=== PATIENT | female | born 1985 | race Caucasian/White ===

== ENCOUNTER 2017-06-23 03:15 | Inpatient (IN) | payer BC, SELFPAY ==
[2017-06-23] MEDS: Lactated Ringers 1,000 ML 50 ML IV ×3 (03:30→06:49)
[2017-06-23 03:45] LABS: Hematocrit 34.7 % (37-47); Hemoglobin 11.1 g/dl (12.0-15.0); Mean Corpuscular Hgb 27.1 pg (27.0-32.0); Mean Corpuscular Volume 84.8 fL (81-99); Platelet Count 217 K/mm3 (150-450); RBC Distribution Width CV 14.1 % (11.6-14.6); Red Blood Count 4.09 M/mm3 (4.2-5.4); White Blood Count 7.8 K/mm3 (4.4-11.0)
[2017-06-23 03:48] LABS: Scan Indicated on CBC? Y/N NO
[2017-06-23 03:50] VITALS: BMI 30.3
--- NOTE | 2017-06-23 04:29 | PCM.HP.OB ---
- Problem List (1) Active labor at term Status: Acute History Date of Admission: 06/23/17 Final BERNIE: 06/23/17 Final BERNIE Source: LMP Gestational age: 40 Weeks and 0 Days History of this : Unremarkable antepartum course. Patient presents to L+D reporting regular ctx q 3-5 minutes apart that started at 0100. Patient denies LOF but reports +bloody show. +FM felt by patient. Pertinent Past Medical History: Noncontributory See [facility] in Chart Allergies No Known Allergies Allergy (Verified 06/23/17 03:50) Current Medications Acetaminophen (Tylenol) 325 - 650 mg PO Q4H PRN PRN PRN Reason: PAIN OR FEVER >100.4F Al Hydroxide/Mg Hydroxide (Mylanta Ii) 15 - 30 ml PO Q4H PRN PRN PRN Reason: INDIGESTION Citric Acid/Sodium Citrate (Bicitra) 30 ml PO UD PRN Lactated Ringer's () 1,000 mls @ 50 mls/hr IV .Q20H [facility] Last Admin: 06/23/17 03:30 Dose: 50 mls/hr Nalbuphine HCl (Nubain) 5 - 10 mg IV Q3H PRN PRN PRN Reason: PAIN (4-10/10) Ondansetron HCl (Zofran) 4 mg IV Q8H PRN PRN PRN Reason: NAUSEA Promethazine HCl (Phenergan Iv) 6.25 - 12.5 mg IV Q4H PRN PRN; Protocol PRN Reason: IF NAUSEA PERSISTS Sodium Chloride () 5 - 15 ml IV UD [facility] Last Admin: 06/23/17 04:09 Dose: Not Given Smoking Status: Never smoker Alcohol: None Drug Use: none Number of Fetus(es): 1 Review of Systems Constitutional: Denies: Chills, Fever, Weight Change HEENT: Denies: Head Aches, Sinus Congestion, Sinus Drainage Cardiovascular: Denies: Chest Pain, Palpitations Respiratory: Denies: Cough, Shortness of breath at rest, Sputum production Gastrointestinal: Denies: Abdominal Pain, Nausea, Vomiting Genitourinary: Denies: Dysuria Gynecological: Denies: Vaginal bleeding, Vaginal discharge Musculoskeletal: Denies: Joint Pain, Joint Tenderness Skin: Denies: Rash, Wounds Neurological: Denies: Numbness, Tingling, Focal weakness Psychiatric: Denies: Anxiety, Depression, Homicidal Ideations, Suicidal Ideations Hematologic/ Lymphatic: Denies: Easy Bruising, Easy Bleeding Physical Exam Vitals: See Nursing Note for Vital Signs - patient normotensive and afebrile FHT baseline 130, moderate variability, + accels, no decels Ctx q 2-5 minutes, palpate moderate strong General: Alert, Oriented x3, No apparent distress Cardiovascular: Regular rate, Regular Rhythm Lungs: Normal air movement Abdomen: Non Tender, Gravid, Appropriate for Gestational Age Extremities:: No edema Estimated gestational size: Appropriate for gestational size Presentation: Cephalic Cervix Dilation (cm): 3.5 Station: -2 Effacement (%): 70 Assessment/Plan Active and Suspected Problems Active labor at term (Acute) A: 32 y/o @ 40 weeks, Active Labor P: 1) Admit patient for labor 2) Patient desires epidural - IV start and fluid bolus administered per protocol. T+S, CBC drawn. 3) Encourage position changes and PO hydration 4) Expectant Management 5) Anticipate Basia Gordon CNM
--- NOTE | 2017-06-23 04:39 | HP.PCM_ITS ---
- Problem List (1) Active labor at term Status: Acute History Date of Admission: 06/23/17 Final BERNIE: 06/23/17 Final BERNIE Source: LMP Gestational age: 40 Weeks and 0 Days History of this : Unremarkable antepartum course. Patient presents to L+D reporting regular ctx q 3-5 minutes apart that started at 0100. Patient denies LOF but reports +bloody show. +FM felt by patient. Pertinent Past Medical History: Noncontributory See [facility] in Chart Allergies No Known Allergies Allergy (Verified 06/23/17 03:50) Current Medications Acetaminophen (Tylenol) 325 - 650 mg PO Q4H PRN PRN PRN Reason: PAIN OR FEVER >100.4F Al Hydroxide/Mg Hydroxide (Mylanta Ii) 15 - 30 ml PO Q4H PRN PRN PRN Reason: INDIGESTION Citric Acid/Sodium Citrate (Bicitra) 30 ml PO UD PRN Lactated Ringer's () 1,000 mls @ 50 mls/hr IV .Q20H [facility] Last Admin: 06/23/17 03:30 Dose: 50 mls/hr Nalbuphine HCl (Nubain) 5 - 10 mg IV Q3H PRN PRN PRN Reason: PAIN (4-10/10) Ondansetron HCl (Zofran) 4 mg IV Q8H PRN PRN PRN Reason: NAUSEA Promethazine HCl (Phenergan Iv) 6.25 - 12.5 mg IV Q4H PRN PRN; Protocol PRN Reason: IF NAUSEA PERSISTS Sodium Chloride () 5 - 15 ml IV UD [facility] Last Admin: 06/23/17 04:09 Dose: Not Given Smoking Status: Never smoker Alcohol: None Drug Use: none Number of Fetus(es): 1 Review of Systems Constitutional: Denies: Chills, Fever, Weight Change HEENT: Denies: Head Aches, Sinus Congestion, Sinus Drainage Cardiovascular: Denies: Chest Pain, Palpitations Respiratory: Denies: Cough, Shortness of breath at rest, Sputum production Gastrointestinal: Denies: Abdominal Pain, Nausea, Vomiting Genitourinary: Denies: Dysuria Gynecological: Denies: Vaginal bleeding, Vaginal discharge Musculoskeletal: Denies: Joint Pain, Joint Tenderness Skin: Denies: Rash, Wounds Neurological: Denies: Numbness, Tingling, Focal weakness Psychiatric: Denies: Anxiety, Depression, Homicidal Ideations, Suicidal Ideations Hematologic/ Lymphatic: Denies: Easy Bruising, Easy Bleeding Physical Exam Vitals: See Nursing Note for Vital Signs - patient normotensive and afebrile FHT baseline 130, moderate variability, + accels, no decels Ctx q 2-5 minutes, palpate moderate strong General: Alert, Oriented x3, No apparent distress Cardiovascular: Regular rate, Regular Rhythm Lungs: Normal air movement Abdomen: Non Tender, Gravid, Appropriate for Gestational Age Extremities:: No edema Estimated gestational size: Appropriate for gestational size Presentation: Cephalic Cervix Dilation (cm): 3.5 Station: -2 Effacement (%): 70 Assessment/Plan Active and Suspected Problems Active labor at term (Acute) A: 32 y/o @ 40 weeks, Active Labor P: 1) Admit patient for labor 2) Patient desires epidural - IV start and fluid bolus administered per protocol. T+S, CBC drawn. 3) Encourage position changes and PO hydration 4) Expectant Management 5) Anticipate Basia Gordon CNM
[2017-06-23] MEDS: fentaNYL-bupivacaine (epidural) 100 ML BAG EPIDURAL (05:11)
--- NOTE | 2017-06-23 06:02 | PCM.PN.BLA ---
Progress Note S: Patient comfortable after epidural received. Decision made to do SVE and offer AROM at this time. O: VSS, Afebrile FHT baseline 125 baseline, moderate variability, + accels, no decels Ctx q 2-4 minutes, palpate moderately strong SVE = 5/90/-1, AROM for scant pink-tinged fluid A: 32 y/o @ 40 weeks, Active Labor, Category I FHT P: 1) Continue present management 2) Anticipate Basia Gordon CNM
[2017-06-23] MEDS: Ondansetron 4 MG/2 ML Vial IV (06:47)
--- NOTE | 2017-06-23 09:13 | PCM.OB.VAG ---
Vaginal Delivery Maternal Presentation: Active Labor Amniotic Membrane Rupture Type: Artificial Final BERNIE: 06/23/17 Gestational age: 40 Weeks and 0 Days Date of Procedure: 06/23/17 Pre-Operative Diagnosis: Labor Post-Operative Diagnosis: Labor Surgery/ Procedure Performed: Spontaneous Vaginal Delivery Type of Anesthesia: Epidural Description of Procedure: Patient c/c/+1 and pushing well. Patient in stirrups, prepped & draped. She delivered head. Gentle traction placed on head to allow delivery of anterior & posterior shoulders. No excess traction placed on head. Body delivered easily & infant placed on maternal abdomen. 3VC clamped & cut in delayed fashion. Placenta delivered with gentle traction. Good uterine tone obtained. Presentation: JANET Placenta Disposition: [facility] Cord Vessel Description: 3 Vessels Cord Entanglement: None Estimated Blood Loss: 350ml (1 minute): 9 (5 minute): 9 Episiotomy Description: None Laceration: 2nd degree - perineal - repaired with 3-0 vicryl Medications given after delivery: IV Pitocin Complications: None
[2017-06-23 17:13] VITALS: BP 122/59; PULSE 80; RESP 16; TEMP 37.2
[2017-06-23 19:50] VITALS: BP 122/66; PULSE 80; RESP 16; TEMP 36.8; O2SAT 100
[2017-06-23] MEDS: Naproxen 250 MG Tablet PO (19:56)
[2017-06-24 00:15] VITALS: BP 103/59; PULSE 71; RESP 16; TEMP 37.1; O2SAT 100
[2017-06-24 04:40] VITALS: BP 110/53; PULSE 70; RESP 16; TEMP 37.3; O2SAT 99
[2017-06-24] MEDS: Naproxen 250 MG Tablet PO (06:20)
[2017-06-24] MEDS: Senna/Docusate Sodium 1 Tablet PO (06:20)
[2017-06-24 08:15] VITALS: BP 99/63; PULSE 71; RESP 16; TEMP 37.1; O2SAT 97
--- NOTE | 2017-06-24 08:51 | PCM.PN.OB ---
Patient Problems: Active and Suspected Problems Active labor at term (Acute) Subjective: Doing well per patient and nursing staff. Ambulating and taking PO without difficulty. Voiding and passing flatus. Denies headache, visual changes, chest pain, shortness of breath, leg pain, or increased vaginal bleeding/clots. without difficulty. Taking Aleve for pain and effective, some abd cramping while . Would like discharged home today. No complaints. - Physical Exam General: Alert, Oriented x3, Cooperative HEENT: Atraumatic, Normocephalic Lungs: Clear to auscultation, Normal air movement, No rhonchi, No wheeze Cardiovascular: Regular rate, Regular Rhythm, No murmurs Abdomen: Bowel Sounds Present, Soft, - - appropriately tender. Fundus firm 2 below U. Extremities: No edema, - - Keshia's negative Psych/Mental Status: Normal Affect, Appropriate Vital Signs Temp Pulse Resp BP Pulse Ox 98.7 F 71 16 99/63 97 06/24/17 08:15 06/24/17 08:15 06/24/17 08:15 06/24/17 08:15 06/24/17 08:15 Oxygen Delivery Method Room Air Weight: 199 lb 8.293 oz Body Mass Index (BMI) 30.3 Intake and Output for Last 24 Hours 06/22/17 06/23/17 06/24/17 23:59 23:59 23:59 Intake Total 2121 / 2121 Output Total 1900 / 1900 Balance 221 / 221 Medical Necessity - Tobacco Use Smoking Status: Never smoker Assessment/Plan Active and Suspected Problems Active labor at term (Acute) A: PPD #1 of viable male 2nd degree perineal laceration P: 1) Discharge and instructions reviewed 2) Follow up in 6 weeks for visit
--- NOTE | 2017-06-24 08:58 | DCINST_ITS ---
Discharge Diet: No Restrictions Discharge Activity: Return to Normal Activity, May not drive while taking narcotic pain medications., May Shower May resume sexual activity in: 4-6 weeks Weight Bearing Status: Weight bearing as tolerated Call your doctor if your incision/area has: Continuous Slow Oozing, Sudden Increased Bleeding, Increased Pain/ Swelling, Increased Redness, Foul Smelling Discharge, Swelling at the incision site Call your doctor if you observe: Fever of 101 or Higher, Coldness, Increased Pain, Numbness or Tingling, Change in Color, Inability to urinate, Inability to have a bowel movement, Using more than one pad per hour, Shortness of breath, Dizziness, Fainting spells, Swelling in the ankles, Chest pain, Prolonged hiccoughing, Increased palpitations (irregular heartbeat), Calf discomfort, Uncontrolled pain Additional Instructions: If you experience any of the following, contact your healthcare provider. * Bleeding that soaks a pad every hour for 2 hours * Fever 100.4 or higher * Unrelieved incision or abdominal pain * Swelling, redness, discharge or bleeding from your incision or episiotomy site * Your incision begins to separate * Problems urinating (including inability to urinate or burning while urinating) . * Visual changes * Severe headache * Flu-like symptoms * Pain or redness in one of both of your breasts * Pain, warmth, tenderness or swelling in your legs, especially the calf area * Frequent nausea and vomiting * Symptoms of depression or anxiety If you experience any of the following, call 911 or go to the nearest Emergency Room. * Chest pain * Problems breathing * Seizure activity * Partial or complete paralysis of a body part, slurred speech, weakness or drooping of the face, or a sudden inability to walk or hold your balance Allergies/Adverse Reactions: Allergies No Known Allergies Allergy (Verified 06/23/17 03:50) Medications to take at Discharge Vits [Prenatabs FA] 1 tablet PO DAILY 06/13/14 Magnesium 200 mg PO DAILY 06/23/17 Please Follow Up With: Laurie Carrillo When: Call to make an appointment with your doctor in 6 weeks. If you had elevated Blood Pressure or 4th degree laceration you will need to be seen in 2 weeks. Primary Care Physician: Christiano Storey [Primary Care Provider] -
[2017-06-24 12:40] VITALS: BP 104/50; PULSE 67; RESP 18; TEMP 36.6; O2SAT 96
== END 2017-06-24 14:15 | disposition home or self-care (01) | DRG 775 ==
LOC: WPOUT 03:19 → WP 03:19
PROVIDERS: Admitting Provider Obstetrics & Gynecology; Family Provider Pediatrics; PCP Pediatrics; Visit Provider Obstetrics & Gynecology
DX: O70.1 Second degree perineal laceration during delivery (principal); Z37.0 Single live birth; Z3A.40 40 weeks gestation of pregnancy
CPT/HCPCS: 59025; 59050; 85027; 86850; 86900; 99218; J7120; G0378; J2405

== ENCOUNTER 2017-06-29 12:12 | Outpatient (CLI) | payer BC, SELFPAY | END 2017-06-29 13:30 | disposition home or self-care (01) | LOC: WPOUT 12:14 → WP 12:14 | PROVIDERS: Family Provider Pediatrics; PCP Pediatrics; Visit Provider Obstetrics & Gynecology | DX: Z39.1 Encounter for care and examination of lactating mother (principal) | CPT/HCPCS: 96152 ==

== ENCOUNTER → 2019-10-12 | Outpatient (CLI) | payer OTHER, SELFPAY ==
[2019-10-12 15:19] VITALS: BMI 30.3
[2019-10-12 19:15] LABS: Amphetamine Urine VISTA NEGATIVE (<1000 ng/mL); Barbiturate Urine VISTA NEGATIVE (< 200 ng/mL); Benzodiazepine Urine VISTA NEGATIVE (< 200 ng/mL); Cocaine Urine VISTA NEGATIVE (< 300 ng/mL); Ecstacy Urine VISTA NEGATIVE (< 500 ng/mL); Methadone Urine VISTA NEGATIVE (< 300 ng/mL); PCP Urine VISTA NEGATIVE (< 25 ng/mL); THC Urine VISTA NEGATIVE (< 50 ng/mL); Vista UDS pH Range 6
[2019-10-12 21:33] LABS: Chlamydia Trachomatis by PCR Negative (Negative); Neisserai gonorrhoeae by PCR Negative (Negative); Probe Check PASS; Sample Adequacy Control PASS; Specimen Processing Control PASS
== END | disposition home or self-care (01) ==
LOC: LABSPEC 17:18
PROVIDERS: Referring Provider Obstetrics & Gynecology; Visit Provider Obstetrics & Gynecology
DX: Z34.90 Encounter for supervision of normal pregnancy, unspecified, unspecified trimester (principal)
CPT/HCPCS: 80307; 87086; 87088; 87491; 87591

== ENCOUNTER → 2019-11-09 | Outpatient (CLI) | payer OTHER, SELFPAY ==
[2019-11-09 13:46] VITALS: BMI 27.6
[2019-11-09 15:18] LABS: Absolute Lymphocyte Count 1.61 X10^3/uL (0.83-4.51); Absolute Neutrophil Count 4.5 X10^3/uL (2.0-7.7); Basophil# 0.02 X10^3/uL; Basophil% 0.3 % (0-1); Eosinophil# 0.09 X10^3/uL; Eosinophils% 1.3 % (0-5); Hematocrit 39.3 % (37-47); Hemoglobin 13.1 g/dL (12.0-15.0); Lymphocyte # 1.61 X10^3/ul (4.0); Lymphocyte % 23.7 % (19-41); Mean Corp Hgb Conc 33.3 g/dL (32-36); Mean Corpuscular Hgb 30.3 pg (27.0-32.0); Mean Platelet Vol. 9.9 fl (6.2-12.0); Monocyte# 0.57 X10^3/uL; Monocyte% 8.4 % (0-10); NRBC Flagged by Analyzer 0 % (0-5); Neutrophil # 4.45 X10^3/uL (2.7-7.7); Neutrophil % 65.7 % (47-70); Platelet Count 270 K/mm3 (150-450); RBC Distribution Width CV 13.1 % (11.6-14.6); RBC Distribution Width SD 43.3 fl (35.1-43.9); Red Blood Count 4.32 M/mm3 (4.2-5.4); White Blood Count 6.8 K/mm3 (4.4-11.0)
[2019-11-09 15:38] LABS: NATERA MAILED SPECIMEN
[2019-11-10 11:01] LABS: HIV - WCH Non-Reactive (Nonreactive); Hepatitis B Surface Antigen Non-Reactive (Nonreactive); Hepatitis C Antibody Non-Reactive (Nonreactive); Rubella IgG 142.3 IU/mL
[2019-11-15 02:15] LABS: Rapid Plasmin Reagin (RPR) NONREACTIVE (NONREACTIVE)
== END | disposition home or self-care (01) ==
PROVIDERS: Referring Provider Obstetrics & Gynecology; Visit Provider Obstetrics & Gynecology
DX: Z34.81 Encounter for supervision of other normal pregnancy, first trimester (principal)
CPT/HCPCS: 85025; 86592; 86703; 86762; 86803; 86850; 86900; 86901; 87340

== ENCOUNTER → 2019-12-07 | Outpatient (CLI) | payer OTHER, SELFPAY ==
[2019-12-07 16:09] VITALS: BMI 30.3
[2019-12-12 16:24] LABS: HPV APTIMA, High Risk Negative (Negative)
== END | disposition home or self-care (01) ==
LOC: LABSPEC 16:27
PROVIDERS: Referring Provider Obstetrics & Gynecology; Visit Provider Obstetrics & Gynecology
DX: O09.90 Supervision of high risk pregnancy, unspecified, unspecified trimester (principal); Z3A.00 Weeks of gestation of pregnancy not specified
CPT/HCPCS: 87086; 87088; 87624; 88175; G0145

== ENCOUNTER → 2020-01-04 | Outpatient (CLI) | payer OTHER, SELFPAY ==
[2019-12-07 16:09] VITALS: BMI 30.3
--- NOTE | 2020-01-04 13:40 | US_ITS ---
STUDY: SECOND AND THIRD TRIMESTER OBSTETRICAL ULTRASOUND REASON FOR EXAM: Female, 34 years old anatomy screening LMP: 08/18/2019 TECHNIQUE: Transabdominal TECHNICAL QUALITY: Adequate. PRIOR ULTRASOUND: None. FINDINGS: There is a single intrauterine fetus. The fetus is in a variable presentation. There is demonstrated cardiac activity with a heart rate of 144 bpm. There is a normal amniotic fluid volume. The largest amniotic fluid pocket measures 5.5 cm. The placenta is anterior in location and is not low lying. There are Grade 0 placental changes. The cervix measures 3.4 cm in length. The adnexal regions are not visualized. BIOMETRY: BPD: 4.8: 20 weeks, 4 days HC: 18.4: 20 weeks, 5 days AC: 15.3: 20 weeks, 3 days FL: 3.4: 20 weeks, 3 days CI: FL/BPD: FL/HC: FL/AC: HC/AC: age by current US: 20 weeks, 3 days. BERNIE by current US: 05/20/2020. Estimated weight: 361 grams, +/- 54 grams, 51 %. age by prior US: weeks, days. BERNIE by prior US: . Age by LMP: 19 weeks, 6 days. BERNIE by LMP: 05/24/2020. ANATOMY: Gender: Male Cranium: Normal lateral ventricles. Normal choroid plexus. Normal cerebellum. Normal cisterna magna. Normal face, nose and lips. Chest: Normal 4-chamber heart. Abdomen/Pelvis: Normal diaphragm. Normal stomach. Normal abdominal wall. Normal cord insertion. Normal 3 vessel cord. Normal kidneys. Normal bladder. Spine: Normal cervical spine. Normal thoracic spine. Normal lumbar spine. Normal sacrum. Extremities: Normal bilateral upper extremities. Normal bilateral lower extremities. US/OB Anatomy Scan IMPRESSION: Single live fetus in a variable presentation. No demonstrated anatomic abnormality. Placenta is grade 0 and is not low-lying. Cervix is closed. age by current US: 20 weeks, 3 days. BERNIE by current US: 05/20/2020. Estimated weight: 361 grams, +/- 54 grams, 51 %. Electronically Signed: Scot Recio MD at 23:58 EDT , Service support ,
== END | disposition home or self-care (01) ==
LOC: US 13:40
PROVIDERS: Referring Provider Obstetrics & Gynecology; Visit Provider Obstetrics & Gynecology
DX: Z34.90 Encounter for supervision of normal pregnancy, unspecified, unspecified trimester (principal)
CPT/HCPCS: 76805

== ENCOUNTER → 2020-02-29 15:06 | Outpatient (CLI) | payer OTHER, SELFPAY ==
[2020-02-01 16:06] VITALS: BMI 30.2
[2020-02-29 15:58] LABS: Absolute Lymphocyte Count 1.62 X10^3/uL (0.83-4.51); Absolute Neutrophil Count 4.9 X10^3/uL (2.0-7.7); Basophil# 0.01 X10^3/uL; Basophil% 0.1 % (0-1); Eosinophil# 0.12 X10^3/uL; Eosinophils% 1.6 % (0-5); Hematocrit 37.1 % (37-47); Hemoglobin 12.2 g/dL (12.0-15.0); Lymphocyte # 1.62 X10^3/ul (4.0); Lymphocyte % 22.1 % (19-41); Mean Corp Hgb Conc 32.9 g/dL (32-36); Mean Corpuscular Hgb 31.6 pg (27.0-32.0); Mean Corpuscular Volume 96.1 fL (81-99); Mean Platelet Vol. 9.9 fl (6.2-12.0); Monocyte# 0.63 X10^3/uL; Monocyte% 8.6 % (0-10); NRBC Flagged by Analyzer 0 % (0-5); Neutrophil % 66.8 % (47-70); Platelet Count 245 K/mm3 (150-450); RBC Distribution Width SD 46.2 fl (35.1-43.9); Red Blood Count 3.86 M/mm3 (4.2-5.4); White Blood Count 7.3 K/mm3 (4.4-11.0)
[2020-02-29 17:02] LABS: Glucose Challenge Gest 1H 50g 77 mg/dL (70-140)
== END ==
PROVIDERS: Visit Provider Obstetrics & Gynecology
DX: O26.892 Other specified pregnancy related conditions, second trimester (principal); N89.8 Other specified noninflammatory disorders of vagina; Z3A.00 Weeks of gestation of pregnancy not specified
CPT/HCPCS: 36415; 82950; 85025; 87070; 87205

== ENCOUNTER → 2020-04-25 14:22 | Outpatient (CLI) | payer OTHER, SELFPAY ==
[2020-04-11 15:47] VITALS: BMI 32.5
--- NOTE | 2020-04-25 14:23 | US_ITS ---
STUDY: SECOND AND THIRD TRIMESTER OBSTETRICAL ULTRASOUND REASON FOR EXAM: Female, 34 years old. Growth. LMP: 08/18/2019. TECHNIQUE: Transabdominal TECHNICAL QUALITY: Adequate. PRIOR ULTRASOUND: 01/04/2020. FINDINGS: There is a single intrauterine fetus. The fetus is in a cephalic presentation. There is demonstrated cardiac activity with a heart rate of 122 bpm. There is a normal amniotic fluid volume. The largest amniotic fluid pocket measures 4.62 cm. The amniotic fluid index (MICHELLE) is 12.28 cm. The placenta is anterior in location and is not low lying. There are Grade 2 placental changes. The cervix measures 4.8 in length. The adnexal regions are not visualized. BIOMETRY: BPD: 9.28 cm: 37 weeks, 5 days HC: 33.39 cm: 38 weeks, 1 days AC: 34.89 cm: 38 weeks, 5 days FL: 1.35 cm: 37 weeks, 4 days CI: 82.93 FL/BPD: 79.23 FL/HC: 22.02 FL/AC: 21.07 HC/AC: 0.98 age by current US: 37 weeks, 5 days. BERNIE by current US: 05/11/2020. Estimated weight: 3499 grams, +/- 525 grams, 97 %. age by prior US: 36 weeks, 3 days. BERNIE by prior US: 05/20/2020. Age by LMP: 35 weeks, 6 days. BERNIE by LMP: 05/24/2020. US/OB Limited With Biometrics IMPRESSION: 1. Live single intrauterine of 37 weeks, 5 days. BERNIE is 05/11/2020. This is 9 days earlier than expected gestational age by prior ultrasound. 2. EFW of 3499 g. 3. MICHELLE of 12.28 cm. 4. Anterior grade 2 placenta. 5. VERTEX presentation. Electronically Signed: Ryan Dunn DO at 16:19 EST Tel [phone], Service support ,
== END ==
PROVIDERS: Referring Provider Obstetrics & Gynecology; Visit Provider Obstetrics & Gynecology
DX: O09.529 Supervision of elderly multigravida, unspecified trimester (principal); O09.90 Supervision of high risk pregnancy, unspecified, unspecified trimester; Z3A.00 Weeks of gestation of pregnancy not specified
CPT/HCPCS: 76816

== ENCOUNTER → 2020-05-02 | Outpatient (CLI) | payer OTHER, SELFPAY ==
[2020-05-02 15:58] VITALS: BMI 32.6
== END | disposition home or self-care (01) ==
LOC: LABSPEC 17:45
PROVIDERS: Visit Provider Obstetrics & Gynecology
DX: Z34.90 Encounter for supervision of normal pregnancy, unspecified, unspecified trimester (principal)
CPT/HCPCS: 87081

== ENCOUNTER 2020-05-26 15:30 | Inpatient (IN) | payer OTHER, SELFPAY ==
[2020-05-26] VITALS (28 sets, daily range): BP systolic 75–120; BP diastolic 42–64; PULSE 65–92; TEMP 36.4–37.2; O2SAT 89–100; BMI 32.6; BMI 32.4
--- NOTE | 2020-05-26 15:32 | HP.PCM_ITS ---
- Problem List (1) 34 weeks gestation of Status: Acute Comment: electronic covid test ordered 04/14/20 (scheduled for 05/16/20 1630) (2) AMA (advanced maternal age) multigravida 35+ Status: Acute Qualifiers: Comment: genetic counseling provided NIPT done. growth us at 36 weeks (3) Anxiety during Status: Acute Comment: counseling encouraged, vistaril PRN (4) Large for gestational age fetus affecting management of mother Status: Acute Qualifiers: Comment: EFW 3500g on 04/25 (5) Oligohydramnios Status: Acute Comment: michelle 2.6 cm on 05/26 recommend IOL now (6) Status: Acute Qualifiers: Comment: NIPT low risk. carrier and ntd declined. NL anatomy (7) Supervision of high-risk Status: Acute Qualifiers: Comment: PRR BERNIE 05/24/20 [facility] Skyler Galvez Fernandez History and Physical Date of Admission: 05/26/20 Intake Vital Signs 05/26/20 Height 5 ft 8 in 05/26/20 Weight: 215 lb 05/26/20 BMI 32.6 05/26/20 BP 104/76 Intake Visit Reasons: OB 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: est ob 40w2d General Cleaner Required: No Is patient in pain?: No Allergies No Known Allergies Allergy (Verified 05/26/20 09:51) Medications hydroxyzine HCl 25 mg tablet 25 mg PO TID-QID PRN #60 tab 10/12/19 [Rx Confirmed 05/26/20] vitamin#30 30 mg iron-10 mg iron-folic acid 1 mg-omg3 capsule cap PO 10/12/19 [History Confirmed 05/26/20] compr.stocking,thigh,reg,small See Rx Instructions .ROUTE .MEDSUPPLY #1 ea 12/31/19 [Rx Confirmed 05/26/20] psyllium husk 0.4 gram capsule 0.4 g PO DAILY 04/11/20 [History Confirmed 05/26/20] Last Menstral Period: 08/18/19 Zika: Zika virus screening: Negative : No PFSH PFSH Medical History Advanced maternal age (AMA) in (Acute) Anxiety (Acute) Supervision of high-risk (Acute) Surgical History S/P wisdom tooth extraction (Resolved) Family History Mother Diabetes Grandmother Diabetes Aunt Endometrial cancer Social History (Updated 05/26/20 @ 10:[address] 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 Date Name GA/Weeks Outcome Route Bth Weight Gen Labor Lgth Anesthesia Del [facility] Provider FOB Unknown -2014 41 live - full term 8lbs 5oz Female epidur al [facility] Dr. Matt Unknown Skyler-2017 40 live - full term 8lbs 15oz Male epidura l [facility] Dr. Carrillo Delivery Date: none Arlene Moore Delivery Date: None Arlene Moore HPI OB: Details: BRAEDEN SUGGS is a 35 year old who presents for ob visit and upon US has oligohydramnios michelle 2.6cm. she has had some decreased movement also. OB Visit BERNIE Calculator Estimated Delivery Date Method Current WG Current Estimate 05/24/20 LMP (Certain) 40w 2d Other Estimates 05/19/20 Ultrasound #1 41w 0d Expected Delivery Route/Plan Labor Preferences- CB/BF classes: no labor support person: Fernandez labor intervention preferences: open to AROM, hopes to avoid pitocin if able, open to PP pitocin, open to eye ointment and vitamin K but wants to delay hep B pain management options preferred: epidural cut cord/dad catch: no : yes PP control planned: vasectomy discussed possible routes of delivery and associated risks: discussed possible delivery modalities and possible indications for each including R/B/A of , VAVD, FAVD, and CS. questions answered. special requests: none Specific Issue/Plans flu vaccine: declines tdap vaccine: declines rhogam: NA LARC form signed: 03/14 movement and labor precautions reviewed. Problem list reviewed and updated with the most current plan of care details and appropriate orders placed. Relevant counseling for the gestational age provided. Continue routine care and follow up unless otherwise noted in visit notes/problem list details Initial Weight: 179 lb Date EGA Weight BP Urine Prot Glucose FHR FuHt Pres Dilation Effaced St Visit Note 10/12/19 7w 6d 179 lb (+0 oz) 132/70 170 SM- CRL- SM- CRL- 1.8cm 11/09/19 11w 6d 181 lb 6 oz (+2 lb 6 oz) 106/60 Negative Negative 160 GP - denies cramping/VB. Decided on NIPT, declined carrier and NT. 12/07/19 15w 6d 185 lb 4 oz (+6 lb 4 oz) 100/60 150 Sm- no vb lof cramping 01/04/20 19w 6d 191 lb 4 oz (+12 lb 4 oz) 106/72 Negative Negative 155 GP - no LOF, VB, ctx. +FM. Anatomy scan done today. Having a boy! Daughter is disappointed not having a little sister. 02/01/20 23w 6d 199 lb 4 oz (+20 lb 4 oz) 100/70 Negative Negative 145 23 GP- no LOF, VB, DFM, ctx. GCT and CBC next visit. 02/29/20 27w 6d 202 lb 6 oz (+23 lb 6 oz) 116/70 Negative Negative 150 27 0 GP - no VB, DFM, ctx. Having increased discharge and was concerned for LOF. Speculum exam negative. Vaginal culture collected. US done - MICHELLE 19 03/14/20 29w 6d 206 lb 6 oz (+27 lb 6 oz) 110/68 Negative Negative 145 30 GP - no LOF, VB, DFM, ctx. LARC form signed. Discussed COVID precautions in labor. 03/26/20 31w 4d 211 lb 8 oz (+32 lb 8 oz) 110/70 Negative Negative 135 31 GP - no LOF, VB, DFM, ctx. Discussed labor preferences and routes of delivery. 04/11/20 33w 6d 214 lb (+35 lb) 116/72 Negative Negative 140 35 SM- no vb lof good fm n oregular ctx discussed tdap and unsure 04/25/20 35w 6d 214 lb (+35 lb) 102/70 Negative Negative 140 37 Cephalic SM- no vb lof good fm nor egular ctx 05/02/20 36w 6d 215 lb (+36 lb) 98/64 Negative Negative 130 Cephalic 1 ` SM- no vb lof good fm no reuglar ctx 05/09/20 37w 6d 218 lb (+39 lb) 114/70 Negative Negative 125 38 Cephalic 1 Sm- no vb lof good fm no regular ctx 05/16/20 38w 6d 215 lb (+36 lb) 108/60 Negative Negative 135 39 Cephalic 1 SM- no vb lof good fm no regular ctx. patient requesting to wait for iOL 05/23/20 39w 6d 217 lb 4 oz (+38 lb 4 oz) 110/70 Negative Negative 120 39 Cephalic 1 50 -2 GP - no LOF, VB, DFM, reg ctx. Cervix 1-2cm. Discussed IOL. Would like to see what her body does over the next few days. MICHELLE 8 with DVP of 2.7. Will come back on Tuesday. 05/26/20 40w 2d 215 lb (+36 lb) 104/76 Negative Negative 135 1 50 SM- no vb lof dec fm irregular ctx. ACOG First Trimester First Trimester: Discussed Diagnostics Diagnostics Diagnostics Glucose 1 Hr 50 gm 77 mg/dL (70-140) 02/29/20 Hgb 12.2 g/dL (12.0-15.0) 02/29/20 Hct 37.1 % (37-47) 02/29/20 Details: HIV: Urine Culture: Sequential Screen: NIPT Screen: ROS Const Reports system reviewed and no additional complaints, except as docu Card Reports system reviewed and no additional complaints, except as docu Resp Reports system reviewed and no additional complaints, except as docu GI Reports system reviewed and no additional complaints, except as docu, Reports nausea Reports system reviewed and no additional complaints, except as docu Musc Reports system reviewed and no additional complaints, except as docu Exam Const General: cooperative, healthy appearing, comfortable, anxious [facility] Head: normal to inspection Nose: external nose normal Face and sinus: normal facial exam Neck Neck: normal visual inspection, full ROM, no lymphadenopathy Thyroid: thyroid normal Chest Chest palpation & inspection: normal inspection of the chest Resp Effort & Inspection: normal respiratory effort GI Inspection: normal to inspection Palpation: soft, other (gravid uterus) Other: vertex and appropriate size for gestational age Other: Cervical Exam: Extrem General: pedal edema Results POC Urinalysis 2 Dip (Clinic) Office Urine Glucose Negative Last Edit by Lexie Roman on 05/26/20 09:5 5 Office Urine Protein Negative Last Edit by Lexie Roman on 05/26/20 09:5 5 Assessment & Plan Problems 1. Large for gestational age fetus affecting management of mother O36.60X0 EFW 3500g on 04/25 2. 34 weeks gestation of Z3A.34 electronic covid test ordered 04/14/20 (scheduled for 05/16/20 1630) 3. Anxiety during O99.340; F41.9 counseling encouraged, vistaril PRN 4. Supervision of high-risk O PRR BERNIE 05/24/20 [facility], Skyler Fernandez 5. Z34.90 NIPT low risk. carrier and ntd declined. NL anatomy 6. AMA (advanced maternal age) multigravida 35+ O09.529 genetic counseling provided NIPT done. growth us at 36 weeks 7. Oligohydramnios O41.00X0 michelle 2.6 cm on 05/26 recommend IOL now Plan Patient presents IOL, plan management for with pitocin/AROM. and fb Pain management: plans epidural. GBS negative. Management of any complications: oligo ama I have reviewed the [facility] and made any clinically relevant updates. Orders Orders: POC Urinalysis 2 Dip (Clinic) Today Coding Level of Care Code OB Routine Diagnoses Large for gestational age fetus affecting management of mother O36.60X0 34 weeks gestation of Z3A.34 Anxiety during O99.340; F41.9 Supervision of high-risk O09.90 Z34.90 AMA (advanced maternal age) multigravida 35+ O09.529 Oligohydramnios O41.00X0
[2020-05-26] MEDS: Lactated Ringers 1,000 ML 500 ML IV (15:50)
[2020-05-26 16:12] LABS: Absolute Lymphocyte Count 1.68 X10^3/uL (0.83-4.51); Absolute Neutrophil Count 4.5 X10^3/uL (2.0-7.7); Basophil# 0.04 X10^3/uL; Basophil% 0.6 % (0-1); Eosinophil# 0.09 X10^3/uL; Eosinophils% 1.3 % (0-5); Hematocrit 39.2 % (37-47); Hemoglobin 14.2 g/dL (12.0-15.0); Lymphocyte # 1.68 X10^3/ul (4.0); Lymphocyte % 23.5 % (19-41); Mean Corp Hgb Conc 36.2 g/dL (32-36); Mean Corpuscular Hgb 35.1 pg (27.0-32.0); Mean Platelet Vol. 10.5 fl (6.2-12.0); Monocyte# 0.71 X10^3/uL; Monocyte% 9.9 % (0-10); NRBC Flagged by Analyzer 0 % (0-5); Neutrophil % 62.7 % (47-70); Platelet Count 173 K/mm3 (150-450); RBC Distribution Width CV 15.4 % (11.6-14.6); RBC Distribution Width SD 48.4 fl (35.1-43.9); Red Blood Count 4.04 M/mm3 (4.2-5.4); White Blood Count 7.2 K/mm3 (4.4-11.0)
[2020-05-26] MEDS: 0.9% Normal Saline Single 100 ML IV.SOLN. INTRA-UTER (16:45)
[2020-05-26] MEDS: Oxytocin 30 units/NS 500 ml 30 UNITS/500 ML IV.SOLN IV (16:49)
[2020-05-26] MEDS: Lactated Ringers 500 ML 999 ML IV ×3 (17:57→20:20)
[2020-05-26] MEDS: fentaNYL-bupivacaine (epidural) 100 ML BAG EPIDURAL ×2 (19:07→23:18)
[2020-05-26] MEDS: Lactated Ringers 1,000 ML 200 ML IV (19:30)
[2020-05-26] MEDS: Ondansetron 4 MG/2 ML Vial IV (23:17)
[2020-05-26] MEDS: 0.9% Saline Lock 10 ML Syringe IV (23:18)
[2020-05-27] VITALS (25 sets, daily range): BP systolic 93–116; BP diastolic 48–58; PULSE 65–88; RESP 16–18; TEMP 36.3–37.2; O2SAT 85–99
[2020-05-27] MEDS: Lactated Ringers 1,000 ML 200 ML IV (01:10)
[2020-05-27] MEDS: Oxytocin 30 units/NS 500 ml 30 UNITS/500 ML IV.SOLN 334 UNITS IV (02:41)
--- NOTE | 2020-05-27 02:53 | OP.PCM_ITS ---
Problem List (1) 34 weeks gestation of Status: Acute Comment: electronic covid test ordered 04/14/20 (scheduled for 05/16/20 1630) (2) AMA (advanced maternal age) multigravida 35+ Status: Acute Qualifiers: Comment: genetic counseling provided NIPT done. growth us at 36 weeks (3) Anxiety during Status: Acute Comment: counseling encouraged, vistaril PRN (4) Large for gestational age fetus affecting management of mother Status: Acute Qualifiers: Comment: EFW 3500g on 04/25 (5) Oligohydramnios Status: Acute Comment: caitlin 2.6 cm on 05/26 recommend IOL now (6) Status: Acute Qualifiers: Comment: NIPT low risk. carrier and ntd declined. NL anatomy (7) Supervision of high-risk Status: Acute Qualifiers: Comment: PRR BERNIE 05/24/20 [facility] Sk[facility] Galvez Fernandez Vaginal Delivery Maternal Presentation: Medically Indicated Induction iol oligo Method of Induction: Pitocin, Saez Bulb Medical Reason for Induction: - - oligo Amniotic Membrane Rupture Type: Artificial Amniotic Fluid Description: Clear Final BERNIE: 05/24/20 Gestational age: 40 Weeks and 3 Days Date of Procedure: 05/27/20 Pre-Operative Diagnosis: iol oligo Post-Operative Diagnosis: same Surgery/ Procedure Performed: Spontaneous Vaginal Delivery Description of Procedure: Patient began pushing and delivered the head in the JANET presentation. The head was delivered atraumatically and a loose nuchal cord x1 was identified and the infant delivered through. The anterior and posterior shoulders delivered without complication followed by the rest of the infant and the infant was placed on the maternal abdomen. Delayed cord clamping was employed for approximately 60 seconds. Cord was clamped and cut and gentle traction was applied to the cord and the placenta delivered spontaneously immediately following it was noted to be intact with three-vessel cord. The perineum and vagina were inspected and noted to have a small first-degree perineal laceration that was repaired in the usual fashion with 3-0 Vicryl repeat. EBL was 100 cc. Patient and tolerated delivery well. Presentation: JANET Placental Delivery Description: Spontaneous Estimated Blood Loss: 100 Infant A gender: Male Episiotomy Description: None Laceration: Perineal Extension/lac, 1st degree Medications given after delivery: IV Pitocin Complications: None Multi Select Codes - Urinary/Genital Urinary/Genital CPT Codes: 41328 Vaginal Delivery [facility]
[2020-05-27] MEDS: 0.9% Saline Lock 10 ML Syringe IV (05:24)
[2020-05-27] MEDS: Naproxen 250 MG Tablet 500 MG PO (14:46)
--- NOTE | 2020-05-27 21:04 | NURSING ---
2058- Pt. and support person educated on circumcision care.
[2020-05-27] MEDS: Acetaminophen 500 MG Tablet 1000 MG PO (22:25)
[2020-05-28 02:28] VITALS: BP 91/46; PULSE 73; RESP 14; TEMP 37.2; O2SAT 95
[2020-05-28 02:29] VITALS: PULSE 72; O2SAT 95
[2020-05-28 02:30] VITALS: BP 91/46; PULSE 73
== END 2020-05-28 03:40 | disposition home or self-care (01) | DRG 807 ==
LOC: WPOUT 15:32 → WP 15:32
PROVIDERS: Admitting Provider Obstetrics & Gynecology; Referring Provider Obstetrics & Gynecology; Visit Provider Obstetrics & Gynecology
DX: O41.03X0 Oligohydramnios, third trimester, not applicable or unspecified (principal); Z37.0 Single live birth; O69.81X0 Labor and delivery complicated by cord around neck, without compression, not applicable or unspecified; O70.0 First degree perineal laceration during delivery; Z3A.40 40 weeks gestation of pregnancy
CPT/HCPCS: 59025; 59050; 85025; 86850; 86900; 86901; 99218; J7120; A4216; G0378; J2405

== ENCOUNTER → 2020-07-11 16:32 | Outpatient (CLI) | payer OTHER, SELFPAY ==
[2020-07-11 14:16] VITALS: BMI 30.3
== END ==
PROVIDERS: Referring Provider Obstetrics & Gynecology; Visit Provider Obstetrics & Gynecology
DX: Z12.4 Encounter for screening for malignant neoplasm of cervix (principal)
CPT/HCPCS: 87624; 88175; G0145

== ENCOUNTER → 2020-10-03 15:38 | Outpatient (CLI) | payer OTHER, SELFPAY ==
[2020-09-15 10:55] VITALS: BMI 29.8
--- NOTE | 2020-10-03 15:51 | MRI_ITS ---
STUDY: MRI BRAIN WITH AND WITHOUT CONTRAST REASON FOR EXAM: Female, 35 years old. Cluster Headaches; Left Pupillary Dilatation TECHNIQUE: Standardized multiplanar fat and water weighted pulse sequences were obtained. IV Yes YES was administered for the contrast portion of the examination. COMPARISON: None. FINDINGS: Normal size of the ventricles and extra-axial spaces for the patient''s age. Normal white matter tracts of the supratentorial brain. Normal bilateral basal ganglia. Normal thalami. There is no extra-axial fluid accumulation. Normal flow voids within the major intracranial circulation suggesting patency by spin echo criteria. Normal venous enhancement. There is no enhancing intra-axial or extra-axial abnormality. Normal sella turcica, pituitary gland, infundibular stalk, optic chiasm and hypothalamus. Normal tectal plate and pineal gland. Normal midbrain, juan and medulla. Normal cerebellum. Normal basal cisterns. Normal bilateral temporal bones. Normal bilateral internal auditory canals. No demonstrated orbital abnormality, within the constraints of a routine brain study. Normal visualized paranasal sinuses. Normal calvarium and skull base. Normal visualized soft tissue structures. Normal visualized upper cervical spine. MRI/Brain W/WO Contrast IMPRESSION: Normal unenhanced and enhanced MRI of the brain. Electronically Signed: Melina Salvador MD at 17:22 EDT Tel , Service support ,
--- NOTE | 2020-10-03 16:56 | US_ITS ---
STUDY: THYROID ULTRASOUND REASON FOR EXAM: Female, 35 years old. low TSH TECHNIQUE: Ultrasound evaluation of the thyroid was performed with real-time and static pierre-scale imaging. COMPARISON: None. FINDINGS: RIGHT LOBE: The right lobe of the thyroid gland measures 4.9 x 1.4 x 1.7 cm. There is a heterogeneous echotexture. There are no demonstrated solid, cystic or complex lesions. LEFT LOBE: The left lobe of the thyroid gland measures 5.1 x 1.6 x 1.5 cm. There is a heterogeneous echotexture. Nodule 1:8 x 7 x 8 mm mixed cystic and solid hypoechoic wider than tall ill-defined marginated nodule with no echogenic foci (TR 3) in the mid left lobe consistent with an adenoma. Nodule 2:8 x 8 x 9 mm mixed cystic and solid hypoechoic wider than tall ill-defined marginated nodule with no echogenic foci (TR 3) in the inferior left lobe consistent with an adenoma. ISTHMUS: The isthmus measures 3 mm thick. . The regional lymph nodes are normal. US/Thyroid IMPRESSION: Thyroiditis with small adenomas. Electronically Signed: Marc Cardona MD at 10:36 EDT Tel , Service support ,
== END ==
PROVIDERS: Referring Provider Psychiatry & Neurology Neurology; Visit Provider Psychiatry & Neurology Neurology
DX: G44.009 Cluster headache syndrome, unspecified, not intractable (principal); H57.04 Mydriasis; E05.90 Thyrotoxicosis, unspecified without thyrotoxic crisis or storm
CPT/HCPCS: 70553; 76536; A9575

== ENCOUNTER → 2020-10-29 09:08 | Outpatient (CLI) | payer OTHER, SELFPAY ==
[2020-10-21 08:22] VITALS: BMI 30.2
[2020-10-29 12:39] LABS: Free T3 1.9 pg/mL (2.18-3.98); T4 Free Direct 0.59 ng/dL (0.76-1.46); Thyroid Stim Hormone (TSH) 3.19 uIU/mL (0.358-3.74)
[2020-10-31 08:08] LABS: Thyroid Stim Immunoglob <0.10 IU/L (0.00-0.55)
[2020-10-31 08:40] LABS: Thyroid Peroxidase AB 9 IU/mL (0-34)
== END ==
PROVIDERS: PCP Internal Medicine; Referring Provider Internal Medicine Endocrinology, Diabetes & Metabolism; Visit Provider Internal Medicine Endocrinology, Diabetes & Metabolism
DX: E05.90 Thyrotoxicosis, unspecified without thyrotoxic crisis or storm (principal)
CPT/HCPCS: 36415; 84439; 84443; 84445; 84481; 86376

== ENCOUNTER → 2021-01-23 13:26 | Outpatient (CLI) | payer OTHER, SELFPAY ==
[2021-01-23 15:49] LABS: Free T3 2.2 pg/mL (2.18-3.98); T4 Free Direct 0.61 ng/dL (0.76-1.46); Thyroid Stim Hormone (TSH) 9.25 uIU/mL (0.358-3.74)
== END ==
PROVIDERS: PCP Internal Medicine; Referring Provider Internal Medicine Endocrinology, Diabetes & Metabolism; Visit Provider Internal Medicine Endocrinology, Diabetes & Metabolism
DX: E05.90 Thyrotoxicosis, unspecified without thyrotoxic crisis or storm (principal)
CPT/HCPCS: 36415; 84439; 84443; 84481

== ENCOUNTER → 2021-02-26 13:19 | Outpatient (CLI) | payer OTHER, SELFPAY ==
[2021-02-26 15:47] LABS: Free T3 2.2 pg/mL (2.18-3.98); T4 Free Direct 0.72 ng/dL (0.76-1.46); Thyroid Stim Hormone (TSH) 7.11 uIU/mL (0.358-3.74)
== END ==
PROVIDERS: PCP Internal Medicine; Referring Provider Internal Medicine Endocrinology, Diabetes & Metabolism; Visit Provider Internal Medicine Endocrinology, Diabetes & Metabolism
DX: E05.90 Thyrotoxicosis, unspecified without thyrotoxic crisis or storm (principal)
CPT/HCPCS: 36415; 84439; 84443; 84481

== ENCOUNTER → 2021-03-05 09:53 | Outpatient (CLI) | payer OTHER, SELFPAY ==
--- NOTE | 2021-03-05 09:55 | US_ITS ---
STUDY: ABDOMINAL ULTRASOUND REASON FOR EXAM: Female, 35 years old. Left upper quadrant pain. TECHNIQUE: Transabdominal ultrasound was performed with real-time and static pierre scale imaging. TECHNICAL QUALITY: Adequate. COMPARISON: None. FINDINGS: Liver: The liver measures 14.8 cm. There is normal echogenicity of the liver. The bile ducts are within normal limits. There is hepatic color flow. The direction of portal flow is hepatopetal. There is no demonstrated mass lesion. Portal vein measurement: Gallbladder: Normal distended gallbladder. The gallbladder wall measures 1.6 mm. There is a negative sonographic Novoa''s sign. There is no pericholecystic fluid. There are no gallstones. Common Bile Duct (C.B.D.): The common bile duct measures 3.8 mm. Pancreas: Normal size of the head, body and tail of the pancreas. There is normal echogenicity of the pancreas. There is no demonstrated pancreatic mass or cyst. Spleen: Normal size of the spleen. The spleen measures 10.5 cm x 4.7 cm x 3.9 cm. Right Kidney: Normal size of the right kidney. The right kidney measures 12.5 cm x 5.5 cm x 3.4 cm. Normal renal cortex. The right cortex measures 1.4 cm. There is no demonstrated renal mass or cyst. There is no right hydronephrosis. Left Kidney: Normal size of the left kidney. The left kidney measures 11.6 x 5.9 cm x 5 cm. Normal renal cortex. The left cortex measures 1.4 cm. There is no demonstrated renal mass or cyst. There is no left hydronephrosis. Aorta: Unremarkable I.V.C.: The IVC is patent. There is no ascites. US/Abdomen Complete IMPRESSION: Normal abdominal ultrasound examination. Electronically Signed: Kwabena Booth MD at 12:35 EST , Service support ,
== END ==
PROVIDERS: PCP Nurse Practitioner Family; Referring Provider Internal Medicine Endocrinology, Diabetes & Metabolism; Visit Provider Internal Medicine Endocrinology, Diabetes & Metabolism
DX: R10.12 Left upper quadrant pain (principal)
CPT/HCPCS: 76700

== ENCOUNTER → 2021-03-26 14:25 | Outpatient (CLI) | payer OTHER, SELFPAY ==
--- NOTE | 2021-03-26 14:26 | BI_ITS ---
MAMMOGRAPHY - BILATERAL DIAGNOSTIC REASON FOR EXAM: Female, 35 years old. left breast pain PERTINENT HISTORY: Non-contributory. TECHNIQUE: Digital examination. Mediolateral oblique (MLO) and craniocaudad (CC) views of both breasts were obtained. CAD: COMPARISON: None. FINDINGS: Breast Composition: There are scattered areas of fibroglandular density. There are no dominant masses or suspicious calcifications. No other significant abnormalities are identified. BI/DIAG MAMM W/CAD, BILAT IMPRESSION: Stable bilateral diagnostic mammogram. ASSESSMENT CATEGORY: BIRADS Category 1: Negative. A letter regarding these results will be sent to the patient by the facility within 30 days. FOLLOW UP RECOMMENDATION: Yearly follow up mammogram recommended. (A) Approximately 10% of breast cancers are not detected by mammography. A normal mammogram should not delay biopsy of a clinically suspicious abnormality. Electronically Signed: Marc Cardona MD at 15:09 EST Tel , Service support ,
== END ==
PROVIDERS: PCP Nurse Practitioner Family; Referring Provider Nurse Practitioner Family; Visit Provider Nurse Practitioner Family
DX: N64.4 Mastodynia (principal)
CPT/HCPCS: 77062; 77066; G0279

== ENCOUNTER 2021-04-17 12:26 | Outpatient (CLI) | payer OTHER, SELFPAY ==
[2021-04-17 15:39] LABS: Free T3 2.1 pg/mL (2.18-3.98); T4 Free Direct 0.84 ng/dL (0.76-1.46); Thyroid Stim Hormone (TSH) 1.89 uIU/mL (0.358-3.74)
== END 2021-04-17 23:59 | disposition short-term general hospital (02) ==
LOC: BIMLAB 12:26
PROVIDERS: PCP Nurse Practitioner Family; Referring Provider Internal Medicine Endocrinology, Diabetes & Metabolism; Visit Provider Internal Medicine Endocrinology, Diabetes & Metabolism
DX: E05.90 Thyrotoxicosis, unspecified without thyrotoxic crisis or storm (principal)
CPT/HCPCS: 36415; 84439; 84443; 84481

== ENCOUNTER 2021-04-20 11:54 | Outpatient (CLI) | payer OTHER, SELFPAY ==
--- NOTE | 2021-04-20 17:37 | STRESSREP ---
Stress Test Report Exercise stress test. 45-year-old lady with a history of chest pain. Medications methimazole and omeprazole. Stress protocol: Resting EKG demonstrates normal sinus rhythm with a rate of 63 bpm normal intervals are noted resting blood pressure is 108/68 mmHg. The patient exercised according to the regular Andrey protocol for total duration of 9 minutes. Patient completed stage III of the Andrey protocol. The maximum heart rate attained was 181 bpm which was 98% of max impact at heart rate. The maximum workload was 10.1 metabolic workload. At rest there were no ST or T wave changes noted suggest ischemia and at peak exercise upsloping ST changes were noted with did not meet any criteria for ischemia. The peak blood pressure was 136/50 mmHg. No chest pain was noted and the test was terminated due to completion of the test protocol. Conclusion: Exercise stress test with no EKG criteria for ischemia at a high workload. No clinical angina noted and no arrhythmias present.
== END 2021-04-20 23:59 | disposition short-term general hospital (02) ==
PROVIDERS: PCP Nurse Practitioner Family; Referring Provider Nurse Practitioner Family; Visit Provider Nurse Practitioner Family
DX: R07.9 Chest pain, unspecified (principal)
CPT/HCPCS: 93017

== ENCOUNTER 2021-05-18 11:32 | Outpatient (CLI) | payer OTHER, SELFPAY ==
[2021-05-18 15:55] LABS: Free T3 2.3 pg/mL (2.18-3.98); Thyroid Stim Hormone (TSH) 3.69 uIU/mL (0.358-3.74)
== END 2021-05-18 23:59 | disposition home or self-care (01) ==
LOC: BIMLAB 11:34
PROVIDERS: PCP Nurse Practitioner Family; Visit Provider Internal Medicine Endocrinology, Diabetes & Metabolism
DX: E05.90 Thyrotoxicosis, unspecified without thyrotoxic crisis or storm (principal)
CPT/HCPCS: 36415; 84439; 84443; 84481

== ENCOUNTER 2021-07-03 15:04 | Outpatient (CLI) | payer OTHER, SELFPAY ==
[2021-07-03 16:58] LABS: Free T3 2.5 pg/mL (2.18-3.98); T4 Free Direct 0.83 ng/dL (0.76-1.46); Thyroid Stim Hormone (TSH) 1.96 uIU/mL (0.358-3.74)
== END 2021-07-03 23:59 | disposition home or self-care (01) ==
LOC: BIMLAB 15:05
PROVIDERS: PCP Nurse Practitioner Family; Referring Provider Nurse Practitioner Family; Visit Provider Nurse Practitioner Family
DX: E05.90 Thyrotoxicosis, unspecified without thyrotoxic crisis or storm (principal)
CPT/HCPCS: 36415; 84439; 84443; 84481

== ENCOUNTER → 2021-12-15 | Outpatient (CLI) | payer OTHER, SELFPAY ==
[2021-12-15 12:56] LABS: Free T3 2.5 pg/mL (2.18-3.98); T4 Free Direct 0.93 ng/dL (0.76-1.46); Thyroid Stim Hormone (TSH) 2.71 uIU/mL (0.358-3.74)
== END | disposition home or self-care (01) ==
LOC: LAB 12:00
PROVIDERS: PCP Nurse Practitioner Family; Referring Provider Nurse Practitioner Family; Visit Provider Nurse Practitioner Family
DX: E05.90 Thyrotoxicosis, unspecified without thyrotoxic crisis or storm (principal)
CPT/HCPCS: 36415; 84439; 84443; 84481

== ENCOUNTER → 2022-05-18 | Outpatient (CLI) | payer OTHER, SELFPAY ==
[2022-05-18 13:09] LABS: Free T3 2.3 pg/mL (2.18-3.98); T4 Free Direct 0.93 ng/dL (0.76-1.46); Thyroid Stim Hormone (TSH) 2.69 uIU/mL (0.358-3.74)
== END | disposition home or self-care (01) ==
LOC: LAB 11:58
PROVIDERS: Referring Provider Internal Medicine Endocrinology, Diabetes & Metabolism; Visit Provider Internal Medicine Endocrinology, Diabetes & Metabolism
DX: E05.90 Thyrotoxicosis, unspecified without thyrotoxic crisis or storm (principal)
CPT/HCPCS: 36415; 84439; 84443; 84481

== ENCOUNTER → 2022-11-16 | Outpatient (CLI) | payer OTHER, SELFPAY ==
[2022-11-16 11:47] LABS: Free T3 2.4 pg/mL (2.18-3.98); T4 Free Direct 0.76 ng/dL (0.76-1.46)
== END | disposition home or self-care (01) ==
PROVIDERS: Referring Provider Internal Medicine Endocrinology, Diabetes & Metabolism; Visit Provider Internal Medicine Endocrinology, Diabetes & Metabolism
DX: E05.90 Thyrotoxicosis, unspecified without thyrotoxic crisis or storm (principal)
CPT/HCPCS: 36415; 84439; 84443; 84481

== ENCOUNTER → 2023-01-13 | Outpatient (CLI) | payer OTHER, SELFPAY ==
[2023-01-13 14:11] LABS: Free T3 2.2 pg/mL (2.18-3.98); T4 Free Direct 0.86 ng/dL (0.76-1.46); Thyroid Stim Hormone (TSH) 2.28 uIU/mL (0.358-3.74)
== END | disposition home or self-care (01) ==
LOC: LAB 13:12
PROVIDERS: Visit Provider Internal Medicine Endocrinology, Diabetes & Metabolism
DX: E05.90 Thyrotoxicosis, unspecified without thyrotoxic crisis or storm (principal)
CPT/HCPCS: 36415; 84439; 84443; 84481

== ENCOUNTER → 2023-05-17 | Outpatient (CLI) | payer OTHER, SELFPAY ==
[2023-05-17 12:31] LABS: Absolute Lymphocyte Count 1.55 X10^3/uL (0.83-4.51); Absolute Neutrophil Count 1.1 X10^3/uL (2.0-7.7); Basophil# 0.01 X10^3/uL; Basophil% 0.3 % (0-1); Eosinophil# 0.04 X10^3/uL; Eosinophils% 1.3 % (0-5); Hematocrit 43.4 % (37-47); Lymphocyte # 1.55 X10^3/ul (0.83-4.51); Lymphocyte % 50.3 % (19-41); Mean Corp Hgb Conc 32.3 g/dL (32-36); Mean Corpuscular Hgb 28.9 pg (27.0-32.0); Mean Corpuscular Volume 89.5 fL (81-99); Mean Platelet Vol. 10.1 fl (6.2-12.0); Monocyte# 0.36 X10^3/uL; Monocyte% 11.7 % (0-10); NRBC Flagged by Analyzer 0 % (0-5); Neutrophil # 1.11 X10^3/uL (2.7-7.7); Neutrophil % 36.1 % (47-70); Platelet Count 206 K/mm3 (150-450); RBC Distribution Width CV 13.2 % (11.6-14.6); RBC Distribution Width SD 43.6 fl (35.1-43.9); Red Blood Count 4.85 M/mm3 (4.2-5.4); White Blood Count 3.1 K/mm3 (4.4-11.0)
--- OUTSIDE RECORDS SUMMARY | 2023-05-17 12:41 | XMS RPT_ITS | CCD ---
Author Name Unknown Address [address] [place] [address] Organization [facility] Care Team Providers Care Prime Minister Name Role Phone NEYHART LEUNG, ELIZA Unavailable Unavail able GAURAV GAN Unavailable Unavailable NEYHART LEUNG, ELIZA Unavailable Unavail able SANTINO CHONG Unavailable Unavailable NEYHART LEUNG, ELIZA Unavailable Unavail able NEYHART LEUNG, ELIZA Unavailable Unavail able NEYHART LEUNG, ELIZA Unavailable Unavail able ELADIA DELAROSA (MACHINE TOOL REBUILDER) Unavailable Unavailable PERALTA, MONICA (CNM) Unavailable Unavailable NEYHART LEUNG, ELIZA Unavailable Unavail able ARMINDA RAMÍREZ Unavailable Unavailable NEYHART LEUNG, ELIZA Unavailable Unavail able PERALTA, MONICA (CNM) Unavailable Unavailable NEYHART LEUNG, ELIZA Unavailable Unavail able PERALTA, MONICA (CNM) Unavailable Unavailable PERALTA, MONICA (CNM) Unavailable Unavailable PERALTA, MONICA (CNM) Unavailable Unavailable KATHY, COREY (CNM) Unavailable Unavailable PERALTA, MONICA (CNM) Unavailable Unavailable KATHY, COREY (CNM) Unavailable Unavailable PERALTA, MONICA (CNM) Unavailable Unavailable NEYHART LEUNG, ELIZA Unavailable Unavail able NEYHART LEUNG, ELIZA Unavailable Unavail able PERALTA, MONICA (CNM) Unavailable Unavailable KATHY, COREY (CNM) Unavailable Unavailable NEYHART LEUNG, ELIZA Unavailable Unavail able PERALTA, MONICA (CNM) Unavailable Unavailable KATHY, COREY (CNM) Unavailable Unavailable NAYAN RUIZ JR Unavailable Unavailable PERALTA, MONICA (CNM) Unavailable Unavailable NAYAN RUIZ JR Unavailable Unavailable Unavailable Primary Care Provider UnavailQUETA Barrios Attending Unavailable Medications Current Medications Medication Drug Class(es) Dates Sig (Normalized) Sig (Original) methIMAzole 5 mg oral tablet (1 source) Thyroid Hormone Synthesis Inhibitor take 1 tablet by mouth three times daily methIMAzole (Tapazole) 5 mg tablet Take 1 tablet (5 mg) by mouth 3 times a day. 0 Active multivitamin tablet (1 source) take 1 tablet by mouth once daily multivitamin tablet Take 1 tablet by mouth once daily. 0 Active Problems Active Problems Problem Classification Problem Date Documented Da te Episodic/Chronic Gastrointestinal hemorrhage (3 sources) Rectal hemorrhage; Translations: [Hemorrhage of anus and rectum] Onset: 02-03-2023 02-03-2023 Episodic Other eye disorders (1 source) Pupillary abnormality, left eye; Translations: [Pupillary abnormality, left eye] Onset: 10-17-2017 Episodic Unclassified (8 sources) 36 weeks gestation of ; Translations: [33 weeks gestation of ] Onset: 12-13-2016 Unclassified (1 source) Unknown / UNK(Unknown) Onset: 11-18-2016 Unclassified (1 source) Encounter for screening, unspecified; Translations: [Encounter for screening, unspecified] Onset: 01-10-2017 Past or Other Problems Problem Classification Problem Date Documented Da te Episodic/Chronic Normal and/or delivery (5 sources) Encounter for supervision of normal first , second trimester; Translations: [Encounter for supervision of other normal , third trimester] Onset: 12-13-2016 Episodic Unclassified (1 source) Encounter for screening of mother; Translations: [Encounter for screening of mother] Onset: 12-13-2016 Episodic Results Test Name Value Interpretation Reference Range Facil ity Vital Signs Date Time Vital Sign Value Performing Clinician Linnea calvin 02-03-2023 09:30-0500 Body height 170.2 cm Queta Mendoza MD Work Phone: [facility] 02-03-2023 09:30-0500 Body mass index (BMI) [Ratio] 28.91 kg/m2 Queta Mendoza MD Work Phone: [facility] 02-03-2023 09:30-0500 Body weight 83.73 kg Queta Mendoza MD Work Phone: [facility] 02-03-2023 09:30-0500 Diastolic blood pressure 74 mm[Hg] Queta Mendoza MD Work Phone: [facility] 02-03-2023 09:30-0500 Heart rate 76 /min Queta Mendoza MD Work Phone: [facility] 02-03-2023 09:30-0500 Systolic blood pressure 118 mm[Hg] Queta Mendoza MD Work Phone: [facility] Encounters Encounter Date Encounter Type Care Provider Facility Start: 02-03-2023 End: 02-03-2023 [facility] Start: 02-03-2023 End: 02-03-2023 Office outpatient new 30 minutes Queta Mendoza MD Work Phone: [facility] Procedures Date Procedure Procedure Detail Performing Clinician Start: 10-07-2020 Thyrotropin [Units/v olume] in Serum or Plasma Queta Mendoza MD Work Phone: Plan of Treatment Date Care Activity Detail Author Start: 2033 Zoster Vaccines (1 o f 2) Zoster Vaccines (1 of 2) [facility] Start: 05-09-2027 DTaP/Tdap/Td Vaccine s (3 - Td or Tdap) DTaP/Tdap/Td Vaccines (3 - Td or Tdap) [facility] Start: 02-03-2023 End: 08-03-2024 Colonoscopy Colonoscopy Diagnostic Endoscopy Routine Blood per rectum Expected: 02/03/2023, Expires: 08/03/2024 [facility] Service Area Work Phone: Immunizations Immunization Date Immunization Notes Care Provider Fa nadiya 05-09-2017 tetanus toxoid, redu davon diphtheria toxoid, and acellular pertussis vaccine, adsorbed Queta Mendoza MD Work Phone: [facility] 03-18-2014 tetanus toxoid, redu davon diphtheria toxoid, and acellular pertussis vaccine, adsorbed Queta Mendoza MD Work Phone: [facility] Work Phone: Payers Date Payer Category Payer Unknown [employer] [id number] 2022-Present [address] [place] [address] [id number] 2022 Unknown [id number] 1985 Unknown [id number] Social History Date Type Detail Facility Start: 02-03-2023 Tobacco smoking stat [facility] Never smoked tobacco [facility] Start: 02-03-2023 Tobacco use and exposure Smokeless tobacco non-user [facility] Work Phone: Start: 02-03-2023 Alcohol intake Ex-drinker (finding) [facility] Work Phone: Start: 02-03-2023 History of Social function [facility] Work Phone: Start: 02-03-2023 Tobacco use panel [facility] Work Phone: Start: 02-03-2023 Alcohol Comment Very rarely [facility] Work Phone: Start: 1985 Sex Assigned At Not on file [facility] Work Phone: Start: 01-24-2023 End: 02-03-2023 Exposure to SARS-CoV-2 (event) Not sure [facility] History of Present illness Narrative 02-03-2023 Queta Mendoza MD - 02/03/2023 9:30 AM EST Note Date & Type Note Facility 02-03-2023 History of Present illness Narrative General Surgery Consultation Patient: Kelly Soni : 1985 Date of Consultation: 02/03/23 Primary Care Provider: No primary care provider on file. Referring Provider: Self referral 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: Hemorrhoids History of Present Illness: Kelly Soni is a 37 y.o. old female seen in self-referral for evaluation of hemorrhoids. She has had issues with hemorrhoids intermittently since the time of her third . Back then, she was having tissue intermittently prolapse and spontaneously reduced from her anus. Over the past 3 weeks, she has noticed an increased size in the perianal tissue, particularly on the right side. This is firm and has purple discoloration. It is sensitive to touch. She has daily bowel movements, usually following her morning cup of coffee. These are soft and do not require straining. She is not on any stool softeners, fiber supplements, or laxatives. She has occasionally seen bright red blood on tissue paper with wiping over the past few years. She has never had a colonoscopy. She has no family history of colon or rectal cancer. Medical History: Past Medical History: Diagnosis Date Hyperthyroidism Thyroid nodule Surgical History: Past Surgical History: Procedure Laterality Date WISDOM TOOTH EXTRACTION Home Medications: Prior to Admission medications Medication Sig Start Date End Date Taking? Authorizing Provider methIMAzole (Tapazole) 5 mg tablet Take 1 tablet (5 mg) by mouth 3 times a day. Historical Provider, multivitamin tablet Take 1 tablet by mouth once daily. Historical Provider, Allergies: No Known Allergies Family History: No family history of colon or rectal cancer. Social History: Non-smoker. Infrequent alcohol use. No drug use. ROS: Constitutional: no fever, sweats, and chills Cardiovascular: No chest pain Respiratory: No cough or shortness of breath Gastrointestinal: + Enlarged perianal tissue with associated discomfort and discoloration. Occasional bright red blood per rectum. Genitourinary: no dysuria Musculoskeletal: no weakness or swelling Integumentary: no rashes Neurological: no confusion Endocrine: no heat or cold intolerance Heme/Lymph: no easy bruising or bleeding Objective: BP 118/74 Pulse 76 Ht 1.702 m (5' 7 ) Wt 83.7 kg (184 lb 9.6 oz) BMI 28.91 kg/m Physical Exam: Constitutional: No acute distress, conversant, pleasant Neurologic: alert and oriented Psych: appropriate affect Ears, Nose, Mouth and Throat: mucus membranes moist Pulmonary: No labored breathing Cardiovascular: Regular rate and rhythm Abdomen: Nondistended, BMI 29, on external perianal examination she has a very small 4 to 5 mm thrombosed hemorrhoid in the right lateral location. She has no other significant external hemorrhoidal disease. No fissures or other perianal abnormalities. This is mildly tender. On digital rectal exam, she has palpable fullness consistent with enlarged internal hemorrhoids but no other masses or abnormalities. Musculoskeletal: Moves all extremities, no edema Skin: No jaundice Labs/Imaging: No pertinent labs or imaging available for review. Assessment and Plan: Kelly Soni is a 37 y.o. old female with a small thrombosed external hemorrhoid. This is very small and too small to justify incision and drainage, particularly since it has already been present for the past 3 weeks. We discussed that the long-term treatment of hemorrhoids is to keep bowel movements soft and regular and avoid straining. She does not really have any issues with this, but was reminded to drink plenty of water throughout the day and can incorporate a stool softener or fiber supplement if she does get constipated. She has seen bright red blood per rectum intermittently and therefore I have recommended diagnostic colonoscopy to assure no alternative source aside from these hemorrhoids. We discussed the risks of this procedure. This included risks of bleeding, perforation, missed polyps, incomplete colonoscopy, and potential need for additional procedures pending findings. She was agreeable to proceed and is scheduled for diagnostic colonoscopy on 03/07/23. After colonoscopy, she will follow-up as needed. Queta Mendoza MD 02/03/2023 documented in this encounter [facility] Work Phone: Evaluation note Note Date & Type Note Facility documented in this encounter [facility] Work Phone: Summary Purpose Family History No Family History Records FoundNo Family History Records FoundNo Family History Records FoundNo Family History Records FoundNo Family History Records Found Advance Directives No Advanced Directives Records FoundNo Advanced Directives Records FoundNo Advanced Directives Records FoundNo Advanced Directives Records FoundNo Advanced Directives Records Found Reason for Referral Specialty Diagnoses / Procedures Referred By Contac t Referred To Contact Gastroenterology Diagnoses Blood per rectum Procedures Colonoscopy Diagnostic RI COLONOSCOPY FLX DX W/COLLJ SPEC WHEN PFRMD RI COLONOSCOPY W/BIOPSY SINGLE/MULTIPLE RI COLSC FLX W/RMVL OF TUMOR POLYP LESION SNARE TQ RI COLSC FLX W/REMOVAL LESION BY HOT BX FORCEPS Queta Mendoza MD [address] [facility] [place] [address] Referral ID Status Reason Start Date Expiration Date V isits Requested Visits Authorized [id number] Pending Review 02/03/2023 02/03/2024 1 1 Additional Source Comments INFORMATION SOURCE (unrecogn ized section and content) DATE CREATED AUTHOR AUTHOR'S ORGANIZ ATION 09/20/2017 [facility] DATE CREATED AUTHOR AUTHOR'S ORGANIZ ATION 10/18/2017 [facility] DATE CREATED AUTHOR AUTHOR'S ORGANIZ ATION 01/12/2021 [facility] DATE CREATED AUTHOR AUTHOR'S ORGANIZ ATION 02/05/2023 [facility] FOR RECORDS PERTAINING TO PATIENTS WHO ARE OR HAVE BEEN ENROLLED IN A CHEMICAL DEPENDENCY/SUBSTANCEABUSE PROGRAM, SOME INFORMATION MAY BE OMITTED. This clinical summary was aggregated from multiple sources. Caution should be exercised in using it in the provision of clinical care. This summary normalizes information from multiple sources, and as a consequence, information in this document may materially change the coding, format and clinical context of patient data. In addition, data may be omitted in some cases. CLINICAL DECISIONS SHOULD BE BASED ON THE PRIMARY CLINICAL RECORDS. [employer] [facility]. provides no warranty or guarantee of the accuracy or completeness of information in this document.
[2023-05-17 12:49] LABS: Vitamin B12 784 pg/mL (211-911)
[2023-05-17 12:55] LABS: Free T3 2.2 pg/mL (2.18-3.98); Thyroid Stim Hormone (TSH) 2.54 uIU/mL (0.358-3.74)
== END | disposition home or self-care (01) ==
PROVIDERS: Referring Provider Internal Medicine Endocrinology, Diabetes & Metabolism; Visit Provider Internal Medicine Endocrinology, Diabetes & Metabolism
DX: E05.90 Thyrotoxicosis, unspecified without thyrotoxic crisis or storm (principal); M79.601 Pain in right arm; M79.602 Pain in left arm; R20.2 Paresthesia of skin
CPT/HCPCS: 36415; 82607; 84439; 84443; 84481; 85025

== ENCOUNTER → 2023-06-15 | Outpatient (CLI) | payer OTHER, SELFPAY ==
[2023-06-15 14:03] LABS: Free T3 2.4 pg/mL (2.18-3.98); T4 Free Direct 0.85 ng/dL (0.76-1.46); Thyroid Stim Hormone (TSH) 2.02 uIU/mL (0.358-3.74)
== END | disposition home or self-care (01) ==
LOC: LAB 12:09
PROVIDERS: Referring Provider Internal Medicine Endocrinology, Diabetes & Metabolism; Visit Provider Internal Medicine Endocrinology, Diabetes & Metabolism
DX: E05.90 Thyrotoxicosis, unspecified without thyrotoxic crisis or storm (principal)
CPT/HCPCS: 36415; 84439; 84443; 84481

== ENCOUNTER → 2023-08-19 | Outpatient (CLI) | payer OTHER, SELFPAY ==
[2023-08-19 13:24] LABS: Free T3 2.1 pg/mL (2.18-3.98); T4 Free Direct 0.81 ng/dL (0.76-1.46); Thyroid Stim Hormone (TSH) 2.81 uIU/mL (0.358-3.74)
== END | disposition home or self-care (01) ==
LOC: LAB 11:31
PROVIDERS: Referring Provider Internal Medicine Endocrinology, Diabetes & Metabolism; Visit Provider Internal Medicine Endocrinology, Diabetes & Metabolism
DX: E05.90 Thyrotoxicosis, unspecified without thyrotoxic crisis or storm (principal)
CPT/HCPCS: 36415; 84439; 84443; 84481

== ENCOUNTER → 2023-10-31 | Outpatient (CLI) | payer OTHER, SELFPAY ==
--- NOTE | 2023-10-31 14:32 | BI_ITS ---
MAMMOGRAPHY - BILATERAL DIAGNOSTIC REASON FOR EXAM: Female, 38 years old. Left breast/left axillary pain. PERTINENT HISTORY: Aunt with breast cancer. TECHNIQUE: Digital bilateral breast kimber (3D mammographic acquisition) in the CC and MLO projections. 2-D mediolateral oblique (MLO) and craniocaudad (CC) views of both breasts were obtained. CAD: Full Field Digital Mammography with Computer Added Detection was performed. COMPARISON: Comparison is made with prior examination dated March 26, 2021. FINDINGS: Breast Composition: The breasts are heterogeneously dense, which may obscure small masses. There are no dominant masses or suspicious calcifications. No other significant abnormalities are identified. There has been no significant change since the prior study. BI/DIAG MAMM W/CAD, BILAT IMPRESSION: Stable bilateral diagnostic mammogram. With the patient''s history of left axillary pain, correlation with ultrasound recommended. ASSESSMENT CATEGORY: BIRADS Category 0: Incomplete. Need additional imaging evaluation. A letter regarding these results will be sent to the patient by the facility within 30 days. Approximately 10% of breast cancers are not detected by mammography. A normal mammogram should not delay biopsy of a clinically suspicious abnormality. Electronically Signed: Kwabena Booth MD at 15:42 EDT ,
--- NOTE | 2023-10-31 14:32 | US_ITS ---
STUDY: ULTRASOUND BREAST - LEFT REASON FOR EXAM: Female, 38 years old. Left axillary/left breast pain. TECHNIQUE: Axial and longitudinal images of the LEFT breast were performed with a high resolution ultrasound transducer. # OF IMAGES: 38 COMPARISON: Comparison is made with prior mammogram done earlier today. FINDINGS: LEFT Breast: The upper outer quadrant of the left breast as well as the left axillary region were examined with ultrasound. There is evidence of 2 adjacent axillary lymph nodes in the axilla. The larger measures 2.3 cm x 1.3 cm x 0.7 cm. This appears to be benign in nature with a fatty hilum. US/Breast Limited Unilateral IMPRESSION: 2 benign-appearing lymph nodes are seen in the axilla. ASSESSMENT CATEGORY: BIRADS Category 2: Benign. A letter regarding these results will be sent to the patient by the facility within 30 days. Electronically Signed: Kwabena Booth MD at 9:27 EDT ,
== END | disposition home or self-care (01) ==
LOC: OPBI 14:31
PROVIDERS: Referring Provider Nurse Practitioner Family; Visit Provider Nurse Practitioner Family
DX: N64.4 Mastodynia (principal)
CPT/HCPCS: 76642; 77062; 77066; G0279

== ENCOUNTER → 2023-11-15 | Outpatient (CLI) | payer OTHER, SELFPAY ==
[2023-11-15 13:14] LABS: Free T3 2.7 pg/mL (2.18-3.98); T4 Free Direct 0.86 ng/dL (0.76-1.46)
== END | disposition home or self-care (01) ==
LOC: LAB 11:34
PROVIDERS: Referring Provider Internal Medicine Endocrinology, Diabetes & Metabolism; Visit Provider Internal Medicine Endocrinology, Diabetes & Metabolism
DX: E05.00 Thyrotoxicosis with diffuse goiter without thyrotoxic crisis or storm (principal)
CPT/HCPCS: 36415; 84439; 84443; 84481

== ENCOUNTER → 2024-02-17 | Outpatient (CLI) | payer OTHER, SELFPAY ==
[2024-02-17 15:16] LABS: Free T3 2.7 pg/mL (2.18-3.98); T4 Free Direct 0.78 ng/dL (0.76-1.46)
== END | disposition home or self-care (01) ==
LOC: LAB 13:44
PROVIDERS: PCP Physician Assistant; Referring Provider Internal Medicine Endocrinology, Diabetes & Metabolism; Visit Provider Internal Medicine Endocrinology, Diabetes & Metabolism
DX: E06.3 Autoimmune thyroiditis (principal)
CPT/HCPCS: 36415; 84439; 84443; 84481

== ENCOUNTER → 2024-05-16 | Outpatient (CLI) | payer OTHER, SELFPAY ==
--- NOTE | 2024-05-16 17:22 | CT_ITS ---
PROCEDURE: ABDOMEN/PELVIS WITH CONTRAST TECHNIQUE: Abdomen and pelvis CT with intravenous contrast. Oral contrast was also used. IV CONTRAST: 100 cc of Isovue 300. COMPARISON: Abdominal pain. FINDINGS: Lung bases: Clear Liver: Unremarkable. Gallbladder: Unremarkable. Spleen: Unremarkable. Pancreas: Unremarkable. Adrenals: Unremarkable. Kidneys: Unremarkable. Bladder: Unremarkable. Reproductive Organs: Unremarkable. Bowel: Unremarkable. Appendix: Normal. Lymph nodes: No suspicious lymph node enlargement. Vasculature: Major vascular structures are unremarkable. Peritoneum / Retroperitoneum: No ascites. No free air. Bones: Unremarkable. CT/Abdomen/Pelvis WITH Contrast IMPRESSION: NO ACUTE FINDINGS AT THE ABDOMEN OR PELVIS ON CONTRAST-ENHANCED CT. One or more dose reduction techniques were used (e.g., Automated exposure contr ol, adjustment of the mA and/or kV according to patient size, use of iterative reconstruction technique). Reading Location: [id number]
== END | disposition home or self-care (01) ==
LOC: CT 17:02
PROVIDERS: PCP Physician Assistant; Referring Provider Physician Assistant; Visit Provider Physician Assistant
DX: R10.9 Unspecified abdominal pain (principal)
CPT/HCPCS: 74177; Q9967; A4216

== ENCOUNTER → 2024-11-03 | Outpatient (CLI) | payer OTHER, SELFPAY ==
--- OUTSIDE RECORDS SUMMARY | 2024-11-03 11:24 | XMS RPT_ITS | CCD ---
Author Organization [facility] Care Team Providers Care Jigger Machine Operator Name Role Phone NEYHART LEUNG, DEENA Unavailable Unavail able SIMONE GAN Unavailable Unavailable NEYHART LEUNG, DEENA Unavailable Unavail able SANTINO CHONG Unavailable Unavailable NEYHART LEUNG, DEENA Unavailable Unavail able NEYHART LEUNG, DEENA Unavailable Unavail able NEYHART LEUNG, DEENA Unavailable Unavail able ELADIA DELAROSA (TELEPHONE TECHNICIAN) Unavailable Unavailable ARANGO, ZUNILDA (CNM) Unavailable Unavailable NEYHART LEUNG, DEENA Unavailable Unavail able ARMINDA RAMÍREZ Unavailable Unavailable NEYHART LEUNG, DEENA Unavailable Unavail able ARANGO, ZUNILDA (CNM) Unavailable Unavailable NEYHART LEUNG, DEENA Unavailable Unavail able ARANGO, ZUNILDA (CNM) Unavailable Unavailable ARANGO, ZUNILDA (CNM) Unavailable Unavailable ARANGO, ZUNILDA (CNM) Unavailable Unavailable KATHY, COREY (CNM) Unavailable Unavailable ARANGO, ZUNILDA (CNM) Unavailable Unavailable KATHY, COREY (CNM) Unavailable Unavailable ARANGO, ZUNILDA (CNM) Unavailable Unavailable NEYHART LEUNG, DEENA Unavailable Unavail able NEYHART LEUNG, DEENA Unavailable Unavail able ARANGO, ZUNILDA (CNM) Unavailable Unavailable KATHY, COREY (CNM) Unavailable Unavailable NEYHART LEUNG, DEENA Unavailable Unavail able ARANGO, ZUNILDA (CNM) Unavailable Unavailable KATHY, COREY (CNM) Unavailable Unavailable YOAN MASON JR Unavailable Unavailable KATHRYN, ZUNILDA (CNM) Unavailable Unavailable YOAN MASON JR Unavailable Unavailable Dr. Cait Ontiveros Referring Provider [phone] Vanessa PAYROLL TAX ANALYST, PAYROLL TAX ANALYST-C Lee Primary Care Provider Vanessa PAYROLL TAX ANALYST, PAYROLL TAX ANALYST-C Lee Attending Provider [phone] Vanessa PAYROLL TAX ANALYST, PAYROLL TAX ANALYST-C Lee Referring Provider [phone] Vanessa PAYROLL TAX ANALYST, PAYROLL TAX ANALYST-C Lee Other Provider Dr. Sloan Eden Attending Provider Dr. Cait Ontiveros Attending Provider [phone] Dr. Marco Antonio Bermudez Attending Provider [phone] Vanessa PAYROLL TAX ANALYST, PAYROLL TAX ANALYST-C Lee Primary Care Provider Vanessa PAYROLL TAX ANALYST, PAYROLL TAX ANALYST-C Lee Referring Provider [phone] Dr. Marco Antonio Bermudez Attending Provider Vanessa PAYROLL TAX ANALYST, PAYROLL TAX ANALYST-C Lee Primary Care Provider Vanessa PAYROLL TAX ANALYST, PAYROLL TAX ANALYST-C Lee Referring Provider [phone] Dr. Marco Antonio Bermudez Attending Provider Vanessa PAYROLL TAX ANALYST, PAYROLL TAX ANALYST-C Lee Referring Provider [phone] Dr. Marco Antonio Bermudez Attending Provider [phone] Care Physician, No Primary Primary Care Provider Unavailable Unavailable Primary Care Provider Unavailabl e Care Physician, No Primary Primary Care Provider Unavailable Care Physician, No Primary Referring Provider Un available Dr. Marco Antonio Bermudez Attending Provider Care Physician, No Primary Primary Care Provider Unavailable Care Physician, No Primary Referring Provider Un available Dr. Marco Antonio Bermudez Attending Provider Generic Provider MD, No Assigned Pcp Primary Car e Provider Unavailable BHAVIN BARRERA Attending Unavailable GENERIC PROVIDER, NO ASSIGNED PCP Primary Care Unavailable Arturo Aponte Primary Care Unavailable Marco Antonio Bermudez Referring Unavailable Marco Antonio Bermudez Attending Unavailable Marco Antonio Bermudez Attending Unavailable Marco Antonio Bermudez Referring Unavailable Care Physician, No Primary Primary Care Unava ilable Marco Antonio Bermudez Attending Unavailable Marco Antonio Bermudez Referring Unavailable Care Physician, No Primary Primary Care Unava ilable Casper COELHO, Arturo Primary Care Unavailable Arutro Aponte Attending Unavailable Arturo Aponte Referring Unavailable Ebonie Finnegan Attending Unavailable Ebonie Finnegan Referring Unavailable Care Physician, No Primary Primary Care Unava ilable Care Physician, No Primary Referring Unava ilable Care Physician, No Primary Primary Care Unava ilable Marco Antonio Bermudez Attending Unavailable Arturo Aponte Attending Unavailable aCit Ontiveros Primary Care Unavailable Care Physician, No Primary Referring Unava ilable Care Physician, No Primary Referring Unava ilable Ebonie Finnegan Attending Unavailable Care Physician, No Primary Primary Care Unava ilable Care Physician, No Primary Primary Care Unava ilable Marco Antonio Bermudez Referring Unavailable Marco Antonio Bermudez Attending Unavailable Generic Provider MD, No Assigned Pcp Primary Car e Provider Unavailable Generic Provider MD, No Assigned Pcp Primary Car e Provider Unavailable QUETA MENDOZA Attending Unavailable QUETA MENDOZA Attending Unavailable GENERIC PROVIDER, NO ASSIGNED PCP Primary Care Unavailable Medications Current Medications Medication Drug Class(es) Dates Sig (Normalized) Sig (Original) acetaminophen 325 mg oral tablet (5 sources) Start: 05-17-2023 take 2 tablets by mouth every six hours Acetaminophen (Tylenol) 325 mg tablet Active 650 MG PO EVERY 6 HOURS May 17, 2023 1:00am take 2 tablets by mo uth every six hours as needed acetaminophen (Tylenol) 500 mg tablet Ta ke 2 tablets (1,000 mg) by mouth every 6 hours if needed for mild pain (1 - 3). Active ascorbic acid 1000 mg extended release oral tablet (6 sources) Vitamin C Start: 02-27-2021 take 1000 mg by mouth every twelve hours Ascorbic Acid (Vitamin C) Active 1000 MG PO Q12H February 27, 2021 1:00am famotidine 20 mg oral tablet (3 sources) Histamine-2 Receptor Antagonist famotidine (Pepcid) 20 mg tablet Take 1 tablet (20 mg) by mouth if needed for heartburn. Active 12 hr guaiFENesin 600 mg extended release oral tablet (2 sources) Start: 05-17-2023 take 1 tablet by mouth every twelve hours, then take 1 tablet by mouth every twelve hours Guaifenesin (Mucinex) 600 mg tablet extended release 12hr Active 600 MG PO Q12H May 17, 2023 1:00am ibuprofen 200 mg oral tablet (5 sources) Nonsteroidal Anti-inflammatory Drug Start: 05-17-2023 take 400 mg by mouth every six hours Ibuprofen Active 400 MG PO EVERY 6 HOURS May 17, 2023 1:00am take 2 tablets by mo uth every six hours as needed ibuprofen 200 mg tablet Take 2 tablets (400 mg) by mouth every 6 hours if needed for mild pain (1 - 3). Active melatonin 5 mg oral capsule (6 sources) Start: 02-27-2021 Melatonin Acti ve MG PO February 27, 2021 1:00am Kk-Ew-Zndl-Fa-Ca Carb-Vit K (Women's Multivitamin) 18 mg iron-400 mcg-500 mg tablet (6 sources) Start: 09-15-2020 take 1 tablet by mouth once daily Vb-Gy-Geoe-Fa-Ca Carb-Vit K (Women's Multivitamin) 18 mg iron-400 mcg-500 mg tablet Active 1 TABLET PO DAILY September 15, 2020 10:54am Start: 09-15-2020 End: 11-16-2022 take 1 tablet by mouth once daily Fn-Lq-Orcv-Fa-Ca Carb-Vit K (Women's Multivitamin) 18 mg iron-400 mcg-500 mg tablet Discontinued 1 TABLET PO DAILY September 14, 2020 11:00pm November 16, 2022 10:08am Start: 09-15-2020 End: 11-16-2022 take 1 tablet by mouth once daily Ce-Fy-Jvny-Fa-Ca Carb-Vit K (Women's Multivitamin) 18 mg iron-400 mcg-500 mg tablet Discontinued 1 TABLET PO DAILY September 15, 2020 12:00am November 16, 2022 11:08am Start: 09-15-2020 take 1 tablet by erna once daily Yj-Zj-Iltx-Fa-Ca Carb-Vit K (Women's Multivitamin) 18 mg iron-400 mcg-500 mg tablet Active 1 TABLET PO DAILY September 14, 2020 11:00pm Start: 09-15-2020 take 1 tablet by erna th once daily Rv-Mz-Hiov-Fa-Ca Carb-Vit K (Women's Multivitamin) 18 mg iron-400 mcg-500 mg tablet Active 1 TABLET PO DAILY September 15, 2020 12:00am 5 ml sodium chloride 9 mg/ml injection (1 source) Start: 01-30-2024 3 mL, intraven ous, As needed, line care, Starting on 01/30/24 at 1225 Zinc (6 sources) Start: 02-27-2021 Zinc Active 44 MG PO February 27, 2021 10:43am Start: 02-27-2021 Zinc Active 44 MG PO February 27, 2021 12:00am Start: 02-27-2021 Zinc Active 44 MG PO February 27, 2021 1:00am Completed/Discontinued Medications Medication Drug Class(es) Dates Sig (Normalized) Sig (Original) cholecalciferol 0.1 mg oral tablet (12 sources) Vitamin D Start: 02-27-2021 End: 12-15-2021 take 100 ug by mouth once daily Cholecalciferol (Vitamin D3) Discontinued 100 MCG PO DAILY February 27, 2021 1:00am December 15, 2021 11:41am Start: 12-08-2020 take 125 ug by mouth once daily Cholecalciferol (Vitamin D3) Active 125 MCG PO DAILY December 08, 2020 12:00am Comp.Stocking,Knee,Long,Medi um (6 sources) Start: 12-31-2019 End: 12-31-2019 Comp.Stocking,Knee,Long,Medi um Discontinued 0 .ROUTE .MEDSUPPLY December 31, 2019 12:34pm December 31, 2019 2:48pm 50-70mmhg Start: 12-31-2019 End: 12-31-2019 Comp.Stocking,Knee,Long,Medi um Discontinued 0 .ROUTE .MEDSUPPLY December 30, 2019 11:00pm December 31, 2019 1:48pm 50-70mmhg Start: 12-31-2019 End: 12-31-2019 Comp.Stocking,Knee,Long,Medi um Discontinued 0 .ROUTE .MEDSUPPLY December 31, 2019 12:00am December 31, 2019 2:48pm 50-70mmhg Compr.Stocking,Thigh,Reg,Sma ll (12 sources) Start: 12-31-2019 End: 09-15-2020 Compr.Stocking,Thigh,Reg,Sma ll Discontinued 0 .ROUTE .MEDSUPPLY December 31, 2019 1:53pm September 15, 2020 9:53am As directed Start: 12-31-2019 End: 09-15-2020 Compr.Stocking,Thigh,Reg,Sma ll Discontinued 0 .ROUTE .MEDSUPPLY December 31, 2019 2:53pm September 15, 2020 10:53am As directed Start: 12-31-2019 End: 12-31-2019 Compr.Stocking,Thigh,Reg,Sma ll Discontinued 0 .ROUTE .MEDSUPPLY December 31, 2019 2:50pm December 31, 2019 2:55pm As directed Start: 12-31-2019 End: 12-31-2019 Compr.Stocking,Thigh,Reg,Sma ll Discontinued 0 .ROUTE .MEDSUPPLY December 30, 2019 11:00pm December 31, 2019 1:55pm As directed Start: 12-31-2019 End: 12-31-2019 Compr.Stocking,Thigh,Reg,Sma ll Discontinued 0 .ROUTE .MEDSUPPLY December 31, 2019 12:00am December 31, 2019 2:55pm As directed hydrOXYzine hydrochloride 25 mg oral tablet (6 sources) Antihistamine Start: 10-10-2020 End: 05-18-2022 take 25 mg by mouth at bedtime Hydroxyzine Hcl Discontinued 25 MG PO AT BEDTIME October 10, 2020 12:00am May 18, 2022 12:32pm indomethacin 25 mg oral capsule (6 sources) Nonsteroidal Anti-inflammatory Drug Start: 09-15-2020 End: 11-16-2022 take 25 mg by mouth three times daily at mealtime as needed, then take 25 mg by mouth three times daily as needed Indomethacin Discontinued 25 MG PO .COMPLEX 90 September 15, 2020 12:00am November 16, 2022 11:08am 25 mg PO 3 times daily for one week then 25mg po 3 times daily prn thereafter; administer with food or milk Magnesium (6 sources) Start: 06-23-2017 End: 01-30-2019 take 200 mg by mouth once daily Magnesium Discontinued 200 MG PO DAILY June 23, 2017 3:51am January 30, 2019 3:11pm Start: 06-23-2017 End: 01-30-2019 take 200 mg by mouth once daily Magnesium Discontinued 200 MG PO DAILY June 22, 2017 11:00pm January 30, 2019 2:11pm Start: 06-23-2017 End: 01-30-2019 take 200 mg by mouth once daily Magnesium Discontinued 200 MG PO DAILY June 23, 2017 12:00am January 30, 2019 3:11pm methIMAzole 5 mg oral tablet (20 sources) Thyroid Hormone Synthesis Inhibitor Start: 11-16-2022 End: 06-16-2023 Methimazole Discontinued 2.5 MG PO .3 days per week May 17, 2023 5:28pm June 16, 2023 7:34am Start: 05-18-2022 End: 11-16-2022 Methimazole Discontinued 2.5 MG PO .4 days per week October 28, 2022 3:00pm November 16, 2022 11:09am Start: 02-27-2021 End: 01-30-2024 Methimazole Discontinued 5 M G PO .m-w-f December 15, 2021 2:56pm May 18, 2022 12:36pm Start: 01-26-2021 End: 02-27-2021 take 5 mg by mouth once daily Methimazole Discontinued 5 MG PO DAILY January 26, 2021 7:09am February 27, 2021 11:03am Start: 12-08-2020 End: 01-26-2021 take 10 mg by mouth once daily Methimazole Discontinue d 10 MG PO DAILY December 08, 2020 3:38pm January 26, 2021 7:09am Start: 10-14-2020 End: 12-08-2020 take 20 mg by mouth once daily Methimazole Discontinue d 20 MG PO DAILY 60 October 21, 2020 9:17am December 08, 2020 3:39pm metoprolol tartrate 25 mg oral tablet (6 sources) beta-Adrenergic Geetha Start: 10-21-2020 End: 12-08-2020 take 12.5 mg by mouth twice daily Metoprolol Tartrate Discontinued 12.5 MG PO TWICE A DAY October 21, 2020 12:00am December 08, 2020 3:38pm multivitamin tablet (2 sources) End: 01-30-2024 take 1 tablet by mouth once daily multivitamin tablet Take 1 tablet by mouth once daily. 01/30/2024 Discontinued (Entered in Error) take 1 tablet by mouth once shalonda y multivitamin tablet Take 1 tablet by mouth once daily. 0 Active omeprazole 20 mg delayed release oral capsule (6 sources) Proton Pump Inhibitor Start: 03-13-2021 End: 11-16-2022 take 20 mg by mouth once daily Omeprazole Discontinued 20 MG PO DAILY March 13, 2021 1:00am November 16, 2022 11:08am Vit,Immg96-Wfub-Sh lic (6 sources) Start: 06-13-2014 End: 01-30-2019 take 1 tablet by mouth once daily Vit,Hitg08-Jkng-Rui ic Discontinued 1 TABLET PO DAILY June 13, 2014 1:32am January 30, 2019 3:11pm Start: 06-13-2014 End: 01-30-2019 take 1 tablet by mouth once daily Vit,Ybks59-Suhd-Ohwed Discontinued 1 TABLET PO DAILY June 12, 2014 11:00pm January 30, 2019 2:11pm Start: 06-13-2014 End: 01-30-2019 take 1 tablet by mouth once daily Vit,Mcez39-Izro-Hsebb Discontinued 1 TABLET PO DAILY June 13, 2014 12:00am January 30, 2019 3:11pm vitamin#30 30 mg iron-10 mg iron-folic acid 1 mg-omg3 capsule (6 sources) Start: 10-12-2019 End: 09-15-2020 take 1 capsule by mouth once daily vitamin#30 30 mg iron-10 mg iron-folic acid 1 mg-omg3 capsule Discontinued 1 CAP PO DAILY October 12, 2019 3:10pm September 15, 2020 10:53am Start: 10-12-2019 End: 09-15-2020 take 1 capsule by mouth once daily vitamin#30 30 mg iron-10 mg iron-folic acid 1 mg-omg3 capsule Discontinued 1 CAP PO DAILY October 11, 2019 11:00pm September 15, 2020 9:53am Start: 10-12-2019 End: 09-15-2020 take 1 capsule by mouth once daily vitamin#30 30 mg iron-10 mg iron-folic acid 1 mg-omg3 capsule Discontinued 1 CAP PO DAILY October 12, 2019 12:00am September 15, 2020 10:53am quercetin 100 mg / resveratrol 100 mg oral tablet (6 sources) Start: 02-27-2021 End: 11-16-2022 Resveratrol-Quercetin Discon tinued 0 PO .COMPLEX February 27, 2021 1:00am November 16, 2022 11:09am 600mg 1 tablet PO Problems Active Problems Problem Classification Problem Date Documented Da te Episodic/Chronic Abdominal pain (8 sources) Left upper quadrant pain; Translations: [Left upper quadrant pain] Onset: 05-28-2024 Episodic Anal and rectal conditions (3 sources) Anal fissure; Translations: [Anal fissure, unspecified] Onset: 09-13-2024 09-13-2024 Episodic Anxiety disorders (6 sources) Anxiety; Translations: [Anxiety disorder, unspecified] 10-14-2020 Chronic Gastrointestinal hemorrhage (5 sources) Rectal hemorrhage; Translations: [Hemorrhage of anus and rectum] Onset: 10-11-2024 02-03-2023 Episodic Headache; including migraine (20 sources) Migraine aura without headache ; Translations: [Migraine with aura, not intractable, without status migrainosus] 09-15-2020 Chronic Normal and/or delivery (11 sources) Encounter for supervision of normal first , second trimester; Translations: [Encounter for supervision of other normal , third trimester] Onset: 12-13-2016 07-11-2020 Episodic Other complications of (6 sources) Anxiety in ; Translations: [Other mental disorders complicating , unspecified trimester] 07-11-2020 Episodic Other complications of (6 sources) Multigravida of advanced maternal age; Translations: [Supervision of elderly multigravida, unspecified trimester] 07-11-2020 Episodic Other complications of (6 sources) High risk ; Translations: [Supervision of high risk , unspecified, unspecified trimester] 07-11-2020 Episodic Other complications of (6 sources) Excessive growth affecting management of mother; Translations: [Maternal care for excessive growth, unspecified trimester, not applicable or unspecified] 07-11-2020 Episodic Other eye disorders (1 source) Pupillary abnormality, left eye; Translations: [Pupillary abnormality, left eye] Onset: 10-17-2017 Episodic Other hereditary and degenerative nervous system conditions (6 sources) Essential tremor; Translations: [Essential tremor] 09-15-2020 Chronic Other nervous system disorders (2 sources) Pain in limb - multiple; Translations: [Paresthesia of skin] 05-17-2023 Episodic Other nervous system disorders (2 sources) Paresthesia of skin; Translations: [Disturbance of skin sensation] 05-17-2023 Episodic Polyhydramnios and other problems of amniotic cavity (6 sources) Oligohydramnios; Translations: [Oligohydramnios, unspecified trimester, not applicable or unspecified] 07-11-2020 Episodic Residual codes; unclassified (6 sources) Gestation period, 34 weeks; Translations: [34 weeks gestation of ] 07-11-2020 Episodic Thyroid disorders (20 sources) Hyperthyroidism; Translations: [Thyrotoxicosis, unspecified without thyrotoxic crisis or storm] Onset: 11-29-2023 Chronic Unclassified (8 sources) 36 weeks gestation of ; Translations: [33 weeks gestation of ] Onset: 12-13-2016 Unclassified (1 source) Unknown / UNK(Unknown) Onset: 11-18-2016 Unclassified (1 source) Encounter for screening, unspecified; Translations: [Encounter for screening, unspecified] Onset: 01-10-2017 Past or Other Problems Problem Classification Problem Date Documented Da te Episodic/Chronic Nonmalignant breast conditions (9 sources) Mastodynia; Translations: [Pain of left breast] Onset: 12-05-2023 Episodic Nonspecific chest pain (18 sources) Chest wall pain; Translations: [Other chest pain] Onset: 01-30-2024 Episodic Unclassified (1 source) Encounter for screening of mother; Translations: [Encounter for screening of mother] Onset: 12-13-2016 Episodic Results Test Name Value Interpretation Reference Range Facility Abdomen/Pelvis WITH Contrast on 05-16-2024 Abdomen/Pelvis WITH Contrast [facility] Imaging Services [address] [place] [id number] Abdomen/Pelvis WITH Contrast MR#: [id number] Acct: [id number] Name: KELLY SUGGS Rep #: [id number] : 1985 F 39 From: Kwabena dean MD PCP: MELITON Maya Status: REG CLI Study: Abdomen/Pelvis WITH Contrast Date of Exam: Exam# [id number] Ordering Dr: Arturo Shirley PROCEDURE: ABDOMEN/PELVIS WITH CONTRAST TECHNIQUE: Abdomen and pelvis CT with intravenous contrast. Oral contrast was also used. IV CONTRAST: 100 cc of Isovue 300. COMPARISON: Abdominal pain. FINDINGS: Lung bases: Clear Liver: Unremarkable. Gallbladder: Unremarkable. Spleen: Unremarkable. Pancreas: Unremarkable. Adrenals: Unremarkable. Kidneys: Unremarkable. Bladder: Unremarkable. Reproductive Organs: Unremarkable. Bowel: Unremarkable. Appendix: Normal. Lymph nodes: No suspicious lymph node enlargement. Vasculature: Major vascular structures are unremarkable. Peritoneum / Retroperitoneum: No ascites. No free air. Bones: Unremarkable. CT/Abdomen/Pelvis WITH Contrast IMPRESSION: NO ACUTE FINDINGS AT THE ABDOMEN OR PELVIS ON CONTRAST-ENHANCED CT. One or more dose reduction techniques were used (e.g., Automated exposure control, adjustment of the mA and/or kV according to patient size, use of iterative reconstruction technique). Reading Location: [id number] CC: MELITON Maya Call Center Agent: Signed Normal [facility] Free T3on 02-17-2024 Free T3 [Mass/Vol] 2.7 pg/mL Normal 2.18-3.98 [facility] Comment on above: Performed By: #### L 506.0400, L501.94117, L501.9520 #### [facility] [address] [place], [address] Internal Medicine Office Vis iton 02-17-2024 Internal Medicine Office Visit [facility] [address] [place] [address] [place] [address] OFFICE VISIT Date of Service: 02/17/24 MR#: [id number] Acct: [id number] Name: KELLY SUGGS Rep #: [id number] : 1985 Provider: MELITON Maya Age/Sex: 38/F Location: [facility] Status: Signed Intake Vital Signs 11/15/23 11:02 02/17/24 11:40 Height 5 ft 7.5 in 5 ft 7.5 in Weight: 192 lb 186 lb BMI 29.6 28.7 BP 100/68 112/60 Blood Pressure Location Lt brachial Lt brachial Position Sitting Sitting Respiration 16 Pulse 62 75 Pulse Source Monitor Monitor Temp 97.1 F L Temp Source Temporal Pulse Oximetry (%) 98 97 Oxygen Delivery Method room air room air Intake Visit Reasons: CHEST DISCOMFORT 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: chest discomfort Diamond Saw Operator Required: No Accompanied by: Self Is patient in pain?: Yes Allergies No Known Allergies Allergy (Verified 02/17/24 11:34) Medications ???Medication ???Instructions ???Recorded ???Confirmed ???Type acetaminophen 325 mg tablet 650 mg PO Q6H PRN 05/17/23 02/17/24 History (Tylenol) ibuprofen 200 mg tablet 400 mg PO Q6H PRN 05/17/23 02/17/24 History melatonin 5 mg capsule 5 mg PO DAILY PRN 11/15/23 02/17/24 History meloxicam 15 mg tablet 15 mg PO QDAY #30 tabs 02/17/24 02/17/24 Rx metoprolol tartrate 50 mg tablet 50 mg PO QDAY #1 TAB 02/17/24 02/17/24 Rx PFSH Medical History Autoimmune thyroiditis Paresthesia and pain of both upper extremities Left-sided chest wall pain Breast pain, left LUQ pain Anxiety Thyrotoxicosis Chest pain Frequent headaches Carpal tunnel syndrome Advanced maternal age (AMA) in Supervision of high-risk Anxiety Surgical History S/P wisdom tooth extraction Family History Mother Diabetes Grandmother Diabetes CVA (cerebral vascular accident) Thyroid disorder Heart disease Aunt Endometrial cancer Social History Smoking Status: Never smoker alcohol intake: current alcohol intake frequency: holidays/special occasions only details: substance use type: does not use caffeine: Yes what type of physical activity do you participate in: none, walking, aerobics and weight training seatbelt use: always do you feel safe at home: Yes additional social history: - [employer] 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 She went to the ED due to having some chest / arm / neck pains / discomfort. She states that she was and is having some pains in the chest intermittently and eventually went to the ED where they did do a cardiac work-up to include EKGs. She states that she has noticed pains consistently when she tries to raise / lift the arm. Sometimes she can recreate some pains but other pains they just seem to come and go on their own. Patient had similar episodes 2 year ago and did have cardiac work-up including EKG, ECHO, and stress test. HEr work-up in the ED this time included EKG and labs (troponin) and was negative She denies any significant family history of heart disease She has never been a smoker limited caffeine use occasion / social ETOH use. She does state that she was having some central chest discomfort and thought maybe she was having some reflux symptoms. She states that she had noticed some belching / burping. She has been taking PPI the past 5 days and states that she does feel like her symptoms are maybe a little better. She was having some breast pain on the left side previously and therefore did see and has been seeing her watermelon inspector for this. she had mammogram and ultrasounds back in the summer which were negative Patient also states that she has had some intermittent issues with some low back pains. She states that she has noticed pains / discomforts there for years. She states that pains are worse in the morning / beginning of days and do improve as the day goes on. She does not currently do any regular stretching exercises / routines. She regular icing or heating. She does periodically take NSAIDs with minimal relief. Patient has seen neurology for headaches and some pupillary changes She does admit to have a history of having high anxiety. she states that it was very high for a while which was more related to the thyroid. She does state that the last month or so that she has had several things going on that have caused her to have quite a bit of stress. Patient also has left sided abdominal pains which she states occurs regularly. She points to the entire left side and not really a localized (more content not included)... Normal [facility] T4 Free Directon 02-17-2024 T4 FREE DIRECT 0.78 ng/dL Normal 0.76-1.46 [facility] Comment on above: Performed By: #### L 506.0400, L501.62947, L501.9520 ####[facility] [id number] [place], [address] Thyroid Stim Hormone (TSH)on 02-17-2024 TSH 1.650 uIU/mL Normal 0.358-3.740 [facility] Comment on above: Performed By: #### L 506.0400, L501.51584, L501.9520 ####[facility] [id number] [place], [address] CBC W Auto Differential pane l (Bld)on 01-30-2024 Basophils (Bld) [#/Vol] 0.03 10*3/uL [facility] Basophils/100 WBC (Bld) 0.6 % 0.0 - 2.0 % [facility] Eosinophils (Bld) [#/Vol] 0.03 10*3/uL [facility] Eosinophils/100 WBC (Bld) 0.6 % 0.0 - 6.0 % [facility] Erythrocyte distribution width (RBC) [Ratio] 12.6 % 11.5 - 14.5 % [facility] Hematocrit (Bld) [Volume fraction] 41.1 % 36.0 - 46.0 % [facility] Hemoglobin (Bld) [Mass/Vol] 14 g/dL 12.0 - 16.0 g/dL [facility] Immature granulocytes (Bld) [#/Vol] 0.01 10*3/uL [facility] Immature granulocytes/100 WBC (Bld) 0.2 % 0.0 - 0.9 % [facility] Comment on above: Immature Granulocyte Count (IG) includes promyelocytes, myelocytes and metamyelocytes but does not include bands. Percent differential counts (%) should be interpreted in the context of the absolute cell counts (cells/UL). Lymphocytes (Bld) [#/Vol] 1.55 10*3/uL [facility] Lymphocytes/100 WBC (Bld) 30 % 13.0 - 44.0 % [facility] MCH (RBC) [Entitic mass] 29.7 pg 26.0 - 34.0 pg [facility] MCHC (RBC) [Mass/Vol] 34.1 g/dL 32.0 - 36.0 g/dL [facility] MCV (RBC) [Entitic vol] 87 fL 80 - 100 fL [facility] Monocytes (Bld) [#/Vol] 0.42 10*3/uL [facility] Monocytes/100 WBC (Bld) 8.1 % 2.0 - 10.0 % [facility] Neutrophils (Bld) [#/Vol] 3.12 10*3/uL [facility] Comment on above: Percent differential counts (%) should be interpreted in the context of the absolute cell counts (cells/uL). Neutrophils/100 WBC (Bld) 60.5 % 40.0 - 80.0 % [facility] Nucleated RBC/100 WBC (Bld) [Ratio] 0 % [facility] Platelets (Bld) [#/Vol] 302 10*3/uL [facility] RBC (Bld) [#/Vol] 4.71 10*6/uL [facility] WBC (Bld) [#/Vol] 5.2 10*3/uL [facility] Basophils (Bld) [#/Vol] 0.03 x10*3/uL Normal 0.00-0.10 [facility] Comment on above: Performed By: #### 5 7021-8 #### NATE LIRA ([id number]) [facility] ([facility]) [address] [place] [address] 65819 Basophils/100 WBC (Bld) 0.6 % Normal 0.0-2.0 [facility] Comment on above: Performed By: #### 5 7021-8 #### NATE LIRA ([id number]) [facility] ([facility]) [address] [place] [address] 71005 Eosinophils (Bld) [#/Vol] 0.03 x10*3/uL Normal 0.00-0.70 [facility] Comment on above: Performed By: #### 5 7021-8 #### NATE LIRA ([id number]) [facility] ([facility]) [address] [place] [address] 12495 Eosinophils/100 WBC (Bld) 0.6 % Normal 0.0-6.0 [facility] Comment on above: Performed By: #### 5 7021-8 #### NATE LIRA ([id number]) [facility] ([facility]) [address] [place] [address] Erythrocyte distribution width (RBC) [Ratio] 12.6 % Normal 11.5-14.5 [facility] Comment on above: Performed By: #### 5 7021-8 #### NATE LIRA ([id number]) [facility] ([facility]) [address] [place] [address] Hematocrit (Bld) [Volume fraction] 41.1 % Normal 36.0-46.0 [facility] Comment on above: Performed By: #### 5 7021-8 #### NATE LIRA ([id number]) [facility] ([facility]) [address] [place] [address] Hemoglobin (Bld) [Mass/Vol] 14.0 g/dL Normal 12.0-16.0 [facility] Comment on above: Performed By: #### 5 7021-8 #### NATE LIRA ([id number]) [facility] ([facility]) [address] [place] [address] Immature granulocytes (Bld) [#/Vol] 0.01 x10*3/uL Normal 0.00-0.70 [facility] Comment on above: Performed By: #### 5 7021-8 #### NATE LIRA ([id number]) [facility] ([facility]) [address] [place] [address] Immature granulocytes/100 WBC (Bld) 0.2 % Normal 0.0-0.9 [facility] Comment on above: Result Comment: Catherine ture Granulocyte Count (IG) includes promyelocytes, myelocytes and metamyelocytes but does not include bands. Percent differential counts (%) should be interpreted in the context of the absolute cell counts (cells/UL). Performed By: #### 5 7021-8 #### NATE LIRA ([id number]) [facility] ([facility]) [address] [place] [address] Lymphocytes (Bld) [#/Vol] 1.55 x10*3/uL Normal 1.20-4.80 [facility] Comment on above: Performed By: #### 5 7021-8 #### NATE LIRA ([id number]) [facility] ([facility]) [address] [place] [address] 65399 Lymphocytes/100 WBC (Bld) 30.0 % Normal 13.0-44.0 [facility] Comment on above: Performed By: #### 7021-8 #### NATE LIRA ([id number]) [facility] ([facility]) [address] [place] [address] 80894 MCH (RBC) [Entitic mass] 29.7 pg Normal 26.0-34.0 [facility] Comment on above: Performed By: #### 7021-8 #### NATE LIRA ([id number]) [facility] ([facility]) [address] [place] [address] 13904 MCHC (RBC) [Mass/Vol] 34.1 g/dL Normal 32.0-36.0 [facility] Comment on above: Performed By: #### 7021-8 #### NATE LIRA ([id number]) [facility] ([facility]) [address] [place] [address] 47251 MCV (RBC) [Entitic vol] 87 fL Normal 80-100 [facility] Comment on above: Performed By: #### 7021-8 #### NATE LIRA ([id number]) [facility] ([facility]) [address] [place] [address] 10276 Monocytes (Bld) [#/Vol] 0.42 x10*3/uL Normal 0.10-1.00 [facility] Comment on above: Performed By: #### 7021-8 #### NATE LIRA ([id number]) [facility] ([facility]) [address] [place] [address] 10059 Monocytes/100 WBC (Bld) 8.1 % Normal 2.0-10.0 [facility] Comment on above: Performed By: #### 5 7021-8 #### NATE LIRA ([id number]) [facility] ([facility]) [address] [place] [address] 63395 Neutrophils (Bld) [#/Vol] 3.12 x10*3/uL Normal 1.20-7.70 [facility] Comment on above: Result Comment: Perc ent differential counts (%) should be interpreted in the context of the absolute cell counts (cells/uL). Performed By: #### 5 7021-8 #### NATE LIRA ([id number]) [facility] ([facility]) [address] [place] [address] 38046 Neutrophils/100 WBC (Bld) 60.5 % Normal 40.0-80.0 [facility] Comment on above: Performed By: #### 5 7021-8 #### NATE LIRA ([id number]) [facility] ([facility]) [address] [place] [address] 37324 Nucleated RBC/100 WBC (Bld) [Ratio] 0.0 /100 WBCs Normal 0.0-0.0 [facility] Comment on above: Performed By: #### 5 7021-8 #### NATE LIRA ([id number]) [facility] ([facility]) [address] [place] [address] 00727 Platelets (Bld) [#/Vol] 302 x10*3/uL Normal 150-450 [facility] Comment on above: Performed By: #### 5 7021-8 #### NATE LIRA ([id number]) [facility] ([facility]) [address] [place] [address] 27622 RBC (Bld) [#/Vol] 4.71 x10*6/uL Normal 4.00-5.20 [facility] Comment on above: Performed By: #### 5 7021-8 #### NATE LIRA ([id number]) [facility] ([facility]) [address] [place] [address] 05616 WBC (Bld) [#/Vol] 5.2 x10*3/uL Normal 4.4-11.3 [facility] Comment on above: Performed By: #### 5 7021-8 #### NATE LIRA ([id number]) [facility] ([facility]) [address] [place] [address], [place] [address] Coagulation tissue factor in ducedon 01-30-2024 PT Coag (PPP) [Time] 12.7 s Normal 9.8-12.8 [facility] Comment on above: Performed By: #### 5 902-2 #### SULLIVAN SORAYA ([id number]) [facility] ([facility]) [facility] [place] [id number] Comprehensive metabolic 2000 panelon 01-30-2024 Albumin BCP dye [Mass/Vol] 4.6 g/dL 3.4 - 5.0 g/dL [facility] ALP [Catalytic activity/Vol] 68 U/L 33 - 110 U/L [facility] ALT With P-5'-P [Catalytic activity/Vol] 12 U/L 7 - 45 U/L [facility] Comment on above: Patients treated wit h Sulfasalazine may generate falsely decreased results for ALT. Anion gap [Moles/Vol] 13 mmol/L 10 - 20 mmol/L [facility] AST With P-5'-P [Catalytic activity/Vol] 14 U/L 9 - 39 U/L [facility] Bilirubin [Mass/Vol] 1 mg/dL 0.0 - 1 .2 mg/dL [facility] Calcium [Mass/Vol] 9.4 mg/dL 8.6 - 10. 3 mg/dL [facility] Chloride [Moles/Vol] 104 mmol/L 98 - 10 7 mmol/L [facility] CO2 [Moles/Vol] 25 mmol/L 21 - 32 mmol/L [facility] Creatinine [Mass/Vol] 0.84 mg/dL 0.50 - 1.05 mg/dL [facility] GFR/1.73 sq M.predicted among non-blacks MDRD (S/P/Bld) [Vol rate/Area] 90 mL/min/{1.73_m2} - PINF [facility] Comment on above: Calculations of keshia mated GFR are performed using the 2020 CKD-EPI Study Refit equation without the race variable for the IDMS-Traceable creatinine methods. https://jasn.asnjournals.org/content//ASN.2304706 988 Glucose [Mass/Vol] 95 mg/dL 74 - 99 mg/dL [facility] Interpretation and review of laboratory results Normal [facility] Potassium [Moles/Vol] 3.8 mmol/L 3.5 - 5.3 mmol/L [facility] Protein [Mass/Vol] 7.5 g/dL 6.4 - 8.2 g/dL [facility] Sodium [Moles/Vol] 138 mmol/L 136 - 145 mmol/L [facility] Urea nitrogen [Mass/Vol] 10 mg/dL 6 - 23 mg/dL [facility] Albumin BCP dye [Mass/Vol] 4.6 g/dL Normal 3.4-5.0 [facility] Comment on above: Performed By: #### 2 4323-8 #### NATE LIRA ([id number]) [facility] ([facility]) [address] [place] [address] ALP [Catalytic activity/Vol] 68 U/L Normal 33-110 [facility] Comment on above: Performed By: #### 2 4323-8 #### NATE LIRA ([id number]) [facility] ([facility]) [address] [place] [address] 52099 ALT With P-5'-P [Catalytic activity/Vol] 12 U/L Normal 7-45 [facility] Comment on above: Result Comment: Otny ents treated with Sulfasalazine may generate falsely decreased results for ALT. Performed By: #### 2 4323-8 #### NATE LIRA ([id number]) [facility] ([facility]) [facility] [place] [address] Anion gap [Moles/Vol] 13 mmol/L Normal 10-20 [facility] Comment on above: Performed By: #### 2 4323-8 #### NATE LIRA ([id number]) [facility] ([facility]) [address] [place] [address] 45292 AST With P-5'-P [Catalytic activity/Vol] 14 U/L Normal 9-39 [facility] Comment on above: Performed By: #### 2 4323-8 #### NATE LIRA ([id number]) [facility] ([facility]) [address] [place] [address] Bilirubin [Mass/Vol] 1.0 mg/dL Normal 0.0-1.2 [facility] Comment on above: Performed By: #### 2 4323-8 #### NATE LIRA (90507) [facility] ([facility]) [facility] [place] [address] Calcium [Mass/Vol] 9.4 mg/dL Normal 8.6-10.3 [facility] Comment on above: Performed By: #### 2 4323-8 #### NATE LIRA ([id number]) [facility] ([facility]) [address] [place] [address] 69869 Chloride [Moles/Vol] 104 mmol/L Normal 98-107 [facility] Comment on above: Performed By: #### 2 4323-8 #### NATE LIRA ([id number]) [facility] ([facility]) [address] [place] [address] CO2 [Moles/Vol] 25 mmol/L Normal 21-32 [facility] Comment on above: Performed By: #### 2 4323-8 #### NATE LIRA ([id number]) [facility] ([facility]) [address] [place] [address] Creatinine [Mass/Vol] 0.84 mg/dL Normal 0.50-1.05 [facility] Comment on above: Performed By: #### 2 4323-8 #### NATE LIRA ([id number]) [facility] ([facility]) [facility] [place] [address] Glomerular filtration rate/1.73 sq M.predicted 90 mL/min/1.73m*2 Normal >60 [facility] Comment on above: Result Comment: Calc ulations of estimated GFR are performed using the 2020 CKD-EPI Study Refit equation without the race variable for the IDMS-Traceable creatinine methods. https://jasn.asnjournals.org/content/early/ASN.2388420 988 Performed By: #### 2 4323-8 #### NATE LIRA ([id number]) [facility] ([facility]) [address] [place] [address] 12478 Glucose [Mass/Vol] 95 mg/dL Normal 74-99 [facility] Comment on above: Performed By: #### 2 4323-8 #### NATE LIRA ([id number]) [facility] ([facility]) [address] [place] [address] 88844 Potassium [Moles/Vol] 3.8 mmol/L Normal 3.5-5.3 [facility] Comment on above: Performed By: #### 2 4323-8 #### NATE LIRA ([id number]) [facility] ([facility]) [address] [place] [address] 92722 Protein [Mass/Vol] 7.5 g/dL Normal 6.4-8.2 [facility] Comment on above: Performed By: #### 2 4323-8 #### NATE LIRA ([id number]) [facility] ([facility]) [address] [place] [address] 86890 Sodium [Moles/Vol] 138 mmol/L Normal 136-145 [facility] Comment on above: Performed By: #### 2 4323-8 #### NATE LIRA ([id number]) [facility] ([facility]) [address] [place] [address] 28191 Urea nitrogen [Mass/Vol] 10 mg/dL Normal 6-23 [facility] Comment on above: Performed By: #### 2 4323-8 #### NATE LIRA ([id number]) [facility] ([facility]) [address] [place] [address] 95163 D-Dimer, VTE ExclusionOrdere d By: Ania Mendieta on 01-30-2024 Fibrin D-dimer FEU (PPP) [Mass/Vol] [facility] ECG 12-LEADon 01-30-2024 ECG 12-LEAD Ventricular Rate 73 Atrial Rate 73 P-R Interval 146 QRS Duration 70 Q-T Interval 406 QTC Calculation(Bazett) 447 P Cisco 73 R Cisco 81 T Cisco 68 QRS Count 12 Q Onset 223 P Onset 150 P Offset 197 T Offset 426 QTC Fredericia 433 Diagnosis Normal sinus rhythm with sinus arrhythmia Normal ECG When compared with ECG of 30-JAN-2024 13:45, (unconfirmed) No significant change was found See ED provider note for full interpretation and clinical correlation Confirmed by Chiquita Sanchez ([id number]) on 01/30/2024 5:24:06 PM Normal [facility] ECG 12-LEAD Ventricular Rate 77 Atrial Rate 77 P-R Interval 140 QRS Duration 70 Q-T Interval 390 QTC Calculation(Bazett) 441 P Cisco 68 R Cisco 70 T Cisco 48 QRS Count 13 Q Onset 221 P Onset 151 P Offset 204 T Offset 416 QTC Fredericia 423 Diagnosis Normal sinus rhythm Normal ECG No previous ECGs available See ED provider note for full interpretation and clinical correlation Confirmed by Chiquita Sanchez ([id number]) on 01/30/2024 5:26:19 PM Normal [facility] Fibrin D-dimer FEUon 024 Fibrin D-dimer FEU (PPP) [Mass/Vol] <215 Normal <=500 [facility] Comment on above: Order Comment: The V TE Exclusion D-Dimer assay is reported in ng/mL Fibrinogen Equivalent Units (FEU). Per [employer] consultant's instructions for use, a value of less than 500 ng/mL (FEU) may help to exclude DVT or PE in outpatients when the assay is used with a clinical pretest probability assessment.(AEMR must utilize and document eCalc 'Wells Score Deep Vein Thrombosis Risk' for DVT exclusion only. Emergency Department should utilize Guidelines for Emergency Department Use of the VTE Exclusion D-Dimer and Clinical Pretest probability assessment model for DVT or PE exclusion.) Performed By: #### 4 8065-7 #### SULLIVAN SORAYA ([id number]) [facility] ([facility]) [address] [place] [address] Fibrin D-dimer FEU (PPP) [Ma ss/Vol]Ordered By: Ania Mendieta on 01-30-2024 Interpretation and review of laboratory results Normal [facility] The VTE Exclusion D- Dimer assay is reported in ng/mL Fibrinogen Equivalent Units (FEU). Per [employer] consultant's instructions for use, a value of less than 500 ng/mL (FEU) may help to exclude DVT or PE in outpatients when the assay is used with a clinical pretest probability assessment.(AEMR must utilize and document eCalc 'Wells Score Deep Vein Thrombosis Risk' for DVT exclusion only. Emergency Department should utilize Guidelines for Emergency Department Use of the VTE Exclusion D-Dimer and Clinical Pretest probability assessment model for DVT or PE exclusion.) [facility] No Panel Informationon 01-29 Extra Tube Hold for add-ons. [facility] Comment on above: Auto resulted. [facility] PT Coag (PPP) [Time]on 01-29 INR Coag (PPP) [Relative time] 1.1 {INR} 0.9 - 1.1 [facility] Interpretation and review of laboratory results Normal [facility] INR Coag (PPP) [Relative time] 1.1 Normal 0.9-1.1 [facility] Comment on above: Performed By: #### 5 902-2 #### SULLIVAN SORAYA ([id number]) [facility] ([facility]) [address] [place] [address] Protime-INRon 01-30-2024 PT Coag (PPP) [Time] 12.7 s [facility] Tropinin I.cardiac panel Hig h sensitivity methodon 01-30-2024 Interpretation and review of laboratory results Normal [facility] Less than 99th perce ntile of normal range cutoff- Female and children under 18 years old <14 ng/L; Male <21 ng/L: Negative Repeat testing should be performed if clinically indicated. Female and children under 18 years old 14-50 ng/L; Male 21-50 ng/L: Consistent with possible cardiac damage and possible increased clinical risk. Serial measurements may help to assess extent of myocardial damage. >50 ng/L: Consistent with cardiac damage, increased clinical risk and myocardial infarction. Serial measurements may help assess extent of myocardial damage. NOTE: Children less than 1 year old may have higher baseline troponin levels and results should be interpreted in conjunction with the overall clinical context. NOTE: Troponin I testing is performed using a different testing methodology at [facility] than at other [facility]. Direct result comparisons should only be made within the same method. [facility] Interpretation and review of laboratory results Normal [facility] Less than 99th perce ntile of normal range cutoff- Female and children under 18 years old <14 ng/L; Male <21 ng/L: Negative Repeat testing should be performed if clinically indicated. Female and children under 18 years old 14-50 ng/L; Male 21-50 ng/L: Consistent with possible cardiac damage and possible increased clinical risk. Serial measurements may help to assess extent of myocardial damage. >50 ng/L: Consistent with cardiac damage, increased clinical risk and myocardial infarction. Serial measurements may help assess extent of myocardial damage. NOTE: Children less than 1 year old may have higher baseline troponin levels and results should be interpreted in conjunction with the overall clinical context. NOTE: Troponin I testing is performed using a different testing methodology at [facility] than at other [facility]. Direct result comparisons should only be made within the same method. [facility] Troponin I, High Sensitivity , Initialon 01-30-2024 Tropinin I.cardiac panel High sensitivity method ng/L 0 - 13 ng/L [facility] Troponin I.cardiac panelon 1 03-31-2023 Tropinin I.cardiac panel High sensitivity method <3 Normal 0-13 [facility] Comment on above: Order Comment: Less than 99th percentile of normal range cutoff- Female and children under 18 years old <14 ng/L; Male <21 ng/L: Negative Repeat testing should be performed if clinically indicated. Female and children under 18 years old 14-50 ng/L; Male 21-50 ng/L: Consistent with possible cardiac damage and possible increased clinical risk. Serial measurements may help to assess extent of myocardial damage. >50 ng/L: Consistent with cardiac damage, increased clinical risk and myocardial infarction. Serial measurements may help assess extent of myocardial damage. NOTE: Children less than 1 year old may have higher baseline troponin levels and results should be interpreted in conjunction with the overall clinical context. NOTE: Troponin I testing is performed using a different testing methodology at [facility] than at other [facility]. Direct result comparisons should only be made within the same method. Performed By: #### 8 9577-1 #### NATE LIRA ([id number]) [facility] ([facility]) [address] [place] [address] Tropinin I.cardiac panel High sensitivity method <3 Normal 0-13 [facility] Comment on above: Order Comment: Less than 99th percentile of normal range cutoff- Female and children under 18 years old <14 ng/L; Male <21 ng/L: Negative Repeat testing should be performed if clinically indicated. Female and children under 18 years old 14-50 ng/L; Male 21-50 ng/L: Consistent with possible cardiac damage and possible increased clinical risk. Serial measurements may help to assess extent of myocardial damage. >50 ng/L: Consistent with cardiac damage, increased clinical risk and myocardial infarction. Serial measurements may help assess extent of myocardial damage. NOTE: Children less than 1 year old may have higher baseline troponin levels and results should be interpreted in conjunction with the overall clinical context. NOTE: Troponin I testing is performed using a different testing methodology at [facility] than at other [facility]. Direct result comparisons should only be made within the same method. Performed By: #### 8 9577-1 #### NATE LIRA ([id number]) [facility] ([facility]) [address] [place] [address] Troponin, High Sensitivity, 1 Houron 01-30-2024 Tropinin I.cardiac panel High sensitivity method ng/L 0 - 13 ng/L [facility] XR CHEST 1 VIEWon 01-30-2024 XR CHEST 1 VIEW Interpreted By: Wilmar Hanks, STUDY: XR CHEST 1 VIEW; 01/30/2024 12:55 pm INDICATION: CLINICAL INFORMATION: Signs/Symptoms:Chest Pain. COMPARISON: None ACCESSION NUMBER(S): [id number] ORDERING CLINICIAN: BHAVIN BARRERA TECHNIQUE: Portable chest one view. FINDINGS: The cardiac size is indeterminate in view of the AP projection. There is a questionable nodular infiltrate measuring 11 mm at the right apex. This overlies the anterior end of the right 2nd rib but is also adjacent to a EKG lead and could be artifactual. No alveolar consolidation or effusions are identified. IMPRESSION: Questionable nodule versus infiltrate versus artifact right apex. Follow-up to assure clearing is suggested. MACRO: none Signed by: Wilmar Jones 01/30/2024 1:17 PM Dictation workstation: [id number] Normal [facility] [facility] Single viewon 01-29 Questionable nodule versus infiltrate versus artifact right apex. Follow-up to assure clearing is suggested. MACRO: none Signed by: Wilmar Jones 01/30/2024 1:17 PM Dictation workstation: [id number] [facility] Interpreted By: Wilmar Hanks, STUDY: XR CHEST 1 VIEW; 01/30/2024 12:55 pm INDICATION: CLINICAL INFORMATION: Signs/Symptoms:Chest Pain. COMPARISON: None ACCESSION NUMBER(S): [id number] ORDERING CLINICIAN: BHAVIN BARRERA TECHNIQUE: Portable chest one view. FINDINGS: The cardiac size is indeterminate in view of the AP projection. There is a questionable nodular infiltrate measuring 11 mm at the right apex. This overlies the anterior end of the right 2nd rib but is also adjacent to a EKG lead and could be artifactual. No alveolar consolidation or effusions are identified. [facility] Wilmar Jones MD - 01/30/2024 Interpreted By: Wilmar Jones, STUDY: XR CHEST 1 VIEW; 01/30/2024 12:55 pm INDICATION: CLINICAL INFORMATION: Signs/Symptoms:Chest Pain. COMPARISON: None ACCESSION NUMBER(S): [id number] ORDERING CLINICIAN: BHAVIN BARRERA TECHNIQUE: Portable chest one view. FINDINGS: The cardiac size is indeterminate in view of the AP projection. There is a questionable nodular infiltrate measuring 11 mm at the right apex. This overlies the anterior end of the right 2nd rib but is also adjacent to a EKG lead and could be artifactual. No alveolar consolidation or effusions are identified. IMPRESSION: Questionable nodule versus infiltrate versus artifact right apex. Follow-up to assure clearing is suggested. MACRO: none Signed by: Wilmar Jones 01/30/2024 1:17 PM Dictation workstation: [id number] [facility] Work Phone: Radiology Study observation (narrative) [facility] Work Phone: XR Chest Single viewOrdered By: Wilmar Jones on 01-30-2024 [facility] Work Phone: Endocrinology Visit Reporton 11-15-2023 Endocrinology Visit Report [facility] 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 Accompanied by: Self Is patient in pain?: No Allergies No Known Allergies Allergy (Verified 11/15/23 11:03) Medications ???Medication ???Instructions ???Recorded ???Confirmed ???Type acetaminophen 325 mg tablet 650 mg PO Q6H PRN 05/17/23 11/15/23 History (Tylenol) guaifenesin 600 mg tablet, 600 mg PO Q12H PRN 05/17/23 11/15/23 History extended release 12 hr (Mucinex) ibuprofen 200 mg tablet 400 mg PO Q6H PRN 05/17/23 11/15/23 History ascorbic acid (vitamin C) 1,000 mg 1,000 mg PO Q12H PRN 11/15/23 11/15/23 History tablet,extended release cholecalciferol (vitamin D3) 125 125 mcg PO DAILY PRN 11/15/23 11/15/23 History mcg (5,000 unit) capsule melatonin 5 mg capsule 5 mg PO DAILY PRN 11/15/23 11/15/23 History PFSH Medical History (Updated 11/15/23 @ 13:[address] Marco Antonio Bermudez MD) Autoimmune thyroiditis Paresthesia and pain of both upper extremities Left-sided chest wall pain Breast pain, left LUQ pain Anxiety Thyrotoxicosis Chest pain Frequent headaches Carpal tunnel syndrome Advanced maternal age (AMA) in Supervision of high-risk Anxiety Surgical History S/P wisdom tooth extraction Family History Mother Diabetes Grandmother Diabetes CVA (cerebral vascular accident) Thyroid disorder Heart disease Aunt Endometrial cancer Social History Smoking Status: Never smoker alcohol intake: current alcohol intake frequency: holidays/special occasions only details: substance use type: does not use caffeine: Yes what type of physical activity do you participate in: none, walking, aerobics and weight training seatbelt use: always do you feel safe at home: Yes additional social history: - [employer]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 She has history of hyperthyroidism treated with methimazole. She stopped her methimazole after her last appointment and repeat labs were normal. She is feeling well. She has questions regarding recurrence and other possible AI conditions. She has had premature abdalla hair. She reports good energy, normal menstrual cycle. ROS Const Constitutional: No anorexia, excessive sweating, malaise, night sweats, weight change or change in appetite Eyes Eyes: No change in vision ENT ENT: No hearing loss, nasal congestion or difficulty swallowing Cardio Cardiology: No chest pain at rest, excessive sweating, shortness of breath, dyspnea on exertion, irregular heart rhythm or palpitations Musc Musculoskeletal: No abnormal gait, joint pain, numbness or tingling Neuro Neurology: No abnormal gait, memory loss, numbness or tingling Psych Psychiatric: No change in appetite, No memory loss and No Thoughts of harming yourself/Others Resp Respiratory: No cough, chest congestion or shortness of breath Gastro GI: No abdominal pain, constipation, diarrhea or difficulty swallowing Genitourinary-Female: No burning urination Skin Skin: No hair loss in leg, itchy eyes, rash or skin ulcer Endo Endocrine: No excessive sweating or weight change Aller/Imm Allergy/Immunologic: No itchy eyes Exam Const General: cooperative, healthy appearing, comfortable, no acute distress, well developed and not cushingoid Nutritional Appearance: well nourished Orientation: alert, awake and oriented x3 HENMT Head: normal to inspection Ears: hearing grossly normal bilaterally Nose: external nose normal Mouth: oral mucosae normal Eyes General: appearance normal, both eyes and all related structures Alignment and Position: alignment normal Periorbital: periorbital findings normal Eyelids: eyelids normal Conjunctivae: conjunctivae normal Neck Neck: normal visual inspection Neck mass: No Thyroid: diffusely enlarged (mildly enlarged) Carotids: no bruits Lymp (more content not included)... Normal [facility] Free T3on 11-15-2023 Free T3 [Mass/Vol] 2.7 pg/mL Normal 2.18-3.98 [facility] Comment on above: Performed By: #### L 506.0400, L501.9520, L501.35118 #### [facility] [address] [place], [address] T4 Free Directon 11-15-2023 T4 FREE DIRECT 0.86 ng/dL Normal 0.76-1.46 [facility] Comment on above: Performed By: #### L 506.0400, L501.9520, L501.81020 #### [facility] [address] [place], [address] Thyroid Stim Hormone (TSH)on 11-15-2023 TSH 2.750 uIU/mL Normal 0.358-3.740 [facility] Comment on above: Performed By: #### L 506.0400, L501.9520, L501.58471 #### [facility] [address] [place], [address] Breast Limited Unilateralon 10-31-2023 Breast Limited Unilateral [facility] Services [address] [place] [address] Breast Limited Unilateral MR#: [id number] Acct: [id number] Name: KELLY SUGGS Rep #: [id number] : 1985 F 38 From: Kwabena dean MD PCP: Care Physician,No Primary Status: REG CLI Study: Breast Limited Unilateral Date of Exam: Exam# [id number] Ordering Dr: Ebonie Finnegan [id number] STUDY: ULTRASOUND BREAST - LEFT REASON FOR EXAM: Female, 38 years old. Left axillary/left breast pain. TECHNIQUE: Axial and longitudinal images of the LEFT breast were performed with a high resolution ultrasound transducer. # OF IMAGES: 38 COMPARISON: Comparison is made with prior mammogram done earlier today. FINDINGS: LEFT Breast: The upper outer quadrant of the left breast as well as the left axillary region were examined with ultrasound. There is evidence of 2 adjacent axillary lymph nodes in the axilla. The larger measures 2.3 cm x 1.3 cm x 0.7 cm. This appears to be benign in nature with a fatty hilum. US/Breast Limited Unilateral IMPRESSION: 2 benign-appearing lymph nodes are seen in the axilla. ASSESSMENT CATEGORY: BIRADS Category 2: Benign. A letter regarding these results will be sent to the patient by the facility within 30 days. Electronically Signed: Kwabena Booth MD at 9:27 EDT , CC: YOLI Finnegan; No Primary Care Physician Call Center Agent: Signed Normal [facility] DIAG MAMM W/CAD, BILAToayse DIAG MAMM W/CAD, 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 Left breast/left axillary pain. PERTINENT HISTORY: Aunt with breast cancer. TECHNIQUE: Digital bilateral breast kimber (3D mammographic acquisition) in the CC and MLO projections. 2-D mediolateral oblique (MLO) and craniocaudad (CC) views of both breasts were obtained. CAD: Full Field Digital Mammography with Computer Added Detection was performed. COMPARISON: Comparison is made with prior examination dated March 26, 2021. FINDINGS: Breast Composition: The breasts are heterogeneously dense, which may obscure small masses. There are no dominant masses or suspicious calcifications. No other significant abnormalities are identified. There has been no significant change since the prior study. BI/DIAG MAMM W/CAD, BILAT IMPRESSION: Stable bilateral diagnostic mammogram. With the patient''s history of left axillary pain, correlation with ultrasound recommended. ASSESSMENT CATEGORY: BIRADS Category 0: Incomplete. Need additional imaging evaluation. A letter regarding these results will be sent to the patient by the facility within 30 days. Approximately 10% of breast cancers are not detected by mammography. A normal mammogram should not delay biopsy of a clinically suspicious abnormality. Electronically Signed: Kwabena Booth MD at 15:42 EDT , CC: YOLI Finnegan; No Primary Care Physician Call Center Agent: Signed Normal [facility] Parimutuel Clerk Office Visit Reporton 10-20-2023 Parimutuel Clerk Office Visit Report [facility] 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: 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 Is patient in pain?: Yes Allergies No Known Allergies Allergy (Verified 10/20/23 11:49) Medications ???Medication ???Instructions ???Recorded ???Confirmed ???Type cholecalciferol (vitamin D3) 125 125 mcg PO DAILY 12/08/20 10/20/23 History mcg (5,000 unit) capsule ascorbic acid (vitamin C) 1,000 mg 1,000 mg PO Q12H 02/27/21 10/20/23 History tablet,extended release melatonin 5 mg capsule mg PO 02/27/21 10/20/23 History acetaminophen 325 mg tablet 650 mg PO Q6H PRN 05/17/23 10/20/23 History (Tylenol) guaifenesin 600 mg tablet, 600 mg PO Q12H PRN 05/17/23 10/20/23 History extended release 12 hr (Mucinex) ibuprofen 200 mg tablet 400 mg PO Q6H PRN 05/17/23 10/20/23 History Is last menstrual period known: Yes Post menopausal: No Patient : No : No Current gender identity: female Control Method: none [facility] History Paresthesia and pain of both upper extremities Left-sided chest wall pain Breast pain, left LUQ pain Anxiety Thyrotoxicosis Chest pain Frequent headaches Carpal tunnel syndrome Advanced maternal age (AMA) in Supervision of high-risk Anxiety Surgical History S/P wisdom tooth extraction Family History Mother Diabetes Grandmother Diabetes CVA (cerebral vascular accident) Thyroid disorder Heart disease Aunt Endometrial cancer Social History current gender identity: female Smoking Status: Never smoker alcohol intake: current alcohol intake frequency: holidays/special occasions only details: substance use type: does not use caffeine: Yes what type of physical activity do you participate in: none, walking, aerobics and weight training seatbelt use: always do you feel safe at home: Yes additional social history: - Feranndez- [employer] 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 She reports this has been bothering her for about 1 week. She reports when she pushes on this area she gets shooting pains into the breast and into her back. She reports she does feel a left axillary swelling. She denies bleeding, nipple discharge. Denies fever, chills, erythema. History 3 Elective abortions Hx Para 3 Spontaneous abortions Hx # Term Pregnancies Ectopic pregnancies Hx # Pregnancies Multiple births # of living children 3 Past Pregnancies Del. Date Name GA/Weeks Outcome Route Bth Weight Gen Labor Lgth Anesthesia Del Locatn Provider FOB Unknown -2014 39 live - full term 8lbs 5oz Female epidural [facility] Dr. Leung Unknown -2017 38 live - full term 8lbs 15oz Male epidural [facility] Dr. Peres 05/27/20 Foster 38 live - full term Male none [facility] FIORELLA Delivery Date: Last Updated by: Arlene Moore none Delivery Date: Last Updated by: Arlene Trevino Delivery Date: 05/27/20 Last Updated by: Arlene Moore [place]; LGA, AMA, 1st degree laceration ROS Const ROS Unobtainable: All systems reviewed are unremarkable except as noted in H Exam Const General: cooperative, healthy appearing, comfortable and well developed [facility] Head: normal to inspection Eyes General: appearance normal, both eyes and all related structures Chest Breast palpation: normal palpation of the axillae and abnormal palpation of the breast (left breast; outer/lateral) Resp Effort Inspection: normal respiratory effort, able to speak in complete sentences and symmetric chest movement Skin General: no rashes or lesions noted Coding Level of Care Code Established Pt Off vis,est,level 3 Patient Type Established Diagnoses Breast pain, left N64.4 Assessment and Plan Assessment and Plan (1) Breast pain, lef (more content not included)... Normal [facility] Free T3on 08-19-2023 Free T3 [Mass/Vol] 2.1 pg/mL Low 2.18-3.98 [facility] Comment on above: Performed By: #### L 501.23787, L501.9520, L506.0400 ####[facility] [address] [place], [address] T4 Free Directon 08-19-2023 T4 FREE DIRECT 0.81 ng/dL Normal 0.76-1.46 [facility] Comment on above: Performed By: #### L 501.87426, L501.9520, L506.0400 ####[facility] [address] [place], [address] Thyroid Stim Hormone (TSH)on 08-19-2023 TSH 2.81 uIU/mL Normal 0.358-3.74 [facility] Comment on above: Performed By: #### L 501.31138, L501.9520, L506.0400 ####[facility] [address] [place], [address] Free T3on 06-15-2023 Free T3 [Mass/Vol] 2.4 pg/mL Normal 2.18-3.98 [facility] Comment on above: Performed By: #### L 501.31291, L506.0400, L501.9520 ####[facility] [address] [place], [place], [address] No Panel InformationOrdered By: Marco Antonio Bermudez on 06-15-2023 Free Triiodothyronine (T3) pg/dL 2.4 pg/mL 2.18-3.98 [facility] Serum or plasma thyroid stim ulating hormone (TSH) measurement (units/volume)Ordered By: Marco Antonio Bermudez on 06-15-2023 TSH Qn 2.02 uIU/mL 0.358-3.74 [facility] T4 Free Directon 06-15-2023 T4 FREE DIRECT 0.85 ng/dL Normal 0.76-1.46 [facility] Comment on above: Performed By: #### L 501.26868, L506.0400, L501.9520 ####[facility] [address] [facility] [place], [place], [id number] Thin prep Papanicolaou smear with manual screeningOrdered By: Marco Antonio Bermudez on 06-15-2023 Thin prep Papanicolaou smear with manual screening 0.85 ng/dL 0.76-1.46 [facility] Thyroid Stim Hormone (TSH)on 06-15-2023 TSH 2.02 uIU/mL Normal 0.358-3.74 [facility] Comment on above: Performed By: #### L 501.51445, L506.0400, L501.9520 ####[facility] [address] [place], [place], [id number] Absolute lymphocyte countOrd ered By: Marco Antonio Bermudez on 05-17-2023 Lymphocytes Auto (Unsp spec) [#/Vol] 1.55 10*3/uL 0.83-4.51 [facility] Automated lymphocyte count a s percentage of total leukocytesOrdered By: Marco Antonio Bermudez on 05-17-2023 Lymphocytes/100 WBC Auto (Unsp spec) 50.3 % 19-41 [facility] Basophil percentageOrdered B y: Marco Antonio Bermudez on 05-17-2023 Basophils/100 WBC (Bld) 0.3 % 0-1 [facility] Eosinophils/100 WBC (Bld) 1.3 % 0-5 [facility] Hemoglobin (Bld) [Mass/Vol] 14.0 g/dL 12.0-15.0 [facility] Monocytes/100 WBC (Bld) 11.7 % 0-10 [facility] Neutrophils (Bld) [#/Vol] 1.1 10*3/uL 2.0-7.7 [facility] Neutrophils/100 WBC (Bld) 36.1 % 47-70 [facility] WBC (Bld) [#/Vol] 3.1 10*3/uL 4.4-11.0 [facility] Determination of erythrocyte mean corpuscular volume (MCV)Ordered By: Marco Antonio Bermudez on 05-17-2023 MCV (RBC) [Entitic vol] 89.5 fL 81-99 [facility] Erythrocyte distribution wid th ratioOrdered By: Marco Antonio Bermudez on 05-17-2023 Erythrocyte distribution width (RBC) [Ratio] 13.2 % 11.6-14.6 [facility] Erythrocyte distribution wid th standard deviationOrdered By: Marco Antonio Bermudez on 05-17-2023 Erythrocyte distribution width (RBC) [Entitic vol] 43.6 fL 35.1-43.9 [facility] Hematocrit Auto (Bld) [Volum e fraction]Ordered By: Marco Antonio Bermudez on 05-17-2023 Hematocrit (Bld) [Volume fraction] 43.4 % 37-47 [facility] Immature granulocytes/100 WB C Auto (Bld)Ordered By: Marco Antonio Bermudez on 05-17-2023 Immature granulocytes/100 WBC (Bld) 0.300 % 0.0-0.9 [facility] Comment on above: IG% - Immature Granu locytes (promyelocytes, myelocytes and metamyelocytes) > 1% indicates that a LEFT SHIFT is Present. Laboratory - Chemistry and C hemistry - challengeOrdered By: Marco Antonio Bermudez on 05-17-2023 Cobalamin (Vitamin B12) [Mass/Vol] 784 pg/mL 211-911 [facility] - Hematology and Cell countsOrdered By: Marco Antonio Bermudez on 05-17-2023 MCH (RBC) [Entitic mass] 28.9 pg 27.0-32.0 [facility] MCHC (RBC) [Mass/Vol] 32.3 g/dL 32-36 [facility] Nucleated RBC/100 WBC (Bld) [Ratio] 0 % 0-5 [facility] Platelet mean volume (Bld) [Entitic vol] 10.1 fL 6.2-12.0 [facility] Platelets (Bld) [#/Vol] 206 10*3/uL 150-450 [facility] No Panel InformationOrdered By: Marco Antonio Bermudez on 05-17-2023 Free Triiodothyronine (T3) pg/dL 2.2 pg/mL 2.18-3.98 [facility] RBC Auto (Bld) [#/Vol]Ordere d By: Marco Antonio Bermudez on 05-17-2023 RBC (Bld) [#/Vol] 4.85 10*6/uL 4.2-5.4 [facility] Serum or plasma thyroid stim ulating hormone (TSH) measurement (units/volume)Ordered By: Marco Antonio Bermudez on 05-17-2023 TSH Qn 2.54 uIU/mL 0.358-3.74 [facility] Thin prep Papanicolaou smear with manual screeningOrdered By: Marco Antonio Bermudez on 05-17-2023 Thin prep Papanicolaou smear with manual screening 0.90 ng/dL 0.76-1.46 [facility] - Chemistry and C hemistry - challengeOrdered By: Marco Antonio Bermudez on 01-13-2023 Free T4 [Mass/Vol] 0.86 ng/dL 0.76-1.46 [facility] No Panel InformationOrdered By: Marco Antonio Bermudez on 01-13-2023 Free Triiodothyronine (T3) pg/dL 2.2 pg/mL 2.18-3.98 [facility] Thyroid Stimulating Hormone (TSH) 2.28 uIU/mL 0.358-3.74 [facility] - Chemistry and C hemistry - challengeOrdered By: Marco Antonio Bermudez on 11-16-2022 Free T4 [Mass/Vol] 0.76 ng/dL 0.76-1.46 [facility] No Panel InformationOrdered By: Marco Antonio Bermudez on 11-16-2022 Free Triiodothyronine (T3) pg/dL 2.4 pg/mL 2.18-3.98 [facility] Thyroid Stimulating Hormone (TSH) 2.80 uIU/mL 0.358-3.74 [facility] - Chemistry and C hemistry - challengeOrdered By: Dr. Bermudez on 05-18-2022 Free T4 [Mass/Vol] 0.93 ng/dL 0.76-1.46 [facility] No Panel InformationOrdered By: Dr. Bermudez on 05-18-2022 Free Triiodothyronine (T3) pg/dL 2.3 pg/mL 2.18-3.98 [facility] Thyroid Stimulating Hormone (TSH) 2.69 uIU/mL 0.358-3.74 [facility] - Chemistry and C hemistry - challengeon 12-15-2021 Free T4 [Mass/Vol] 0.93 ng/dL 0.76-1.46 [facility] Work Phone: No Panel Informationon 12-15 Free Triiodothyronine (T3) pg/dL 2.5 pg/mL 2.18-3.98 [facility] Work Phone: Thyroid Stimulating Hormone (TSH) 2.71 uIU/mL 0.358-3.74 [facility] Work Phone: Laboratory - Chemistry and C hemistry - challengeon 07-03-2021 Free T4 [Mass/Vol] 0.83 ng/dL 0.76-1.46 [facility] Work Phone: No Panel Informationon 07-03 Free Triiodothyronine (T3) pg/dL 2.5 pg/mL 2.18-3.98 [facility] Work Phone: Thyroid Stimulating Hormone (TSH) 1.96 uIU/mL 0.358-3.74 [facility] Work Phone: Laboratory - Chemistry and C hemistry - challengeon 05-18-2021 Free T4 [Mass/Vol] 0.90 ng/dL 0.76-1.46 [facility] Work Phone: No Panel Informationon 05-18 Free Triiodothyronine (T3) pg/dL 2.3 pg/mL 2.18-3.98 [facility] Work Phone: Thyroid Stimulating Hormone (TSH) 3.69 uIU/mL 0.358-3.74 [facility] Work Phone: Laboratory - Chemistry and C hemistry - challengeon 04-17-2021 Free T4 [Mass/Vol] 0.84 ng/dL 0.76-1.46 [facility] Work Phone: No Panel Informationon 04-17 Free Triiodothyronine (T3) pg/dL 2.1 pg/mL 2.18-3.98 [facility] Work Phone: Thyroid Stimulating Hormone (TSH) 1.89 uIU/mL 0.358-3.74 [facility] Work Phone: THYROXINE,FREEon 10-07-2020 THYROXINE,FREE 1.11 ng/dL Normal 0.61 - 1.12 [facility] Comment on above: Result Comment: Thyr oxine Free testing is performed using different testing methodology at [facility] than at other [facility]. Direct result comparisons should only be made within the same method. . Biotin can cause falsely elevated free T4 results. Patients taking a Biotin dose of up to 10 mg/day should refrain from taking Biotin for 24 hours before sample collection. Patient taking a Biotin dose of >10 mg/day should consult with their physician or the laboratory before the blood draw. Performed By: #### T 4FRE #### [facility] [address] [place] [address] TRIIODOTHYRONINE,FREEon 09-25 TRIIODOTHYRONINE,RUT E 4.4 pg/mL High 2.3 - 4.2 [facility] Comment on above: Performed By: #### T 3FRE #### [facility] [address] [place] [address] TSHon 10-07-2020 TSH Qn 0.01 m[IU]/L Low 0.44 - 3.98 [facility] Comment on above: Result Comment: TSH testing is performed using different testing methodology at [facility] than at other [facility]. Direct result comparisons should only be made within the same method. Performed By: #### T SH2 #### [address] [address] CBCon 09-16-2020 Erythrocyte distribution width (RBC) [Ratio] 13.0 % Normal 11.5 - 14.5 [facility] Comment on above: Performed By: #### C BC #### [address] [address] Hematocrit (Bld) [Volume fraction] 42.2 % Normal 36.0 - 46.0 [facility] Comment on above: Performed By: #### C BC #### [address] [address] Hemoglobin (Bld) [Mass/Vol] 13.9 g/dL Normal 12.0 - 16.0 [facility] Comment on above: Performed By: #### C BC #### [address] [address] MCHC (RBC) [Mass/Vol] 32.9 g/dL Normal 32.0 - 36.0 [facility] Comment on above: Performed By: #### C BC #### [address] [address] MCV (RBC) [Entitic vol] 93 fL Normal 80 - 100 [facility] Comment on above: Performed By: #### C BC #### [address] [address] Platelets (Bld) [#/Vol] 284 10*3/uL Normal 150 - 450 [facility] Comment on above: Performed By: #### C BC #### [address] [address] RBC 4.53 x10E12/L Normal 4.00 - 5.20 [facility] Comment on above: Performed By: #### C BC #### [address] [address] WBC (Bld) [#/Vol] 4.4 10*3/uL Normal 4.4 - 11.3 [facility] Comment on above: Performed By: #### C BC #### [address] [address] COMPREHENSIVE PANELon 2020 Albumin [Mass/Vol] 4.0 g/dL Normal 3.4 - 5.0 [facility] Comment on above: Performed By: #### C MP #### [place] [address] ALP [Catalytic activity/Vol] 74 U/L Normal 33 - 110 [facility] Comment on above: Performed By: #### C MP #### [place] [id number] ALT [Catalytic activity/Vol] 27 U/L Normal 7 - 45 [facility] Comment on above: Result Comment: Tony ents treated with Sulfasalazine may generate falsely decreased results for ALT. Performed By: #### C MP #### [address] [address] Anion gap [Moles/Vol] 8 mmol/L Low 10 - 20 [facility] Comment on above: Performed By: #### C MP #### [address] [address] AST [Catalytic activity/Vol] 16 U/L Normal 9 - 39 [facility] Comment on above: Performed By: #### C MP #### [address] [address] Bilirubin [Mass/Vol] 0.4 mg/dL Normal 0.0 - 1.2 [facility] Comment on above: Performed By: #### C MP #### [address] [address] Calcium [Mass/Vol] 9.1 mg/dL Normal 8.6 - 10.3 [facility] Comment on above: Performed By: #### C MP #### [address] [address] Chloride [Moles/Vol] 106 mmol/L Normal 98 - 107 [facility] Comment on above: Performed By: #### C MP #### [address] [address] Creatinine [Mass/Vol] 0.69 mg/dL Normal 0.50 - 1.05 [facility] Comment on above: Performed By: #### C MP #### [address] [address] GFR- AM. >60 Normal >60 [facility] Comment on above: Result Comment: CALC ULATIONS OF ESTIMATED GFR ARE PERFORMED USING THE MDRD STUDY EQUATION FOR THE IDMS-TRACEABLE CREATININE METHODS. CLIN CHEM 2007;53:766-72 Performed By: #### C MP #### [address] [address] GFR-NON AM. >60 Normal >60 [facility] Comment on above: Performed By: #### C MP #### [address] [address] Glucose [Mass/Vol] 89 mg/dL Normal 74 - 99 [facility] Comment on above: Performed By: #### C MP #### [address] [address] HCO3 (Bld) [Moles/Vol] 29 mmol/L Normal 21 - 32 [facility] Comment on above: Performed By: #### C MP #### [address] [address] Potassium [Moles/Vol] 4.4 mmol/L Normal 3.5 - 5.3 [facility] Comment on above: Performed By: #### C MP #### [address] [address] Protein [Mass/Vol] 6.6 g/dL Normal 6.4 - 8.2 [facility] Comment on above: Performed By: #### C MP #### [address] [address] Sodium [Moles/Vol] 139 mmol/L Normal 136 - 145 [facility] Comment on above: Performed By: #### C MP #### [address] [address] Urea nitrogen [Mass/Vol] 14 mg/dL Normal 6 - 23 [facility] Comment on above: Performed By: #### C MP #### [address] [address] TSHon 09-16-2020 TSH Qn 0.03 m[IU]/L Low 0.44 - 3.98 [facility] Comment on above: Result Comment: TSH testing is performed using different testing methodology at [facility] than at other [facility]. Direct result comparisons should only be made within the same method. Performed By: #### T SH2 #### [address] [address] MRI BRAIN WO IVCONon 018 MRI BRAIN WO IVCON * * *Final Report* * *DATE OF EXAM: Oct 17 2017 3:51PM MDM 0294 - MRI BRAIN WO IVCON / REASON: H21.562-Pupillary abnormality, left eye * * * * Physician Interpretation * * * * EXAMINATION: MRI BRAIN WO IVCONCLINICAL HISTORY: Pupillary abnormality, left eyeTECHNIQUE: Routine noncontrast MRI protocol including diffusion images.MQ: [id number]: None.RESULT:Acute Change: There is no evidence of restricted diffusion to suggest an acute infarct.Hemorrhage: No evidence of prior parenchymal hemorrhage on the gradient echo images.Mass Lesion/ Mass Effect: No evidence of an intracranial mass or extra-axial fluid collection. No significant mass effect.Chronic Change: Single punctate focus of T2/FLAIR hyperintensity in the right parietal subcortical white matter on image 27 series 3 is nonspecific but may be due to remote insult given age. Otherwise, no abnormal white matter.Parenchyma: No significant volume loss for age. The brain parenchyma is otherwise within normal limits of signal intensity and morphology.Ventricles: Normal caliber and morphology.Skull Base: Hypothalamic and pituitary region are grossly normal. Craniocervical junction is normal. No significant marrow replacement process.Vasculature: Major intracranial arterial structures, and dural venous sinuses show typical flow void, suggesting patency by spin echo criteria.Other: The visualized paranasal sinuses and mastoid air cells are clear. The orbits and extracranial soft tissues are unremarkable.IMPRESSION:Si ngle punctate focus of T2/FLAIR hyperintensity in the right parietal subcortical white matter, which may be due to remote insult, or seen in patients with migraines.Otherwise, unremarkable MRI of the brain. No intracranial or intraorbital mass on this noncontrast examination.Transcriptioni st: PSCB Transcribe Date/Time: Oct 17 2017 3:56PDictated by : HECTOR LEMA MDThis examination was interpreted and the report reviewed and electronically signed by: HECTOR LEMA MD on Oct 17 2017 4:02PM [id number] [facility] 09-15-2017 CNPN Telephone (MEPRAD) KELLY SUGGS ([id number]) 1985 FDate Time Provider Department09/15/17 YOAN MASON JR During your visit today, we recorded the following information about you:Yoan Mason MD 09/15/2017 4:58 PM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 herown.All purpose nipple ointmentBacitracin ointment, 1% hydrocortisone cream, clotrimazole 1% cream, Applysparingly to nipples after each feeding. Do Not Wash or wipe off. Applyfor 14 days past clearing.-If no improvement in the next 3 days or worsening after 24hr to call.Reviewed signs of Mastitis and when to callProbiotic by mouth for 30-60 daysZunilda Arango APRN.CNM Normal [facility] CNOVon 06-29-2017 CNOV Office Visit (WOOB) --------KELLY SUGGS ([id number]) 1985 [facility] Time Provider Department06/29/17 11:30 AM DEENA MEJIA WOEBONY During your visit today, we recorded the following information about you: Blood pressure Weight 102/64 79.8 kgDeena Jones MD 06/29/2017 1:32 PM SignedChaperone offered: Patient declines.Kelly Suggs is a 32 year old female who presents for concerns regardingperineal pain and rectal discomfort after vaginal delivery of son on 06/23/17.Pt reports no fevers, foul discharge or drainage. Pt reports is having BM butfeels like there is soemthing that protrudes out and is causing irritation. Ptreports she also feels like on incision site it is irritated and wonders if astitch came out. Pt reports mild lochia. 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 Kheribji-Fv-Pjc-Fe-FA ( VITAMIN) tab Take 1 tablet by mouth.DOCOSAHEXANOIC ACID (DHA ORAL) Take by mouth.No current facility-administered medications for this visit.Allergies As of Date: 06/29/2017(No Known Allergies)Fully Assessed 06/29/2017RE[facility] OF [facility]All[facility] and current medication updated:YesEXAM: BP 102/64 Wt 176 lb (79.8kg)GENERAL: pleasant, female in no apparent distressHEENT: Normocephalic and atraumaticNECK: full range of motionPELVIC: external genitalia normal, normal Bartholin's glands, urethra, [place]'sglands, no cervical lesions, physiologic discharge present, laceration incisionsite healing well- no signs of infection, no induration or erythema. No activedrainage.RECTAL; No hemorrhoids noted. On gentle digital exam- small internalhemorrhoids palpable but nothing obstructing rectum- No sutures palpableNEURO: alert and oriented x3,exam grossly non-focalEXTREMITIES: normalASSESSMENT AND PLAN:32yo s/p Vaginal delivery on 06/23/17 with perineal discomfort and rectaldiscomfort1) reassurance given2) Perineal/rectal care reviewed after delivery3) dibucaine ordered4) stiz bath reviewed5) call or come to office if worsening symptomsDeidYudi Morales Provider: SELF [200]Allergies As of Date: 06/29/2017(No Known Allergies)Date Reviewed: 06/29/2017Reviewed by: Florinda Parker Ma - Fully AssessedReason for Visit: Follow Up [171]Primary Visit Diagnosis:Perineal pain [R10.2]Order(s):dibucaine (NUPERCAINAL) 1 % oint1 Tube by RECTAL route as needed.Disp: 1 TubeRfl: 1 ibuprofen (MOTRIN) 600 mg tabletTake 1 tablet by mouth every 6 hours as needed.Disp: 30 tabletRfl: 0Prescriptions as of 06/29/2017 Sig: DIBUCAINE 1 % RECTAL OINTMENT 1 Tube by RECTAL route as nee* IBUPROFEN 600 MG TABLET Take 1 tablet by mouth every * MIRALAX ORAL Take by mouth. VITAMIN,CALCIUM,MINE* Take 1 tablet by mouth. DHA ORAL Take by mouth.Problem List As Of Date 06/29/2017 Noted Resolved Painful intercourse [FIR6191] INVALID FOR*01/21/2014 Supervision of normal first [Z34.00] INVALID FOR*08/14/2014 More... Supervision of normal [Z34.90] INVALID FOR*Prescriptions ordered this encounter Disp Refills Start End DIBUCAINE 1 % RECTAL OINTMENT 1 Tu* 1 06/29/2017 Route: RECTAL Si Tube by RECTAL route as needed. IBUPROFEN 600 MG TABLET 30 t* 0 06/29/2017 Route: ORAL Sig: Take 1 tablet by mouth every 6 hours as needed. Status:Closed by DEENA LEUNG MD on 06/29/17 Normal [facility] HOSPon 06-29-2017 HOSP Patient Update (WOOB) --------KELLY SUGGS ([id number]) 1985 [facility] Time Provider Department06/29/17 CHUCHO PERES During your visit today, we recorded the following information about you:Poonam Toni CHAPMAN 06/29/2017 11:42 AM SignedPt delivered via at [facility] Peres. See OB Outcome note.Poonam Muñoz LPNAllergies As of Date: 06/29/2017(No Known Allergies)Date Reviewed: 06/22/2017Reviewed by: Radha Molina Ma - Fully AssessedPrescriptions as of 06/29/2017 Sig: MIRALAX ORAL Take by mouth. VITAMIN,CALCIUM,MINE* Take 1 tablet by mouth. DHA ORAL Take by mouth.Problem List As Of Date 06/29/2017 Noted Resolved Painful intercourse [[id number]] INVALID FOR*01/21/2014 Supervision of normal first [Z34.00] INVALID FOR*08/14/2014 More... Supervision of normal [Z34.90] INVALID FOR* Status:Closed by POONAM MUÑOZ LPN on 06/29/17 Normal [facility] PROGRESSon 06-29-2017 PROGRESS HNO ID: [id number] thor: Deena Cleaning: (none)Author Type: PhysicianType: Progress NotesFiled: 06/29/2017 1:32 PMNote Text:V Belt Builder offered: Patient declines.Kelly Suggs is a 32 year old female who presents for concerns regardingperineal pain and rectal discomfort after vaginal delivery of son on06/23/17. Pt reports no fevers, foul discharge or drainage. Pt reports ishaving BM but feels like there is soemthing that protrudes out and iscausing irritation. Pt reports she also feels like on incision site it isirritated and wonders if a stitch came out. 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 Zaidxivl-Zl-Fbq-Fe-FA ( VITAMIN) tab Take 1 tablet bymouth.DOCOSAHEXANOIC ACID (DHA ORAL) Take by mouth.No current facility-administered medications for this visit.Allergies As of Date: 06/29/2017(No Known Allergies)Fully Assessed 06/29/2017REVIEW OF [facility] and current medication updated:YesEXAM: BP 102/64 Wt 176 lb (79.8kg)GENERAL: pleasant, female in no apparent distressHEENT: Normocephalic and atraumaticNECK: full range of motionPELVIC: external genitalia normal, normal Bartholin's glands, urethra,[place]'s glands, no cervical lesions, physiologic discharge present,laceration incision site healing well- no signs of infection, noinduration or erythema. No active drainage.RECTAL; No hemorrhoids noted. On gentle digital exam- small internalhemorrhoids palpable but nothing obstructing rectum- No sutures palpableNEURO: alert and oriented x3,exam grossly non-focalEXTREMITIES: normalASSESSMENT AND PLAN:32yo s/p Vaginal delivery on 06/23/17 with perineal discomfort and rectaldiscomfort1) reassurance given2) Perineal/rectal care reviewed after delivery3) dibucaine ordered4) stiz bath reviewed5) call or come to office if worsening symptomsDeena Jones MD [facility] PROGRESS HNO ID: [id number] Author: Poonam Muñoz LPN Service: (none) Author Type: (none) Type: Progress Notes Filed: 06/29/2017 11:42 AM Note Text: Pt delivered via at [facility] on 06/23/[address] Peres. See OB Outcome note. Poonam Muñoz LPN [facility] Shyanne 06-21-2017 CNPN Telephone (WOOB) --------KELLY SUGGS ([id number]) 1985 F[address] Time Provider Department06/21/17 DEENA MEJIA During your visit today, we recorded the following information about you:Tamiko Chong LPN 06/21/2017 9:22 AM SignedOb patient is 39w5d and called stating that she had a pelvic exam yesterday andwhen she woke up today she noticed thick vaginal discharge that was bloodtinged. Patient denies cramping, no increased pelvic pressure or contractions,baby is active. Patient was told that spotting can be common after having apelvic exam and that the thicker discharge could be her mucus plug releasing.Please advise if further advise is needed.Deena Jones MD 06/21/2017 9:27 AM SignedAgree with advice. Make sure she has good FM. If regular contractions notifyoffice or go to [facility][NOTE 3]amp;Gabriele Chong LPN 06/21/2017 9:45 AM AddendumPatient notified by voicemailAllergies As of Date: 06/21/2017(No Known Allergies)Date Reviewed: 06/20/2017Reviewed by: Zunilda Arango APRN.LAURIE - Fully AssessedReason for Visit: Care [86]Prescriptions as of 06/21/2017 Sig: MIRALAX ORAL Take by mouth. VITAMIN,CALCIUM,MINE* Take 1 tablet by mouth. DHA ORAL Take by mouth.Problem List As Of Date 06/21/2017 Noted Resolved Painful intercourse [[id number]] INVALID FOR*01/21/2014 Supervision of normal first [Z34.00] INVALID FOR*08/14/2014 More... Supervision of normal [Z34.90] INVALID FOR* Status:Closed by TAMIKO CHONG LPN on 06/21/[address] [facility] PROGRESSon 06-20-2017 PROGRESS HNO ID: [id number] thor: Zunilda Delgado) PITER ArangoMService: (none)Author Type: MidwifeType: Progress NotesFiled: 06/20/2017 3:10 PMNote Text:NST SUMMARYPROVIDER ASSESSMENT AND INTERPRETATIONKelly Suggs is a 32 year old female, , who is at 39w4d with anEDD of 06/23/2017, by Last Menstrual Period dating method.Indications for NST: Decreased MovementBaseline: 125Variability: ModerateAccelerations: Present 15 X 15Decelerations: NoneContractions: TOCO: IrregularInterpretation: Category ISIGNATURE: Zunilda Arango APRN.CNM Normal [facility] GROUP B STREP PCRon 06-01-19 18 GROUP B STREP PCR Negative Normal [facility] Comment on above: Performed By: #### G BPCR ####[facility] [address] [place], [place] [id number] PROGRESSon 05-09-2017 PROGRESS HNO ID: [id number] thor: Vi Reed MaService: (none)Author Type: (none)Type: Progress NotesFiled: 05/09/2017 12:01 PMNote Text:Patient identified by name and date of .Kelly Suggs presents today for a vaccination of Tdap.Patient denies an allergy to latex: yesPatient denies a severe (life-threatening) allergy to a previous dose ofTdap, DTP, DTaP, DT or Td vaccine. YesPatient denies history of epilepsy or neurological problems: YesPatient is afebrile and denies being moderately or severely ill: YesPatient denies history of Guillain-Sunflower Syndrome (a severe paralyticillness): YesTdap Adacel injection was given without incident.See immunizations for details of immunizations administered today.VIS sheet provided: Brea Arango CNM was present in office at time of injection.Vi Reed Ma Normal [facility] HOSPon 04-25-2017 HOSP Routine Off ice Visit (WOOB) --------KELLY SUGGS ([id number]) 1985 [facility] Time Provider Department04/25/17 11:00 AM COREY CHAVEZ (LAURIE) JOSEFA During your visit today, we recorded the following information about you: Blood pressure Weight 110/64 85.1 kgHayley Francesco [place] 04/25/2017 11:08 AM SignedSEQUENTIAL SCREENINGSThe [facility] offers sequential screenings for women who are interestedin screenings for chromosomal abnormalities and certain defects during apregnancy. The sequential screen combines ultrasound and blood tests todetermine the risk of chromosomal abnormalities, including Down's Syndrome(Trisomy 21) and Trisomy 18, as well as open neural tube defects includingspina bifida. Ultrasound examination is performed between 11 weeks and 13 weeksgestational age. Blood tests are drawn after the ultrasound and again later inthe between 15 and 21 weeks gestational age. Please let yourphysician know if you are interested in this testing. It will require anappointment with our neon technician. This is not an ultrasound performedby a physician in our office during a routine visit.SIGNS AND SYMPTOMS OF LABOR1. Contractions every 10 minutes or more often2. Clear, pink, or brownish fluid (water) leaking from vagina3. Feeling that baby is pushing down, pressure4. Low, dull backache5. Cramps that feel like a period6. Cramps with or without diarrheaIf you notice any of the above symptoms, contact our office at [phone] andask to speak with a nurse.After hours, you can call doctors registry at [phone] OR call [facility] at [phone] and ask to have the doctor radiation control health physicist paged.If you consider this an emergency, dial or go to your nearest emergencydepartment.NEED HELP? Are you dealing with a violent or abusive relationship? Are you avictim of rape or sexual assult? Call [facility] ([place]) 24 hourCrisis Hotline: 905.513.9756 or 382-078-6434. MANUALYour Guide to a Healthy manual is now on-line. [email or web address] ealthyPregnancyGuide to download your free copyReferring Provider: SELF [200]Allergies As of Date: 04/25/2017(No Known Allergies)Date Reviewed: 04/25/2017Reviewed by: Miranda Maya Ma - Fully AssessedReason for Visit: Care [86]Primary Visit Diagnosis:Encounter for supervision of other normal in third trimester [Z34.83] Other Visit Diagnosis:31 weeks gestation of [Z3A.31]Order(s):URINE OB DIP B/O [[id number]] Order #: [id number] as of 04/25/2017 Sig: MIRALAX ORAL Take by mouth. VITAMIN,CALCIUM,MINE* Take 1 tablet by mouth. DHA ORAL Take by mouth.Problem List As Of Date 04/25/2017 Noted Resolved Painful intercourse [JMG6875] INVALID FOR*01/21/2014 Supervision of normal first [Z34.00] INVALID FOR*08/14/2014 More... Supervision of normal [Z34.90] INVALID FOR* Other instructions from your clinician: SEQUENTIAL SCREENINGS The [facility] offers sequential screenings for women who are interested in screenings for chromosomal abnormalities and certain defects during a . The sequential screen combines ultrasound and blood tests to determine the risk of chromosomal abnormalities, including Down's Syndrome (Trisomy 21) and Trisomy 18, as well as open neural tube defects including spina bifida. Ultrasound examination is performed between 11 weeks and 13 weeks gestational age. Blood tests are drawn after the ultrasound and again later in the between 15 and 21 weeks gestational age. Please let your physician know if you are interested in this testing. It will require an appointment with our neon technician. This is not an ultrasound performed by a physician in our office during a routine visit. SIGNS AND SYMPTOMS OF LABOR 1. Contractions every 10 minutes or more often 2. Clear, pink, or brownish fluid (water) leaking from vagina 3. Feeling that baby is pushing down, pressure 4. Low, dull backache 5. Cramps that feel like a period 6. Cramps with or without diarrhea If you notice any of the above symptoms, contact our office at [phone] and ask to speak with a nurse. After hours, you can call doctors registry at [phone] OR call [facility] at [phone] and ask to have the doctor radiation control health physicist paged. If you consider this an emergency, dial 6- or go to your nearest emergency department. NEED HELP? Are you dealing with a violent or abusive relationship? Are you a victim of rape or sexual assult? Call [facility] ([place]) 24 hour Crisis Hotline: 662.947.8261 or 861-291-5022. MANUAL Your Guide to a Healthy manual is now on-line. Visit [email or web address] yPregnancyGuide to download your free copyMedications Discontinued During This Encounter PSYLLIUM NADIA (METAMUCIL ORAL) 04/25/2017 Class: Historical Med Route: ORAL Sig: Take by mouth as needed. Disc: Erroneous entryDisposition: Return in about 2 weeks (around 05/09/2017), or if symptoms worsen or fail to improve.Follow-up and Disposition History RecordedEncounter Number: [id number] Status:Closed by COREY CHAVEZ CNM on 04/25/17 Normal [facility] HOSPon 04-11-2017 [facility] Routine Off ice Visit (WOOB) --------[facility] SU[facility] ([id number]) [address] [facility] Department04/11/17 11:30 AM LAWRENCE DUBON (RANDY) WOOB During your visit today, we recorded the following information about you: Blood pressure Weight 118/70 83.6 kgVi Reed Ma 04/11/2017 11:35 AM SignedSEQUENTIAL SCREENINGSThe [facility] offers sequential screenings for women who are interestedin screenings for chromosomal abnormalities and certain defects during apregnancy. The sequential screen combines ultrasound and blood tests todetermine the risk of chromosomal abnormalities, including Down's Syndrome(Trisomy 21) and Trisomy 18, as well as open neural tube defects includingspina bifida. Ultrasound examination is performed between 11 weeks and 13 weeksgestational age. Blood tests are drawn after the ultrasound and again later inthe between 15 and 21 weeks gestational age. Please let yourphysician know if you are interested in this testing. It will require anappointment with our neon technician. This is not an ultrasound performedby a physician in our office during a routine visit.SIGNS AND SYMPTOMS OF LABOR1. Contractions every 10 minutes or more often2. Clear, pink, or brownish fluid (water) leaking from vagina3. Feeling that baby is pushing down, pressure4. Low, dull backache5. Cramps that feel like a period6. Cramps with or without diarrheaIf you notice any of the above symptoms, contact our office at [phone] andask to speak with a nurse.After hours, you can call doctors registry at [phone] OR call [facility] at [phone] and ask to have the doctor radiation control health physicist paged.If you consider this an emergency, dial 91-2 or go to your nearest emergencydepartment.NEED HELP? Are you dealing with a violent or abusive relationship? Are you avictim of rape or sexual assult? Call [facility] ([place]) 24 hourCrisis Hotline: 463.979.1310 or 823-379-9105. MANUALYour Guide to a Healthy manual is now on-line. Visitclemer[facility] [email or web address]/H ealthyPregnancyGuide to download your free copyReferring Provider: SELF [[id number]]Allergies As of Date: 04/11/2017(No Known Allergies)Date Reviewed: 04/11/2017Reviewed by: Vi Reed Ma - Fully AssessedReason for Visit: Care [86]Primary Visit Diagnosis:Encounter for supervision of normal first in second trimester [Z34.02] Other Visit Diagnosis:29 weeks gestation of [Z3A.29]Order(s):URINE OB DIP B/O [[id number]] Order #: [id number] as of 04/11/2017 Sig: METAMUCIL ORAL Take by mouth as needed. VITAMIN,CALCIUM,MINE* Take 1 tablet by mouth. DHA ORAL Take by mouth.Problem List As Of Date 04/11/2017 Noted Resolved Painful intercourse [FIG2404] INVALID FOR*01/21/2014 Supervision of normal first [Z34.00] INVALID FOR*08/14/2014 More... Supervision of normal [Z34.90] INVALID FOR* Other instructions from your clinician: SEQUENTIAL SCREENINGS The [facility] offers sequential screenings for women who are interested in screenings for chromosomal abnormalities and certain defects during a . The sequential screen combines ultrasound and blood tests to determine the risk of chromosomal abnormalities, including Down's Syndrome (Trisomy 21) and Trisomy 18, as well as open neural tube defects including spina bifida. Ultrasound examination is performed between 11 weeks and 13 weeks gestational age. Blood tests are drawn after the ultrasound and again later in the between 15 and 21 weeks gestational age. Please let your physician know if you are interested in this testing. It will require an appointment with our neon technician. This is not an ultrasound performed by a physician in our office during a routine visit. SIGNS AND SYMPTOMS OF LABOR 1. Contractions every 10 minutes or more often 2. Clear, pink, or brownish fluid (water) leaking from vagina 3. Feeling that baby is pushing down, pressure 4. Low, dull backache 5. Cramps that feel like a period 6. Cramps with or without diarrhea If you notice any of the above symptoms, contact our office at [phone] and ask to speak with a nurse. After hours, you can call doctors registry at [phone] OR call [facility] at [phone] and ask to have the doctor radiation control health physicist paged. If you consider this an emergency, dial 4-5-5 or go to your nearest emergency department. NEED HELP? Are you dealing with a violent or abusive relationship? Are you a victim of rape or sexual assult? Call [facility] ([facility] 24 hour Crisis Hotline: 236.435.2457 or 961-316-3945. MANUAL Your Guide to a Healthy manual is now on-line. Visit [email or web address]/Health yPregnancyGuide to download your free copyDisposition: Return in about 2 weeks (around 04/25/2017).Follow-up and Disposition History RecordedEncounter Number: [id number] Status:Closed by LAWRENCE DUBON on 04/11/17 Normal [facility] 50g, 1hr gest. GSCRakesh 03-30 Glucose mass conc 75 mg/dL Normal 74-134 [facility] Comment on above: Result Comment: [facility] Congress of Obstetricians and Gynecologists ([place]arr[place]/Rebecca) guidelines state a gestational diabetes mellitus positive screen is made, in women not previously diagnosed with overt diabetes, when the 1 hr plasma glucose level is equal to or above 140 mg/dL. The [facility]uel [facility] [place] recommends a 135 mg/dL cutoff. Performed By: #### G LTGST ####[place] [phone] CBC and Differentialon 03-30 Abs Baso <0.03 Normal <0.11 [facility] Comment on above: Performed By: #### C BCDIF ####[place] [phone] Abs Woods 0.73 k/uL Normal <0.87 [facility] Comment on above: Performed By: #### C BCDIF ####[place] [phone] Abs Neut 4.70 k/uL Normal 1.45-7.50 [facility] Comment on above: Performed By: #### C BCDIF ####[address] [phone] Basophils/100 WBC Auto (Bld) 0.3 % Normal [facility] Comment on above: Performed By: #### C BCDIF ####[address] [phone] DTYPE Auto Diff Normal [facility] Comment on above: Performed By: #### C BCDIF ####[place] [phone] Eosinophils 0.08 10*3/uL Normal <0.46 [facility] Comment on above: Performed By: #### C BCDIF ####[place] [address] [place], [place] [phone] Eosinophils/100 leukocytes 1.1 % Normal [facility] Comment on above: Performed By: #### C BCDIF ####[address] [place] [phone] Erythrocyte distribution width Auto Ratio (RBC) 12.6 % Normal 11.5-15.0 [facility] Comment on above: Performed By: #### C BCDIF ####[address] [place], [place] [phone] Erythrocytes (RBC) 0.0 /100 WBC Normal [address] [facility] Comment on above: Performed By: #### C BCDIF ####[address] [place] [phone] Erythrocytes (RBC) 10*6/uL Normal <0.01 [facility] Comment on above: Performed By: #### C BCDIF ####[place] [phone] Erythrocytes (RBC) 3.70 10*6/uL Low 3.90-5.[address] [facility] Comment on above: Performed By: #### C BCDIF ####[address] [place], [place] [phone] Hematocrit (HCT) 35.2 % Low 36.0-46.0 [facility] Comment on above: Performed By: #### C BCDIF ####[address], [place] [phone] Hemoglobin mass conc (Bld) 11.7 g/dL Normal 11.5-15.5 [facility] Comment on above: Performed By: #### C BCDIF ####[place] [address] [place], [place] [phone] Lymphocytes 1.71 10*3/uL Normal 1.00-4.00 [facility] Comment on above: Performed By: #### C BCDIF ####[place] [address], [place] [phone] Lymphocytes/100 leukocytes 23.6 % Normal [facility] Comment on above: Performed By: #### C BCDIF ####[place] [address], [place] [phone] MCH 31.6 pG Normal 26.0-34.0 [facility] Comment on above: Performed By: #### C BCDIF ####[place] [address] [place], [place] [phone] MCHC mass conc (RBC) 33.2 g/dL Normal 30.5-36.[address] [facility] Comment on above: Performed By: #### C BCDIF ####[place] [address], [place] [phone] MCV 95.1 fL Normal 80.0-100.0 [facility] Comment on above: Performed By: #### C BCDIF ####[place] [address] [place], [place] [phone] Monocytes/100 leukocytes 10.1 % Normal [facility] Comment on above: Performed By: #### C BCDIF ####[place] [address] [place], [place] [phone] Neutrophils/100 WBC Auto (Bld) 64.9 % Normal [facility] Comment on above: Performed By: #### C BCDIF ####[place] [address] [place], [place] [phone] Platelet mean volume (PMV) 10.9 fL Normal 9.0-12.7 [facility] Comment on above: Performed By: #### C BCDIF ####[facility] [address] [place], [place] [phone] Platelets 255 10*3/uL Normal 150-400 [facility] Comment on above: Performed By: #### C BCDIF ####[facility] [place], [place] [phone] WBC (Leukocytes) 7.24 10*3/uL Normal 3.70-11.00 [facility] Comment on above: Performed By: #### C BCDIF ####[facility] [address] [place], [place] [phone] HOSPon 03-30-2017 [facility] Routine Off ice Visit (WOOB) --------KELLY SUGGS ([id number]) 1985 FDate Time Provider Department03/30/17 3:30 PM ZUNILDA ARANGO (LAURIE) WOOB During your visit today, we recorded the following information about you: Blood pressure Weight 102/68 82.6 kgPaulying Reed Rosa Elena 03/30/2017 3:45 PM SignedSEQUENTIAL SCREENINGSThe [facility] offers sequential screenings for women who are interestedin screenings for chromosomal abnormalities and certain defects during apregnancy. The sequential screen combines ultrasound and blood tests todetermine the risk of chromosomal abnormalities, including Down's Syndrome(Trisomy 21) and Trisomy 18, as well as open neural tube defects includingspina bifida. Ultrasound examination is performed between 11 weeks and 13 weeksgestational age. Blood tests are drawn after the ultrasound and again later inthe between 15 and 21 weeks gestational age. Please let yourphysician know if you are interested in this testing. It will require anappointment with our neon technician. This is not an ultrasound performedby a physician in our office during a routine visit.SIGNS AND SYMPTOMS OF LABOR1. Contractions every 10 minutes or more often2. Clear, pink, or brownish fluid (water) leaking from vagina3. Feeling that baby is pushing down, pressure4. Low, dull backache5. Cramps that feel like a period6. Cramps with or without diarrheaIf you notice any of the above symptoms, contact our office at [phone] andask to speak with a nurse.After hours, you can call doctors registry at [phone] OR [facility] at [phone] and ask to have the doctor radiation control health physicist paged.If you consider this an emergency, dial 91-5 or go to your nearest emergencydepartment.NEED HELP? Are you dealing with a violent or abusive relationship? Are you avictim of rape or sexual assult? Call [facility] ([place]) 24 hourCrisis Hotline: 298.258.3221 or 351-281-4244. MANUALYour Guide to a Healthy manual is now on-line. [email or web address]/H ealthyPregnancyGuide to download your free copyReferring Provider: SELF [200]Allergies As of Date: 03/30/2017(No Known Allergies)Date Reviewed: 03/30/2017Reviewed by: Zunilda DowningJosiah B. Thomas HospitalReggie Arango - Fully AssessedReason for Visit: Care [86]Primary Visit Diagnosis:Encounter for supervision of normal first in second trimester [Z34.02] Other Visit Diagnosis:27 weeks gestation of [Z3A.27]Order(s):URINE OB DIP B/O [[id number]] Order #: [id number] CBC + DIFF [SQCBCDIF] Order #: [id number] FUTURE GEST GLUC SCREEN, 1-HR, 50 GM, NON-FASTING [SQGLTGST] Order #: [id number] FUTUREPrescriptions as of 03/30/2017 Sig: VITAMIN,CALCIUM,MINE* Take 1 tablet by mouth. DHA ORAL Take by mouth.Problem List As Of Date 03/30/2017 Noted Resolved Painful intercourse [IHM3886] INVALID FOR*01/21/2014 Supervision of normal first [Z34.00] INVALID FOR*08/14/2014 More... Supervision of normal [Z34.90] INVALID FOR* Other instructions from your clinician: SEQUENTIAL SCREENINGS [facility] offers sequential screenings for women who are interested in screenings for chromosomal abnormalities and certain defects during a . The sequential screen combines ultrasound and blood tests to determine the risk of chromosomal abnormalities, including Down's Syndrome (Trisomy 21) and Trisomy 18, as well as open neural tube defects including spina bifida. Ultrasound examination is performed between 11 weeks and 13 weeks gestational age. Blood tests are drawn after the ultrasound and again later in the between 15 and 21 weeks gestational age. Please let your physician know if you are interested in this testing. It will require an appointment with our neon technician. This is not an ultrasound performed by a physician in our office during a routine visit. SIGNS AND SYMPTOMS OF LABOR 1. Contractions every 10 minutes or more often 2. Clear, pink, or brownish fluid (water) leaking from vagina 3. Feeling that baby is pushing down, pressure 4. Low, dull backache 5. Cramps that feel like a period 6. Cramps with or without diarrhea If you notice any of the above symptoms, contact our office at [phone] and ask to speak with a nurse. After hours, you can call doctors registry at [phone] OR call [facility] at [phone] and ask to have the doctor radiation control health physicist paged. If you consider this an emergency, dial 7-4-8 or go to your nearest emergency department. NEED HELP? Are you dealing with a violent or abusive relationship? Are you a victim of rape or sexual assult? Call [facility] ([facility] 24 hour Crisis Hotline: 276.736.9110 or 902-811-3214. MANUAL Your Guide to a Healthy manual is now on-line. Visit [email or web address]/Health yPregnancyGuide to download your free copyMedications Discontinued During This Encounter fenugreek seed extract 500 mg cap 03/30/2017 Class: Historical Med Route: ORAL Sig: Take by mouth. Disc: Discontinued by Patient Desogestrel-Ethinyl Estradiol (KARIV* 1 Pa* 6 08/22/2014 03/30/2017 Route: ORAL Sig: Take 1 tablet by mouth once daily. Disc: Discontinued by PatientDisposition: Return in about 2 weeks (around 04/13/2017), or if symptoms worsen or fail to improve, for BRODERICK.Follow-up and Disposition History RecordedEncadventist health st. helenaer Number: [id number] Status:Closed by ZUNILDA ARANGO on 03/30/17 [facility] 03-07-2017 [facility] Routine Off ice Visit (WOOB) --------KELLY SUGGS ([id number]) 1985 [facility] Time Provider Lxtwtjyrhj98/11/17 2:00 PM ZUNILDA ARANGO ([facility]) WOOB During your visit today, we recorded the following information about you: Blood pressure Weight 122/68 79.8 kgHayley Francesco Ks 03/07/2017 2:15 PM SignedSEQUENTIAL SCREENINGSThe [facility] offers sequential screenings for women who are interestedin screenings for chromosomal abnormalities and certain defects during apregnancy. The sequential screen combines ultrasound and blood tests todetermine the risk of chromosomal abnormalities, including Down's Syndrome(Trisomy 21) and Trisomy 18, as well as open neural tube defects includingspina bifida. Ultrasound examination is performed between 11 weeks and 13 weeksgestational age. Blood tests are drawn after the ultrasound and again later inthe between 15 and 21 weeks gestational age. Please let yourphysician know if you are interested in this testing. It will require anappointment with our neon technician. This is not an ultrasound performedby a physician in our office during a routine visit.SIGNS AND SYMPTOMS OF LABOR1. Contractions every 10 minutes or more often2. Clear, pink, or brownish fluid (water) leaking from vagina3. Feeling that baby is pushing down, pressure4. Low, dull backache5. Cramps that feel like a period6. Cramps with or without diarrheaIf you notice any of the above symptoms, contact our office at [phone] andask to speak with a nurse.After hours, you can call doctors registry at [phone] OR call [facility] at [phone] and ask to have the doctor radiation control health physicist paged.If you consider this an emergency, dial 4-3-0 or go to your nearest emergencydepartment.NEED HELP? Are you dealing with a violent or abusive relationship? Are you avictim of rape or sexual assult? Call [facility] ([place]) 24 hourCrisis Hotline: 935.240.7424 or 210-601-5939. MANUALYour Guide to a Healthy manual is now on-line. [email or web address] ealthyPregnancyGuide to download your free copyReferring Provider: DEENA MEJIA [[id number]]Allergies As of Date: 03/07/2017(No Known Allergies)Date Reviewed: 03/07/2017Reviewed by: Miranda Maya Ma - Fully AssessedReason for Visit: Care [86]Primary Visit Diagnosis:Encounter for supervision of other normal in second trimester [Z34.82] Other Visit Diagnoses:24 weeks gestation of [Z3A.24] Pupil dilation [H57.04]Order(s):URINE OB DIP B/O [[id number]] Order #: [id number] CONSULT TO NEUROLOGY [9019] Order #: [id number]: 1Prescriptions as of 03/07/2017 Sig: DESOGESTREL-E.ESTRADIOL 0.15 * Take 1 tablet by mouth once d* FENUGREEK SEED EXTRACT 500 MG* Take by mouth. VITAMIN,CALCIUM,MINE* Take 1 tablet by mouth. DHA ORAL Take by mouth.Problem List As Of Date 03/07/2017 Noted Resolved Painful intercourse [FQY4415] INVALID FOR*01/21/2014 Supervision of normal first [Z34.00] INVALID FOR*08/14/2014 More... Supervision of normal [Z34.90] INVALID FOR* Other instructions from your clinician: SEQUENTIAL SCREENINGS [facility] offers sequential screenings for women who are interested in screenings for chromosomal abnormalities and certain defects during a . The sequential screen combines ultrasound and blood tests to determine the risk of chromosomal abnormalities, including Down's Syndrome (Trisomy 21) and Trisomy 18, as well as open neural tube defects including spina bifida. Ultrasound examination is performed between 11 weeks and 13 weeks gestational age. Blood tests are drawn after the ultrasound and again later in the between 15 and 21 weeks gestational age. Please let your physician know if you are interested in this testing. It will require an appointment with our neon technician. This is not an ultrasound performed by a physician in our office during a routine visit. SIGNS AND SYMPTOMS OF LABOR 1. Contractions every 10 minutes or more often 2. Clear, pink, or brownish fluid (water) leaking from vagina 3. Feeling that baby is pushing down, pressure 4. Low, dull backache 5. Cramps that feel like a period 6. Cramps with or without diarrhea If you notice any of the above symptoms, contact our office at [phone] and ask to speak with a nurse. After hours, you can call doctors registry at [phone] OR call [facility] at [phone] and ask to have the doctor radiation control health physicist paged. If you consider this an emergency, dial 9-0-0 or go to your nearest emergency department. NEED HELP? Are you dealing with a violent or abusive relationship? Are you a victim of rape or sexual assult? Call [facility] ([place]) 24 hour Crisis Hotline: 582.104.4815 or 178-281-7110. MANUAL Your Guide to a Healthy manual is now on-line. Visit [email or web address]/Health yPregnancyGuide to download your free copyDisposition: Return in about 3 weeks (around 03/28/2017), or if symptoms worsen or fail to improve, for BRODERICK.Follow-up and Disposition History RecordedEncounter Number: [id number] Status:Closed by ZUNILDA ARANGO on 03/07/17 [facility] 02-07-2017 [facility] Routine Off ice Visit (WOOB) --------KELLY SUGGS ([id number]) 1985 FDate Time Provider Cchtdqwftv13/13/17 11:30 AM ZUNILDA ARANGO (LAURIE) WOEBONY During your visit today, we recorded the following information about you: Blood pressure Weight 112/64 77.1 kgTabatha Shala [place] 02/07/2017 10:32 AM SignedSEQUENTIAL SCREENINGSThe [facility] offers sequential screenings for women who are interestedin screenings for chromosomal abnormalities and certain defects during apregnancy. The sequential screen combines ultrasound and blood tests todetermine the risk of chromosomal abnormalities, including Down's Syndrome(Trisomy 21) and Trisomy 18, as well as open neural tube defects includingspina bifida. Ultrasound examination is performed between 11 weeks and 13 weeksgestational age. Blood tests are drawn after the ultrasound and again later inthe between 15 and 21 weeks gestational age. Please let yourphysician know if you are interested in this testing. It will require anappointment with our neon technician. This is not an ultrasound performedby a physician in our office during a routine visit.SIGNS AND SYMPTOMS OF LABOR1. Contractions every 10 minutes or more often2. Clear, pink, or brownish fluid (water) leaking from vagina3. Feeling that baby is pushing down, pressure4. Low, dull backache5. Cramps that feel like a period6. Cramps with or without diarrheaIf you notice any of the above symptoms, contact our office at [phone] andask to speak with a nurse.After hours, you can call doctors registry at [phone] OR call [facility] at [phone] and ask to have the doctor radiation control health physicist paged.If you consider this an emergency, dial 9-1-1 or go to your nearest emergencydepartment.NEED HELP? Are you dealing with a violent or abusive relationship? Are you avictim of rape or sexual assult? Call [facility] ([place]) 24 hourCrisis Hotline: 777.317.4882 or 514-960-9584. MANUALYour Guide to a Healthy manual is now on-line. Visitprotestant [email or web address]/H ealthyPregnancyGuide to download your free copyReferring Provider: DEENA MEJIA [[id number]]Allergies As of Date: 02/07/2017(No Known Allergies)Date Reviewed: 02/07/2017Reviewed by: Zunilda Arango - Fully AssessedReason for Visit: Care [86]Primary Visit Diagnosis:20 weeks gestation of [Z3A.20] Other Visit Diagnosis:Encounter for supervision of other normal in second trimester [Z34.82]Order(s):URINE OB DIP B/O [[id number]] Order #: [id number] ALPHA FETOPRO MATERNAL [SQAFPMAT] Order #: [id number] FUTURE SEQUENTIAL SCRN SCND TRIMESTER [SQSEQL2] Order #: [id number] FUTUREPrescriptions as of 02/07/2017 Sig: VITAMIN,CALCIUM,MINE* Take 1 tablet by mouth. DHA ORAL Take by mouth. DESOGESTREL-E.ESTRADIOL 0.15 * Take 1 tablet by mouth once d* FENUGREEK SEED EXTRACT 500 MG* Take by mouth.Problem List As Of Date 02/07/2017 Noted Resolved Painful intercourse [CFH6780] INVALID FOR*01/21/2014 Supervision of normal first [Z34.00] INVALID FOR*08/14/2014 More... Supervision of normal [Z34.90] INVALID FOR* Other instructions from your clinician: SEQUENTIAL SCREENINGS The [facility] offers sequential screenings for women who are interested in screenings for chromosomal abnormalities and certain defects during a . The sequential screen combines ultrasound and blood tests to determine the risk of chromosomal abnormalities, including Down's Syndrome (Trisomy 21) and Trisomy 18, as well as open neural tube defects including spina bifida. Ultrasound examination is performed between 11 weeks and 13 weeks gestational age. Blood tests are drawn after the ultrasound and again later in the between 15 and 21 weeks gestational age. Please let your physician know if you are interested in this testing. It will require an appointment with our neon technician. This is not an ultrasound performed by a physician in our office during a routine visit. SIGNS AND SYMPTOMS OF LABOR 1. Contractions every 10 minutes or more often 2. Clear, pink, or brownish fluid (water) leaking from vagina 3. Feeling that baby is pushing down, pressure 4. Low, dull backache 5. Cramps that feel like a period 6. Cramps with or without diarrhea If you notice any of the above symptoms, contact our office at [phone] and ask to speak with a nurse. After hours, you can call doctors registry at [phone] OR call [facility] at [phone] and ask to have the doctor radiation control health physicist paged. If you consider this an emergency, dial 9-1-2 or go to your nearest emergency department. NEED HELP? Are you dealing with a violent or abusive relationship? Are you a victim of rape or sexual assult? Call [facility] ([place]) 24 hour Crisis Hotline: 262.327.6177 or 067-351-6403. MANUAL Your Guide to a Healthy manual is now on-line. Visit [email or web address]/Health yPregnancyGuide to download your free copyDisposition: Return in about 4 weeks (around 03/07/2017), or if symptoms worsen or fail to improve, for routine OB check.Follow-up and Disposition History RecordedEncounter Number: [id number] Status:Closed by ZUNILDA ARANGO on 02/07/17 Normal [facility] Routine Off ice Visit (WOOB) --------KELLY SUGGS ([id number]) [address] [facility] Iapuangnnb82/13/17 10:15 AM ARMINDA RAMÍREZ During your visit today, we recorded the following information about you:Arminda Ramírez MD 02/07/2017 1:02 PM SignedA cain? fetus in utero with symmetric measurementsAdequate growth (AGA).Estimated Date of Delivery: 06/23/17EGA = [id number] anatomy appears normal. There are no evident malformations and /oreffusions.No genetic markers are noted.The amniotic fluid volume is within normal limits.The sensitivity of ultrasound in the detection of malformations overall isapproximately 35%.RECOMMENDATIONS:- Follow up ultrasound as clinically indicatedReferring Provider: DEENA MEJIA [[id number]]Allergies As of Date: 02/07/2017(No Known Allergies)Date Reviewed: 02/07/2017Reviewed by: Arminda Ramírez - Fully AssessedPrimary Visit Diagnosis:20 weeks gestation of [Z3A.20] Other Visit Diagnosis:Encounter for anatomic survey [Z36.89]Prescriptions as of 02/07/2017 Sig: DESOGESTREL-E.ESTRADIOL 0.15 * Take 1 tablet by mouth once d* FENUGREEK SEED EXTRACT 500 MG* Take by mouth. VITAMIN,CALCIUM,MINE* Take 1 tablet by mouth. DHA ORAL Take by mouth.Problem List As Of Date 02/07/2017 Noted Resolved Painful intercourse [NEN0605] INVALID FOR*01/21/2014 Supervision of normal first [Z34.00] INVALID FOR*08/14/2014 More... Supervision of normal [Z34.90] INVALID FOR* Status:Closed by ARMINDA RAMÍREZ MD on 02/07/17 Normal [facility] PROGRESSon 02-07-2017 PROGRESS HNO ID: [id number] thor: Arminda Funkervice: (none)Author Type: PhysicianType: Progress NotesFiled: 02/07/2017 1:02 PMNote Text:A cain? fetus in utero with symmetric measurementsAdequate growth (AGA).Estimated Date of Delivery: 06/23/17EGA = [id number] anatomy appears normal. There are no evident malformations and/or effusions.No genetic markers are noted.The amniotic fluid volume is within normal limits.The sensitivity of ultrasound in the detection of malformations overall isapproximately 35%.RECOMMENDATIONS:- Follow up ultrasound as clinically indicated Normal [facility] HOSPon 01-10-2017 [facility] Routine Off ice Visit (WOOB) --------KELLY SUGGS ([id number]) 1985 F[address] Time Provider Nycmlagwlj90/16/17 3:10 PM DEENA MEJIA During your visit today, we recorded the following information about you: Blood pressure Weight 110/68 75.2 kgHayley Francesco [place] 01/10/2017 3:19 PM SignedSEQUENTIAL SCREENINGSThe [facility] offers sequential screenings for women who are interestedin screenings for chromosomal abnormalities and certain defects during apregnancy. The sequential screen combines ultrasound and blood tests todetermine the risk of chromosomal abnormalities, including Down's Syndrome(Trisomy 21) and Trisomy 18, as well as open neural tube defects includingspina bifida. Ultrasound examination is performed between 11 weeks and 13 weeksgestational age. Blood tests are drawn after the ultrasound and again later inthe between 15 and 21 weeks gestational age. Please let yourphysician know if you are interested in this testing. It will require anappointment with our neon technician. This is not an ultrasound performedby a physician in our office during a routine visit.SIGNS AND SYMPTOMS OF LABOR1. Contractions every 10 minutes or more often2. Clear, pink, or brownish fluid (water) leaking from vagina3. Feeling that baby is pushing down, pressure4. Low, dull backache5. Cramps that feel like a period6. Cramps with or without diarrheaIf you notice any of the above symptoms, contact our office at [phone] andask to speak with a nurse.After hours, you can call doctors registry at [phone] OR call [facility] at [phone] and ask to have the doctor radiation control health physicist paged.If you consider this an emergency, dial 9-1-1 or go to your nearest emergencydepartment.NEED HELP? Are you dealing with a violent or abusive relationship? Are you avictim of rape or sexual assult? Call [facility] ([place]) 24 hourCrisis Hotline: 106.618.8357 or 289-639-9412. MANUALYour Guide to a Healthy manual is now on-line. [email or web address] ealthyPregnancyGuide to download your free copyReferring Provider: SELF [[id number]]Allergies As of Date: 01/10/2017(No Known Allergies)Date Reviewed: 01/10/2017Reviewed by: Miranda Maya Ma - Fully AssessedReason for Visit: Care [86]Primary Visit Diagnosis:Encounter for supervision of other normal in second trimester [Z34.82] Other Visit Diagnosis:16 weeks gestation of [Z3A.16]Order(s):URINE OB DIP B/O [6469615] Order #: [id number] as of 01/10/2017 Sig: DESOGESTREL-E.ESTRADIOL 0.15 * Take 1 tablet by mouth once d* FENUGREEK SEED EXTRACT 500 MG* Take by mouth. VITAMIN,CALCIUM,MINE* Take 1 tablet by mouth. DHA ORAL Take by mouth.Problem List As Of Date 01/10/2017 Noted Resolved Painful intercourse [INQ9670] INVALID FOR*01/21/2014 Supervision of normal first [Z34.00] INVALID FOR*08/14/2014 More... Other instructions from your clinician: SEQUENTIAL SCREENINGS The [facility] offers sequential screenings for women who are interested in screenings for chromosomal abnormalities and certain defects during a . The sequential screen combines ultrasound and blood tests to determine the risk of chromosomal abnormalities, including Down's Syndrome (Trisomy 21) and Trisomy 18, as well as open neural tube defects including spina bifida. Ultrasound examination is performed between 11 weeks and 13 weeks gestational age. Blood tests are drawn after the ultrasound and again later in the between 15 and 21 weeks gestational age. Please let your physician know if you are interested in this testing. It will require an appointment with our neon technician. This is not an ultrasound performed by a physician in our office during a routine visit. SIGNS AND SYMPTOMS OF LABOR 1. Contractions every 10 minutes or more often 2. Clear, pink, or brownish fluid (water) leaking from vagina 3. Feeling that baby is pushing down, pressure 4. Low, dull backache 5. Cramps that feel like a period 6. Cramps with or without diarrhea If you notice any of the above symptoms, contact our office at [phone] and ask to speak with a nurse. After hours, you can call doctors registry at [phone] OR call [facility] at [phone] and ask to have the doctor radiation control health physicist paged. If you consider this an emergency, dial 9--9 or go to your nearest emergency department. NEED HELP? Are you dealing with a violent or abusive relationship? Are you a victim of rape or sexual assult? Call [facility] ([place]) 24 hour Crisis Hotline: 618.344.8231 or 668-705-1363. MANUAL Your Guide to a Healthy manual is now on-line. Visit [email or web address] yPregnancyGuide to download your free copyDisposition: Return in about 4 weeks (around 02/07/2017).Follow-up and Disposition History RecordedEncounter Number: [id number] Status:Closed by DEENA LEUNG MD on 01/10/17 [facility] TONY Quitneros 01-10-[address] [facility] Comment on above: Performed By: #### S EQL2 ####[place] [phone] [facility] Comment on above: Performed By: #### S EQL2 ####[place] [phone] SE1 GRACIELA A 1.[address] [facility] Comment on above: Performed By: #### S EQL2 ####[place] [phone] SE2 AFP 0.76 MoM Normal [facility] Comment on above: Performed By: #### S EQL2 ####[place] [phone] SE2 Age Rsk Dn Snyd 1:390 Normal [facility] Comment on above: Performed By: #### S EQL2 ####[place] [phone] SE2 Dimrc Inhibin A 1.34 MoM Normal [facility] Comment on above: Performed By: #### S EQL2 ####[place] [address] [address] [place] [phone] SE2 Interp Negative Normal Screen Negative [facility] Comment on above: Performed By: #### S EQL2 ####[address] [place] [phone] SE2 Scr Rsk ONTD 1:7900 Normal [facility] Comment on above: Performed By: #### S EQL2 ####[place] [phone] SE2 Scr Rsk Trsmy 13 1:[address] [facility] Comment on above: Performed By: #### S EQL2 ####[place] [phone] SE2 Scr Rsk Trsmy18 <1:46644 Normal [facility] Comment on above: Performed By: #### S EQL2 ####[place] [phone] SE2 Scrn Rsk Dn Synd 1:[address] [facility] Comment on above: Performed By: #### S EQL2 ####[phone] SE2 Unconj uE3 1.02 MoM Normal [facility] Comment on above: Performed By: #### S EQL2 ####[place] [phone] Seq Scrn Second Trim View results in Sca nned Documents link when available. Normal [facility] Comment on above: Performed By: #### S EQL2 ####[place] [phone] SEQ Staff Review Reviewed by Luis F Jones MD, PhD ([id number]) Normal [facility] Comment on above: Performed By: #### S EQL2 ####[place] [phone] PROGRESSon 12-14-2016 PROGRESS HNO ID: [id number] Author: Simone Gan Service: (none) Author Type: Physician Type: Progress Notes Filed: 12/14/2016 8:45 AM Note Text: Please see ultrasound report for details of this visit. Simone Gan M.D. Normal [facility] CBCon 12-13-2016 Erythrocyte distribution width Auto Ratio (RBC) 13.3 % Normal 11.5-15.0 [facility] Comment on above: Performed By: #### C BC, SYPHGX, RUBIGG, HBSAG, HIV12C, SEQL1 ####[place] [phone] Erythrocytes (RBC) 4.11 10*6/uL Normal 3.90-5.[address] [facility] Comment on above: Performed By: #### C BC, SYPHGX, RUBIGG, HBSAG, HIV12C, SEQL1 ####[place] [id number] [phone] Erythrocytes (RBC) 0.00 10*6/uL Normal 0.[address] [facility] Comment on above: Performed By: #### C BC, SYPHGX, RUBIGG, HBSAG, HIV12C, SEQL1 ####[place] [id number] [phone] Hematocrit (HCT) 37.9 % Normal 36.0-46.0 [facility] Comment on above: Performed By: #### C BC, SYPHGX, RUBIGG, HBSAG, HIV12C, SEQL1 ####[place] [id number] [phone] Hemoglobin mass conc (Bld) 12.6 g/dL Normal 11.5-15.5 [facility] Comment on above: Performed By: #### C BC, SYPHGX, RUBIGG, HBSAG, HIV12C, SEQL1 ####[place] [address] [address] [place] [phone] MCH 30.7 pG Normal 26.0-34.0 [facility] Comment on above: Performed By: #### C BC, SYPHGX, RUBIGG, HBSAG, HIV12C, SEQL1 ####[place] [address] [address] [place] [phone] MCHC mass conc (RBC) 33.2 g/dL Normal 30.5-36.[address] [facility] Comment on above: Performed By: #### C BC, SYPHGX, RUBIGG, HBSAG, HIV12C, SEQL1 ####[address] [place] [phone] MCV 92.2 fL Normal 80.0-100.0 [facility] Comment on above: Performed By: #### C BC, SYPHGX, RUBIGG, HBSAG, HIV12C, SEQL1 ####[address] [place] [phone] Platelet mean volume (PMV) 10.3 fL Normal 9.0-12.7 [facility] Comment on above: Performed By: #### C BC, SYPHGX, RUBIGG, HBSAG, HIV12C, SEQL1 ####[address] [place] [phone] Platelets 260 10*3/uL Normal 150-400 [facility] Comment on above: Performed By: #### C BC, SYPHGX, RUBIGG, HBSAG, HIV12C, SEQL1 ####[address] [place] [phone] WBC (Leukocytes) 6.21 10*3/uL Normal 3.70-11.00 [facility] Comment on above: Performed By: #### C BC, SYPHGX, RUBIGG, HBSAG, HIV12C, SEQL1 ####[facility] [place], [place] [phone] HIV 12 Combo (Ag/Ab)on 12-13 HIV 12 Ag/Ab Non Reactive Normal Non Reactive [facility] Comment on above: Result Comment: (NOT E)HIV Information: [place] Rev. Code 3701.243(E):This information has been disclosed to you from confidential recordsprotected from disclosure by state law. You shall make no furtherdisclosure of this information without the specific, written, andinformed release of the individual to whom it pertains, or asotherwise permitted by state law. A general authorization for therelease of medical or other information is not sufficient for thepurpose of the release of HIV test results or diagnoses. Performed By: #### C BC, SYPHGX, RUBIGG, HBSAG, HIV12C, SEQL1 ####[facility] [place], [place] [phone] [facility] 12-13-2016 [facility] Routine Off ice Visit (WOOB) --------KELLY SUGGS ([id number]) 1985 [facility] Time Provider Department12/13/16 1:50 PM SANTINO CHONG WOOB During your visit today, we recorded the following information about you: Blood pressure Weight 100/64 71.9 kgHayley Money Ma 12/13/2016 1:50 PM AddendumSEQUENTIAL SCREENINGSThe [facility] offers sequential screenings for women who are interestedin screenings for chromosomal abnormalities and certain defects during apregnancy. The sequential screen combines ultrasound and blood tests todetermine the risk of chromosomal abnormalities, including Down's Syndrome(Trisomy 21) and Trisomy 18, as well as open neural tube defects includingspina bifida. Ultrasound examination is performed between 11 weeks and 13 weeksgestational age. Blood tests are drawn after the ultrasound and again later inthe between 15 and 21 weeks gestational age. Please let yourphysician know if you are interested in this testing. It will require anappointment with our neon technician. This is not an ultrasound performedby a physician in our office during a routine visit.SIGNS AND SYMPTOMS OF LABOR1. Contractions every 10 minutes or more often2. Clear, pink, or brownish fluid (water) leaking from vagina3. Feeling that baby is pushing down, pressure4. Low, dull backache5. Cramps that feel like a period6. Cramps with or without diarrheaIf you notice any of the above symptoms, contact our office at [phone] andask to speak with a nurse.After hours, you can call doctors registry at [phone] OR [facility] at [phone] and ask to have the doctor radiation control health physicist paged.If you consider this an emergency, dial 91-6 or go to your nearest emergencydepartment.NEED HELP? Are you dealing with a violent or abusive relationship? Are you avictim of rape or sexual assult? Call [facility] ([place]) 24 hourCrisis Hotline: 111.387.3898 or 501-936-9740. MANUALYour Guide to a Healthy manual is now on-line. [email or web address]/H ealthyPregnancyGuide to download your free copySEQUENTIAL TESTING PROCESSSequential Screen First TrimesterToday you are currently: 12w4d weeks12/13/2016: Ultrasound and blood test.Sequential Screen Second Trimester (16-17 Weeks Gestation)When you are called with your results, the nurse will give the optimal drawdates for the Sequential screen second trimester. [facility] Please report to the any line helper office front office secretary forthe Sequential Part 2 requisition and order before reporting to the lab. Yourweight will need to be documented for testing.Please note:-No appointment is need for your second blood draw.-Office hours are 8 am to 4:30 pm.-Please have testing done prior to 12 noon on Tuesday's-Once the sequential testing is started, in the first trimester the onlyfollow-up will be for the sequential screen second trimester. Please don't havea Quad screen ordered by another provider.If you or your Provider have any questions please call your maternal fetalmedicine office, for east side please call [phone] or for the West sidecall [phone] and ask for the the nurse.Thank you.Referring Provider: DEENA MEJIA [[id number]]Allergies As of Date: 12/13/2016(No Known Allergies)Date Reviewed: 12/13/2016Reviewed by: Miranda Maya Ma - Fully AssessedReason for Visit: Care [86]Primary Visit Diagnosis:Encounter for supervision of other normal in first trimester [Z34.81] Other Visit Diagnoses:12 weeks gestation of [Z3A.12] Encounter for screening of mother [Z36] First trimester screening [Z36]Order(s):URINE OB DIP B/O [[id number]] Order #: [id number] SEQUENTIAL SCRN FRST TRIMESTER [SQSEQL1] Order #: [id number] FUTURE SEQUENTIAL SCRN SCND TRIMESTER [SQSEQL2] Order #: [id number] FUTUREPrescriptions as of 12/13/2016 Sig: DESOGESTREL-E.ESTRADIOL 0.15 * Take 1 tablet by mouth once d* FENUGREEK SEED EXTRACT 500 MG* Take by mouth. VITAMIN,CALCIUM,MINE* Take 1 tablet by mouth. DHA ORAL Take by mouth.Problem List As Of Date 12/13/2016 Noted Resolved Painful intercourse [ESI0872] INVALID FOR*01/21/2014 Supervision of normal first [Z34.00] INVALID FOR*08/14/2014 More... Other instructions from your clinician: SEQUENTIAL SCREENINGS [facility] offers sequential screenings for women who are interested in screenings for chromosomal abnormalities and certain defects during a . The sequential screen combines ultrasound and blood tests to determine the risk of chromosomal abnormalities, including Down's Syndrome (Trisomy 21) and Trisomy 18, as well as open neural tube defects including spina bifida. Ultrasound examination is performed between 11 weeks and 13 weeks gestational age. Blood tests are drawn after the ultrasound and again later in the between 15 and 21 weeks gestational age. Please let your physician know if you are interested in this testing. It will require an appointment with our neon technician. This is not an ultrasound performed by a physician in our office during a routine visit. SIGNS AND SYMPTOMS OF LABOR 1. Contractions every 10 minutes or more often 2. Clear, pink, or brownish fluid (water) leaking from vagina 3. Feeling that baby is pushing down, pressure 4. Low, dull backache 5. Cramps that feel like a period 6. Cramps with or without diarrhea If you notice any of the above symptoms, contact our office at [phone] and ask to speak with a nurse. After hours, you can call doctors registry at [phone] OR call [facility] at [phone] and ask to have the doctor radiation control health physicist paged. If you consider this an emergency, dial 5--7 or go to your nearest emergency department. NEED HELP? Are you dealing with a violent or abusive relationship? Are you a victim of rape or sexual assult? Call [facility] ([place]) 24 hour Crisis Hotline: 230.838.2633 or 679-044-6162. MANUAL Your Guide to a Healthy manual is now on-line. Visit [email or web address]/Health yPregnancyGuide to download your free copy SEQUENTIAL TESTING PROCESS Sequential Screen First Trimester Today you are currently: 12w4d weeks 12/13/2016: Ultrasound and blood test. Sequential Screen Second Trimester (16-17 Weeks Gestation) When you are called with your results, the nurse will give the optimal draw dates for the Sequential screen second trimester. Blood testing can be done at any [facility] lab. Please report to the any line helper office front office secretary for the Sequential Part 2 requisition and order before reporting to the lab. Your weight will need to be documented for testing. Please note: -No appointment is need for your second blood draw. -Office hours are 8 am to 4:30 pm. -Please have testing done prior to 12 noon on Tuesday's -Once the sequential testing is started, in the first trimester the only follow-up will be for the sequential screen second trimester. Please don't have a Quad screen ordered by another provider. If you or your Provider have any questions please call your maternal medicine office, for east side please call [phone] or for the West side call [phone] and ask for the the nurse. Thank you.Disposition: Return in about 4 weeks (around 01/10/2017).Follow-up and Disposition History RecordedEncounter Number: [id number] Status:Closed by SANTINO CHONG MD on 12/13/16 [facility] Routine Off ice Visit (WOOB) --------KELLY SUGGS ([id number]) 1985 [facility] Time Provider Department12/13/16 1:00 PM SIMONE GAN WOOB During your visit today, we recorded the following information about you:Simone Gan MD 12/14/2016 8:45 AM SignedPlease see ultrasound report for details of this visit.Simone Gan M.D.Referring Provider: DEENA MEJIA [[id number]]Allergies As of Date: 12/13/2016(No Known Allergies)Date Reviewed: 12/13/2016Reviewed by: Miranda Maya Ma - Fully AssessedPrimary Visit Diagnosis:12 weeks gestation of [Z3A.12] Other Visit Diagnoses:Encounter for supervision of other normal , first trimester [Z34.81] Encounter for (NT) nuchal translucency scan [Z36]Prescriptions as of 12/13/2016 Sig: DESOGESTREL-E.ESTRADIOL 0.15 * Take 1 tablet by mouth once d* FENUGREEK SEED EXTRACT 500 MG* Take by mouth. VITAMIN,CALCIUM,MINE* Take 1 tablet by mouth. DHA ORAL Take by mouth.Problem List As Of Date 12/13/2016 Noted Resolved Painful intercourse [DYZ3233] INVALID FOR*01/21/2014 Supervision of normal first [Z34.00] INVALID FOR*08/14/2014 More... Status:Closed by SIMONE GAN MD on 12/14/16 [facility] Hepatitis B Surf. Agon 12-13 Hepatitis B Surf. Ag Negative Normal Negative [facility] Comment on above: Performed By: #### C BC, SYPHGX, RUBIGG, HBSAG, HIV12C, SEQL1 ####[place] [address]CEast [place], [place] [phone] Rubella IgG Antibodyon 12-13 Rubella IgG Ab 3.74 Index Value Normal [facility] Comment on above: Result Comment: Inde x values are interpreted as follows:Negative specimens <0.90Equivocol specimens 0.90 to 0.99Positive specimens >0.99The magnitude of the measured result is not indicative of the amount of antibody present. Performed By: #### C BC, SYPHGX, RUBIGG, HBSAG, HIV12C, SEQL1 ####[address] [place] [phone] Rubella IgG Ab, Qual Positive Critically abnormal Negative [facility] Comment on above: Result Comment: Samp le is considered positive for IgG antibodies to rubella virus. Performed By: #### C BC, SYPHGX, RUBIGG, HBSAG, HIV12C, SEQL1 ####[place] [address] [place] [phone] Sequent Scrn First [facility] PATIE NTS ONLYon 12-13-[address] [facility] Comment on above: Performed By: #### C BC, SYPHGX, RUBIGG, HBSAG, HIV12C, SEQL1 ####[place] [address] AvCathlam[address], [place] [phone] SE1 Age Rsk Dn Synd 1:290 [facility] Comment on above: Performed By: #### C BC, SYPHGX, RUBIGG, HBSAG, HIV12C, SEQL1 ####[place] [address] [place], [place] [phone] SE1 Age Rsk Trsmy18 1:1300 [facility] Comment on above: Performed By: #### C BC, SYPHGX, RUBIGG, HBSAG, HIV12C, SEQL1 ####[place] [id number] [place] [phone] SE1 Interp Final result pending second trimester sample Normal Final result pending second trimester sample [facility] Comment on above: Performed By: #### C BC, SYPHGX, RUBIGG, HBSAG, HIV12C, SEQL1 ####[phone] SE1 GRACIELA A 1.17 MoM Normal [facility] Comment on above: Performed By: #### C BC, SYPHGX, RUBIGG, HBSAG, HIV12C, SEQL1 ####[phone] SE1 Scr Rsk Trsmy18 <1:[phone] [facility] Comment on above: Performed By: #### C BC, SYPHGX, RUBIGG, HBSAG, HIV12C, SEQL1 ####[address] AvSusan Ville [phone] SE1 Scrn Rsk Dn Synd [phone] [facility] Comment on above: Performed By: #### C BC, SYPHGX, RUBIGG, HBSAG, HIV12C, SEQL1 ####[place] [id number] AveCMichael [place] [phone] Seq Scrn First Trim View results in Scan deacon Documents link when available. [facility] Comment on above: Performed By: #### C BC, SYPHGX, RUBIGG, HBSAG, HIV12C, SEQL1 ####[place] [id number] [place] [phone] SEQ Staff Review Reviewed by Luis F Jones MD, PhD ([id number]) [facility] Comment on above: Performed By: #### C BC, SYPHGX, RUBIGG, HBSAG, HIV12C, SEQL1 ####[address] [phone] Syphilis IgG with Confon Syphilis IgG <0.2 Normal [facility] Comment on above: Result Comment: Anti body index is interpreted as follows:Non reactive SPECIMENS <=0.8Weak reactive SPECIMENS 0.9 to 5.9Reactive SPECIMENS >=6.0 Performed By: #### C BC, SYPHGX, RUBIGG, HBSAG, HIV12C, SEQL1 ####[address] [phone] Syphilis IgG, Qual Nonreactive Normal Nonreactive [facility] Comment on above: Result Comment: In c onjunction with this result, the immune status of the patient should be evaluated based on their clinical status, related risk factors, and other diagnostic test results. Performed By: #### C BC, SYPHGX, RUBIGG, HBSAG, HIV12C, SEQL1 ####[address] [phone] Type and Scr,Prenatlon 12-13 ABO/RH(D) Positive Normal [facility] Comment on above: Performed By: #### T SPN ####[address] [phone] Antibody Screen Negative Normal [facility] Comment on above: Performed By: #### T SPN ####[address] [phone] CNNURSEon 11-18-2016 CNNURSE Nurse Visit (WOOB) --------KELLY SUGGS ([id number]) 1985 FDate Time Provider Department11/18/16 2:30 PM NURSE [facility] JIA WOEBONY During your visit today, we recorded the following information about you: Last Period 09/16/16Ericka Rivera RN 11/18/2016 2:44 PM SignedSEQUENTIAL SCREENINGSThe [facility] offers sequential screenings for women who are interestedin screenings for chromosomal abnormalities and certain defects during apregnancy. The sequential screen combines ultrasound and blood tests todetermine the risk of chromosomal abnormalities, including Down's Syndrome(Trisomy 21) and Trisomy 18, as well as open neural tube defects includingspina bifida. Ultrasound examination is performed between 11 weeks and 13 weeksgestational age. Blood tests are drawn after the ultrasound and again later inthe between 15 and 21 weeks gestational age. Please let yourphysician know if you are interested in this testing. It will require anappointment with our neon technician. This is not an ultrasound performedby a physician in our office during a routine visit.SIGNS AND SYMPTOMS OF LABOR1. Contractions every 10 minutes or more often2. Clear, pink, or brownish fluid (water) leaking from vagina3. Feeling that baby is pushing down, pressure4. Low, dull backache5. Cramps that feel like a period6. Cramps with or without diarrheaIf you notice any of the above symptoms, contact our office at [phone] andask to speak with a nurse.After hours, you can call doctors registry at [phone] OR call [facility] at [phone] and ask to have the doctor radiation control health physicist paged.If you consider this an emergency, dial 9-1-1 or go to your nearest emergencydepartment.Cord-B lood BankingUp until recently, the umbilical cord--along with the blood that remained in itafter a baby was born and the cord cut--was simply discarded by the hospital.Then, in the late 1980s, researchers discovered that cord blood possessedunusual properties that made it useful in the treatment of patients with somecancers and other illnesses. While the actual process of collecting cord bloodis straightforward, many parents are not even aware that this option nowexists, much less familiar with all the issues involved.The case for saving your baby's cord bloodThe blood running back and forth between your baby and the placenta is full ofimmature cells called stem cells. Unlike embryonic stem cells, which have theability to develop into any type of body cell, cord-blood stem cells alreadyare locked into a certain, vital function: making all the different componentsof the blood, such as platelets, white blood cells, and red bloodcells-serving, in effect, like bone marrow. When transfused into a patientwhose own blood cells have faulty genetic coding or have been destroyed bychemotherapy or other cancer treatments, the cord-blood cells can implantthemselves in the bone marrow and generate legions of new, healthy cells.These days, cord-blood transplants most commonly are used in cancer patientswhen a donor can't be found for a bone-marrow transplant. The treatment isparticularly effective in young patients-the [facility] Cord BloodBank reports a 70 percent success rate in children, but only 20 to 40 percentin adults. Researchers envision improving those odds and see many futureapplications as well, such as curing sickle cell disease and otherblood-related genetic illnesses. So there is a possibility that your child, orsomeone else, may need these super-healthy and versatile cells one day.The drawbacksAside from not knowing about this medical option, the main reason most peopledo not save their baby's stem cells is cost. In a private blood bank, theinitial costs run from $275 to $1,500. Most also charge a yearly storage fee of$50 to $95. The advantage of using a private bank is that your sample is savedfor only you to use.An alternative to private bankingPublic cord-blood escamilla are an alternative. These cost no money to use, butyour sample is not specifically saved for you. Another person with a moreimmediate need may use it. If the time should come that you need stem cells,yours may still be available, or you may use donations from other peoplewithout charge. You also can direct your sample to go to a relative with animmediate need if the blood type matches. Anyone else needing to use stem cellsfrom a public bank who has not been a donor must pay for it, sometimes tens ofthousands of dollars.Will my family benefit from saving stem cells?Right now, situations in which stem cells would be helpful are quite rare. Asmentioned earlier, stem-cell transplants are most commonly used for raregenetic conditions and for some types of cancer, including leukemia andlymphoma.And even with these present uses, many questions remain. In cancer treatment,for example, some researchers are concerned about the wisdom of transplantingback into the child the same cells that already showed a propensity to becomemalignant. Doctors also aren't sure if the number of cells taken at the time ofbirth would be enough to treat a full-grown 16-year-old. It is also notcompletely clear how active the cells would be after years of being stored. Thetreatment is so new and rare, we just don't have the data yet to resolve theseimportant issues.What do the experts say?The [place] [employer] encourages philanthropic blood banking inpublic escamilla, but only for families with a current or potential need.Blood-bank proponents encourage any kind of banking, pointing out that researchis getting closer and closer to many diverse, live-saving applications.How do I decide?Each family must weigh the pros and cons for themselves. Some families say thatany cost is worth their peace of mind. Others say that in the face ofuncertainty about the effectiveness of the treatment, they will use theirresources elsewhere. Some choose the middle ground of donating publicly,knowing that their sample might benefit another family, if not themselves. Formore information, ask your doctor or nurse, and be sure to check out ourarticle on the technical aspects of cord-blood banking.Technical Aspects of Cord-Blood BankingIf you are interested in storing your baby's umbilical-cord blood because ofits possible use in emerging medical treatments, you must make arrangementswith a blood bank before your child is born. The collection procedure is quitesimple:After delivery of the baby, the umbilical cord is clamped and cut in the usualway. The blood that remains in the umbilical-cord vessels is then collected insterile containers. The blood may be removed from the cord with a large needleor allowed to flow freely, depending on the company's collection system. Thecontainers may look like large test tubes or like the plastic bags used in ablood bank. It does not cause the mother or the baby any pain to collect theblood, and no blood is taken that the baby needs at the moment.The nurse, lens matcher, or physician will then label the samples, check them overwith you, and package them for a special pickup arranged with a commercialcarrier. When the blood arrives at the blood-bank facility, it is processed andthe parents are notified. It is then kept in an advanced storage system foryears.How do I know that my sample is safe?Power outages and bankruptcies potentially could threaten any organization, butso far none have been reported. It is to be hoped that the scientists in thesebanks would arrange for safe transfer to another facility if the need arose.YOU MUST MAKE ARRANGEMENTS AHEAD OF TIME!Public cord-blood escamilla--DONATION:[employer] [phone]'s Plac[facility] Blood [facility], [facility] Cord Blood [facility], pricommunity health cord-blood escamilla--SAVING FOR YOUR OWN USE:[employer], (I think this is the least expensive)[employer] [phone], ([phone]) [place]ANK[place] Cord Blood [facility], [phone]) 700-CORDBirth Cells, [phone] Cryobank, [place] Blood [facility], ([phone]) CORDBLOODViacord, an Internet search may provide you with additional listings.Ericka Rivera RN 11/18/2016 2:49 PM Signed#: 1, Date: [birth year], Sex: Female, Weight: 8 lb 5 oz (3.771 kg), GA: 41w0d,Delivery: Vaginal, Spontaneous Delivery, Apgar1: 8, Apgar5: 8, Living: Living, Comments: Spontaneous labor, 2nd degree perineal laceration, EBL 400cc#: 2, Date: None, Sex: None, Weight: None, GA: None, Delivery: None, Apgar1:None, Apgar5: None, Living: None, Comments: NoneReferring Provider: SELF [200]Allergies As of Date: 11/18/2016(No Known Allergies)Date Reviewed: 11/18/2016Reviewed by: Ericka Rivera RN - Fully AssessedReason for Visit: Care [86] Cmt: Pre-New OBPrimary Visit Diagnosis:Encounter for supervision of other normal [Z34.80]Prescriptions as of 11/18/2016 Sig: VITAMIN,CALCIUM,MINE* Take 1 tablet by mouth. DHA ORAL Take by mouth. DESOGESTREL-E.ESTRADIOL 0.15 * Take 1 tablet by mouth once d* FENUGREEK SEED EXTRACT 500 MG* Take by mouth.Medication notes this encounter DESOGESTREL-E.ESTRADIOL 0.15 MG-0.02 MG(21)/E.ESTRAD 0.01 MG(5) TABLET >> Ericka Rivera RN 11/18/2016 2:33 PM >> ERICKA RIVERA RN [facility] Nov 18, 2016 2:33 PM Pt no longer taking FENUGREEK SEED EXTRACT 500 MG CAPSULE >> Ericka Rivera RN 11/18/2016 2:33 PM >> ERICKA RIVERA RN [facility] Nov 18, 2016 2:33 PM Pt no longer takingProblem List As Of Date 11/18/2016 Noted Resolved Painful intercourse [[id number]] INVALID FOR*01/21/2014 Supervision of normal first [Z34.00] INVALID FOR*08/14/2014 More... Other instructions from your clinician: SEQUENTIAL SCREENINGS [facility] offers sequential screenings for women who are interested in screenings for chromosomal abnormalities and certain defects during a . The sequential screen combines ultrasound and blood tests to determine the risk of chromosomal abnormalities, including Down's Syndrome (Trisomy 21) and Trisomy 18, as well as open neural tube defects including spina bifida. Ultrasound examination is performed between 11 weeks and 13 weeks gestational age. Blood tests are drawn after the ultrasound and again later in the between 15 and 21 weeks gestational age. Please let your physician know if you are interested in this testing. It will require an appointment with our neon technician. This is not an ultrasound performed by a physician in our office during a routine visit. SIGNS AND SYMPTOMS OF LABOR 1. Contractions every 10 minutes or more often 2. Clear, pink, or brownish fluid (water) leaking from vagina 3. Feeling that baby is pushing down, pressure 4. Low, dull backache 5. Cramps that feel like a period 6. Cramps with or without diarrhea If you notice any of the above symptoms, contact our office at [phone] and ask to speak with a nurse. After hours, you can call [facility] at [phone] OR call [facility] at [phone] and ask to have the doctor radiation control health physicist paged. If you consider this an emergency, dial 11-26- or go to your nearest emergency department. Cord-Blood Banking Up until recently, the umbilical cord--along with the blood that remained in it after a baby was born and the cord cut--was simply discarded by the hospital. Then, in the late , researchers discovered that cord blood possessed unusual properties that made it useful in the treatment of patients with some cancers and other illnesses. While the actual process of collecting cord blood is straightforward, many parents are not even aware that this option now exists, much less familiar with all the issues involved. The case for saving your baby's cord blood The blood running back and forth between your baby and the placenta is full of immature cells called stem cells. Unlike embryonic stem cells, which have the ability to develop into any type of body cell, cord-blood stem cells already are locked into a certain, vital function: making all the different components of the blood, such as platelets, white blood cells, and red blood cells-serving, in effect, like bone marrow. When transfused into a patient whose own blood cells have faulty genetic coding or have been destroyed by chemotherapy or other cancer treatments, the cord-blood cells can implant themselves in the bone marrow and generate legions of new, healthy cells. These days, cord-blood transplants most commonly are used in cancer patients when a donor can't be found for a bone-marrow transplant. The treatment is particularly effective in young patients-the [facility] Cord Blood Bank reports a 70 percent success rate in children, but only 20 to 40 percent in adults. Researchers envision improving those odds and see many future applications as well, such as curing sickle cell disease and other blood-related genetic illnesses. So there is a possibility that your child, or someone else, may need these super-healthy and versatile cells one day. The drawbacks Aside from not knowing about this medical option, the main reason most people do not save their baby's stem cells is cost. In a private blood bank, the initial costs run from $275 to $1,500. Most also charge a yearly storage fee of $50 to $95. The advantage of using a private bank is that your sample is saved for only you to use. An alternative to private banking Public cord-blood escamilla are an alternative. These cost no money to use, but your sample is not specifically saved for you. Another person with a more immediate need may use it. If the time should come that you need stem cells, yours may still be available, or you may use donations from other people without charge. You also can direct your sample to go to a relative with an immediate need if the blood type matches. Anyone else needing to use stem cells from a public bank who has not been a donor must pay for it, sometimes tens of thousands of dollars. Will my family benefit from saving stem cells? Right now, situations in which stem cells would be helpful are quite rare. As mentioned earlier, stem-cell transplants are most commonly used for rare genetic conditions and for some types of cancer, including leukemia and lymphoma. And even with these present uses, many questions remain. In cancer treatment, for example, some researchers are concerned about the wisdom of transplanting back into the child the same cells that already showed a propensity to become malignant. Doctors also aren't sure if the number of cells taken at the time of would be enough to treat a full-grown 16-year-old. It is also not completely clear how active the cells would be after years of being stored. The treatment is so new and rare, we just don't have the data yet to resolve these important issues. What do the experts say? The [place] [employer] encourages philanthropic blood banking in public escamilla, but only for families with a current or potential need. Blood-bank proponents encourage any kind of banking, pointing out that research is getting closer and closer to many diverse, live-saving applications. How do I decide? Each family must weigh the pros and cons for themselves. Some families say that any cost is worth their peace of mind. Others say that in the face of uncertainty about the effectiveness of the treatment, they will use their resources elsewhere. Some choose the middle ground of donating publicly, knowing that their sample might benefit another family, if not themselves. For more information, ask your doctor or nurse, and be sure to check out our article on the technical aspects of cord-blood banking. Technical Aspects of Cord-Blood Banking If you are interested in storing your baby's umbilical-cord blood because of its possible use in emerging medical treatments, you must make arrangements with a blood bank before your child is born. The collection procedure is quite simple: After delivery of the baby, the umbilical cord is clamped and cut in the usual way. The blood that remains in the umbilical-cord vessels is then collected in sterile containers. The blood may be removed from the cord with a large needle or allowed to flow freely, depending on the company's collection system. The containers may look like large test tubes or like the plastic bags used in a blood bank. It does not cause the mother or the baby any pain to collect the blood, and no blood is taken that the baby needs at the moment. The nurse, lens matcher, or physician will then label the samples, check them over with you, and package them for a special pickup arranged with a commercial carrier. When the blood arrives at the blood-bank facility, it is processed and the parents are notified. It is then kept in an advanced storage system for years. How do I know that my sample is safe? Power outages and bankruptcies potentially could threaten any organization, but so far none have been reported. It is to be hoped that the scientists in these escamilla would arrange for safe transfer to another facility if the need arose. YOU MUST MAKE ARRANGEMENTS AHEAD OF TIME! Public cord-blood escamilla--DONATION: [employer] [phone] [facility]'s Placental Blood Program, [facility] Umbilical Cord Blood Bank, Private cord-blood secamilla--SAVING FOR YOUR OWN USE: [employer], (I think this is the least expensive) [employer] [phone] [employer], [phone]) LIFEBANK [place] Cord Blood [facility], [phone]) 700-CORD Cells, [phone] [place] Cryobank, Cord Blood Registry, ([phone]) CORDBLOOD V[employer]ord, An Internet search may provide you with additional listings.Disposition: Return for New OB with Dr Leung.Follow-up and Disposition History RecordedEncounter Number: [id number] Status:Closed by ERICKA RIVERA RN on 11/18/16 Normal [facility] CYTOLOGYon 11-18-2016 CYTOLOGY ADDITIONAL PROCEDURES PRESENT [facility]: [id number] Physician: DANYA COSBYPECIMEN SUBMITTEDA: CERVICAL, SCREENING, FLUID FINAL DIAGNOSISA. CERVICAL, SCREENING, FLUIDSatisfactory for interpretation.Negative for intraepithelial lesion or malignancy.Predominance of coccobacilli consistent with shift in vaginal lokesh.Acute inflammation.This specimen has been analyzed by the ThinPrep Imaging System, anautomated imaging and review system, which assists the laboratory inevaluating cells on ThinPrep Pap tests. Following automated imaging,selected ratliff from every slide are reviewed by a auto refinisher.JEAN Russell (Electronic Signature) ADDITIONAL PROCEDURE(S)HUMAN PAPILLOMA VIRUS Date Ordered: 11/22/2016 Date Reported: 11/23/2016 Procedure Results and InterpretationNegative for HPV DNA high risk type 16 by PCR.Negative for HPV DNA high risk type 18 by PCR.Negative for HPV DNA high risk types: 31,33,35,39,45,51,52,56,58 ,59,66,68by PCR.This test was developed and its performance characteristics determined by[facility][Note 3][facility] ([facility]).It has not been cleared or approved by the FDA. [facility] is regulated underCLIA as qualified to perform high-complexity testing. This test is used forclinical purposes. It should not be regarded as investigational or forresearch.CLINICAL DATA ROUTINE EXAM, HPV Testing: Yes, automatic HPV patients over 30Date of Last Menstrual Period:09/16/2016Menstrual History:STAINSA: CERVICAL, SCREENING, FLUID THIN PREP GYNJennifer Jf Hernandez, Laboratory DirectorPatient ID #: [id number] of Report: 11/26/2016Date of Procedure: 11/18/2016Date of Receipt: 11/22/2016Submitted by: DEENA LEUNG MDLocation: WOREFDiagnostic interpretation performed at [facility], [address] [place] [address].The Pap Smear is a screening test for cervical cancer. False negativeresults occur with all screening tests, emphasizing the need forrescreening at recommended intervals, and clinical correlation. Normal [facility] Comment on above: Performed By: #### P FCERS ####[place] [phone] GC/Chlamydia Amplifon 2016 Chlamydia Amplif Negative Normal [facility] Comment on above: Performed By: #### G CCT ####[place] [phone] GC Amplification Negative Normal [facility] Comment on above: Performed By: #### G CCT ####[place] [phone] GC/Chlam Amp Source Cervix Normal [facility] Comment on above: Performed By: #### G CCT ####[place] [phone] HOSPon 11-18-2016 HOSP Initial Off ice Visit (WOOB) --------KELLY SUGGS ([id number]) 1985 FDate Time Provider Department11/18/16 3:05 PM DEENA MEJIA WOOB During your visit today, we recorded the following information about you: Blood pressure Weight Height Last Period 108/66 72.1 kg 1.727 m 09/16/16Deena Jones MD 11/18/2016 3:55 PM SignedINITIAL OB ASSESSMENTOB Provider: Deena Leung MDHPI: Kelly Suggs is a 31 year old female here to establishObstetrical Care. Patient's last menstrual period was 09/16/2016 (exact date).from OB Dating Form. Cycle length: 30 daysComplaints: nausea without vomitingPregnancy was planned.Obstetric History T1 L1 SAB0 TAB0 Ectopic0 Multiple0 Live Juendv4Ffvjj : neverHistory of 4th degree laceration: NoPatient's Risk Screening for delivery:History of abnormal pap: NoPrior treatment for cervical dysplasia: none.History of STDs: NoneTobacco use: NoCaffeine use: YesDrug use: NoAlcohol use: NoMultivitamin with Folic acid: YesOccupation: art [facility] or [facility] heritage: NoWould refuse blood transfusion if medically necessary: NoNo weight on file for this encounter. Patient BMI over 30? 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 Wlswayeo-Kt-Rns-Fe-FA ( VITAMIN) tab Take 1 tablet by mouth.DOCOSAHEXANOIC ACID (DHA ORAL) Take by mouth.No current facility-administered medications on file prior to visit.Review of Systems:GENERAL: Negative for: Fever or ChillsHEENT: Negative for: Headache, Impaired Vision, Ringing in Ears, NosebleedsNECK: Negative for: Swelling, Pain, StiffnessRESPIRATORY: Negative for: Cough, Shortness of breath, WheezingGASTROINTESTINAL: Negative for: Heartburn, Constipation, Diarrhea, Blood instool, VomitingMUSCULOSKELETAL: Negative for: Muscle or joint pain, stiffness, Joint swellingNEUROLOGIC/PSYCHIA TRIC: Negative for: Weakness, Paralysis, Numbness, Tingling,Tremor, Anxiety, Depression, Memory lossSKIN: Negative for: Rash, ItchingGENITOURINARY: Negative for: vaginal itching, vaginal discharge, hematuria ordysuriaPHYSICAL EXAM: LMP 09/16/2016GENERAL: pleasant female in no apparent distressDERMATOLOGY: Normal, without lesions, non-icteric and non-hirsuteNECK: Supple, full range of motion, no adenopathy and thyroid normalCHEST: Normal inspiratory effortBREAST: soft, non-tender, symmetric, no dominant mass, normal nipple-areolarcomplex, no lymphadenopathy and no nipple dischargeABDOMEN: soft, non-tender and no massesNEURO: alert and oriented x3,exam grossly non-focalPELVIS: External genitalia normal without lesions. Perineal body intact. Novaginal or cervical lesions. Cervix closed. Uterus 9 week size. No adnexalmasses or tenderness.Clinical Pelvimetry: Pelvimetry clinically assessed as adequateLimited OB ultrasound exam: single intrauterine and positive fetalcardiac activityASSESSMENT: 31 year old at 9 wks gestational agePLAN:1) Patient oriented to practice.Discussed nutrition, folic acid supplementation, dietary guidelines, exercise,smoking, alcohol, caffeine, and drug use.Discussed routine OB labs including STD/HIV.Discussed aneuploidy screening options including serum screening and nuchaltranslucency.2) NT ordered3) pap and hpv todayFollow up in 4 weeks or sooner prn.Yudi Townsend Provider: SELF [[id number]]Allergies As of Date: 11/18/2016(No Known Allergies)Date Reviewed: 11/18/2016Reviewed by: Ericka Rivera RN - Fully AssessedReason for Visit: Initial OB Visit [4058]Primary Visit Diagnosis:Encounter for supervision of normal in multigravida [Z34.80]Order(s):CBC [SQCBC] Order #: [id number] FUTURE SYPHILIS IGG WITH CONF [SQSYPHGX] Order #: [id number] FUTURE RUBELLA IGG AB [SQRUBQNT] Order #: [id number] FUTURE HEP B SURF AG SCRN [SQHBSAG] Order #: [id number] FUTURE HIV 1,2 COMBO (AG/AB) [SQHIV12] Order #: [id number] FUTURE TYPE + SCREEN [SQTSPN] Order #: [id number] FUTURE GC/CHLAMYDIA DNA DET [SQGCCAMP] Order #: [id number] URINE CULTURE [SQURCUL] Order #: [id number] OBSTETRIC ULTRASOUND WHI [] Order #: [id number]: 1 PAP FLUID CERVICAL SCREENING [[id number]] Order #: [id number] NUCHAL TRANSLUCENCY WHI [[id number]] Order #: [id number]: 1Prescriptions as of 11/18/2016 Sig: DESOGESTREL-E.ESTRADIOL 0.15 * Take 1 tablet by mouth once d* FENUGREEK SEED EXTRACT 500 MG* Take by mouth. VITAMIN,CALCIUM,MINE* Take 1 tablet by mouth. DHA ORAL Take by mouth.Problem List As Of Date 11/18/2016 Noted Resolved Painful intercourse [GKH3304] INVALID FOR*01/21/2014 Supervision of normal first [Z34.00] INVALID FOR*08/14/2014 More... Status:Closed by DEENA LENUG MD on 11/18/16 Normal [facility] HPV w/Genotypeon 11-18-2016 HPV HighRisk Other Negative for HPV DNA high risk types: 31,33,35,39,45,51,52,56,58 ,59,66,68 by PCR. Normal [facility] Comment on above: Result Comment: This test was developed and its performance characteristics determined by [facility]'s [facility] Medicine [place] ([facility]It has not been cleared or approved by the FDA. [facility] is regulated under CLIA as qualified to perform high-complexity testing. This test is used for clinical purposes. It should not be regarded as investigational or for research. Performed By: #### H PVHRR ####[address] [phone] HPV HighRisk Type [address] Negative [address] [facility] Comment on above: Performed By: #### H PVHRR ####[address] [phone] HPV HighRisk Type 18 Negative Normal [facility] Comment on above: Performed By: #### H PVHRR ####[address] [phone] PROGRESSon 11-18-2016 PROGRESS HNO ID: [id number] thor: Deena Cleaning: (none)Author Type: PhysicianType: Progress NotesFiled: 11/18/2016 3:55 PMNote Text:INITIAL OB ASSESSMENTOB Provider: Deena Leung MDHPI: Kelly Suggs is a 31 year old female here to establishObstetrical Care. Patient's last menstrual period was 09/16/2016 (exactdate). from OB Dating Form. Cycle length: 30 daysComplaints: nausea without vomitingPregnancy was planned.Obstetric History T1 L1 SAB0 TAB0 Ectopic0 Multiple0 Live [id number] : neverHistory of 4th degree laceration: NoPatient's Risk Screening for delivery:History of abnormal pap: NoPrior treatment for cervical dysplasia: none.History of STDs: NoneTobacco use: NoCaffeine use: YesDrug use: NoAlcohol use: NoMultivitamin with Folic acid: YesOccupation: art [facility] or [facility] heritage: NoWould refuse blood transfusion if medically necessary: NoNo weight on file for this encounter. Patient BMI over 30? 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 Nttbsusj-Ti-Mrq-Fe-FA ( VITAMIN) tab Take 1 tablet bymouth.DOCOSAHEXANOIC ACID (DHA ORAL) Take by mouth.No current facility-administered medications on file prior to visit.Review of Systems:GENERAL: Negative for: Fever or ChillsHEENT: Negative for: Headache, Impaired Vision, Ringing in Ears,NosebleedsNECK: Negative for: Swelling, Pain, StiffnessRESPIRATORY: Negative for: Cough, Shortness of breath, WheezingGASTROINTESTINAL: Negative for: Heartburn, Constipation, Diarrhea, Bloodin stool, VomitingMUSCULOSKELETAL: Negative for: Muscle or joint pain, stiffness, JointswellingNEUROLOGIC/PS YCHIATRIC: Negative for: Weakness, Paralysis, Numbness,Tingling, Tremor, Anxiety, Depression, Memory lossSKIN: Negative for: Rash, ItchingGENITOURINARY: Negative for: vaginal itching, vaginal discharge, hematuriaor dysuriaPHYSICAL EXAM: LMP 09/16/2016GENERAL: pleasant female in no apparent distressDERMATOLOGY: Normal, without lesions, non-icteric and non-hirsuteNECK: Supple, full range of motion, no adenopathy and thyroid normalCHEST: Normal inspiratory effortBREAST: soft, non-tender, symmetric, no dominant mass, normalnipple-areolar complex, no lymphadenopathy and no nipple dischargeABDOMEN: soft, non-tender and no massesNEURO: alert and oriented x3,exam grossly non-focalPELVIS: External genitalia normal without lesions. Perineal body intact.No vaginal or cervical lesions. Cervix closed. Uterus 9 week size. Noadnexal masses or tenderness.Clinical Pelvimetry: Pelvimetry clinically assessed as adequateLimited OB ultrasound exam: single intrauterine and positivefetal cardiac activityASSESSMENT: 31 year old at 9 wks gestational agePLAN:1) Patient oriented to practice.Discussed nutrition, folic acid supplementation, dietary guidelines,exercise, smoking, alcohol, caffeine, and drug use.Discussed routine OB labs including STD/HIV.Discussed aneuploidy screening options including serum screening andnuchal translucency.2) NT ordered3) pap and hpv todayFollow up in 4 weeks or sooner prn.Deena Jones MD Normal [facility] PROGRESS HNO ID: [id number] thor: Ericka Rivera RNService: (none)Author Type: (none)Type: Progress NotesFiled: 11/18/2016 2:49 PMNote Text:#: 1, Date: 06/13/14, Sex: Female, Weight: 8 lb 5 oz (3.771 kg), GA:41w0d, Delivery: Vaginal, Spontaneous Delivery, Apgar1: 8, Apgar5: 8,Living: Living, Comments: Spontaneous labor, 2nd degree perineallaceration, EBL 400cc#: 2, Date: None, Sex: None, Weight: None, GA: None, Delivery: None,Apgar1: None, Apgar5: None, Living: None, Comments: None Normal [facility] Urine Cultureon 11-18-2016 Urine culture, bacteria Sp. Request/Comment: - Specimen received in preservative Culture Result - No growth (<1,000 CFU/ml) Normal [facility] Comment on above: Performed By: #### U RCUL ####[facility] [address] [place], [place] [phone] Vital Signs Date Time Vital Sign Value Performing Clinician Facility 09-13-2024 07:53-0400 Body height 172.7 cm Queta Mendoza MD Work Phone: [facility] 09-13-2024 07:53-0400 Body mass index (BMI) [Ratio] 29.22 kg/m2 Queta Mendoza MD Work Phone: [facility] 09-13-2024 07:53-0400 Body weight 87.18 kg Queta Mendoza MD Work Phone: [facility] 09-13-2024 07:53-0400 Diastolic blood pressure 70 mm[Hg] Queta Mendoza MD Work Phone: [facility] 09-13-2024 07:53-0400 Heart rate 79 /min Queta Mendoza MD Work Phone: [facility] 09-13-2024 07:53-0400 Systolic blood pressure 108 mm[Hg] Queta Mendoza MD Work Phone: [facility] 01-30-2024 14:43-0500 Diastolic blood pressure 64 mm[Hg] Bhavin Barrera DO Work Phone: [facility] 01-30-2024 14:43-0500 Heart rate 66 /min Bhavin Barrera DO Work Phone: [facility] 01-30-2024 14:43-0500 Respiratory rate 76 /min Bhavin Barrera DO Work Phone: [facility] 01-30-2024 14:43-0500 SaO2% (BldA) [Mass fraction] 97 % Bhavin Barrera DO Work Phone: [facility] 01-30-2024 14:43-0500 Systolic blood pressure 112 mm[Hg] Bhavin Barrera DO Work Phone: [facility] 01-30-2024 12:10-0500 Body height 172.7 cm Bhavin Barrera DO Work Phone: [facility] 01-30-2024 12:10-0500 Body mass index (BMI) [Ratio] 28.13 kg/m2 Bhavin Barrera DO Work Phone: [facility] 01-30-2024 12:10-0500 Body temperature 97.2 [degF] Bhavin Barrera DO Work Phone: [facility] 01-30-2024 12:10-0500 Body weight 83.92 kg Bhavin Barrera DO Work Phone: [facility] 05-17-2023 11:07-0500 Body height 171.45 cm No Primary Care Physician [facility] 05-17-2023 11:07-0500 Body mass index (BMI) [Ratio] 28.5 kg/m2 No Primary Care Physician [facility] 05-17-2023 11:07-0500 Body temperature 98.9 [degF] No Primary Care Physician [facility] 05-17-2023 11:07-0500 Body weight 83.91 kg No Primary Care Physician [facility] 05-17-2023 11:07-0500 Diastolic blood pressure 79 mm[Hg] No Primary Care Physician [facility] 05-17-2023 11:07-0500 Heart rate 71 /min No Primary Care Physician [facility] 05-17-2023 11:07-0500 Respiratory rate 14 /min No Primary Care Physician [facility] 05-17-2023 11:07-0500 SaO2% (BldA) [Mass fraction] 98 % No Primary Care Physician [facility] 05-17-2023 11:07-0500 Systolic blood pressure 122 mm[Hg] No Primary Care Physician [facility] 02-03-2023 09:30-0500 Body height 170.2 cm Queta Mendoza MD Work Phone: [facility] 02-03-2023 09:30-0500 Body mass index (BMI) [Ratio] 28.91 kg/m2 Queta Mendoza MD Work Phone: [facility] 02-03-2023 09:30-0500 Body weight 83.73 kg Queta Mendoza MD Work Phone: [facility] 02-03-2023 09:30-0500 Diastolic blood pressure 74 mm[Hg] Queta Mendoza MD Work Phone: [facility] 02-03-2023 09:30-0500 Heart rate 76 /min Queta Mendoza MD Work Phone: [facility] 02-03-2023 09:30-0500 Systolic blood pressure 118 mm[Hg] Queta Mendoza MD Work Phone: [facility] 11-16-2022 11:06-0400 Body height 171.45 cm [employer] Lee Vanessa [employer] Work Phone: [facility] 11-16-2022 11:06-0400 Body mass index (BMI) [Ratio] 28.7 kg/m2 [employer] Lee Vanessa [employer] Work Phone: [facility] 11-16-2022 11:06-0400 Body temperature 98.4 [degF] [employer] Lee Vanessa [employer] Work Phone: [facility] 11-16-2022 11:06-0400 Body weight 84.42 kg [employer]C Lee Vanessa [employer] Work Phone: [facility] 11-16-2022 11:06-0400 Diastolic blood pressure 72 mm[Hg] [employer] Lee Vanessa [employer] Work Phone: [facility] 11-16-2022 11:06-0400 Heart rate 78 /min [employer] Lee Vanessa [employer] Work Phone: [facility] 11-16-2022 11:06-0400 Respiratory rate 18 /min [employer] Lee Vanessa [employer] Work Phone: [facility] 11-16-2022 11:06-0400 SaO2% (BldA) [Mass fraction] 98 % [employer]C Lee Vanessa [employer] Work Phone: [facility] 11-16-2022 11:06-0400 Systolic blood pressure 116 mm[Hg] [employer]C Lee Vanessa [employer] Work Phone: [facility] 05-18-2022 11:27-0500 Body height 171.45 cm [employer]C Lee Vanessa [employer] Work Phone: [facility] 05-18-2022 11:27-0500 Body mass index (BMI) [Ratio] 27.9 kg/m2 [employer] Lee Vanessa [employer] Work Phone: [facility] 05-18-2022 11:27-0500 Body temperature 97 [degF] [employer] Lee Vanessa [employer] Work Phone: [facility] 05-18-2022 11:27-0500 Body weight 82.1 kg [employer]C Lee Vanessa [employer] Work Phone: [facility] 05-18-2022 11:27-0500 Diastolic blood pressure 63 mm[Hg] [employer] Lee Vanessa [employer] Work Phone: [facility] 05-18-2022 11:27-0500 Heart rate 61 /min [employer] Lee Vanessa [employer] Work Phone: [facility] 05-18-2022 11:27-0500 Respiratory rate 18 /min [employer] Lee Vanessa [employer] Work Phone: [facility] 05-18-2022 11:27-0500 SaO2% (BldA) [Mass fraction] 99 % [employer] Lee Vanessa [employer] Work Phone: [facility] 05-18-2022 11:27-0500 Systolic blood pressure 101 mm[Hg] [employer]C Lee Vanessa [employer] Work Phone: [facility] 12-15-2021 11:36-0400 Body height 171.45 cm [employer]C Lee Vanessa [employer] Work Phone: [facility] Work Phone: 12-15-2021 11:36-0400 Body mass index (BMI) [Ratio] 27.4 kg/m2 [employer] Lee Vanessa [employer] Work Phone: [facility] Work Phone: 12-15-2021 11:36-0400 Body temperature 96.5 [degF] [employer] Lee Vanessa [employer] Work Phone: [facility] Work Phone: 12-15-2021 11:36-0400 Body weight 80.79 kg [employer] Lee Vanessa [employer] Work Phone: [facility] Work Phone: 12-15-2021 11:36-0400 Diastolic blood pressure 75 mm[Hg] [employer] Lee Vanessa [employer] Work Phone: [facility] Work Phone: 12-15-2021 11:36-0400 Heart rate 70 /min [employer] Lee Vanessa [employer] Work Phone: [facility] Work Phone: 12-15-2021 11:36-0400 Respiratory rate 18 /min [employer] Lee Vanessa [employer] Work Phone: [facility] Work Phone: 12-15-2021 11:36-0400 SaO2% (BldA) [Mass fraction] 98 % [employer] Lee Vanessa [employer] Work Phone: [facility] Work Phone: 12-15-2021 11:36-0400 Systolic blood pressure 116 mm[Hg] [employer] Lee Vanessa [employer] Work Phone: [facility] Work Phone: 07-07-2021 10:15-0400 Body height 171.[address] Cait Ontiveros Work Phone: [facility] Work Phone: 07-07-2021 10:15-0400 Body mass index (BMI) [Ratio] 29.5 kg/m2 Dr. Cait Ontiveros Work Phone: [facility] Work Phone: 07-07-2021 10:15-0400 Body temperature 97 [degF] Dr. Cait Ontiveros Work Phone: [facility] Work Phone: 07-07-2021 10:15-0400 Body weight 86.[address] Cait Ontiveros Work Phone: [facility] Work Phone: 07-07-2021 10:15-0400 Diastolic blood pressure 84 mm[Hg] Dr. Cait Ontiveros Work Phone: [facility] Work Phone: 07-07-2021 10:15-0400 Heart rate 86 /min Dr. Cait Ontiveros Work Phone: [facility] Work Phone: 07-07-2021 10:15-0400 Respiratory rate 16 /min Dr. Cait Ontiveros Work Phone: [facility] Work Phone: 07-07-2021 10:15-0400 SaO2% (BldA) [Mass fraction] 98 % Dr. Cait Ontiveros Work Phone: [facility] Work Phone: 07-07-2021 10:15-0400 Systolic blood pressure 110 mm[Hg] Dr. Cait Ontiveros Work Phone: [facility] Work Phone: 04-24-2021 10:01-0500 Body mass index (BMI) [Ratio] 29.3 kg/m2 Dr. Cait Ontiveros Work Phone: [facility] Work Phone: 04-24-2021 10:01-0500 Body temperature 97.8 [degF] Dr. Cait Ontiveros Work Phone: [facility] Work Phone: 04-24-2021 10:01-0500 Body weight 86.[address] Cait Ontiveros Work Phone: [facility] Work Phone: 04-24-2021 10:01-0500 Diastolic blood pressure 80 mm[Hg] Dr. Cait Ontiveros Work Phone: [facility] Work Phone: 04-24-2021 10:01-0500 Heart rate 66 /min Dr. Cait Ontiveros Work Phone: [facility] Work Phone: 04-24-2021 10:01-0500 Respiratory rate 16 /min Dr. Cait Ontiveros Work Phone: [facility] Work Phone: 04-24-2021 10:01-0500 SaO2% (BldA) [Mass fraction] 98 % Dr. Cait Ontiveros Work Phone: [facility] Work Phone: 04-24-2021 10:01-0500 Systolic blood pressure 120 mm[Hg] Dr. Cait Ontiveros Work Phone: [facility] Work Phone: 03-13-2021 08:48-0500 Body temperature 97.9 [degF] Dr. Cait Ontiveros Work Phone: [facility] Work Phone: 03-13-2021 08:48-0500 Body weight 88.[address] Cait Ontiveros Work Phone: [facility] Work Phone: 03-13-2021 08:48-0500 Diastolic blood pressure 80 mm[Hg] Dr. Cait Ontiveros Work Phone: [facility] Work Phone: 03-13-2021 08:48-0500 Heart rate 83 /min Dr. Cait Ontiveros Work Phone: [facility] Work Phone: 03-13-2021 08:48-0500 Respiratory rate 14 /min Dr. Cait Ontiveros Work Phone: [facility] Work Phone: 03-13-2021 08:48-0500 SaO2% (BldA) [Mass fraction] 97 % Dr. Cait Ontiveros Work Phone: [facility] Work Phone: 03-13-2021 08:48-0500 Systolic blood pressure 128 mm[Hg] Dr. Cait Ontiveros Work Phone: [facility] Work Phone: Encounters Encounter Date Encounter Type Care Provider Facility Start: 10-11-2024 End: 10-11-2024 Office outpatient visit 15 minutes Queta Mendoza MD Work Phone: [facility] Comment on above: BRBPR (bright red bl ood per rectum) (Primary Dx) Start: 10-11-2024 End: 10-11-2024 ambulatory [facility] Start: 09-13-2024 End: 09-13-2024 Office outpatient visit 15 minutes Queta Mendoza MD Work Phone: [facility] Comment on above: Anal fissure (Primar y Dx) Start: 09-13-2024 End: 09-13-2024 ambulatory [facility] Start: 05-16-2024 End: 05-16-2024 ambulatory Arturo COELHO Facility:[facility] Start: 02-17-2024 End: 02-17-2024 ambulatory Arturo COELHO Facility:[facility] Start: 02-17-2024 End: 02-17-2024 ambulatory Arturo COELHO Facility:[facility] Start: 01-30-2024 End: 01-30-2024 Emergency department patient visit Bhavin Barrera DO Work Phone: [facility] Comment on above: Chest pain, unspecif ied type (Primary Dx) Start: 11-15-2023 End: 11-15-2023 ambulatory No Primary Care Physician Facility:[facility] Start: 11-15-2023 End: 11-15-2023 ambulatory No Primary Care Physician Facility:[facility] Start: 10-31-2023 End: 10-31-2023 ambulatory Ebonie Finnegan Facility:[facility] Start: 10-20-2023 End: 10-20-2023 ambulatory No Primary Care Physician Facility:[facility] Start: 08-19-2023 End: 08-19-2023 ambulatory [facility] Facility:[facility] Start: 06-15-2023 End: 06-15-2023 ambulatory No Primary Care Physician [facility] Work Phone: Start: 06-15-2023 End: 06-15-2023 Patient encounter procedure No Primary Care Physician [facility] Work Phone: Start: 06-15-2023 End: 06-15-2023 ambulatory [facility] Facility:[facility] Start: 05-17-2023 End: 05-17-2023 ambulatory No Primary Care Physician [facility] Work Phone: Start: 05-17-2023 End: 05-17-2023 Patient encounter procedure No Primary Care Physician [facility] Work Phone: Start: 02-03-2023 End: 02-03-2023 Office outpatient new 30 minutes Queta Mendoza MD Work Phone: [facility] Comment on above: Blood per rectum (Pr imary Dx) Start: 01-13-2023 End: 01-13-2023 ambulatory [employer] Lee Vanessa [employer] Work Phone: [facility] Work Phone: Start: 01-13-2023 End: 01-13-2023 Patient encounter procedure [employer] Lee Vanessa [employer] Work Phone: [facility] Work Phone: Start: 11-16-2022 End: 11-16-2022 Patient encounter procedure [employer] Lee Vanessa [employer] Work Phone: [facility] Work Phone: Start: 05-18-2022 End: 05-18-2022 ambulatory [employer] Lee Rasheeda [employer] Work Phone: [facility] Work Phone: Start: 05-18-2022 End: 05-18-2022 Patient encounter procedure [employer]C Lee Vanessa [employer] ANA[employer] Work Phone: [facility] Start: 12-15-2021 End: 12-15-2021 ambulatory [employer]C Lee Vanessa [employer] Work Phone: [facility] Work Phone: Start: 12-15-2021 End: 12-15-2021 Patient encounter procedure [employer] Lee Rasheeda [employer] Work Phone: [facility] Start: 07-07-2021 End: 07-07-[address] Cait Ontiveros Work Phone: [facility] Start: 07-03-2021 End: 07-03-[address] Cait Ontiveros Work Phone: [facility] Start: 05-18-2021 End: 05-18-[address] Cait Ontiveros Work Phone: [facility] Start: 04-24-2021 End: 04-24-[address] Cait Ontiveros Work Phone: [facility] Start: 04-20-2021 Non-patient / Non-visit Dr. Elliot Ontiveros Work Phone: [facility] Start: 04-20-2021 End: 04-20-[address] Cait Ontiveros Work Phone: [facility] Start: 04-17-2021 End: 04-17-2021 Patient encounter procedure Dr. Cait Ontiveros Work Phone: [facility] Start: 03-26-[address] Cait Ontiveros Work Phone: [facility] Start: 03-13-2021 End: 03-13-[address] Cait Ontiveros Work Phone: [facility] Start: 10-17-2017 Patient encounter YOAN MASON JR [facility] Start: 08-08-2017 End: 08-08-2017 Ambulatory YOAN MASON [facility] Start: 08-04-2017 End: 08-08-2017 Ambulatory COREY (CNM) [facility] Start: 08-01-2017 End: 08-04-2017 Ambulatory ZUNILDA (CNM) [facility] Start: 06-29-2017 End: 07-01-2017 [facility]: 06-22-2017 End: 06-22-2017 Ambulatory COREY (CNM) [facility] Start: 06-20-2017 End: 06-22-2017 Ambulatory ZUNILDA (CNM) [facility] Start: 06-13-2017 End: 06-13-2017 [facility] Start: 06-06-2017 End: 06-06-2017 [facility] Start: 05-30-2017 End: 05-30-2017 Ambulatory ZUNILDA (CNM) [facility] Start: 05-23-2017 End: 05-23-2017 Ambulatory COREY (CNM) [facility] Start: 05-09-2017 End: 05-10-2017 Ambulatory ZUNILDA (CNM) [facility] Start: 04-25-2017 End: 04-26-2017 Ambulatory COREY (CNM) [facility] Start: 04-11-2017 End: 04-12-2017 Ambulatory ZUNILDA (CNM) [facility] Start: 03-30-2017 Ambulatory ZUNILDA (CNM) [facility] Start: 03-30-2017 End: 03-31-2017 Ambulatory ZUNILDA (CNM) [facility] Start: 03-07-2017 End: 03-08-2017 Ambulatory ZUNILDA (CNM) [facility] Start: 02-08-2017 Emergency department patient visit Facility:[facility] Start: 02-07-2017 End: 02-08-2017 Ambulatory ZUNILDA (CNM) [facility] Start: 02-07-2017 End: 02-08-2017 Ambulatory ARMINDA RAMÍREZ [facility] Start: 01-10-2017 End: 01-10-2017 Ambulatory ELADIA (RANDY) WASHINGTON [facility] Start: 12-13-2016 End: 12-14-2016 Ambulatory SIMONE GAN [facility] Start: 11-18-2016 End: 11-19-2016 Ambulatory DEENA LEUNG [facility] Procedures Date Procedure Procedure Detail Performing Clinician Start: 01-30-2024 Ecg routine ecg w/le ast 12 lds trcg only w/o i&r Bhavin Barrera DO Work Phone: Start: 01-30-2024 Radiologic exam ches t single view Bhavin Barrera DO Work Phone: Start: 01-30-2024 End: 01-30-2024 Comprehensive metabolic panel Bhavin Barrera DO Work Phone: Start: 01-30-2024 Troponin I.cardiac p caitlin - Serum or Plasma by High sensitivity method Bhavin Barrera DO Work Phone: Start: 01-30-2024 LAVENDER TOP Bhavin Barrera DO Work Phone: Start: 01-30-2024 LIGHT BLUE TOP Bhavin Barrera DO Work Phone: Start: 01-30-2024 PST TOP Bhavin Barrera DO Work Phone: Start: 01-30-2024 RAINBOW DRAW Bhavin Barrera DO Work Phone: Start: 01-30-2024 Ecg routine ecg w/le ast 12 lds trcg only w/o i&r Bhavin Barrera DO Work Phone: Start: 03-26-2021 End: 03-26-[address] Cait Cruz he Work Phone: Start: 10-07-2020 Thyrotropin [Units/v olume] in Serum or Plasma Queta Mendoza MD Work Phone: Plan of Treatment Date Care Activity Detail Author Start: 2033 Zoster Vaccines (1 o f 2) Zoster Vaccines (1 of 2) [facility] Start: 05-09-2027 DTaP/Tdap/Td Vaccine s (3 - Td or Tdap) DTaP/Tdap/Td Vaccines (3 - Td or Tdap) [facility] Start: 01-29-2025 Diabetes mellitus screening Diabetes Screening [facility] Start: 11-26-2024 Influenza vaccination [facility] Start: 10-11-2024 End: 10-11-2025 Colonoscopy study Colonoscopy Diagnostic (BRBPR) Endoscopy Routine BRBPR (bright red blood per rectum) Expected: 10/11/2024, Expires: 10/11/2025 [facility] Service Area Work Phone: Comment on above: Expected: 10/11/2024 , Expires: 10/11/2025 Start: 10-11-2024 End: 10-11-2024 Patient encounter procedure 10/11/2024 10:00 AM EDT Office Visit [facility] [address] [address] Queta Mendoza MD [address] [facility] [place] [place] [address] [facility] Start: 11-27-2023 COVID-19 Vaccine ( season) COVID-19 Vaccine ( season) [facility] Start: 09-01-2024 Influenza vaccination Influenza Vacc ine (#1) [facility] Start: 2023 Screening for malign ant neoplasm of breast Mammogram [facility] Start: 02-03-2023 End: 08-03-2024 Colonoscopy Colonoscopy Diagnostic Endoscopy Routine Blood per rectum Expected: 02/03/2023, Expires: 08/03/2024 [facility] Service Area Work Phone: Comment on above: Expected: 02/03/2023 , Expires: 08/03/2024 Start: 11-26-2022 Influenza vaccination Influenza Vacc ine (#1) [facility] Start: 10-07-2021 Thyroid stimulating hormone measurement TSH Level [facility] Start: 2010 HPV Vaccines (1 - 3-dose standard series) HPV Vaccines (1 - 3-dose standard series) [facility] Start: 2004 Screening for malign ant neoplasm of cervix [facility] Start: 2002 Hepatitis B Vaccines (1 of 3 - 19+ 3-dose series) Hepatitis B Vaccines (1 of 3 - 19+ 3-dose series) [facility] Start: 2001 Diabetes mellitus screening Diabetes Screening [facility] Start: 2001 Hepatitis C screening Hepatitis C [facility] Start: 1996 Varicella vaccination Varicell a Vaccines (1 of 2 - 13+ 2-dose series) [facility] Start: 1984 MMR Vaccines (1 of 1 - Standard series) MMR Vaccines (1 of 1 - Standard series) [facility] Start: 1984 Varicella vaccination Varicell a Vaccines (1 of 2 - 2-dose childhood series) [facility] Start: 1983 COVID-19 Vaccine (#1) COVID-19 Vacci ne (#1) [facility] Start: 1983 Hepatitis B Vaccines (1 of 3 - 3-dose series) Hepatitis B Vaccines (1 of 3 - 3-dose series) [facility] Start: 1983 HIV screening HIV Screening [facility] Start: 1983 Lipid panel Lipid Panel [facility] Start: 1983 Yearly Adult Physical Yearly Adult P hysical [facility] End: 01-30-2024 ECG 12 lead [facility] Work Phone: Comment on above: Every 1 hour for 2 O ccurrences starting 01/30/2024 until 01/30/2024, 1 completed End: 01-30-2024 Pulse oximetry, continuous Pulse oximetry, continuous Respiratory Care STAT Continuous until discontinued starting 01/30/2024 [facility] Service Area Work Phone: Comment on above: Continuous until dis continued starting 01/30/2024 Immunizations Immunization Date Immunization Notes Care Provider Fa nadiya 05-09-2017 tetanus toxoid, reduced diphtheria toxoid, and acellular pertussis vaccine, adsorbed Dr. Cait Ontiveros Work Phone: [facility] 03-18-2014 tetanus toxoid, reduced diphtheria toxoid, and acellular pertussis vaccine, adsorbed Queta Mendoza MD Work Phone: [facility] Work Phone: Payers Date Payer Category Payer Unknown [id number] 2023 Self-pay [id number] 2022 Managed Care (Private) [id number] 2022 Unknown [facility] [employer] [employer] [id number] 2022-Present [address] [place] [address] [id number] 2022 Unknown [id number] 2014 Medicaid [id number] 1985 Unknown [id number] 1983 Unknown [id number] 1983 Unknown [id number] Unknown [id number] Unknown [id number] Unknown [facility] [id number] Unknown [id number] Unknown [id number] 462 Unknown [id number] 462 Unknown [id number] Unknown [id number] 462 Unknown [id number] 462 Unknown [id number] 462 Unknown [id number] 462 Unknown [id number] 462 Social History Date Type Detail Facility Start: 07-07-2021 End: 05-17-2023 Tobacco smoking status NHIS Unknown if ever smoked [facility] Start: 06-23-2017 None [facility] Start: 1985 Sex Assigned At Female W [facility] Start: 02-03-2023 Tobacco smoking stat us NHIS Never smoked tobacco [facility] Start: 02-03-2023 Tobacco use and exposure Smokeless tobacco non-user [facility] Work Phone: Start: 02-03-2023 End: 09-13-2024 Alcohol intake Ex-drinker (finding) [facility] Work Phone: Start: 02-03-2023 End: 09-13-2024 History of Social function [facility] Work Phone: Start: 02-03-2023 End: 09-13-2024 Tobacco use panel [facility] Work Phone: Start: 02-03-2023 Alcohol Comment Very rarely [facility] Work Phone: Start: 1985 [facility] Start: 01-24-2023 End: 01-30-2024 Exposure to SARS-CoV-2 (event) Not sure [facility] Start: 09-13-2024 Alcohol Comment Very rarely dr darryn coello mixed drink [facility] Work Phone: Start: 02-20-2022 Sex Female [facility] Clinical Notes 02-03-2023 to 10-11-2024 Queta Mendoza MD - 10/11/2024 10:00 AM Sherwin Mendoza MD - 09/13/2024 8:00 AM EDTDischarge InstructionsAttachmentsStsteven Barrera DO - 01/30/2024 12:07 PM EST Note Date & Type Note Facility 10-11-2024 History of Presen t illness Narrative General Surgery Follow-up Visit Patient: Kelly Suggs : 1985 Date of Visit: 10/11/24 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: Follow-up for anal fissure History of Present Illness: Kelly Suggs is a 39 y.o. old female with an anal fissure. I evaluated her for this a month ago. We discussed keeping bowel movements soft and regular to avoid additional trauma to this area, including taking laxatives as needed. I had also prescribed nifedipine compounded with lidocaine and recommended sitz bath's. She presents today for reevaluation. The pain has completely resolved. She is not currently seeing any blood per rectum. Her bowel movements have been regular. Overall, she is doing well. She does report that in the past around the time that this for started she had also noticed a soft small amount of tissue the prolapse from the rectum on the right side of the anus that has since reduced. This was not firm. Medical History: Anal fissure Blood per rectum Hemorrhoids Hypothyroidism Thyroid nodule Surgical History: [place] tooth extraction Home Medications: Prior to Admission medications Medication Sig Start Date End Date Taking? Authorizing Provider acetaminophen (Tylenol) 500 mg tablet Take 2 tablets (1,000 mg) by mouth every 6 hours if needed for mild pain (1 - 3). Historical Provider, famotidine (Pepcid) 20 mg tablet Take 1 tablet (20 mg) by mouth if needed for heartburn. Historical Provider, ibuprofen 200 mg tablet Take 2 tablets (400 mg) by mouth every 6 hours if needed for mild pain (1 - 3). Historical Provider, Allergies: No known allergies. Family History: No family history of colon or rectal cancer or inflammatory bowel disease. Social History: Non-smoker. Rare alcohol use. No drug use. ROS: Constitutional: no fever, sweats, and chills Cardiovascular: No chest pain Respiratory: No cough or shortness of breath Gastrointestinal: + Resolution of previous perianal pain and blood per rectum Genitourinary: no dysuria Musculoskeletal: no weakness or swelling Integumentary: no rashes Neurological: no confusion Endocrine: no heat or cold intolerance Heme/Lymph: no easy bruising or bleeding Objective: There were no vitals taken for this visit. Physical Exam: Constitutional: No acute distress, conversant, pleasant Neurologic: alert and oriented Psych: appropriate affect Ears, Nose, Mouth and Throat: mucus membranes moist Pulmonary: No labored breathing Cardiovascular: Regular rate and rhythm Abdomen: Non-distended, BMI 29 Rectal: Previous posterior midline anal fissure is now completely healed. She was nontender on exam, although she did have some discomfort on attempt at anoscopy. Therefore, that attempt was aborted. No other external abnormalities. Musculoskeletal: Moves all extremities, no edema Skin: no jaundice Labs/Imaging: No new labs or imaging available for review. Assessment and Plan: Kelly Suggs is a 39 y.o. old female with an anal fissure, which has since healed, as well as hemorrhoids. I suspect that the prolapsing tissue she was previously feeling at the time of onset of her fissure was a prolapsing internal hemorrhoid. This has since reduced. She is doing well at this time without any perianal pain or bleeding. However, especially since she has seen bleeding in the past, I have recommended a diagnostic colonoscopy to assure that there is not an alternative or more proximal source of the blood per rectum. We discussed the risks of colonoscopy. This included risks of bleeding, perforation, missed polyps, incomplete colonoscopy, and potential need for additional procedures pending findings. She was agreeable to proceed. Bowel prep instructions were reviewed and all questions were answered. We will allow a little more time just to assure complete resolution of this fissure. She is scheduled for colonoscopy on 12/10/24. We again discussed the importance of keeping bowel movements soft and regular and avoiding straining with bowel movements to prevent recurrence of her hemorrhoids and fissure. Queta Mendoza MD 10/11/2024 documented in this encounter [facility] Work Phone: 09-13-2024 History of Presen t illness Narrative General Surgery Follow-up Visit Patient: Kelly Suggs : 1985 Date of Visit: 09/13/24 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: Perianal pain, BRBPR History of Present Illness: Kelly Suggs is a 39 y.o. old female who I previously evaluated in January 2023 for hemorrhoids. She was scheduled for colonoscopy at that time to assure that there was not a more proximal etiology of the blood per rectum, but she did not follow through with that. She presents today for re-evaluation due to acute onset of sharp, tearing pain in the rectum. This began 2 weeks ago. She does not recall any particular inciting event or bowel movement. She typically has a loose bowel movement every morning after having a cup of coffee. Since the pain started, she stopped drinking the coffee because bowel movements worsened her pain. She has seen small streaks of blood on tissue paper with wiping since this pain began. Pain is worse posteriorly and slightly to the left. Medical History: Anal fissure Blood per rectum Hemorrhoids Hypothyroidism Thyroid nodule Surgical History: [place] tooth extraction Home Medications: Prior to Admission medications Medication Sig Start Date End Date Taking? Authorizing Provider acetaminophen (Tylenol) 500 mg tablet Take 2 tablets (1,000 mg) by mouth every 6 hours if needed for mild pain (1 - 3). Historical Provider, famotidine (Pepcid) 20 mg tablet Take 1 tablet (20 mg) by mouth if needed for heartburn. Historical Provider, ibuprofen 200 mg tablet Take 2 tablets (400 mg) by mouth every 6 hours if needed for mild pain (1 - 3). Historical Provider, Allergies: No known allergies. Family History: No family history of colon or rectal cancer or inflammatory bowel disease. Social History: Non-smoker. Rare alcohol use. No drug use. ROS: Constitutional: no fever, sweats, and chills Cardiovascular: No chest pain Respiratory: No cough or shortness of breath Gastrointestinal: + perianal pain, BRBPR Genitourinary: no dysuria Musculoskeletal: no weakness or swelling Integumentary: no rashes Neurological: no confusion Endocrine: no heat or cold intolerance Heme/Lymph: no easy bruising or bleeding Objective: BP 108/70 Pulse 79 Ht 1.727 m (5' 8) Wt 87.2 kg (192 lb 3.2 oz) BMI 29.22 kg/m Physical Exam: Constitutional: No acute distress, conversant, pleasant Neurologic: alert and oriented Psych: appropriate affect Ears, Nose, Mouth and Throat: mucus membranes moist Pulmonary: No labored breathing Cardiovascular: Regular rate and rhythm Abdomen: Non-distended, BMI 29 Rectal: She has an anal fissure in the posterior midline. No other significant perianal abnormalities. She had increased rectal tone/spasm. Digital rectal exam and anoscopy were deferred given the finding of the fissure. Musculoskeletal: Moves all extremities, no edema Skin: no jaundice Labs: Hgb 14.0 on 01/30/24 Imaging: No pertinent imaging available for review. Assessment and Plan: Kelly Suggs is a 39 y.o. old female with an anal fissure. We discussed keeping bowel movements soft and regular to avoid any additional trauma to this area. I recommend she resume her daily cup of coffee as that kept her bowel movements relatively loose and regular. Alternatively, we discussed that she could take a laxative as needed. I have prescribed nifedipine compounded with lidocaine to be applied 4 times daily. We discussed the use of sitz bath's for comfort. I will see her back in 4 weeks to reevaluate. Once this is completely healed, since she has seen blood per rectum both now as well as when I saw her in the past, I recommend colonoscopy to assure that there is no alternative/proximal source of the bleeding. Queta Mendoza MD 09/13/2024 documented in this encounter [facility] Work Phone: 01-30-2024 Hospital Discharg e instructions Bhavin Barrera DO - 01/30/2024 2:37 PM EST Please be sure to talk to your family doctor about a repeat chest x-ray in 3 months to be ordered by your family doctor as discussed. The following attachments cannot be sent through Care Everywhere.Chest Pain Discharge Instructions (Welsh)Pulmonary nodule (Welsh)documented in this encounter [facility] Work Phone: 01-30-2024 Emergency department Note HPI 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 Patient presents with Chest Pain Mid to left chest pain x 2 weeks. Pain sharper today. Denies SOB Patient presents to the emergency department secondary to chest pain. This has been intermittent for several weeks. Sometimes it is pleuritic. Localized in different locations. Denies abdominal pain or shortness of breath. No known sick contacts. 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 Patient History Past Medical History: Diagnosis Date Hyperthyroidism Thyroid nodule Past Surgical History: Procedure Laterality Date WISDOM TOOTH EXTRACTION Family History Problem Relation Name Age of Onset Diabetes Mother Teresa Mental illness Brother Jostin Breast cancer Mother's Sister Rocío Heart disease Paternal Grandfather Social History Tobacco Use Smoking status: Never Smokeless tobacco: Never Substance Use Topics Alcohol use: Not Currently Comment: Very rarely Drug use: Never Physical Exam ED Triage Vitals [01/30/24 1210] Temperature Heart Rate Respirations BP 36.2 C (97.2 F) 72 16 139/82 Pulse Ox Temp Source Heart Rate Source Patient Position 98 % Temporal -- -- BP Location FiO2 (%) -- -- Physical Exam Vitals and nursing note reviewed. Constitutional: General: She is not in acute distress. Appearance: Normal appearance. She is normal weight. She is not ill-appearing, toxic-appearing or diaphoretic. Comments: Sitting up in bed chewing gum. Smiling. Not dyspneic or diaphoretic. HENT: Head: Normocephalic and atraumatic. Nose: Nose normal. No rhinorrhea. Neck: Comments: Trachea is midline Cardiovascular: Rate and Rhythm: Normal rate and regular rhythm. Heart sounds: No murmur heard. Pulmonary: Effort: Pulmonary effort is normal. Breath sounds: Normal breath sounds. No decreased breath sounds or wheezing. Abdominal: General: Abdomen is flat. Bowel sounds are normal. There is no distension. Palpations: Abdomen is soft. Tenderness: There is no abdominal tenderness. Musculoskeletal: General: Normal range of motion. Cervical back: Normal range of motion. Right lower leg: No edema. Left lower leg: No edema. Skin: General: Skin is warm and dry. Findings: No rash. Neurological: General: No focal deficit present. Mental Status: She is alert and oriented to person, place, and time. Mental status is at baseline. Psychiatric: Mood and Affect: Mood normal. Behavior: Behavior normal. Thought Content: Thought content normal. Judgment: Judgment normal. ED Course & MDM Diagnoses as of 01/30/24 1437 Chest pain, unspecified type No data recorded Medical Decision Making Twelve-lead EKG was interpreted by myself and this was noted to contribute directly to patient care. Study reveals a normal sinus rhythm at 77 bpm, normal axis, early R wave progression, no acute ischemic changes, no S1 Q3 T3 is identified. Repeat twelve-lead EKG also interpreted by myself, also noted to contribute directly to patient care, performed at 1:47 PM shows no acute change of any kind. Resting heart rates currently 73 bpm in sinus. Patient's workup is unremarkable. There is a questionable finding of a pulmonary nodule in her chest x-ray, which is once again noted to be questionable, however I did disclose this to the patient and explained that she needs a follow-up x-ray in 3 months to ensure resolution and she understands this importance. Given that she has a heart score of 0 I feel she can be discharged safely. Reassurance was given. Follow-up with primary care and return at anytime if worse. Procedure Procedures Bhavin Barrera, DO 01/30/24 1406 Bhavin Barrera DO 01/30/24 1438 documented in this encounter [facility] Work Phone: 01-30-2024 Physician Emergency department Note HPI 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 Patient presents with Chest Pain Mid to left chest pain x 2 weeks. Pain sharper today. Denies SOB Patient presents to the emergency department secondary to chest pain. This has been intermittent for several weeks. Sometimes it is pleuritic. Localized in different locations. Denies abdominal pain or shortness of breath. No known sick contacts. 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 Patient History Past Medical History: Diagnosis Date Hyperthyroidism Thyroid nodule Past Surgical History: Procedure Laterality Date WISDOM TOOTH EXTRACTION Family History Problem Relation Name Age of Onset Diabetes Mother Teresa Mental illness Brother Jostin Breast cancer Mother's Sister Rocío Heart disease Paternal Grandfather Social History Tobacco Use Smoking status: Never Smokeless tobacco: Never Substance Use Topics Alcohol use: Not Currently Comment: Very rarely Drug use: Never Physical Exam ED Triage Vitals [01/30/24 1210] Temperature Heart Rate Respirations BP 36.2 C (97.2 F) 72 16 139/82 Pulse Ox Temp Source Heart Rate Source Patient Position 98 % Temporal -- -- BP Location FiO2 (%) -- -- Physical Exam Vitals and nursing note reviewed. Constitutional: General: She is not in acute distress. Appearance: Normal appearance. She is normal weight. She is not ill-appearing, toxic-appearing or diaphoretic. Comments: Sitting up in bed chewing gum. Smiling. Not dyspneic or diaphoretic. HENT: Head: Normocephalic and atraumatic. Nose: Nose normal. No rhinorrhea. Neck: Comments: Trachea is midline Cardiovascular: Rate and Rhythm: Normal rate and regular rhythm. Heart sounds: No murmur heard. Pulmonary: Effort: Pulmonary effort is normal. Breath sounds: Normal breath sounds. No decreased breath sounds or wheezing. Abdominal: General: Abdomen is flat. Bowel sounds are normal. There is no distension. Palpations: Abdomen is soft. Tenderness: There is no abdominal tenderness. Musculoskeletal: General: Normal range of motion. Cervical back: Normal range of motion. Right lower leg: No edema. Left lower leg: No edema. Skin: General: Skin is warm and dry. Findings: No rash. Neurological: General: No focal deficit present. Mental Status: She is alert and oriented to person, place, and time. Mental status is at baseline. Psychiatric: Mood and Affect: Mood normal. Behavior: Behavior normal. Thought Content: Thought content normal. Judgment: Judgment normal. ED Course & MDM Diagnoses as of 01/30/24 1437 Chest pain, unspecified type No data recorded Medical Decision Making Twelve-lead EKG was interpreted by myself and this was noted to contribute directly to patient care. Study reveals a normal sinus rhythm at 77 bpm, normal axis, early R wave progression, no acute ischemic changes, no S1 Q3 T3 is identified. Repeat twelve-lead EKG also interpreted by myself, also noted to contribute directly to patient care, performed at 1:47 PM shows no acute change of any kind. Resting heart rates currently 73 bpm in sinus. Patient's workup is unremarkable. There is a questionable finding of a pulmonary nodule in her chest x-ray, which is once again noted to be questionable, however I did disclose this to the patient and explained that she needs a follow-up x-ray in 3 months to ensure resolution and she understands this importance. Given that she has a heart score of 0 I feel she can be discharged safely. Reassurance was given. Follow-up with primary care and return at anytime if worse. Procedure Procedures Bhavin Barrera DO 01/30/24 1406 Bhavin Barrera DO 01/30/24 1438 [facility] Work Phone: 02-03-2023 History of Presen t illness Narrative General Surgery Consultation Patient: Kelly Suggs : 1985 Date of Consultation: 02/03/23 Primary Care Provider: No primary care provider on file. Referring Provider: Self referral 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: Hemorrhoids History of Present Illness: Kelly Suggs is a 37 y.o. old female seen [...] 118/74 Pulse 76 Ht 1.702 m (5' 7) Wt 83.7 kg (184 lb 9.6 oz) [...] available for review. Assessment and Plan: Kelly Suggs is a 37 y.o. old female with [...] Mendoza MD 02/03/2023 documented in this encounter [facility] Work Phone: Evaluation note Diagnosis Onset Date Breast pain, left acute Chest pain acute Breast pain, left acute Left-sided chest wall pain a cute LUQ pain acute Thyrotoxicosis [facility] Work Phone: Evaluation note* Diagnosis Onset Date Resolution Status Thyrotoxicosis [facility] Work Phone: Evaluation note* Diagnosis Onset Date Resolution Status Hyperthyroidism acute [facility] Work Phone: Evaluation note* Diagnosis Onset Date Resolution Status Thyrotoxicosis chronic [facility] Work Phone: Evaluation note* Diagnosis Blood per rectum- Primary Hemorrhage of rectum and anus documented in this encounter [facility] Work Phone: Evaluation note* Diagnosis Onset Date Resolution Status Hyperthyroidism acute Paresthesia and pain of both upper extremities acute [facility] Work Phone: Evaluation note* Diagnosis Onset Date Resolution Status Paresthesia and pain of both upper extremities acute Hyperthyroidism chronic [facility] Work Phone: Evaluation note* Diagnosis Chest pain, unspecified type- Primary documented in this encounter [facility] Work Phone: Evaluation note* Diagnosis Anal fissure- Primary documented in this encounter [facility] Work Phone: Evaluation note* Diagnosis BRBPR (bright red blood per rectum)- Primary Hemorrhage of rectum and anus documented in this encounter [facility] Work Phone: Summary Purpose Family History No Family History Records Found Relationship Condition Age at Onset Recorded Date/T hesham mother Diabetes mellitus Unknown grandmother Diabetes mellitus Unknown Cerebrovascular accident (CVA) Unknown Disorder of thyroid Unknown Cardiac disease Unknown aunt Malignant neoplasm of endometrium Unknown Advance Directives No Advanced Directives Records Found Advance Directive Response Recorded Date/ Time Living Will No September 10, 2020 11:05am 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 September 10 11:05am Advance Directive Response Recorded Date/ Time Living Will No September 10, 2020 10:05am 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 September 10 1 10:05am 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 and Reason for Visit 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 2 W FU LEFT BREAST PAIN CHEST PAIN CHEST PAIN 6 wk FU 4 M FU Reason for Visit Breast pain, left Chest pain Breast pain, left Left-sided chest wall pain LUQ pain Thyrotoxicosis 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 4 M FU E-ORDER Reason for Visit Thyrotoxicosis 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 4 M FU INT LABS Reason for Visit Hyperthyroidism 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 INT LABS 6 M FU Reason for Visit Thyrotoxicosis 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 6 M FU INT LABS Reason for Visit Hyperthyroidism Paresthesia and pain of both upper extremities 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 6 M FU INT LABS E ORDERS Reason for Visit Paresthesia and pain of both upper extremities Hyperthyroidism Reason for Referral Specialty Diagnoses / Procedures Referred By Mary arrington Referred To Contact Gastroenterology Diagnoses Blood per rectum Procedures Colonoscopy Diagnostic VT COLONOSCOPY FLX DX W/COLLJ SPEC WHEN PFRMD VT COLONOSCOPY W/BIOPSY SINGLE/MULTIPLE VT COLSC FLX W/RMVL OF TUMOR POLYP LESION SNARE TQ VT COLSC FLX W/REMOVAL LESION BY HOT BX FORCEPS Queta Mendoza MD [address] [facility], [address] [place] [address] Referral ID Status Reason Start Date Expiration Date V isits Requested Visits Authorized [id number] Pending Review 02/03/2023 02/03/2024 1 1 Additional Source Comments INFORMATION SOURCE (unrecogn ized section and content) DATE CREATED AUTHOR 09/14/2017 [facility] DATE CREATED AUTHOR AUTHOR'S ORGANIZ ATION 09/20/2017 [facility] DATE CREATED AUTHOR AUTHOR'S ORGANIZ ATION 10/18/2017 [facility] DATE CREATED AUTHOR AUTHOR'S ORGANIZ ATION 01/12/2021 [facility] DATE CREATED AUTHOR AUTHOR'S ORGANIZ ATION 01/31/2024 [facility] DATE CREATED AUTHOR AUTHOR'S ORGANIZ ATION 02/02/2024 [facility] DATE CREATED AUTHOR AUTHOR'S ORGANIZ ATION 05/30/2024 [facility] DATE CREATED AUTHOR AUTHOR'S ORGANIZ ATION 10/15/2024 [facility] Ambulatory Goals (unrecognized section and content) Goals may be documented in a n alternate sectionGoals may be documented in an alternate sectionGoals may be documented in an alternate sectionGoals may be documented in an alternate sectionGoals may be documented in an alternate sectionGoals may be documented in an alternate section Care Teams (unrecognized sec tion and content) Team Status: Active Member Role Status Dates No Primary Care Physician Family Provider Active No Primary Care Physician Primary Care Provider Active Team Status: Inactive Member Role Status Dates Lee Vanessa NP, PAYROLL TAX ANALYST-C Primary Care Provider, Referring P rovider Active Dr. Marco Antonio Bermudez MD Attending Provider Active Team Status: Inactive Member Role Status Dates No Primary Care Physician Primary Care Provider Active Dr. Marco Antonio Bermudez MD Attending Provider, Referring Provi gilberto Active Team Status: Inactive Member Role Status Dates Lee Vanessa PAYROLL TAX ANALYST, PAYROLL TAX ANALYST-C Referring Provider Active Dr. Marco Antonio Bermudez MD Attending Provider Active No Primary Care Physician Primary Care Provider Active Team Status: Inactive Member Role Status Dates No Primary Care Physician Primary Care Provider Active Dr. Marco Antonio Bermudez MD Attending Provider Active Team Status: Inactive Member Role Status Dates No Primary Care Physician Primary Care Provider, Refer ring Provider Active Dr. Marco Antonio Bermudez MD Attending Provider Active Jigger Machine Operator Relationship Specialty Start Date End Date Generic Provider, No [place] [address] PCP - General Investment Fund Manager 01/30/24 Jigger Machine Operator Relationship Specialty Start Date End Date Generic Provider, No [place] [address] PCP - General Investment Fund Manager 01/30/24 Jigger Machine Operator Relationship Specialty Start Date End Date Generic Provider, [place] [address] PCP - General Investment Fund Manager 01/30/24 Reason for Visit (unrecogniz ed section and content) Reason Comments Chest Pain Mid to left chest pa in x 2 weeks. Pain sharper today. Denies SOB PRN Active and Recently Administ ered Medications (unrecognized section and content) Medication Order 01/28/2024 01/29/2024 01/30/2024 sodium chloride (PF) 0.9% solution 3 mL 3 mL, intravenous, As needed, line care, Starting on Tue01/30/24 at 1225 FOR RECORDS PERTAINING TO PATIENTS WHO ARE [...] BE BASED ON THE PRIMARY CLINICAL RECORDS. [facility] provides no warranty or guarantee of the accuracy or completeness of information in this document.
--- OUTSIDE RECORDS SUMMARY | 2024-11-03 11:24 | XMS RPT_ITS | CCD ---
Author Organization [facility] Inform ion Partnership [facility] Care Team Providers Care Manager Special Events Name Role Phone NEYHART LEUNG, DEENA Unavailable Unavail able SIMONE GAN Unavailable Unavailable NEYHART LEUNG, DEENA Unavailable Unavail able SANTINO CHONG Unavailable Unavailable NEYHART LEUNG, DEENA Unavailable Unavail able NEYHART LEUNG, DEENA Unavailable Unavail able NEYHART LEUNG, DEENA Unavailable Unavail able ELADIA DELAROSA (CORPORATE AIRCRAFT MECHANIC) Unavailable Unavailable ARANGO, ZUNILDA (CNM) Unavailable Unavailable [...] Dr. Cait Ontiveros Referring Provider [phone] Vanessa BRAIDED RUG MAKER, BRAIDED RUG MAKER-C Lee Primary Care Provider Vanessa BRAIDED RUG MAKER, BRAIDED RUG MAKER-C Lee Attending Provider [phone] Vanessa BRAIDED RUG MAKER, BRAIDED RUG MAKER-C Lee Referring Provider [phone] Vanessa BRAIDED RUG MAKER, BRAIDED RUG MAKER-C Lee Other Provider Dr. Sloan Eden Attending Provider Dr. Cait Ontiveros Attending Provider [phone] Dr. Marco Antonio Bermudez Attending Provider [phone] Vanessa BRAIDED RUG MAKER, BRAIDED RUG MAKER-C Lee Primary Care Provider Vanessa BRAIDED RUG MAKER, BRAIDED RUG MAKER-C Lee Referring Provider [phone] Dr. Marco Antonio Bermudez Attending Provider Vanessa BRAIDED RUG MAKER, BRAIDED RUG MAKER-C Lee Primary Care Provider Vanessa BRAIDED RUG MAKER, BRAIDED RUG MAKER-C Lee Referring Provider [phone] Dr. Marco Antonio Bermudez Attending Provider Vanessa BRAIDED RUG MAKER, BRAIDED RUG MAKER-C Lee Referring Provider [phone] Dr. Marco Antonio Bermudez Attending Provider [phone] Care Physician, No Primary Primary Care [...] ilable Casper COELHO, Arturo Primary Care Unavailable Arturo Aponte Attending Unavailable Arturo Aponte Referring Unavailable Ebonie Finnegan Attending Unavailable Ebonie Finnegan Referring Unavailable Care Physician, No Primary Primary Care Unava ilable Care Physician, No Primary Referring Unava ilable Care Physician, No Primary Primary Care Unava ilable Marco Antonio Bermudez Attending Unavailable Arturo Aponte Attending Unavailable Cait Ontiveros Primary Care Unavailable Care Physician, No [...] ve MG PO February 27, 2021 1:00am Pd-Kz-Haix-Fa-Ca Carb-Vit K (Women's Multivitamin) 18 mg iron-400 mcg-500 mg tablet (6 sources) Start: 09-15-2020 take 1 tablet by mouth once daily Nb-Fq-Slxf-Fa-Ca Carb-Vit K (Women's Multivitamin) 18 mg iron-400 mcg-500 mg tablet Active 1 TABLET PO DAILY September 15, 2020 10:54am Start: 09-15-2020 End: 11-16-2022 take 1 tablet by mouth once daily Up-Rn-Roxn-Fa-Ca Carb-Vit K (Women's Multivitamin) 18 mg iron-400 mcg-500 mg tablet Discontinued 1 TABLET PO DAILY September 14, 2020 11:00pm November 16, 2022 10:08am Start: 09-15-2020 End: 11-16-2022 take 1 tablet by mouth once daily Nj-Wl-Eecz-Fa-Ca Carb-Vit K (Women's Multivitamin) 18 mg iron-400 mcg-500 mg tablet Discontinued 1 TABLET PO DAILY September 15, 2020 12:00am November 16, 2022 11:08am Start: 09-15-2020 take 1 tablet by erna once daily Kx-Xz-Mbho-Fa-Ca Carb-Vit K (Women's Multivitamin) 18 mg iron-400 mcg-500 mg tablet Active 1 TABLET PO DAILY September 14, 2020 11:00pm Start: 09-15-2020 take 1 tablet by erna th once daily Dk-Yl-Tqsx-Fa-Ca Carb-Vit K (Women's Multivitamin) 18 mg iron-400 [...] 13, 2021 1:00am November 16, 2022 11:08am Vit,Tirh91-Yczu-Tl lic (6 sources) Start: 06-13-2014 End: 01-30-2019 take 1 tablet by mouth once daily Vit,Rzms59-Xleu-Dyk ic Discontinued 1 TABLET PO DAILY June 13, 2014 1:32am January 30, 2019 3:11pm Start: 06-13-2014 End: 01-30-2019 take 1 tablet by mouth once daily Vit,Jnge38-Zazc-Vdhvp Discontinued 1 TABLET PO DAILY June 12, 2014 11:00pm January 30, 2019 2:11pm Start: 06-13-2014 End: 01-30-2019 take 1 tablet by mouth once daily Vit,Yyak24-Tlsa-Bhpzl Discontinued 1 TABLET PO DAILY June 13, [...] WITH Contrast on 05-16-2024 Abdomen/Pelvis WITH Contrast [facility] [address] [place] [address] Abdomen/Pelvis WITH Contrast MR#: [id number] Acct: [id number] Name: KELLY SUGGS Rep #: [id number] : 1985 F 39 From: Kwabena dean MD PCP: MELITON Maya Status: REG CLI Study: Abdomen/Pelvis WITH Contrast Date of Exam: Exam# [id number] Ordering Dr: Arturo Shirley PROCEDURE: ABDOMEN/PELVIS WITH [...] use of iterative reconstruction technique). Reading Location: [id number] CC: MELITON Maya Combination Presser: Signed Normal [facility] Free T3on 02-17-2024 Free T3 [Mass/Vol] 2.7 pg/mL Normal 2.18-3.98 [facility] Comment on above: Performed By: #### L 506.0400, L501.60462, L501.9520 #### [facility] [address] [place], [address] Internal Medicine Office Vis iton 02-17-2024 Internal Medicine Office Visit [facility] [address] [place] [address] [place] [address] OFFICE VISIT Date of Service: 02/17/24 MR#: [id number] Acct: [id number] Name: KELLY SUGGS Rep #: [id number] : 1985 Provider: MELITON Maya Age/Sex: 38/F Location: [facility] Status: Signed Intake Vital Signs 11/15/23 11:02 [...] Reasons: CHEST DISCOMFORT 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: chest discomfort Community Service Director Required: No Accompanied by: Self Is patient [...] home: Yes additional social history: - [employer]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 she had mammogram and ultrasounds [...] a localized (more content not included)... Normal [facility] T4 Free Directon 02-17-2024 T4 FREE DIRECT 0.78 ng/dL Normal 0.76-1.46 [facility] Comment on above: Performed By: #### L 506.0400, L501.92495, L501.9520 ####[facility] [address] [place], [address] Thyroid Stim Hormone (TSH)on 02-17-2024 TSH 1.650 uIU/mL Normal 0.358-3.740 [facility] Comment on above: Performed By: #### L 506.0400, L501.34165, L501.9520 ####[facility] [address] [place], [address] CBC W Auto Differential pane l (Bld)on 01-30-2024 Basophils (Bld) [#/Vol] 0.03 10*3/uL [facility] Basophils/100 WBC (Bld) 0.6 % 0.0 - 2.0 % [facility] Eosinophils (Bld) [#/Vol] 0.03 10*3/uL [facility] Eosinophils/100 WBC (Bld) 0.6 % 0.0 - 6.0 % [facility] Erythrocyte distribution width (RBC) [Ratio] 12.6 % 11.5 - 14.5 % [facility] Hematocrit (Bld) [Volume fraction] 41.1 % 36.0 - 46.0 % [facility] Hemoglobin (Bld) [Mass/Vol] 14 g/dL 12.0 - 16.0 g/dL [facility] Immature granulocytes (Bld) [#/Vol] 0.01 10*3/uL [facility] Immature granulocytes/100 WBC (Bld) 0.2 % 0.0 - 0.9 % [facility] Comment on above: Immature Granulocyte Count (IG) includes promyelocytes, myelocytes and metamyelocytes but does not include bands. Percent differential counts (%) should be interpreted in the context of the absolute cell counts (cells/UL). Lymphocytes (Bld) [#/Vol] 1.55 10*3/uL [facility] Lymphocytes/100 WBC (Bld) 30 % 13.0 - 44.0 % [facility] MCH (RBC) [Entitic mass] 29.7 pg 26.0 - 34.0 pg [facility] MCHC (RBC) [Mass/Vol] 34.1 g/dL 32.0 - 36.0 g/dL [facility] MCV (RBC) [Entitic vol] 87 fL 80 - 100 fL [facility] Monocytes (Bld) [#/Vol] 0.42 10*3/uL [facility] Monocytes/100 WBC (Bld) 8.1 % 2.0 - 10.0 % [facility] Neutrophils (Bld) [#/Vol] 3.12 10*3/uL [facility] Comment on above: Percent differential counts (%) should be interpreted in the context of the absolute cell counts (cells/uL). Neutrophils/100 WBC (Bld) 60.5 % 40.0 - 80.0 % [facility] Nucleated RBC/100 WBC (Bld) [Ratio] 0 % [facility] Platelets (Bld) [#/Vol] 302 10*3/uL [facility] RBC (Bld) [#/Vol] 4.71 10*6/uL [facility] WBC (Bld) [#/Vol] 5.2 10*3/uL [facility] Basophils (Bld) [#/Vol] 0.03 x10*3/uL Normal 0.00-0.10 [facility] Comment on above: Performed By: #### 5 7021-8 #### NATE LIRA ([id number]) [facility] ([facility]) [address] [place] [address]60 Basophils/100 WBC (Bld) 0.6 % Normal 0.0-2.0 [facility] Comment on above: Performed By: #### 5 7021-8 #### NATE LIRA ([id number]) [facility] ([facility]) [address] [place] [address] Eosinophils (Bld) [#/Vol] 0.03 x10*3/uL Normal 0.00-0.70 [facility] Comment on above: Performed By: #### 5 7021-8 #### NATE LIRA ([id number]) [facility] ([facility]) [address] [place] [address]001 Eosinophils/100 WBC (Bld) 0.6 % Normal 0.0-6.0 [facility] Comment on above: Performed By: #### 5 7021-8 #### NATE LIRA (10854) [facility] ([facility]) [address] [place] [address] Erythrocyte distribution width (RBC) [Ratio] 12.6 % Normal 11.5-14.5 [facility] Comment on above: Performed By: #### 5 7021-8 #### NATE LIRA (02686) [facility] ([facility]) [address] [place] [address] Hematocrit (Bld) [Volume fraction] 41.1 % Normal 36.0-46.0 [facility] Comment on above: Performed By: #### 5 7021-8 #### NATE LIRA (49695) [facility] ([facility]) [address] [place] [address] Hemoglobin (Bld) [Mass/Vol] 14.0 g/dL Normal 12.0-16.0 [facility] Comment on above: Performed By: #### 5 7021-8 #### NATE LIRA (78971) [facility] ([facility]) [address] [place] [address] Immature granulocytes (Bld) [#/Vol] 0.01 x10*3/uL Normal 0.00-0.70 [facility] Comment on above: Performed By: #### 5 7021-8 #### NATE LIRA (64158) [facility] ([facility]) [address] [place] [address] Immature granulocytes/100 WBC (Bld) 0.2 % Normal 0.0-0.9 [facility] Comment on above: Result Comment: Catherine ture Granulocyte Count (IG) includes promyelocytes, myelocytes and metamyelocytes but does not include bands. Percent differential counts (%) should be interpreted in the context of the absolute cell counts (cells/UL). Performed By: #### 5 7021-8 #### NATE LIRA (30856) [facility] ([facility]) [address] [place] [address] Lymphocytes (Bld) [#/Vol] 1.55 x10*3/uL Normal 1.20-4.80 [facility] Comment on above: Performed By: #### 5 7021-8 #### NATE LIRA (12137) [facility] ([facility]) [address] [place] [address] 83181 Lymphocytes/100 WBC (Bld) 30.0 % Normal 13.0-44.0 [facility] Comment on above: Performed By: #### 7021-8 #### NATE LIRA (44902) [facility] ([facility]) [address] [place] [address] 18410 MCH (RBC) [Entitic mass] 29.7 pg Normal 26.0-34.0 [facility] Comment on above: Performed By: #### 7021-8 #### NATE LIRA (50340) [facility] ([facility]) [address] [place] [address] 90800 MCHC (RBC) [Mass/Vol] 34.1 g/dL Normal 32.0-36.0 [facility] Comment on above: Performed By: #### 7021-8 #### NATE LIRA (61891) [facility] ([facility]) [address] [place] [address] 19819 MCV (RBC) [Entitic vol] 87 fL Normal 80-100 [facility] Comment on above: Performed By: #### 7021-8 #### NATE LIRA (64682) [facility] ([facility]) [address] [place] [address] 34618 Monocytes (Bld) [#/Vol] 0.42 x10*3/uL Normal 0.10-1.00 [facility] Comment on above: Performed By: #### 7021-8 #### NATE LIRA (81305) [facility] ([facility]) [address] [place] [address] 03883 Monocytes/100 WBC (Bld) 8.1 % Normal 2.0-10.0 [facility] Comment on above: Performed By: #### 5 7021-8 #### NATE LIRA (93798) [facility] ([facility]) [address] [place] [address] 26484 Neutrophils (Bld) [#/Vol] 3.12 x10*3/uL Normal 1.20-7.70 [facility] Comment on above: Result Comment: Perc ent differential counts (%) should be interpreted in the context of the absolute cell counts (cells/uL). Performed By: #### 5 7021-8 #### NATE LIRA (60362) [facility] ([facility]) [address] [place] [address] 46431 Neutrophils/100 WBC (Bld) 60.5 % Normal 40.0-80.0 [facility] Comment on above: Performed By: #### 5 7021-8 #### NATE LIRA (95876) [facility] ([facility]) [address] [place] [address] 41120 Nucleated RBC/100 WBC (Bld) [Ratio] 0.0 /100 WBCs Normal 0.0-0.0 [facility] Comment on above: Performed By: #### 5 7021-8 #### NATE LIRA (01215) [facility] ([facility]) [address] [place] [address]955 Platelets (Bld) [#/Vol] 302 x10*3/uL Normal 150-450 [facility] Comment on above: Performed By: #### 5 7021-8 #### NATE LIRA (54937) [facility] ([facility]) [address] [place] [address] 83560 RBC (Bld) [#/Vol] 4.71 x10*6/uL Normal 4.00-5.20 [facility] Comment on above: Performed By: #### 5 7021-8 #### NATE LIRA ([id number]) [facility] ([facility]) [address] [place] [address] 92289 WBC (Bld) [#/Vol] 5.2 x10*3/uL Normal 4.4-11.3 [facility] Comment on above: Performed By: #### 5 7021-8 #### NATE LIRA (50490) [facility] ([facility]) [address] [place] [address], [place] [address] Coagulation tissue factor in ducedon 01-30-2024 PT Coag (PPP) [Time] 12.7 s Normal 9.8-12.8 [facility] Comment on above: Performed By: #### 5 902-2 #### SULLIVAN SORAYA (98514) [facility] ([facility]) [facility] [place] [id number] Comprehensive metabolic 2000 panelon 01-30-2024 Albumin BCP dye [Mass/Vol] 4.6 g/dL 3.4 - 5.0 g/dL [facility] ALP [Catalytic activity/Vol] 68 U/L 33 - 110 U/L [facility] ALT With P-5'-P [Catalytic activity/Vol] 12 U/L 7 - 45 U/L [facility] Comment on above: Patients treated wit h Sulfasalazine may generate falsely decreased results for ALT. Anion gap [Moles/Vol] 13 mmol/L 10 - 20 mmol/L [facility] AST With P-5'-P [Catalytic activity/Vol] 14 U/L 9 - 39 U/L [facility] Bilirubin [Mass/Vol] 1 mg/dL 0.0 - 1 .2 mg/dL [facility] Calcium [Mass/Vol] 9.4 mg/dL 8.6 - 10. 3 mg/dL [facility] Chloride [Moles/Vol] 104 mmol/L 98 - 10 7 mmol/L [facility] CO2 [Moles/Vol] 25 mmol/L 21 - 32 mmol/L [facility] Creatinine [Mass/Vol] 0.84 mg/dL 0.50 - 1.05 mg/dL [facility] GFR/1.73 sq M.predicted among non-blacks MDRD (S/P/Bld) [Vol rate/Area] 90 mL/min/{1.73_m2} - PINF [facility] Comment on above: Calculations of keshia mated GFR are performed using the 2020 CKD-EPI Study Refit equation without the race variable for the IDMS-Traceable creatinine methods. https://jasn.asnjournals.org/content//ASN.9412317 988 Glucose [Mass/Vol] 95 mg/dL 74 - 99 mg/dL [facility] Interpretation and review of laboratory results Normal [facility] Potassium [Moles/Vol] 3.8 mmol/L 3.5 - 5.3 mmol/L [facility] Protein [Mass/Vol] 7.5 g/dL 6.4 - 8.2 g/dL [facility] Sodium [Moles/Vol] 138 mmol/L 136 - 145 mmol/L [facility] Urea nitrogen [Mass/Vol] 10 mg/dL 6 - 23 mg/dL [facility] Albumin BCP dye [Mass/Vol] 4.6 g/dL Normal 3.4-5.0 [facility] Comment on above: Performed By: #### 2 4323-8 #### NATE LIRA (88527) [facility] ([facility]) [address] [place] [address] ALP [Catalytic activity/Vol] 68 U/L Normal 33-110 [facility] Comment on above: Performed By: #### 2 4323-8 #### NATE LIRA (99571) [facility] ([facility]) [address] [place] [address]130 ALT With P-5'-P [Catalytic activity/Vol] 12 U/L Normal 7-45 [facility] Comment on above: Result Comment: Tony ents treated with Sulfasalazine may generate falsely decreased results for ALT. Performed By: #### 2 4323-8 #### NATE LIRA (90053) [facility] ([facility]) [facility] [place] [address] Anion gap [Moles/Vol] 13 mmol/L Normal 10-20 [facility] Comment on above: Performed By: #### 2 4323-8 #### NATE LIRA (89851) [facility] ([facility]) [address] [place] [address] 57702 AST With P-5'-P [Catalytic activity/Vol] 14 U/L Normal 9-39 [facility] Comment on above: Performed By: #### 2 4323-8 #### NATE LIRA (24719) [facility] ([facility]) [address] [place] [address] Bilirubin [Mass/Vol] 1.0 mg/dL Normal 0.0-1.2 [facility] Comment on above: Performed By: #### 2 4323-8 #### NATE LIRA (99598) [facility] ([facility]) [facility] [place] [address] Calcium [Mass/Vol] 9.4 mg/dL Normal 8.6-10.3 [facility] Comment on above: Performed By: #### 2 4323-8 #### NTAE LIRA (11204) [facility] ([facility]) [address] [place] [address] 10247 Chloride [Moles/Vol] 104 mmol/L Normal 98-107 [facility] Comment on above: Performed By: #### 2 4323-8 #### NATE LIRA (34987) [facility] ([facility]) [address] [place] [address] CO2 [Moles/Vol] 25 mmol/L Normal 21-32 [facility] Comment on above: Performed By: #### 2 4323-8 #### NATE LIRA (18908) [facility] ([facility]) [address] [place] [address] Creatinine [Mass/Vol] 0.84 mg/dL Normal 0.50-1.05 [facility] Comment on above: Performed By: #### 2 4323-8 #### NATE LIRA (84880) [facility] ([facility]) [facility] [place] [address] Glomerular filtration rate/1.73 sq M.predicted 90 mL/min/1.73m*2 Normal >60 [facility] Comment on above: Result Comment: Calc ulations of estimated GFR are performed using the 2020 CKD-EPI Study Refit equation without the race variable for the IDMS-Traceable creatinine methods. https://jasn.asnjournals.org/content/early/ASN.6239137 988 Performed By: #### 2 4323-8 #### NATE LIRA (26826) [facility] ([facility]) [address] [place] [address] 42532 Glucose [Mass/Vol] 95 mg/dL Normal 74-99 [facility] Comment on above: Performed By: #### 2 4323-8 #### NATE LIRA (86230) [facility] ([facility]) [address] [place] [address] 03574 Potassium [Moles/Vol] 3.8 mmol/L Normal 3.5-5.3 [facility] Comment on above: Performed By: #### 2 4323-8 #### NATE LIRA (31486) [facility] ([facility]) [address] [place] [address] 60348 Protein [Mass/Vol] 7.5 g/dL Normal 6.4-8.2 [facility] Comment on above: Performed By: #### 2 4323-8 #### NATE LIRA (90293) [facility] ([facility]) [address] [place] [address] 11992 Sodium [Moles/Vol] 138 mmol/L Normal 136-145 [facility] Comment on above: Performed By: #### 2 4323-8 #### NATE LIRA (37036) [facility] ([facility]) [address] [place] [address] 51232 Urea nitrogen [Mass/Vol] 10 mg/dL Normal 6-23 [facility] Comment on above: Performed By: #### 2 4323-8 #### NATE LIRA (42726) [facility] ([facility]) [address] [place] [address] 02790 D-Dimer, VTE ExclusionOrdere d By: Ania Mendieta on 01-30-2024 Fibrin D-dimer FEU (PPP) [Mass/Vol] [facility] ECG 12-LEADon 01-30-2024 ECG 12-LEAD Ventricular Rate 73 Atrial Rate 73 P-R Interval 146 QRS Duration 70 Q-T Interval 406 QTC Calculation(Bazett) 447 P [place] 73 R [place] 81 T [place] 68 QRS Count 12 Q Onset 223 P Onset 150 P Offset 197 T Offset 426 QTC Fredericia 433 Diagnosis Normal sinus rhythm with sinus arrhythmia Normal ECG When compared with ECG of 30-JAN-2024 13:45, (unconfirmed) No significant change was found See ED provider note for full interpretation and clinical correlation Confirmed by Chiquita Sanchez ([id number]) on 01/30/2024 5:24:06 PM Normal [facility] ECG 12-LEAD Ventricular Rate 77 Atrial Rate 77 P-R Interval 140 QRS Duration 70 Q-T Interval 390 QTC Calculation(Bazett) 441 P [place] 68 R [place] 70 T [place] 48 QRS Count 13 Q Onset 221 P Onset 151 P Offset 204 T Offset 416 QTC Fredericia 423 Diagnosis Normal sinus rhythm Normal ECG No previous ECGs available See ED provider note for full interpretation and clinical correlation Confirmed by Chiquita Sanchez ([id number]) on 01/30/2024 5:26:19 PM Normal [facility] Fibrin D-dimer FEUon 024 Fibrin D-dimer FEU (PPP) [Mass/Vol] <215 Normal <=500 [facility] Comment on above: Order Comment: The V TE Exclusion D-Dimer assay is reported in ng/mL Fibrinogen Equivalent Units (FEU). Per appraisal specialist's instructions for use, a value of less [...] By: #### 4 8065-7 #### SULLIVAN SORAYA ([id number]) [facility] ([facility]) [address] [place] [address] Fibrin D-dimer FEU (PPP) [Ma ss/Vol]Ordered By: Ania Mendieta on 01-30-2024 Interpretation and review of laboratory results Normal [facility] The VTE Exclusion D- Dimer assay is reported in ng/mL Fibrinogen Equivalent Units (FEU). Per appraisal specialist's instructions for use, a value of less [...] assessment model for DVT or PE exclusion.) [facility] No Panel Informationon 01-29 Extra Tube Hold for add-ons. [facility] Comment on above: Auto resulted. [facility] PT Coag (PPP) [Time]on 01-29 INR Coag (PPP) [Relative time] 1.1 {INR} 0.9 - 1.1 [facility] Interpretation and review of laboratory results Normal [facility] INR Coag (PPP) [Relative time] 1.1 Normal 0.9-1.1 [facility] Comment on above: Performed By: #### 5 902-2 #### SULLIVAN SORAYA ([id number]) [facility] ([facility]) [address] [place] [address] Protime-INRon 01-30-2024 PT Coag (PPP) [Time] 12.7 s [facility] Tropinin I.cardiac panel Hig h sensitivity methodon 01-30-2024 Interpretation and review of laboratory results Normal [facility] Less than 99th perce ntile of normal [...] performed using a different testing methodology at [facility] than at other [facility]. Direct result comparisons should only be made within the same method. [facility] Interpretation and review of laboratory results Normal [facility] Less than 99th perce ntile of normal [...] performed using a different testing methodology at [facility] than at other [facility]. Direct result comparisons should only be made within the same method. [facility] Troponin I, High Sensitivity , Initialon 01-30-2024 Tropinin I.cardiac panel High sensitivity method ng/L 0 - 13 ng/L [facility] Troponin I.cardiac panelon 1 03-31-2023 Tropinin I.cardiac panel High sensitivity method <3 Normal 0-13 [facility] Comment on above: Order Comment: Less [...] performed using a different testing methodology at [facility] than at other [facility]. Direct result comparisons should only be made within the same method. Performed By: #### 8 [id number] #### NATE LIRA ([id number]) [facility] ([facility]) [address] [place] [address] Tropinin I.cardiac panel High sensitivity method <3 Normal 0-13 [facility] Comment on above: Order Comment: Less [...] performed using a different testing methodology at [facility] than at other [facility]. Direct result comparisons should only be made within the same method. Performed By: #### 8 [id number] #### NATE LIRA ([id number]) [facility] ([facility]) [address] [place] [address] Troponin, High Sensitivity, 1 Houron 01-30-2024 Tropinin I.cardiac panel High sensitivity method ng/L 0 - 13 ng/L [facility] XR CHEST 1 VIEWon 01-30-2024 XR CHEST 1 VIEW Interpreted By: Wilmar Hanks, STUDY: XR CHEST 1 VIEW; 01/30/2024 12:55 pm INDICATION: CLINICAL INFORMATION: Signs/Symptoms:Chest Pain. COMPARISON: None ACCESSION NUMBER(S): [id number] ORDERING CLINICIAN: BHAVIN BARRERA TECHNIQUE: Portable chest [...] Wilmar Jones 01/30/2024 1:17 PM Dictation workstation: [id number] Normal [facility] XR Chest Single viewon 01-29 Questionable nodule versus infiltrate versus artifact right apex. Follow-up to assure clearing is suggested. MACRO: none Signed by: Wilmar Jones 01/30/2024 1:17 PM Dictation workstation: [id number] Interpreted By: Wilmar Hanks, STUDY: XR CHEST 1 VIEW; 01/30/2024 12:55 pm INDICATION: CLINICAL INFORMATION: Signs/Symptoms:Chest Pain. COMPARISON: None ACCESSION NUMBER(S): [id number] ORDERING CLINICIAN: BHAVIN BARRERA TECHNIQUE: Portable chest [...] INFORMATION: Signs/Symptoms:Chest Pain. COMPARISON: None ACCESSION NUMBER(S): [id number] ORDERING CLINICIAN: BHAVIN BARRERA TECHNIQUE: Portable chest [...] Wilmar Jones 01/30/2024 1:17 PM Dictation workstation: [id number] [facility] Work Phone: Radiology Study observation (narrative) [facility] Work Phone: XR Chest Single viewOrdered By: Wilmar Jones on 01-30-2024 [facility] Work Phone: Endocrinology Visit Reporton 11-15-2023 Endocrinology Visit Report [facility] [address] [place] [address] OFFICE VISIT Date of Service: 11/15/23 MR#: [id number] Acct: [id number] Name: KELLY SUGGS Rep #: [id number] : 1985 Provider: Justin King Age/Sex: 38/F Location: [facility] Status: Signed Intake Vital Signs 05/17/23 11:07 10/20/23 11:51 11/15/23 11:02 Height 5 ft 7.5 in 5 ft 7.5 in 5 ft 7.5 in Weight: 192 lb BMI 29.6 BP 100/68 Blood Pressure Location Lt brachial Position Sitting Pulse 62 Pulse Source Monitor Pulse Oximetry (%) 98 Oxygen Delivery Method room air Intake Visit Reasons: 6 M FU 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: hyperthyroidism Community Service Director Required: No Accompanied by: Self Is patient [...] bruits Lymp (more content not included)... Normal [facility] Free T3on 11-15-2023 Free T3 [Mass/Vol] 2.7 pg/mL Normal 2.18-3.98 [facility] Comment on above: Performed By: #### L 506.0400, L501.9520, L501.79854 #### [facility] [address] [place], [address] T4 Free Directon 11-15-2023 T4 FREE DIRECT 0.86 ng/dL Normal 0.76-1.46 [facility] Comment on above: Performed By: #### L 506.0400, L501.9520, L501.37681 #### [facility] [address] [place], [address] Thyroid Stim Hormone (TSH)on 11-15-2023 TSH 2.750 uIU/mL Normal 0.358-3.740 [facility] Comment on above: Performed By: #### L 506.0400, L501.9520, L501.00039 #### [facility] [address] [place], [address] Breast Limited Unilateralon 10-31-2023 Breast Limited Unilateral [facility] Services [address] [place] [address] Breast Limited Unilateral MR#: [id number] Acct: [id number] Name: KELLY SUGGS Rep #: [id number] : 1985 F 38 From: Kwabena dean MD PCP: Care Physician,No Primary Status: REG CLI Study: Breast Limited Unilateral Date of Exam: Exam# [id number] Ordering Dr: Ebonie Finnegan [id number] STUDY: ULTRASOUND BREAST - LEFT REASON FOR [...] CC: YOLI Finnegan; No Primary Care Physician Combination Presser: Signed Normal [facility] DIAG MAMM W/CAD, BILAToayse DIAG MAMM W/CAD, [facility] Imaging Services [address] [place] [id number] DIAG MAMM W/CAD, [facility] MR#: [id number] Acct: [id number] Name: KELLY SUGGS Rep #: [id number] : 1985 F 38 From: Kwabena dean MD PCP: Care Physician,No Primary Status: [facility] Study: DIAG MAMM W/CAD, BILAT Date of Exam: 10/31/23 Exam# [id number] Ordering Dr: Ebonie Finnegan 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 [place] [address] OFFICE VISIT Date of Service: 10/20/23 MR#: [id number] Acct: [id number] Name: KELLY SUGGS Rep #: [id number] : 1985 Provider: YOLI Moreno Age/Sex: 38/F [place] [facility] Status: Signed Intake Vital Signs 05/17/23 11:07 [...] air Intake Visit Reasons: left breast pain Community Service Director Required: No Is patient in pain?: Yes [...] Current gender identity: female Control Method: [facility] History Paresthesia and pain of both [...] home: Yes additional social history: - [employer] business Patient is stay at home [...] - full term 8lbs 5oz Female epidural [facility] Dr. Leung Unknown -2017 38 live - full term 8lbs 15oz Male epidural [facility] Dr. Peres 05/27/20 [place] 38 live - full term Male none [facility] FIORELLA Delivery Date: Last Updated by: Arlene Moore none Delivery Date: Last Updated by: Arlene Trevino Delivery Date: 05/27/20 Last Updated by: Arlene Moore [place]; LGA, AMA, 1st degree laceration ROS Const ROS Unobtainable: All systems reviewed are unremarkable except as noted in H Exam Const General: cooperative, healthy appearing, comfortable and well developed [facility] Head: normal to inspection Eyes General: appearance [...] pain, lef (more content not included)... Normal [facility] Free T3on 08-19-2023 Free T3 [Mass/Vol] 2.1 pg/mL Low 2.18-3.98 [facility] Comment on above: Performed By: #### L 501.33267, L501.9520, L506.0400 ####[facility] [address] [place], [address] T4 Free Directon 08-19-2023 T4 FREE DIRECT 0.81 ng/dL Normal 0.76-1.46 [facility] Comment on above: Performed By: #### L 501.41403, L501.9520, L506.0400 ####[facility] [address] [place], [address] Thyroid Stim Hormone (TSH)on 08-19-2023 TSH 2.81 uIU/mL Normal 0.358-3.74 [facility] Comment on above: Performed By: #### L 501.64111, L501.9520, L506.0400 ####[facility] [address] [place], [address] Free T3on 06-15-2023 Free T3 [Mass/Vol] 2.4 pg/mL Normal 2.18-3.98 [facility] Comment on above: Performed By: #### L 501.48234, L506.0400, L501.9520 ####[facility] [address] [place], [place], [address] No Panel InformationOrdered By: Marco Antonio Bermudez on 06-15-2023 Free Triiodothyronine (T3) pg/dL 2.4 pg/mL 2.18-3.98 [facility] Serum or plasma thyroid stim ulating hormone (TSH) measurement (units/volume)Ordered By: Marco Antonio Bermudez on 06-15-2023 TSH Qn 2.02 uIU/mL 0.358-3.74 [facility] T4 Free Directon 06-15-2023 T4 FREE DIRECT 0.85 ng/dL Normal 0.76-1.46 [facility] Comment on above: Performed By: #### L 501.17973, L506.0400, L501.9520 ####[facility] [address] [facility] [place], [place], [id number] Thin prep Papanicolaou smear with manual screeningOrdered By: Marco Antonio Bermudez on 06-15-2023 Thin prep Papanicolaou smear with manual screening 0.85 ng/dL 0.76-1.46 [facility] Thyroid Stim Hormone (TSH)on 06-15-2023 TSH 2.02 uIU/mL Normal 0.358-3.74 [facility] Comment on above: Performed By: #### L 501.77388, L506.0400, L501.9520 ####[facility] [address] [place], [place], [id number] Absolute lymphocyte countOrd ered By: Marco Antonio Bermudez on 05-17-2023 Lymphocytes Auto (Unsp spec) [#/Vol] 1.55 10*3/uL 0.83-4.51 [facility] Automated lymphocyte count a s percentage of total leukocytesOrdered By: Marco Antonio Bermudez on 05-17-2023 Lymphocytes/100 WBC Auto (Unsp spec) 50.3 % 19-41 [facility] Basophil percentageOrdered B y: Marco Antonio Bermudez on 05-17-2023 Basophils/100 WBC (Bld) 0.3 % 0-1 [facility] Eosinophils/100 WBC (Bld) 1.3 % 0-5 [facility] Hemoglobin (Bld) [Mass/Vol] 14.0 g/dL 12.0-15.0 [facility] Monocytes/100 WBC (Bld) 11.7 % 0-10 [facility] Neutrophils (Bld) [#/Vol] 1.1 10*3/uL 2.0-7.7 [facility] Neutrophils/100 WBC (Bld) 36.1 % 47-70 [facility] WBC (Bld) [#/Vol] 3.1 10*3/uL 4.4-11.0 [facility] Determination of erythrocyte mean corpuscular volume (MCV)Ordered By: Marco Antonio Bermudez on 05-17-2023 MCV (RBC) [Entitic vol] 89.5 fL 81-99 [facility] Erythrocyte distribution wid th ratioOrdered By: Marco Antonio Bermudez on 05-17-2023 Erythrocyte distribution width (RBC) [Ratio] 13.2 % 11.6-14.6 [facility] Erythrocyte distribution wid th standard deviationOrdered By: Marco Antonio Bermudez on 05-17-2023 Erythrocyte distribution width (RBC) [Entitic vol] 43.6 fL 35.1-43.9 [facility] Hematocrit Auto (Bld) [Volum e fraction]Ordered By: Marco Antonio Bermudez on 05-17-2023 Hematocrit (Bld) [Volume fraction] 43.4 % 37-47 [facility] Immature granulocytes/100 WB C Auto (Bld)Ordered By: Marco Antonio Bermudez on 05-17-2023 Immature granulocytes/100 WBC (Bld) 0.300 % 0.0-0.9 [facility] Comment on above: IG% - Immature Granu locytes (promyelocytes, myelocytes and metamyelocytes) > 1% indicates that a LEFT SHIFT is Present. Laboratory - Chemistry and C hemistry - challengeOrdered By: Marco Antonio Bermudez on 05-17-2023 Cobalamin (Vitamin B12) [Mass/Vol] 784 pg/mL 211-911 [facility] Laboratory - Hematology and Cell countsOrdered By: Marco Antonio Bermudez on 05-17-2023 MCH (RBC) [Entitic mass] 28.9 pg 27.0-32.0 [facility] MCHC (RBC) [Mass/Vol] 32.3 g/dL 32-36 [facility] Nucleated RBC/100 WBC (Bld) [Ratio] 0 % 0-5 [facility] Platelet mean volume (Bld) [Entitic vol] 10.1 fL 6.2-12.0 [facility] Platelets (Bld) [#/Vol] 206 10*3/uL 150-450 [facility] No Panel InformationOrdered By: Marco Antonio Bermudez on 05-17-2023 Free Triiodothyronine (T3) pg/dL 2.2 pg/mL 2.18-3.98 [facility] RBC Auto (Bld) [#/Vol]Ordere d By: Marco Antonio Bermudez on 05-17-2023 RBC (Bld) [#/Vol] 4.85 10*6/uL 4.2-5.4 [facility] Serum or plasma thyroid stim ulating hormone (TSH) measurement (units/volume)Ordered By: Marco Antonio Bermudez on 05-17-2023 TSH Qn 2.54 uIU/mL 0.358-3.74 [facility] Thin prep Papanicolaou smear with manual screeningOrdered By: Marco Antonio Bermudez on 05-17-2023 Thin prep Papanicolaou smear with manual screening 0.90 ng/dL 0.76-1.46 [facility] Laboratory - Chemistry and C hemistry - challengeOrdered By: Marco Antonio Bermudez on 01-13-2023 Free T4 [Mass/Vol] 0.86 ng/dL 0.76-1.46 [facility] No Panel InformationOrdered By: Marco Antonio Bermudez on 01-13-2023 Free Triiodothyronine (T3) pg/dL 2.2 pg/mL 2.18-3.98 [facility] Thyroid Stimulating Hormone (TSH) 2.28 uIU/mL 0.358-3.74 [facility] Laboratory - Chemistry and C hemistry - challengeOrdered By: Marco Antonio Bermudez on 11-16-2022 Free T4 [Mass/Vol] 0.76 ng/dL 0.76-1.46 [facility] No Panel InformationOrdered By: Marco Antonio Bermudez on 11-16-2022 Free Triiodothyronine (T3) pg/dL 2.4 pg/mL 2.18-3.98 [facility] Thyroid Stimulating Hormone (TSH) 2.80 uIU/mL 0.358-3.74 [facility] Laboratory - Chemistry and C hemistry - challengeOrdered By: Dr. Bermudez on 05-18-2022 Free T4 [Mass/Vol] 0.93 ng/dL 0.76-1.46 [facility] No Panel InformationOrdered By: Dr. Bermudez on 05-18-2022 Free Triiodothyronine (T3) pg/dL 2.3 pg/mL 2.18-3.98 [facility] Thyroid Stimulating Hormone (TSH) 2.69 uIU/mL 0.358-3.74 [facility] Laboratory - Chemistry and C hemistry - challengeon 12-15-2021 Free T4 [Mass/Vol] 0.93 ng/dL 0.76-1.46 [facility] Work Phone: No Panel Informationon 12-15 Free Triiodothyronine (T3) pg/dL 2.5 pg/mL 2.18-3.98 [facility] Work Phone: Thyroid Stimulating Hormone (TSH) 2.71 uIU/mL 0.358-3.74 [facility] Work Phone: Laboratory - Chemistry and C hemistry - challengeon 07-03-2021 Free T4 [Mass/Vol] 0.83 ng/dL 0.76-1.46 [facility] Work Phone: No Panel Informationon 07-03 Free Triiodothyronine (T3) pg/dL 2.5 pg/mL 2.18-3.98 [facility] Work Phone: Thyroid Stimulating Hormone (TSH) 1.96 uIU/mL 0.358-3.74 [facility] Work Phone: Laboratory - Chemistry and C hemistry - challengeon 05-18-2021 Free T4 [Mass/Vol] 0.90 ng/dL 0.76-1.46 [facility] Work Phone: No Panel Informationon 05-18 Free Triiodothyronine (T3) pg/dL 2.3 pg/mL 2.18-3.98 [facility] Work Phone: Thyroid Stimulating Hormone (TSH) 3.69 uIU/mL 0.358-3.74 [facility] Work Phone: Laboratory - Chemistry and C hemistry - challengeon 04-17-2021 Free T4 [Mass/Vol] 0.84 ng/dL 0.76-1.46 [facility] Work Phone: No Panel Informationon 04-17 Free Triiodothyronine (T3) pg/dL 2.1 pg/mL 2.18-3.98 [facility] Work Phone: Thyroid Stimulating Hormone (TSH) 1.89 uIU/mL 0.358-3.74 [facility] Work Phone: THYROXINE,FREEon 10-07-2020 THYROXINE,FREE 1.11 ng/dL Normal 0.61 - 1.12 [facility] Comment on above: Result Comment: Thyr oxine Free testing is performed using different testing methodology at [facility] than at other [facility]. Direct result comparisons should only be made [...] draw. Performed By: #### T 4FRE #### [facility] [address] [place] [address] TRIIODOTHYRONINE,FREEon 09-25 TRIIODOTHYRONINE,RUT E 4.4 pg/mL High 2.3 - 4.2 [facility] Comment on above: Performed By: #### T 3FRE #### [facility] [address] [place] [address] TSHon 10-07-2020 TSH Qn 0.01 m[IU]/L Low 0.44 - 3.98 [facility] Comment on above: Result Comment: TSH testing is performed using different testing methodology at [facility] than at other [facility]. Direct result comparisons should only be made within the same method. Performed By: #### T SH2 #### [address] [address] CBCon 09-16-2020 Erythrocyte distribution width (RBC) [Ratio] 13.0 % Normal 11.5 - 14.5 [facility] Comment on above: Performed By: #### C BC #### [address] [address] Hematocrit (Bld) [Volume fraction] 42.2 % Normal 36.0 - 46.0 [facility] Comment on above: Performed By: #### C BC #### [address] [address] Hemoglobin (Bld) [Mass/Vol] 13.9 g/dL Normal 12.0 - 16.0 [facility] Comment on above: Performed By: #### C BC #### [address] [address] MCHC (RBC) [Mass/Vol] 32.9 g/dL Normal 32.0 - 36.0 [facility] Comment on above: Performed By: #### C BC #### [address] [address] MCV (RBC) [Entitic vol] 93 fL Normal 80 - 100 [facility] Comment on above: Performed By: #### C BC #### [address] [address] Platelets (Bld) [#/Vol] 284 10*3/uL Normal 150 - 450 [facility] Comment on above: Performed By: #### C BC #### [address] [address] RBC 4.53 x10E12/L Normal 4.00 - 5.20 [facility] Comment on above: Performed By: #### C BC #### [address] [address] WBC (Bld) [#/Vol] 4.4 10*3/uL Normal 4.4 - 11.3 [facility] Comment on above: Performed By: #### C BC #### [address] [address] COMPREHENSIVE PANELon 2020 Albumin [Mass/Vol] 4.0 g/dL Normal 3.4 - 5.0 [facility] Comment on above: Performed By: #### C MP #### [place] [address] ALP [Catalytic activity/Vol] 74 U/L Normal 33 - 110 [facility] Comment on above: Performed By: #### C MP #### [place] [id number] ALT [Catalytic activity/Vol] 27 U/L Normal 7 - 45 [facility] Comment on above: Result Comment: Tony ents treated with Sulfasalazine may generate falsely decreased results for ALT. Performed By: #### C MP #### [address] [address] Anion gap [Moles/Vol] 8 mmol/L Low 10 - 20 [facility] Comment on above: Performed By: #### C MP #### [address] [address] AST [Catalytic activity/Vol] 16 U/L Normal 9 - 39 [facility] Comment on above: Performed By: #### C MP #### [address] [address] Bilirubin [Mass/Vol] 0.4 mg/dL Normal 0.0 - 1.2 [facility] Comment on above: Performed By: #### C MP #### [address] [address] Calcium [Mass/Vol] 9.1 mg/dL Normal 8.6 - 10.3 [facility] Comment on above: Performed By: #### C MP #### [address] [address] Chloride [Moles/Vol] 106 mmol/L Normal 98 - 107 [facility] Comment on above: Performed By: #### C MP #### [address] [address] Creatinine [Mass/Vol] 0.69 mg/dL Normal 0.50 - 1.05 [facility] Comment on above: Performed By: #### C MP #### [address] [address] GFR- AM. >60 Normal >60 [facility] Comment on above: Result Comment: CALC ULATIONS OF ESTIMATED GFR ARE PERFORMED USING THE MDRD STUDY EQUATION FOR THE IDMS-TRACEABLE CREATININE METHODS. CLIN CHEM 2007;53:766-72 Performed By: #### C MP #### [address] [address] GFR-NON AM. >60 Normal >60 [facility] Comment on above: Performed By: #### C MP #### [address] [address] Glucose [Mass/Vol] 89 mg/dL Normal 74 - 99 [facility] Comment on above: Performed By: #### C MP #### [address] [address] HCO3 (Bld) [Moles/Vol] 29 mmol/L Normal 21 - 32 [facility] Comment on above: Performed By: #### C MP #### [address] [address] Potassium [Moles/Vol] 4.4 mmol/L Normal 3.5 - 5.3 [facility] Comment on above: Performed By: #### C MP #### [address] [address] Protein [Mass/Vol] 6.6 g/dL Normal 6.4 - 8.2 [facility] Comment on above: Performed By: #### C MP #### [address] [address] Sodium [Moles/Vol] 139 mmol/L Normal 136 - 145 [facility] Comment on above: Performed By: #### C MP #### [address] [address] Urea nitrogen [Mass/Vol] 14 mg/dL Normal 6 - 23 [facility] Comment on above: Performed By: #### C MP #### [address] [address] TSHon 09-16-2020 TSH Qn 0.03 m[IU]/L Low 0.44 - 3.98 [facility] Comment on above: Result Comment: TSH testing is performed using different testing methodology at [facility] than at other [facility]. Direct result comparisons should only be made within the same method. Performed By: #### T SH2 #### [address] [address] MRI BRAIN WO IVCONon 018 MRI BRAIN [...] LEMA MD on Oct 17 2017 4:02PM [id number] [facility] 09-15-2017 CNPN Telephone (MEPRAD) KELLY SUGGS ([id number]) 1985 FDate Time Provider Department09/15/17 YOAN MASON JR During your visit today, we recorded the following information about you:Yoan Mason MD 09/15/2017 4:58 PM SignedContacted pt's insurance and will authorize MRI brain for pupillary asymmetry.Auth # is [id number].Allergies As of Date: 09/15/2017(No Known Allergies)Date Reviewed: [...] Of Date 09/15/2017 Noted Resolved Painful intercourse [[id number]] INVALID FOR*01/21/2014 Supervision of normal first [Z34.00] INVALID FOR*08/14/2014 More... Supervision of normal [Z34.90] INVALID FOR*08/04/2017Encounter Number: [id number] Status:Closed by YOAN MASON on 09/15/17 [facility] (NEURMM) KELLY SUGGS ([id number]) 1985 [facility] Time Provider Department08/08/17 10:00 AM YOAN MASON [...] now post . 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[place] who reported that eye exam was [...] (fL)Date Value03/30/2017 10.9URINLAYSISGlucose, UrineDate Value Ref Range Eswyqx8406/22/2017 neg Neg mg/dL Final Protein, UrineDate Value Ref Range Nckqok9306/22/2017 neg Neg mg/dL Final MEDICATIONS :Norethindrone, Contraceptive, 0.35 mg tablet Take 1 tablet by mouth once daily.dibucaine (NUPERCAINAL) 1 % oint 1 Tube by RECTAL route as needed.ibuprofen (MOTRIN) 600 mg tablet Take 1 tablet by mouth every 6 hours asneeded.POLYETHYLENE GLYCOL 3350 (MIRALAX ORAL) Take by mouth. Rhdehwev-Zg-Hzp-Fe-FA ( VITAMIN) tab Take 1 tablet by [...] 0.5 MG CHAKA Kaureferring Provider: ZUNILDA ARANGO ([facility]) [[id number]]Allergies As of Date: 08/08/2017(No Known Allergies)Date Reviewed: 08/08/2017Reviewed by: Yoan Mason Jr. - Fully AssessedReason for Visit: New Patient [172]Primary Visit Diagnosis:Pupillary abnormality, left [H21.562] Other Visit Diagnosis:Claustrophobia [F40.240]Order(s):MRI BRAIN WO IVCON [[id number]] Order #: [id number] FUTURE MRA BRAIN WO IVCON [[id number]] Order #: [id number] FUTURE MRA CAROTID WO IVCON [[id number]] Order #: [id number] FUTURE [] LORazepam (ATIVAN) 0.5 mg tabTake [...] Of Date 08/08/2017 Noted Resolved Painful intercourse [[id number]] INVALID FOR*01/21/2014 Supervision of normal first [Z34.00] [...] (around 11/08/2017).Follow-up and Disposition History RecordedEncounter Number: [id number] Status:Closed by YOAN MASON on 08/08/17 Normal [facility] PROGRESSon 08-08-2017 PROGRESS HNO ID: [id number] thor: Yoan Mason Jr.Service: (none)Author Type: PhysicianType: [...] throughout and now post . Abdulkadire an damper fitter in [place], [place] who reported that eye exam wasnormal [...] (fL)Date Value03/30/2017 10.9URINLAYSISGlucose, UrineDate Value Ref Range Vcmvki2106/22/2017 neg Neg mg/dL Final Protein, UrineDate Value Ref Range Uxrdwz3106/22/2017 neg Neg mg/dL Final MEDICATIONS :Norethindrone, Contraceptive, 0.35 mg tablet Take 1 tablet by mouth oncedaily.dibucaine (NUPERCAINAL) 1 % oint 1 Tube by RECTAL route as needed.ibuprofen (MOTRIN) 600 mg tablet Take 1 tablet by mouth every 6 hours asneeded.POLYETHYLENE GLYCOL 3350 (MIRALAX ORAL) Take by mouth. Fpsgzhlz-Zr-Hpj-Fe-FA ( VITAMIN) tab Take 1 tablet bymouth.DOCOSAHEXANOIC [...] LORAZEPAM 0.5 MG TABLETYoan Mason MD Normal [facility] PROGRESSon 08-04-2017 PROGRESS HNO ID: [id number] thor: Corey Chavez ([facility])Service: (none)Author Type: MidwifeType: Progress NotesFiled: 08/04/2017 4:55 PMNote Text: VISITKelly Suggs is a 32 year old year old here for visit.Delivery Summary:Pt delivered 06/[address] Peres. Male. Skyler. 3ia36ig. Recovery:Feeding: Breast feedingBreastfeeding problems: pt states she [...] Laterality Date- PAST SURGICAL HISTORY OF 2000 [place] Teeth Removal- PAST SURGICAL HISTORY OF 1994 [...] masses.PELVIC: external genitalia normal, normal Bartholin's glands, urethra,[place]'s glands, no vulvar lesions, no cervical lesions, [...] prescription given per Johnson Chavez APRN.CNM Normal [facility] PROGRESSon 08-01-2017 PROGRESS HNO ID: [id number] thor: Zunilda Arango ([facility])Service: (none)Author Type: MidwifeType: Progress NotesFiled: 08/01/2017 2:22 PMNote Text:Bulb Filler offered: Patient declines.Kelly Suggs is a 32 [...] Laterality Date- PAST SURGICAL HISTORY OF 2000 [place] Teeth Removal- PAST SURGICAL HISTORY OF 1994 Wart Removal from legFAMILY HISTORYProblem Relation Age of Onset- Thyroid Mother- Fibroids [OTHER] Mother- Diabetes Maternal Grandmother- Heart Maternal Grandmother- Heart Paternal Grandfather CHF- Fibroids [OTHER] Maternal AuntSocial History Marital status: Spouse name: Ramses Years of education: 16 Number of children: 1Occupational 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 Main Topics Smoking status: Never Smoker Smokeless tobacco: Never Used Alcohol use: Yes Comment: Rarely, NOT WHILE Drug use: No Sexual activity: Yes Partners with: Male control/protection: NoneCurrent Outpatient Prescriptions: Knmorzew-To-Tpx-Fe-FA ( VITAMIN) tab Take 1 tablet bymouth.dibucaine [...] mouth for 30-60 daysZunilda Arango APRN.CNM Normal [facility] CNOVon 06-29-2017 CNOV Office Visit (WOOB) --------KELLY SUGGS ([id number]) 1985 [facility] Time Provider Department06/29/17 11:30 AM DEENA MEJIA [...] Laterality Date- PAST SURGICAL HISTORY OF 2000 [place] Teeth Removal- PAST SURGICAL HISTORY OF 1994 [...] GLYCOL 3350 (MIRALAX ORAL) Take by mouth. Aqlqqteb-Ed-Uin-Fe-FA ( VITAMIN) tab Take 1 tablet by mouth.DOCOSAHEXANOIC ACID (DHA ORAL) Take by mouth.No current facility-administered medications for this visit.Allergies As of Date: 06/29/2017(No Known Allergies)Fully Assessed 06/29/2017REVIEW OF [place] HomeAllergies and current medication updated:YesEXAM: BP 102/64 Wt 176 lb (79.8kg)GENERAL: pleasant, female in no apparent distressHEENT: Normocephalic and atraumaticNECK: full range of motionPELVIC: external genitalia normal, normal Bartholin's glands, urethra, [place]'sglands, no cervical lesions, physiologic discharge present, laceration [...] Of Date 06/29/2017 Noted Resolved Painful intercourse [[id number]] INVALID FOR*01/21/2014 Supervision of normal first [Z34.00] [...] by DEENA LEUNG MD on 06/29/17 Normal [facility] HOSPon 06-29-2017 HOSP Patient Update (WOOB) --------KELLY SUGGS ([id number]) 1985 [facility] Time Provider Department06/29/17 CHUCHO PERES During your visit today, we recorded the following information about you:Poonam Toni CHAPMAN 06/29/2017 11:42 AM SignedPt delivered via at [facility] on 06/23[facility] Peres. See OB Outcome note.Poonam Muñoz LPNAllergies As of Date: 06/29/2017(No Known Allergies)Date Reviewed: 06/22/2017Reviewed by: Radha Mloina Ma - Fully AssessedPrescriptions as of 06/29/2017 Sig: MIRALAX ORAL Take by mouth. VITAMIN,CALCIUM,MINE* Take 1 tablet by mouth. DHA ORAL Take by mouth.Problem List As Of Date 06/29/2017 Noted Resolved Painful intercourse [[id number]] INVALID FOR*01/21/2014 Supervision of normal first [Z34.00] INVALID FOR*08/14/2014 More... Supervision of normal [Z34.90] INVALID FOR* Status:Closed by POONAM MUÑOZ LPN on 06/29/17 Normal [facility] PROGRESSon 06-29-2017 PROGRESS HNO ID: [id number] thor: Deena Cleaning: (none)Author Type: PhysicianType: Progress NotesFiled: 06/29/2017 1:32 PMNote Text:Bulb Filler offered: Patient declines.Kelly Suggs is a 32 [...] Laterality Date- PAST SURGICAL HISTORY OF 2000 [place] Teeth Removal- PAST SURGICAL HISTORY OF 1994 [...] GLYCOL 3350 (MIRALAX ORAL) Take by mouth. Rgcitqbq-Ss-Mcj-Fe-FA ( VITAMIN) tab Take 1 tablet bymouth.DOCOSAHEXANOIC ACID (DHA ORAL) Take by mouth.No current facility-administered medications for this visit.Allergies As of Date: 06/29/2017(No Known Allergies)Fully Assessed 06/29/2017REVIEW OF [facility] and current medication updated:YesEXAM: BP 102/64 Wt 176 lb (79.8kg)GENERAL: pleasant, female in no apparent distressHEENT: Normocephalic and atraumaticNECK: full range of motionPELVIC: external genitalia normal, normal Bartholin's glands, urethra,[place]'s glands, no cervical lesions, physiologic discharge present,laceration [...] to office if worsening symptomsDeena Jones MD [facility] PROGRESS HNO ID: [id number] Author: Poonam Muñoz LPN Service: (none) Author Type: (none) Type: Progress Notes Filed: 06/29/2017 11:42 AM Note Text: Pt delivered via at [facility] on 06/23/[address] Peres. See OB Outcome note. Poonam Muñoz LPN [facility] Shyanne 06-21-2017 CNPN Telephone (WOOB) --------KELLY SUGGS ([id number]) 1985 FDate Time Provider Department06/21/17 DEENA MEJIA [...] If regular contractions notifyoffice or go to [facility];Gabriele Chong LPN 06/21/2017 9:45 AM AddendumPatient notified by voicemailAllergies As of Date: 06/21/2017(No Known Allergies)Date Reviewed: 06/20/2017Reviewed by: Zunilda Arango APRN.LAURIE - Fully AssessedReason for Visit: Care [86]Prescriptions as of 06/21/2017 Sig: MIRALAX ORAL Take by mouth. VITAMIN,CALCIUM,MINE* Take 1 tablet by mouth. DHA ORAL Take by mouth.Problem List As Of Date 06/21/2017 Noted Resolved Painful intercourse [[id number]] INVALID FOR*01/21/2014 Supervision of normal first [Z34.00] INVALID FOR*08/14/2014 More... Supervision of normal [Z34.90] INVALID FOR* Status:Closed by TAMIKO CHONG LPN on 06/21/17 [facility] 06-20-2017 PROGRESS HNO ID: [id number] thor: Zunilda Delgado) PITER ArangoMService: (none)Author Type: MidwifeType: Progress NotesFiled: 06/20/2017 3:10 PMNote Text:NST SUMMARYPROVIDER ASSESSMENT AND INTERPRETATIONKelly Suggs is a 32 year old female, , who is at 39w4d with anEDD of 06/23/2017, by Last Menstrual Period dating method.Indications for NST: Decreased MovementBaseline: 125Variability: ModerateAccelerations: Present 15 X 15Decelerations: NoneContractions: TOCO: IrregularInterpretation: Category ISIGNATURE: Zunilda Arango APRN.CNM Normal [facility] GROUP B STREP PCRon 06-01-19 18 GROUP B STREP PCR Negative Normal [facility] Comment on above: Performed By: #### G BPCR ####[facility] [address] [place], [place] [phone] PROGRESSon 05-09-2017 PROGRESS HNO ID: [id number] thor: Vi Reed MaService: (none)Author Type: (none)Type: [...] or severely ill: YesPatient denies history of Guillain-[place] Syndrome (a severe paralyticillness): YesTdap Adacel injection was given without incident.See immunizations for details of immunizations administered today.VIS sheet provided: Brea Arango CNM was present in office at time of injection.Vi Reed Ma Normal [facility] HOSPon 04-25-2017 HOSP Routine Off ice Visit (WOOB) --------KELLY SUGGS ([id number]) 1985 [facility] Time Provider Department04/25/17 11:00 AM COREY CHAVEZ (LAURIE) JOSEFA During your visit today, we recorded the following information about you: Blood pressure Weight 110/64 85.1 kgHayley Francesco [place] 04/25/2017 11:08 AM SignedSEQUENTIAL SCREENINGSThe [facility] offers sequential screenings for women who are [...] testing. It will require anappointment with our electron beam photo mask technician. This is not an ultrasound performedby [...] the above symptoms, contact our office at [phone] andask to speak with a nurse.After hours, you can call doctors registry at [phone] OR call [facility] at [phone] and ask to have the doctor restoration officer paged.If you consider this an emergency, dial or go to your nearest emergencydepartment.NEED HELP? Are you dealing with a violent or abusive relationship? Are you avictim of rape or sexual assult? Call [facility] ([place]) 24 hourCrisis Hotline: 625.602.3258 or 024-405-3151. MANUALYour Guide to a Healthy manual is now on-line. [email or web address]/H ealthyPregnancyGuide to download your free copyReferring Provider: SELF [200]Allergies As of Date: 04/25/2017(No Known Allergies)Date Reviewed: 04/25/2017Reviewed by: Miranda Maya Ma - Fully AssessedReason for Visit: Care [86]Primary Visit Diagnosis:Encounter for supervision of other normal in third trimester [Z34.83] Other Visit Diagnosis:31 weeks gestation of [Z3A.31]Order(s):URINE OB DIP B/O [[id number]] Order #: [id number] as of 04/25/2017 Sig: MIRALAX ORAL Take by mouth. VITAMIN,CALCIUM,MINE* Take 1 tablet by mouth. DHA ORAL Take by mouth.Problem List As Of Date 04/25/2017 Noted Resolved Painful intercourse [DDU9055] INVALID FOR*01/21/2014 Supervision of normal first [Z34.00] INVALID FOR*08/14/2014 More... Supervision of normal [Z34.90] INVALID FOR* Other instructions from your clinician: SEQUENTIAL SCREENINGS The [facility] offers sequential screenings for women who are [...] It will require an appointment with our electron beam photo mask technician. This is not an ultrasound performed [...] the above symptoms, contact our office at [phone] and ask to speak with a nurse. After hours, you can call doctors registry at [phone] OR call [facility] at [phone] and ask to have the doctor restoration officer paged. If you consider this an emergency, dial 7--3 or go to your nearest emergency department. NEED HELP? Are you dealing with a violent or abusive relationship? Are you a victim of rape or sexual assult? Call [facility] ([place]) 24 hour Crisis Hotline: 961.731.2231 or 981-062-0799. MANUAL Your Guide to a Healthy manual is now on-line. Visit [facility].org/Health yPregnancyGuide to download your free copyMedications Discontinued During This Encounter PSYLLIUM NADIA (METAMUCIL ORAL) 04/25/2017 Class: Historical Med Route: ORAL Sig: Take by mouth as needed. Disc: Erroneous entryDisposition: Return in about 2 weeks (around 05/09/2017), or if symptoms worsen or fail to improve.Follow-up and Disposition History RecordedEncounter Number: [id number] Status:Closed by COREY CHAVEZ CNM on 04/25/17 Normal [facility] HOSPon 04-11-2017 [facility] Routine Off ice Visit (WOOB) --------[facility] SUGGS ([id number]) 1985 [facility] Provider Department04/11/17 11:30 AM LAWRENCE DUBON (RANDY) WOOB During your visit today, we recorded the following information about you: Blood pressure Weight 118/70 83.6 kgVi Reed Ma 04/11/2017 11:35 AM SignedSEQUENTIAL SCREENINGSThe [facility] offers sequential screenings for women who are [...] testing. It will require anappointment with our electron beam photo mask technician. This is not an ultrasound performedby [...] the above symptoms, contact our office at [phone] andask to speak with a nurse.After hours, you can call doctors registry at [phone] OR call [facility] at [phone] and ask to have the doctor restoration officer paged.If you consider this an emergency, dial 91-2 or go to your nearest emergencydepartment.NEED HELP? Are you dealing with a violent or abusive relationship? Are you avictim of rape or sexual assult? Call [facility] ([place]) 24 hourCrisis Hotline: 427.760.3596 or 903-303-4060. MANUALYour Guide to a Healthy manual is now on-line. [facility]cle[facility].org/H ealthyPregnancyGuide to download your free copyReferring Provider: SELF [200]Allergies As of Date: 04/11/2017(No Known Allergies)Date Reviewed: 04/11/2017Reviewed by: Vi Reed Ma - Fully AssessedReason for Visit: Care [86]Primary Visit Diagnosis:Encounter for supervision of normal first in second trimester [Z34.02] Other Visit Diagnosis:29 weeks gestation of [Z3A.29]Order(s):URINE OB DIP B/O [[id number]] Order #: [id number] as of 04/11/2017 Sig: METAMUCIL ORAL Take by mouth as needed. VITAMIN,CALCIUM,MINE* Take 1 tablet by mouth. DHA ORAL Take by mouth.Problem List As Of Date 04/11/2017 Noted Resolved Painful intercourse [WUM5908] INVALID FOR*01/21/2014 Supervision of normal first [Z34.00] INVALID FOR*08/14/2014 More... Supervision of normal [Z34.90] INVALID FOR* Other instructions from your clinician: SEQUENTIAL SCREENINGS The [facility] offers sequential screenings for women who are [...] It will require an appointment with our electron beam photo mask technician. This is not an ultrasound performed [...] the above symptoms, contact our office at [phone] and ask to speak with a nurse. After hours, you can call doctors registry at [phone] OR call [facility] at [phone] and ask to have the doctor restoration officer paged. If you consider this an emergency, dial 7-0-9 or go to your nearest emergency department. NEED HELP? Are you dealing with a violent or abusive relationship? Are you a victim of rape or sexual assult? Call [facility] ([facility] 24 hour Crisis Hotline: 625.722.2680 or 326-321-9297. MANUAL Your Guide to a Healthy manual is now on-line. Visit [facility].org/Health yPregnancyGuide to download your free copyDisposition: Return in about 2 weeks (around 04/25/2017).Follow-up and Disposition History RecordedEncounter Number: [id number] Status:Closed by LAWRENCE DUBON on 04/11/17 Normal [facility] 50g, 1hr gest. GSCRakesh 03-30 Glucose mass conc 75 mg/dL Normal 74-134 [facility] Comment on above: Result Comment: [facility] Congress of Obstetricians and Gynecologists (Carrion/Rebecca) guidelines state a gestational diabetes mellitus positive screen is made, in women not previously diagnosed with overt diabetes, when the 1 hr plasma glucose level is equal to or above 140 mg/dL. The [facility] and [facility] [place] recommends a 135 mg/dL cutoff. Performed By: #### G LTGST ####[place] [phone] CBC and Differentialon 03-30 Abs Baso <0.03 Normal <0.11 [facility] Comment on above: Performed By: #### C BCDIF ####[place] [phone] Abs [place] 0.73 k/uL Normal <0.87 [facility] Comment on above: Performed By: #### C BCDIF ####[place] [phone] Abs Neut 4.70 k/uL Normal 1.45-7.50 [facility] Comment on above: Performed By: #### C BCDIF ####[address] [phone] Basophils/100 WBC Auto (Bld) 0.3 % Normal [facility] Comment on above: Performed By: #### C BCDIF ####[address] [phone] DTYPE Auto Diff Normal [facility] Comment on above: Performed By: #### C BCDIF ####[place] [phone] Eosinophils 0.08 10*3/uL Normal <0.46 [facility] Comment on above: Performed By: #### C BCDIF ####[place] [address] [address], [place] [phone] Eosinophils/100 leukocytes 1.1 % Normal [facility] Comment on above: Performed By: #### C BCDIF ####[address] [place] [phone] Erythrocyte distribution width Auto Ratio (RBC) 12.6 % Normal 11.5-15.0 [facility] Comment on above: Performed By: #### C BCDIF ####[address] [place], [place] [phone] Erythrocytes (RBC) 0.0 /100 WBC Normal 0 [facility] Comment on above: Performed By: #### C BCDIF ####[address] [place] [phone] Erythrocytes (RBC) 10*6/uL Normal <0.01 [facility] Comment on above: Performed By: #### C BCDIF ####[place] [phone] Erythrocytes (RBC) 3.70 10*6/uL Low 3.90-5.20 [facility] Comment on above: Performed By: #### C BCDIF ####[address], [place] [phone] Hematocrit (HCT) 35.2 % Low 36.0-46.0 [facility] Comment on above: Performed By: #### C BCDIF ####[address], [place] [phone] Hemoglobin mass conc (Bld) 11.7 g/dL Normal 11.5-15.5 [facility] Comment on above: Performed By: #### C BCDIF ####[place] [address] [address], [place] [phone] Lymphocytes 1.71 10*3/uL Normal 1.00-4.00 [facility] Comment on above: Performed By: #### C BCDIF ####[place] [address] [address], [place] [phone] Lymphocytes/100 leukocytes 23.6 % Normal [facility] Comment on above: Performed By: #### C BCDIF ####[place] [address] [address], [place] [phone] MCH 31.6 pG Normal 26.0-34.0 [facility] Comment on above: Performed By: #### C BCDIF ####[place] [address] [address], [place] [phone] MCHC mass conc (RBC) 33.2 g/dL Normal 30.5-36.0 [facility] Comment on above: Performed By: #### C BCDIF ####[place] [address] [address], [place] [phone] MCV 95.1 fL Normal 80.0-100.0 [facility] Comment on above: Performed By: #### C BCDIF ####[place] [address] [address], [place] [phone] Monocytes/100 leukocytes 10.1 % Normal [facility] Comment on above: Performed By: #### C BCDIF ####[place] [address] [address], [place] [phone] Neutrophils/100 WBC Auto (Bld) 64.9 % Normal [facility] Comment on above: Performed By: #### C BCDIF ####[place] [address] [address], [place] [phone] Platelet mean volume (PMV) 10.9 fL Normal 9.0-12.7 [facility] Comment on above: Performed By: #### C BCDIF ####[facility] [address] [place], [place] [phone] Platelets 255 10*3/uL Normal 150-400 [facility] Comment on above: Performed By: #### C BCDIF ####[facility] [place], [place] [phone] WBC (Leukocytes) 7.24 10*3/uL Normal 3.70-11.00 [facility] Comment on above: Performed By: #### C BCDIF ####[facility] [address] [place], [place] [phone] HOSPon 03-30-2017 [facility] Routine Off ice Visit (WOOB) --------KELLY SUGGS ([id number]) 1985 FDate Time Provider Department03/30/17 3:30 PM ZUNILDA ARANGO (LAURIE) WOOB During your visit today, we recorded the following information about you: Blood pressure Weight 102/68 82.6 kgPaulying Reed Rosa Elena 03/30/2017 3:45 PM SignedSEQUENTIAL SCREENINGSThe [facility] offers sequential screenings for women who are [...] testing. It will require anappointment with our electron beam photo mask technician. This is not an ultrasound performedby [...] the above symptoms, contact our office at [phone] andask to speak with a nurse.After hours, you can call doctors registry at [phone] OR [facility] at [phone] and ask to have the doctor restoration officer paged.If you consider this an emergency, dial 91-9 or go to your nearest emergencydepartment.NEED HELP? Are you dealing with a violent or abusive relationship? Are you avictim of rape or sexual assult? Call [facility] ([place]) 24 hourCrisis Hotline: 299.553.9215 or 599-030-8084. MANUALYour Guide to a Healthy manual is now on-line. [email or web address]/H ealthyPregnancyGuide to download your free copyReferring Provider: SELF [200]Allergies As of Date: 03/30/2017(No Known Allergies)Date Reviewed: 03/30/2017Reviewed by: Zunilda DowningNorth Adams Regional HospitalReggie Arango - Fully AssessedReason for Visit: Care [86]Primary Visit Diagnosis:Encounter for supervision of normal first in second trimester [Z34.02] Other Visit Diagnosis:27 weeks gestation of [Z3A.27]Order(s):URINE OB DIP B/O [[id number]] Order #: [id number] CBC + DIFF [SQCBCDIF] Order #: [id number] FUTURE GEST GLUC SCREEN, 1-HR, 50 GM, NON-FASTING [SQGLTGST] Order #: [id number] FUTUREPrescriptions as of 03/30/2017 Sig: VITAMIN,CALCIUM,MINE* Take 1 tablet by mouth. DHA ORAL Take by mouth.Problem List As Of Date 03/30/2017 Noted Resolved Painful intercourse [PHY0917] INVALID FOR*01/21/2014 Supervision of normal first [Z34.00] INVALID FOR*08/14/2014 More... Supervision of normal [Z34.90] INVALID FOR* Other instructions from your clinician: SEQUENTIAL SCREENINGS The [facility] offers sequential screenings for women who are [...] It will require an appointment with our electron beam photo mask technician. This is not an ultrasound performed [...] the above symptoms, contact our office at [phone] and ask to speak with a nurse. After hours, you can call doctors registry at [phone] OR call [facility] at [phone] and ask to have the doctor restoration officer paged. If you consider this an emergency, dial 8-5-7 or go to your nearest emergency department. NEED HELP? Are you dealing with a violent or abusive relationship? Are you a victim of rape or sexual assult? Call [facility] ([facility] 24 hour Crisis Hotline: 806.412.2034 or 972-470-1072. MANUAL Your Guide to a Healthy manual is now on-line. Visit [facility].org/Health yPregnancyGuide to download your free copyMedications Discontinued [...] to improve, for BRODERICK.Follow-up and Disposition History RecordedEncjohn muir [facility] medical centerer Number: [id number] Status:Closed by ZUNILDA ARANGO on 03/30/17 [facility] 03-07-2017 [facility] Routine Off ice Visit (WOOB) --------KELLY SUGGS ([id number]) 1985 [facility] Time Provider Yfrnmdpnib30/11/17 2:00 PM ZUNILDA ARANGO ([facility]) WOOB During your visit today, we recorded the following information about you: Blood pressure Weight 122/68 79.8 kgHayley Francesco Sd 03/07/2017 2:15 PM SignedSEQUENTIAL SCREENINGSThe [facility] offers sequential screenings for women who are [...] testing. It will require anappointment with our electron beam photo mask technician. This is not an ultrasound performedby [...] the above symptoms, contact our office at [phone] andask to speak with a nurse.After hours, you can call doctors registry at [phone] OR call [facility] at [phone] and ask to have the doctor restoration officer paged.If you consider this an emergency, dial 7-9-6 or go to your nearest emergencydepartment.NEED HELP? Are you dealing with a violent or abusive relationship? Are you avictim of rape or sexual assult? Call [facility] ([place]) 24 hourCrisis Hotline: 434.130.2576 or 321-203-8916. MANUALYour Guide to a Healthy manual is now on-line. [email or web address]/H ealthyPregnancyGuide to download your free copyReferring Provider: DEENA MEJIA [[id number]]Allergies As of Date: 03/07/2017(No Known Allergies)Date Reviewed: 03/07/2017Reviewed by: Miranda Maya Ma - Fully AssessedReason for Visit: Care [86]Primary Visit Diagnosis:Encounter for supervision of other normal in second trimester [Z34.82] Other Visit Diagnoses:24 weeks gestation of [Z3A.24] Pupil dilation [H57.04]Order(s):URINE OB DIP B/O [[id number]] Order #: [id number] CONSULT TO NEUROLOGY [9019] Order #: [id number]: 1Prescriptions as of 03/07/2017 Sig: DESOGESTREL-E.ESTRADIOL 0.15 * Take 1 tablet by mouth once d* FENUGREEK SEED EXTRACT 500 MG* Take by mouth. VITAMIN,CALCIUM,MINE* Take 1 tablet by mouth. DHA ORAL Take by mouth.Problem List As Of Date 03/07/2017 Noted Resolved Painful intercourse [WMX6204] INVALID FOR*01/21/2014 Supervision of normal first [Z34.00] INVALID FOR*08/14/2014 More... Supervision of normal [Z34.90] INVALID FOR* Other instructions from your clinician: SEQUENTIAL SCREENINGS [facility] offers sequential screenings for women who are [...] It will require an appointment with our electron beam photo mask technician. This is not an ultrasound performed [...] the above symptoms, contact our office at [phone] and ask to speak with a nurse. After hours, you can call doctors registry at [phone] OR call [facility] at [phone] and ask to have the doctor restoration officer paged. If you consider this an emergency, dial 8-1-5 or go to your nearest emergency department. NEED HELP? Are you dealing with a violent or abusive relationship? Are you a victim of rape or sexual assult? Call [facility] ([place]) 24 hour Crisis Hotline: 448.427.5403 or 106-749-5041. MANUAL Your Guide to a Healthy manual is now on-line. Visit [email or web address]/Health yPregnancyGuide to download your free copyDisposition: Return in about 3 weeks (around 03/28/2017), or if symptoms worsen or fail to improve, for BRODERICK.Follow-up and Disposition History RecordedEncounter Number: [id number] Status:Closed by ZUNILDA ARANGO on 03/07/17 [facility] 02-07-2017 [facility] Routine Off ice Visit (WOOB) --------KELLY SUGGS ([id number]) 1985 FDate Time Provider Mtrtuwznex87/13/17 11:30 AM ZUNILDA ARANGO (LAURIE) WOEBONY During your visit today, we recorded the following information about you: Blood pressure Weight 112/64 77.1 kgTabatha Shala Cuba 02/07/2017 10:32 AM SignedSEQUENTIAL SCREENINGSThe [facility] offers sequential screenings for women who are [...] testing. It will require anappointment with our electron beam photo mask technician. This is not an ultrasound performedby [...] the above symptoms, contact our office at [phone] andask to speak with a nurse.After hours, you can call doctors registry at [phone] OR call [facility] at [phone] and ask to have the doctor restoration officer paged.If you consider this an emergency, dial 9-1-1 or go to your nearest emergencydepartment.NEED HELP? Are you dealing with a violent or abusive relationship? Are you avictim of rape or sexual assult? Call [facility] ([place]) 24 hourCrisis Hotline: 191.863.4907 or 291-352-4041. MANUALYour Guide to a Healthy manual is now on-line. [email or web address]/H ealthyPregnancyGuide to download your free copyReferring Provider: DEENA MEJIA [[id number]]Allergies As of Date: 02/07/2017(No Known Allergies)Date Reviewed: 02/07/2017Reviewed by: Zunilda Arango - Fully AssessedReason for Visit: Care [86]Primary Visit Diagnosis:20 weeks gestation of [Z3A.20] Other Visit Diagnosis:Encounter for supervision of other normal in second trimester [Z34.82]Order(s):URINE OB DIP B/O [[id number]] Order #: [id number] ALPHA FETOPRO MATERNAL [SQAFPMAT] Order #: [id number] FUTURE SEQUENTIAL SCRN SCND TRIMESTER [SQSEQL2] Order #: [id number] FUTUREPrescriptions as of 02/07/2017 Sig: VITAMIN,CALCIUM,MINE* Take 1 tablet by mouth. DHA ORAL Take by mouth. DESOGESTREL-E.ESTRADIOL 0.15 * Take 1 tablet by mouth once d* FENUGREEK SEED EXTRACT 500 MG* Take by mouth.Problem List As Of Date 02/07/2017 Noted Resolved Painful intercourse [[id number]] INVALID FOR*01/21/2014 Supervision of normal first [Z34.00] INVALID FOR*08/14/2014 More... Supervision of normal [Z34.90] INVALID FOR* Other instructions from your clinician: SEQUENTIAL SCREENINGS [facility] offers sequential screenings for women who are [...] It will require an appointment with our electron beam photo mask technician. This is not an ultrasound performed [...] the above symptoms, contact our office at [phone] and ask to speak with a nurse. After hours, you can call doctors registry at [phone] OR call [facility] at [phone] and ask to have the doctor restoration officer paged. If you consider this an emergency, dial 9-1-9 or go to your nearest emergency department. NEED HELP? Are you dealing with a violent or abusive relationship? Are you a victim of rape or sexual assult? Call [facility] ([place]) 24 hour Crisis Hotline: 238.901.5868 or 870-393-3374. MANUAL Your Guide to a Healthy manual is now on-line. Visit [email or web address]/Health yPregnancyGuide to download your free copyDisposition: Return in about 4 weeks (around 03/07/2017), or if symptoms worsen or fail to improve, for routine OB check.Follow-up and Disposition History RecordedEncounter Number: [id number] Status:Closed by ZUNILDA ARANGO on 02/07/17 Normal [facility] Routine Off ice Visit (WOOB) --------KELLY SUGGS ([id number]) 1985 [facility] Ujzoitdwqo46/13/17 10:15 AM ARMINDA RAMÍREZ During your visit today, we recorded the following information about you:Arminda Ramírez MD 02/07/2017 1:02 PM SignedA cain? fetus in utero with symmetric measurementsAdequate growth (AGA).Estimated Date of Delivery: 06/23/17EGA = 89x4kUvr anatomy appears normal. There are no evident malformations and /oreffusions.No genetic markers are noted.The amniotic fluid volume is within normal limits.The sensitivity of ultrasound in the detection of malformations overall isapproximately 35%.RECOMMENDATIONS:- Follow up ultrasound as clinically indicatedReferring Provider: DEENA MEJIA [[id number]]Allergies As of Date: 02/07/2017(No Known Allergies)Date Reviewed: [...] Of Date 02/07/2017 Noted Resolved Painful intercourse [UNI5802] INVALID FOR*01/21/2014 Supervision of normal first [Z34.00] INVALID FOR*08/14/2014 More... Supervision of normal [Z34.90] INVALID FOR* Status:Closed by ARMINDA RAMÍREZ MD on 02/07/17 Normal [facility] PROGRESSon 02-07-2017 PROGRESS HNO ID: [id number] thor: Arminda Funkervice: (none)Author Type: PhysicianType: Progress NotesFiled: 02/07/2017 1:02 PMNote Text:A cain? fetus in utero with symmetric measurementsAdequate growth (AGA).Estimated Date of Delivery: 06/23/17EGA = 97k5aDkr anatomy appears normal. There are no evident malformations and/or effusions.No genetic markers are noted.The amniotic fluid volume is within normal limits.The sensitivity of ultrasound in the detection of malformations overall isapproximately 35%.RECOMMENDATIONS:- Follow up ultrasound as clinically indicated Normal [facility] 01-10-2017 [facility] Routine Off ice Visit (WOOB) --------KELLY SUGGS ([id number]) 1985 FDate Time Provider Lusktywkry07/16/17 3:10 PM DEENA MEJIA During your visit today, we recorded the following information about you: Blood pressure Weight 110/68 75.2 kgHayley Francesco [place] 01/10/2017 3:19 PM SignedSEQUENTIAL SCREENINGSThe [facility] offers sequential screenings for women who are [...] testing. It will require anappointment with our electron beam photo mask technician. This is not an ultrasound performedby [...] the above symptoms, contact our office at [phone] andask to speak with a nurse.After hours, you can call doctors registry at [phone] OR call [facility] at [phone] and ask to have the doctor restoration officer paged.If you consider this an emergency, dial 9-1-1 or go to your nearest emergencydepartment.NEED HELP? Are you dealing with a violent or abusive relationship? Are you avictim of rape or sexual assult? Call [facility] ([place]) 24 hourCrisis Hotline: 480.195.4796 or 877-980-4032. MANUALYour Guide to a Healthy manual is now on-line. [email or web address] ealthyPregnancyGuide to download your free copyReferring Provider: SELF [[id number]]Allergies As of Date: 01/10/2017(No Known Allergies)Date Reviewed: 01/10/2017Reviewed by: Miranda Maya Ma - Fully AssessedReason for Visit: Care [86]Primary Visit Diagnosis:Encounter for supervision of other normal in second trimester [Z34.82] Other Visit Diagnosis:16 weeks gestation of [Z3A.16]Order(s):URINE OB DIP B/O [[id number]] Order #: [id number] as of 01/10/2017 Sig: DESOGESTREL-E.ESTRADIOL 0.15 * Take 1 tablet by mouth once d* FENUGREEK SEED EXTRACT 500 MG* Take by mouth. VITAMIN,CALCIUM,MINE* Take 1 tablet by mouth. DHA ORAL Take by mouth.Problem List As Of Date 01/10/2017 Noted Resolved Painful intercourse [CMV1762] INVALID FOR*01/21/2014 Supervision of normal first [Z34.00] INVALID FOR*08/14/2014 More... Other instructions from your clinician: SEQUENTIAL SCREENINGS [facility] offers sequential screenings for women who are [...] It will require an appointment with our electron beam photo mask technician. This is not an ultrasound performed [...] the above symptoms, contact our office at [phone] and ask to speak with a nurse. After hours, you can call doctors registry at [phone] OR call [facility] at [phone] and ask to have the doctor restoration officer paged. If you consider this an emergency, dial 9--2 or go to your nearest emergency department. NEED HELP? Are you dealing with a violent or abusive relationship? Are you a victim of rape or sexual assult? Call [facility] ([place]) 24 hour Crisis Hotline: 916.275.6128 or 961-872-2176. MANUAL Your Guide to a Healthy manual is now on-line. Visit [email or web address]/Health yPregnancyGuide to download your free copyDisposition: Return in about 4 weeks (around 02/07/2017).Follow-up and Disposition History RecordedEncounter Number: [id number] Status:Closed by DEENA LEUNG MD on 01/10/17 [facility] Sc[facility] Second [facility] TONY Quinteros 01-10-2017 HCG Qn 0.60 MoM [facility] Comment on above: Performed By: #### S EQL2 ####[place] [phone] HCG Qn 0.72 MoM [facility] Comment on above: Performed By: #### S EQL2 ####[place] [phone] SE1 GRACIELA A 1.21 MoM [facility] Comment on above: Performed By: #### S EQL2 ####[place] [phone] SE2 AFP 0.76 MoM Normal [facility] Comment on above: Performed By: #### S EQL2 ####[place] [phone] SE2 Age Rsk Dn Snyd 1:390 Normal [facility] Comment on above: Performed By: #### S EQL2 ####[place] [phone] SE2 Dimrc Inhibin A 1.34 MoM Normal [facility] Comment on above: Performed By: #### S EQL2 ####[place] [address] [address] [place] [phone] SE2 Interp Negative Normal Screen Negative [facility] Comment on above: Performed By: #### S EQL2 ####[address] [place] [phone] SE2 Scr Rsk ONTD 1:7900 Normal [facility] Comment on above: Performed By: #### S EQL2 ####[place] [phone] SE2 Scr Rsk Trsmy 13 1:80255 Normal [facility] Comment on above: Performed By: #### S EQL2 ####[place] [phone] SE2 Scr Rsk Trsmy18 <1:43900 Normal [facility] Comment on above: Performed By: #### S EQL2 ####[place] [phone] SE2 Scrn Rsk Dn Synd 1:3400 Normal [facility] Comment on above: Performed By: #### S EQL2 ####[phone] SE2 Unconj uE3 1.02 MoM Normal [facility] Comment on above: Performed By: #### S EQL2 ####[place] [phone] Seq Scrn Second Trim View results in Sca nned Documents link when available. Normal [facility] Comment on above: Performed By: #### S EQL2 ####[place] [phone] SEQ Staff Review Reviewed by Luis F Jones MD, PhD ([id number]) Normal [facility] Comment on above: Performed By: #### S EQL2 ####[place] [phone] PROGRESSon 12-14-2016 PROGRESS HNO ID: [id number] Author: Simone Gan Service: (none) Author Type: Physician Type: Progress Notes Filed: 12/14/2016 8:45 AM Note Text: Please see ultrasound report for details of this visit. Simone Gan M.D. Normal [facility] CBCon 12-13-2016 Erythrocyte distribution width Auto Ratio (RBC) 13.3 % Normal 11.5-15.0 [facility] Comment on above: Performed By: #### C BC, SYPHGX, RUBIGG, HBSAG, HIV12C, SEQL1 ####[place] [phone] Erythrocytes (RBC) 4.11 10*6/uL Normal 3.90-5.20 [facility] Comment on above: Performed By: #### C BC, SYPHGX, RUBIGG, HBSAG, HIV12C, SEQL1 ####[place] [address] [place] [phone] Erythrocytes (RBC) 0.00 10*6/uL Normal 0.00 [facility] Comment on above: Performed By: #### C BC, SYPHGX, RUBIGG, HBSAG, HIV12C, SEQL1 ####[place] [address] [place] [phone] Hematocrit (HCT) 37.9 % Normal 36.0-46.0 [facility] Comment on above: Performed By: #### C BC, SYPHGX, RUBIGG, HBSAG, HIV12C, SEQL1 ####[place] [address] [place] [phone] Hemoglobin mass conc (Bld) 12.6 g/dL Normal 11.5-15.5 [facility] Comment on above: Performed By: #### C BC, SYPHGX, RUBIGG, HBSAG, HIV12C, SEQL1 ####[place] [address] [address] [place] [phone] MCH 30.7 pG Normal 26.0-34.0 [facility] Comment on above: Performed By: #### C BC, SYPHGX, RUBIGG, HBSAG, HIV12C, SEQL1 ####[place] [address] [address] [place] [phone] MCHC mass conc (RBC) 33.2 g/dL Normal 30.5-36.0 [facility] Comment on above: Performed By: #### C BC, SYPHGX, RUBIGG, HBSAG, HIV12C, SEQL1 ####[address] [phone] MCV 92.2 fL Normal 80.0-100.0 [facility] Comment on above: Performed By: #### C BC, SYPHGX, RUBIGG, HBSAG, HIV12C, SEQL1 ####[address] [place] [phone] Platelet mean volume (PMV) 10.3 fL Normal 9.0-12.7 [facility] Comment on above: Performed By: #### C BC, SYPHGX, RUBIGG, HBSAG, HIV12C, SEQL1 ####[address] [place] [phone] Platelets 260 10*3/uL Normal 150-400 [facility] Comment on above: Performed By: #### C BC, SYPHGX, RUBIGG, HBSAG, HIV12C, SEQL1 ####[address] [place] [phone] WBC (Leukocytes) 6.21 10*3/uL Normal 3.70-11.00 [facility] Comment on above: Performed By: #### C BC, SYPHGX, RUBIGG, HBSAG, HIV12C, SEQL1 ####[facility] [place], [place] [phone] HIV 12 Combo (Ag/Ab)on 12-13 HIV 12 Ag/Ab Non Reactive Normal Non Reactive [facility] Comment on above: Result Comment: (NOT E)HIV Information: Louisa Rev. Code 3701.243(E):This information has been disclosed [...] C BC, SYPHGX, RUBIGG, HBSAG, HIV12C, SEQL1 ####[facility] [place], [place] [phone] [facility] 12-13-2016 [facility] Routine Off ice Visit (WOOB) --------KELLY SUGGS ([id number]) 1985 [facility] Time Provider Department12/13/16 1:50 PM SANTINO CHONG WOOB During your visit today, we recorded the following information about you: Blood pressure Weight 100/64 71.9 kgHayley Money Ma 12/13/2016 1:50 PM AddendumSEQUENTIAL SCREENINGSThe [facility] offers [facility] screenings for women who are [...] testing. It will require anappointment with our electron beam photo mask technician. This is not an ultrasound performedby [...] the above symptoms, contact our office at [phone] andask to speak with a nurse.After hours, you can call doctors registry at [phone] OR [facility] at [phone] and ask to have the doctor restoration officer paged.If you consider this an emergency, dial 91-8 or go to your nearest emergencydepartment.NEED HELP? Are you dealing with a violent or abusive relationship? Are you avictim of rape or sexual assult? Call [facility] ([place]) 24 hourCrisis Hotline: 942.975.9052 or 035-926-3879. MANUALYour Guide to a Healthy manual is now on-line. [email or web address]/H ealthyPregnancyGuide to download your free copySEQUENTIAL TESTING PROCESSSequential Screen First TrimesterToday you are currently: 12w4d weeks12/13/2016: Ultrasound and blood test.Sequential Screen Second Trimester (16-17 Weeks Gestation)When you are called with your results, the nurse will give the optimal drawdates for the Sequential screen second trimester. Blood testing can be done atany [facility] lab. Please report to the any park recreation manager office senior front end engineer forthe Sequential Part 2 requisition and order [...] fetalmedicine office, for east side please call [phone] or for the West sidecall [phone] and ask for the the nurse.Thank you.Referring Provider: DEENA MEJIA [[id number]]Allergies As of Date: 12/13/2016(No Known Allergies)Date Reviewed: 12/13/2016Reviewed by: Miranda Maya Ma - Fully AssessedReason for Visit: Care [86]Primary Visit Diagnosis:Encounter for supervision of other normal in first trimester [Z34.81] Other Visit Diagnoses:12 weeks gestation of [Z3A.12] Encounter for screening of mother [Z36] First trimester screening [Z36]Order(s):URINE OB DIP B/O [[id number]] Order #: [id number] SEQUENTIAL SCRN FRST TRIMESTER [SQSEQL1] Order #: [id number] FUTURE SEQUENTIAL SCRN SCND TRIMESTER [SQSEQL2] Order #: [id number] FUTUREPrescriptions as of 12/13/2016 Sig: DESOGESTREL-E.ESTRADIOL 0.15 * Take 1 tablet by mouth once d* FENUGREEK SEED EXTRACT 500 MG* Take by mouth. VITAMIN,CALCIUM,MINE* Take 1 tablet by mouth. DHA ORAL Take by mouth.Problem List As Of Date 12/13/2016 Noted Resolved Painful intercourse [JAV9387] INVALID FOR*01/21/2014 Supervision of normal first [Z34.00] INVALID FOR*08/14/2014 More... Other instructions from your clinician: SEQUENTIAL SCREENINGS [facility] offers sequential screenings for women who are [...] It will require an appointment with our electron beam photo mask technician. This is not an ultrasound performed [...] the above symptoms, contact our office at [phone] and ask to speak with a nurse. After hours, you can call doctors registry at [phone] OR call [facility] at [phone] and ask to have the doctor restoration officer paged. If you consider this an emergency, dial 6--0 or go to your nearest emergency department. NEED HELP? Are you dealing with a violent or abusive relationship? Are you a victim of rape or sexual assult? Call [facility] ([place]) 24 hour Crisis Hotline: 771.548.4977 or 446-442-2807. MANUAL Your Guide to a Healthy manual is now on-line. Visit [email or web address]/Health yPregnancyGuide to download your free copy SEQUENTIAL TESTING PROCESS Sequential Screen First Trimester Today you are currently: 12w4d weeks 12/13/2016: Ultrasound and blood test. Sequential Screen Second Trimester (16-17 Weeks Gestation) When you are called with your results, the nurse will give the optimal draw dates for the Sequential screen second trimester. Blood testing can be done at any [facility] lab. Please report to the any park recreation manager office senior front end engineer for the Sequential Part 2 requisition and [...] medicine office, for east side please call [phone] or for the West side call [phone] and ask for the the nurse. Thank you.Disposition: Return in about 4 weeks (around 01/10/2017).Follow-up and Disposition History RecordedEncounter Number: [id number] Status:Closed by SANTINO CHONG MD on 12/13/16 [facility] Routine Off ice Visit (WOOB) --------KELLY SUGGS ([id number]) 1985 [facility] Time Provider Department12/13/16 1:00 PM SIMONE GAN WOOB During your visit today, we recorded the following information about you:Simoen Gan MD 12/14/2016 8:45 AM SignedPlease see ultrasound report for details of this visit.Simone Gna M.D.Referring Provider: DEENA MEJIA [[id number]]Allergies As of Date: 12/13/2016(No Known Allergies)Date Reviewed: [...] Of Date 12/13/2016 Noted Resolved Painful intercourse [AEF5366] INVALID FOR*01/21/2014 Supervision of normal first [Z34.00] INVALID FOR*08/14/2014 More... Status:Closed by SIMONE GAN MD on 12/14/16 [facility] Hepatitis B Surf. Agon 12-13 Hepatitis B Surf. Ag Negative Normal Negative [facility] Comment on above: Performed By: #### C BC, SYPHGX, RUBIGG, HBSAG, HIV12C, SEQL1 ####[place] [address] AveCYo[address], [place] [phone] Rubella IgG Antibodyon 12-13 Rubella IgG Ab 3.74 Index Value Normal [facility] Comment on above: Result Comment: Inde x values are interpreted as follows:Negative specimens <0.90Equivocol specimens 0.90 to 0.99Positive specimens >0.99The magnitude of the measured result is not indicative of the amount of antibody present. Performed By: #### C BC, SYPHGX, RUBIGG, HBSAG, HIV12C, SEQL1 ####[address] AvTammy [address] [phone] Rubella IgG Ab, Qual Positive Critically abnormal Negative [facility] Comment on above: Result Comment: Samp le is considered positive for IgG antibodies to rubella virus. Performed By: #### C BC, SYPHGX, RUBIGG, HBSAG, HIV12C, SEQL1 ####[place] [address] [place] [phone] Sequent Scrn First [facility] PATIE NTS ONLYon 12-13-2016 HCG Qn 0.70 MoM [facility] Comment on above: Performed By: #### C BC, SYPHGX, RUBIGG, HBSAG, HIV12C, SEQL1 ####[place] [address], [place] [phone] SE1 Age Rsk Dn Synd 1:290 [facility] Comment on above: Performed By: #### C BC, SYPHGX, RUBIGG, HBSAG, HIV12C, SEQL1 ####[place] [address]CY[address], [place] [phone] SE1 Age Rsk Trsmy18 1:1300 [facility] Comment on above: Performed By: #### C BC, SYPHGX, RUBIGG, HBSAG, HIV12C, SEQL1 ####[place] [address] [place] [phone] SE1 Interp Final result pending second trimester sample Normal Final result pending second trimester sample [facility] Comment on above: Performed By: #### C BC, SYPHGX, RUBIGG, HBSAG, HIV12C, SEQL1 ####[phone] SE1 GRACIELA A 1.17 MoM Normal [facility] Comment on above: Performed By: #### C BC, SYPHGX, RUBIGG, HBSAG, HIV12C, SEQL1 ####[phone] SE1 Scr Rsk Trsmy18 <1:36064 [facility] Comment on above: Performed By: #### C BC, SYPHGX, RUBIGG, HBSAG, HIV12C, SEQL1 ####[address] [place] [phone] SE1 Scrn Rsk Dn Synd 1:05808 [facility] Comment on above: Performed By: #### C BC, SYPHGX, RUBIGG, HBSAG, HIV12C, SEQL1 ####[place] [address] AveCDeborah [place]ille [phone] Seq Scrn First Trim View results in Scan deacon Documents link when available. [facility] Comment on above: Performed By: #### C BC, SYPHGX, RUBIGG, HBSAG, HIV12C, SEQL1 ####[place] [address] [place] [phone] SEQ Staff Review Reviewed by Luis F Jones MD, PhD ([id number]) [facility] Comment on above: Performed By: #### C BC, SYPHGX, RUBIGG, HBSAG, HIV12C, SEQL1 ####[address] [phone] Syphilis IgG with Confon Syphilis IgG <0.2 Normal [facility] Comment on above: Result Comment: Anti body index is interpreted as follows:Non reactive SPECIMENS <=0.8Weak reactive SPECIMENS 0.9 to 5.9Reactive SPECIMENS >=6.0 Performed By: #### C BC, SYPHGX, RUBIGG, HBSAG, HIV12C, SEQL1 ####[address] [phone] Syphilis IgG, Qual Nonreactive Normal Nonreactive [facility] Comment on above: Result Comment: In c onjunction with this result, the immune status of the patient should be evaluated based on their clinical status, related risk factors, and other diagnostic test results. Performed By: #### C BC, SYPHGX, RUBIGG, HBSAG, HIV12C, SEQL1 ####[address] [phone] Type and Scr,Prenatlon 12-13 ABO/RH(D) Positive Normal [facility] Comment on above: Performed By: #### T SPN ####[address] [phone] Antibody Screen Negative Normal [facility] [facility] Comment on above: Performed By: #### T SPN ####[address] [phone] CNNURSEon 11-18-2016 CNNURSE Nurse Visit (WOOB) --------KELLY SUGGS ([id number]) 1985 FDate Time Provider Department11/18/16 2:30 PM NURSE [facility] JIA WOEBONY During your visit today, we recorded the following information about you: Last Period 09/16/16Ericka Rivera RN 11/18/2016 2:44 PM SignedSEQUENTIAL SCREENINGSThe [facility] offers sequential screenings for women who are [...] testing. It will require anappointment with our electron beam photo mask technician. This is not an ultrasound performedby [...] the above symptoms, contact our office at [phone] andask to speak with a nurse.After hours, you can call doctors registry at [phone] OR call [facility] at [phone] and ask to have the doctor restoration officer paged.If you consider this an emergency, dial [...] The treatment isparticularly effective in young patients-the [facility] Cord BloodBank reports a 70 percent success [...] resolve theseimportant issues.What do the experts say?The [place] [employer] encourages philanthropic blood banking [...] the baby needs at the moment.The nurse, rabbit dresser, or physician will then label the samples, [...] MAKE ARRANGEMENTS AHEAD OF TIME!Public cord-blood escamilla--DONATION:[employer] [phone]'s Plac[facility] Blood [facility], [facility]il[facility] Cord Blood Bank, [facility] cord-blood escamilla--SAVING FOR YOUR OWN USE:[employer], (I think this is the least expensive)[employer] [phone], (488) [place] Cord Blood Bank, [phone]) 700-CORDBirth Cells, [phone] 468-BABYCalifornia Cryobank, [place] Blood Registry, (390) CORDBLOODViacord, an Internet search may provide you [...] 11/18/2016 2:33 PM >> ERICKA RIVERA RN [facility] Nov 18, 2016 2:33 PM Pt no longer taking FENUGREEK SEED EXTRACT 500 MG CAPSULE >> Ericka Rivera RN 11/18/2016 2:33 PM >> ERICKA RIVERA RN [facility] Nov 18, 2016 2:33 PM Pt no longer takingProblem List As Of Date 11/18/2016 Noted Resolved Painful intercourse [[id number]] INVALID FOR*01/21/2014 Supervision of normal first [Z34.00] INVALID FOR*08/14/2014 More... Other instructions from your clinician: SEQUENTIAL SCREENINGS The [facility] offers sequential screenings for women who are [...] It will require an appointment with our electron beam photo mask technician. This is not an ultrasound performed [...] the above symptoms, contact our office at [phone] and ask to speak with a nurse. After hours, you can call [facility] at [phone] OR call [facility] at [phone] and ask to have the doctor restoration officer paged. If you consider this an emergency, [...] treatment is particularly effective in young patients-the [facility] Cord Blood Bank reports a 70 percent [...] issues. What do the experts say? The [place] [employer] encourages philanthropic blood banking [...] baby needs at the moment. The nurse, rabbit dresser, or physician will then label the samples, [...] AHEAD OF TIME! Public cord-blood escamilla--DONATION: [employer] [phone] [facility]'s Placental Blood Program, [facility] Umbilical Cord Blood Bank, Private cord-blood escamilla--SAVING FOR YOUR OWN USE: [employer], (I think this is the least expensive) [employer] [phone] [employer], (928) LIFEBANK [place] Cord Blood Bank, [phone]) 700-CORD Cells, [phone] [place] Cryobank, Cord Blood Registry, (077) CORDBLOOD Viacord, An Internet search may provide you with additional listings.Disposition: Return for New OB with Dr Leung.Follow-up and Disposition History RecordedEncounter Number: [id number] Status:Closed by ERICKA RIVERA RN on 11/18/16 Normal [facility] CYTOLOGYon 11-18-2016 CYTOLOGY ADDITIONAL PROCEDURES PRESENT [facility]: [id number] Physician: DANYA COSBYPECIMEN SUBMITTEDA: CERVICAL, SCREENING, FLUID FINAL DIAGNOSISA. CERVICAL, SCREENING, FLUIDSatisfactory for interpretation.Negative for intraepithelial lesion or malignancy.Predominance of coccobacilli consistent with shift in vaginal lokesh.Acute inflammation.This specimen has been analyzed by the ThinPrep Imaging System, anautomated imaging and review system, which assists the laboratory inevaluating cells on ThinPrep Pap tests. Following automated imaging,selected ratliff from every slide are reviewed by a circulation crew leader.JEAN Russell (Electronic Signature) ADDITIONAL PROCEDURE(S)HUMAN PAPILLOMA VIRUS Date Ordered: 11/22/2016 Date Reported: 11/23/2016 Procedure Results and InterpretationNegative for HPV DNA high risk type 16 by PCR.Negative for HPV DNA high risk type 18 by PCR.Negative for HPV DNA high risk types: 31,33,35,39,45,51,52,56,58 ,59,66,68by PCR.This test was developed and its performance characteristics determined by[facility]In[facility] (RT-PLMI).It has not [...] GYNJennifer Jf Hernandez, Laboratory DirectorPatient ID #: [id number] Report: 11/26/2016Date of Procedure: 11/18/2016Date of Receipt: 11/22/2016Submitted by: DEENA LEUNG MDLocation: WOREFDiagnostic interpretation performed at [facility], [address] [place] [address].The Pap Smear is a screening test for cervical cancer. False negativeresults occur with all screening tests, emphasizing the need forrescreening at recommended intervals, and clinical correlation. Normal [facility] Comment on above: Performed By: #### P FCERS ####[place] [phone] GC/Chlamydia Amplifon 2016 Chlamydia Amplif Negative Normal [facility] Comment on above: Performed By: #### G CCT ####[place] [phone] GC Amplification Negative Normal [facility] Comment on above: Performed By: #### G CCT ####[place] [phone] GC/Chlam Amp Source Cervix Normal [facility] Comment on above: Performed By: #### G CCT ####[place] [phone] HOSPon 11-18-2016 HOSP Initial Off ice Visit (WOOB) --------KELLY SUGGS ([id number]) 1985 FDate Time Provider Department11/18/16 3:05 PM [...] T1 L1 SAB0 TAB0 Ectopic0 Multiple0 Live Hudfov5Fxaon : neverHistory of 4th degree laceration: NoPatient's Risk Screening for delivery:History of abnormal pap: NoPrior treatment for cervical dysplasia: none.History of STDs: NoneTobacco use: NoCaffeine use: YesDrug use: NoAlcohol use: NoMultivitamin with Folic acid: 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 heritage: NoWould refuse blood transfusion if medically necessary: NoNo weight on file for this encounter. Patient BMI over 30? 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 Lnnvsekn-Hg-Ywi-Fe-FA ( VITAMIN) tab Take 1 tablet by [...] normal in multigravida [Z34.80]Order(s):CBC [SQCBC] Order #: [id number] FUTURE SYPHILIS IGG WITH CONF [SQSYPHGX] Order #: [id number] FUTURE RUBELLA IGG AB [SQRUBQNT] Order #: [id number] FUTURE HEP B SURF AG SCRN [SQHBSAG] Order #: [id number] FUTURE HIV 1,2 COMBO (AG/AB) [SQHIV12] Order #: [id number] FUTURE TYPE + SCREEN [SQTSPN] Order #: [id number] FUTURE GC/CHLAMYDIA DNA DET [SQGCCAMP] Order #: [id number] URINE CULTURE [SQURCUL] Order #: [id number] OBSTETRIC ULTRASOUND WHI [] Order #: [id number]: 1 PAP FLUID CERVICAL SCREENING [[id number]] Order #: [id number] NUCHAL TRANSLUCENCY WHI [[id number]] Order #: [id number]: 1Prescriptions as of 11/18/2016 Sig: DESOGESTREL-E.ESTRADIOL 0.15 * Take 1 tablet by mouth once d* FENUGREEK SEED EXTRACT 500 MG* Take by mouth. VITAMIN,CALCIUM,MINE* Take 1 tablet by mouth. DHA ORAL Take by mouth.Problem List As Of Date 11/18/2016 Noted Resolved Painful intercourse [[id number]] INVALID FOR*01/21/2014 Supervision of normal first [Z34.00] INVALID FOR*08/14/2014 More... Status:Closed by DEENA LEUNG MD on 11/18/16 Normal [facility] HPV w/Genotypeon 11-18-2016 HPV HighRisk Other Negative for HPV DNA high risk types: 31,33,35,39,45,51,52,56,58 ,59,66,68 by PCR. Normal [facility] Comment on above: Result Comment: This test was developed and its performance characteristics determined by [facility]'s [facility]ology and Laboratory Medicine [place] ([facility]).It has not been cleared or approved by the FDA. [facility] is regulated under CLIA as qualified to perform high-complexity testing. This test is used for clinical purposes. It should not be regarded as investigational or for research. Performed By: #### H PVHRR ####[address] [phone] HPV HighRisk Type 16 Negative Normal [facility] Comment on above: Performed By: #### H PVHRR ####[address] [phone] HPV HighRisk Type 18 Negative Normal [facility] Comment on above: Performed By: #### H PVHRR ####[address] [phone] PROGRESSon 11-18-2016 PROGRESS HNO ID: [id number] thor: Deena Cleaning: (none)Author Type: PhysicianType: Progress NotesFiled: 11/18/2016 3:55 PMNote Text:INITIAL OB ASSESSMENTOB Provider: Deena Leung MDHPI: Kelly Suggs is a 31 year old female here to establishObstetrical Care. Patient's last menstrual period was 09/16/2016 (exactdate). from OB Dating Form. 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 heritage: NoWould refuse blood transfusion if medically necessary: NoNo weight on file for this encounter. Patient BMI over 30? 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 Hysklrko-Yq-Hkk-Fe-FA ( VITAMIN) tab Take 1 tablet bymouth.DOCOSAHEXANOIC [...] weeks or sooner prn.Deena Jones MD Normal [facility] PROGRESS HNO ID: [id number] thor: Ericka Rivera RNService: (none)Author Type: (none)Type: Progress NotesFiled: 11/18/2016 2:49 PMNote Text:#: 1, Date: 06/13/14, Sex: Female, Weight: 8 lb 5 oz (3.771 kg), GA:41w0d, Delivery: Vaginal, Spontaneous Delivery, Apgar1: 8, Apgar5: 8,Living: Living, Comments: Spontaneous labor, 2nd degree perineallaceration, EBL 400cc#: 2, Date: None, Sex: None, Weight: None, GA: None, Delivery: None,Apgar1: None, Apgar5: None, Living: None, Comments: None Normal [facility] Urine Cultureon 11-18-2016 Urine culture, bacteria Sp. Request/Comment: - Specimen received in preservative Culture Result - No growth (<1,000 CFU/ml) Normal [facility] Comment on above: Performed By: #### U RCUL ####[facility] [address] [place], [place] [phone] Vital Signs Date Time Vital Sign Value Performing Clinician Facility 09-13-2024 07:53-0400 Body height 172.7 cm Queta Mendoza MD Work Phone: [facility] 09-13-2024 07:53-0400 Body mass index (BMI) [Ratio] 29.22 kg/m2 Queta Mendoza MD Work Phone: [facility] 09-13-2024 07:53-0400 Body weight 87.18 kg Queta Mendoza MD Work Phone: [facility] 09-13-2024 07:53-0400 Diastolic blood pressure 70 mm[Hg] Queta Mendoza MD Work Phone: [facility] 09-13-2024 07:53-0400 Heart rate 79 /min Queta eMndoza MD Work Phone: [facility] 09-13-2024 07:53-0400 Systolic blood pressure 108 mm[Hg] Queta Mendoza MD Work Phone: [facility] 01-30-2024 14:43-0500 Diastolic blood pressure 64 mm[Hg] Bhavin Barrera DO Work Phone: [facility] 01-30-2024 14:43-0500 Heart rate 66 /min Bhavin Barrera DO Work Phone: [facility] 01-30-2024 14:43-0500 Respiratory rate 76 /min Bhavin Barrera DO Work Phone: [facility] 01-30-2024 14:43-0500 SaO2% (BldA) [Mass fraction] 97 % Bhavin Barrera DO Work Phone: [facility] 01-30-2024 14:43-0500 Systolic blood pressure 112 mm[Hg] Bhavin Barrera DO Work Phone: [facility] 01-30-2024 12:10-0500 Body height 172.7 cm Bhavin Barrera DO Work Phone: [facility] 01-30-2024 12:10-0500 Body mass index (BMI) [Ratio] 28.13 kg/m2 Bhavin Barrera DO Work Phone: [facility] 01-30-2024 12:10-0500 Body temperature 97.2 [degF] Bhavin Barrera DO Work Phone: [facility] 01-30-2024 12:10-0500 Body weight 83.92 kg Bhavin Barrera DO Work Phone: [facility] 05-17-2023 11:07-0500 Body height 171.45 cm No Primary Care Physician [facility] 05-17-2023 11:07-0500 Body mass index (BMI) [Ratio] 28.5 kg/m2 No Primary Care Physician [facility] 05-17-2023 11:07-0500 Body temperature 98.9 [degF] No Primary Care Physician [facility] 05-17-2023 11:07-0500 Body weight 83.91 kg No Primary Care Physician [facility] 05-17-2023 11:07-0500 Diastolic blood pressure 79 mm[Hg] No Primary Care Physician [facility] 05-17-2023 11:07-0500 Heart rate 71 /min No Primary Care Physician [facility] 05-17-2023 11:07-0500 Respiratory rate 14 /min No Primary Care Physician [facility] 05-17-2023 11:07-0500 SaO2% (BldA) [Mass fraction] 98 % No Primary Care Physician [facility] 05-17-2023 11:07-0500 Systolic blood pressure 122 mm[Hg] No Primary Care Physician [facility] 02-03-2023 09:30-0500 Body height 170.2 cm Queta Mendoza MD Work Phone: [facility] 02-03-2023 09:30-0500 Body mass index (BMI) [Ratio] 28.91 kg/m2 Queta Mendoza MD Work Phone: [facility] 02-03-2023 09:30-0500 Body weight 83.73 kg Queta Mendoza MD Work Phone: [facility] 02-03-2023 09:30-0500 Diastolic blood pressure 74 mm[Hg] Queta Mendoza MD Work Phone: [facility] 02-03-2023 09:30-0500 Heart rate 76 /min Queat Mendoza MD Work Phone: [facility] 02-03-2023 09:30-0500 Systolic blood pressure 118 mm[Hg] Queta Mendoza MD Work Phone: [facility] 11-16-2022 11:06-0400 Body height 171.45 cm [employer]ED [employer] Lee Vanessa [employer]ER Work Phone: [facility] 11-16-2022 11:06-0400 Body mass index (BMI) [Ratio] 28.7 kg/m2 [employer] Lee Vanessa [employer]ER Work Phone: [facility] 11-16-2022 11:06-0400 Body temperature 98.4 [degF] [employer]C Lee Vanessa [employer]ED [employer]UG MAKER Work Phone: [facility] 11-16-2022 11:06-0400 Body weight 84.42 kg BRA[employer]ED [employer] MA[employer]C Lee Vanessa [employer]KER Work Phone: [facility] 11-16-2022 11:06-0400 Diastolic blood pressure 72 mm[Hg] B[employer]ED [employer] MAK[employer]C Lee Vanessa BRA[employer]ED [employer]UG MAKER Work Phone: [facility] 11-16-2022 11:06-0400 Heart rate 78 /min B[employer]ED [employer] Lee Vanessa B[employer]ED [employer]UG MAKER Work Phone: [facility] 11-16-2022 11:06-0400 Respiratory rate 18 /min B[employer]C Lee Vanessa BRA[employer]ED RUG MAKER Work Phone: [facility] 11-16-2022 11:06-0400 SaO2% (BldA) [Mass fraction] 98 % [employer] Lee Vanessa BRAIDED RUG MAKER Work Phone: [facility] 11-16-2022 11:06-0400 Systolic blood pressure 116 mm[Hg] B[employer]ED [employer]UG MA[employer]-C Lee Vanessa BRAIDED RUG MAKER Work Phone: [facility] 05-18-2022 11:27-0500 Body height 171.45 cm BRAIDED RUG MAKER-C Lee Vanessa BRAIDED RUG MAKER Work Phone: [facility] 05-18-2022 11:27-0500 Body mass index (BMI) [Ratio] 27.9 kg/m2 B[employer]C Lee Vanessa B[employer]ED RUG MAKER Work Phone: [facility] 05-18-2022 11:27-0500 Body temperature 97 [degF] B[employer]UG [employer]C Lee Vanessa BRA[employer]ED RUG MAKER Work Phone: [facility] 05-18-2022 11:27-0500 Body weight 82.1 kg BRA[employer]ED [employer]UG [employer]-C Lee Vanessa BRA[employer]ED RUG MAKER Work Phone: [facility] 05-18-2022 11:27-0500 Diastolic blood pressure 63 mm[Hg] B[employer]C Lee Vanessa BRAIDED RUG MAKER Work Phone: [facility] 05-18-2022 11:27-0500 Heart rate 61 /min B[employer]-C Lee Vanessa BRA[employer]ED RUG MAKER Work Phone: [facility] 05-18-2022 11:27-0500 Respiratory rate 18 /min B[employer]ED [employer]-C Lee Vanessa BRAIDED RUG MAKER Work Phone: [facility] 05-18-2022 11:27-0500 SaO2% (BldA) [Mass fraction] 99 % [employer]C Lee Vanessa BRAIDED RUG MAKER Work Phone: [facility] 05-18-2022 11:27-0500 Systolic blood pressure 101 mm[Hg] B[employer]ED [employer]UG MAKER-C Lee Vanessa BRAIDED RUG MAKER Work Phone: [facility] 12-15-2021 11:36-0400 Body height 171.45 cm BRAIDED [employer]UG [employer]-C Lee Vanessa BRAIDED RUG MAKER Work Phone: [facility] Work Phone: 12-15-2021 11:36-0400 Body mass index (BMI) [Ratio] 27.4 kg/m2 B[employer]C Lee Vanessa BRAIDED RUG MAKER Work Phone: [facility] Work Phone: 12-15-2021 11:36-0400 Body temperature 96.5 [degF] B[employer]C Lee Vanessa BRAIDED RUG MAKER Work Phone: [facility] Work Phone: 12-15-2021 11:36-0400 Body weight 80.79 kg BRA[employer]ED [employer]UG [employer]-C Lee Vanessa BRA[employer]ED [employer]UG MAKER Work Phone: [facility] Work Phone: 12-15-2021 11:36-0400 Diastolic blood pressure 75 mm[Hg] B[employer]C Lee Vanessa BRA[employer]ED RUG MAKER Work Phone: [facility] Work Phone: 12-15-2021 11:36-0400 Heart rate 70 /min B[employer] Lee Vanessa B[employer]ED RUG MAKER Work Phone: [facility] Work Phone: 12-15-2021 11:36-0400 Respiratory rate 18 /min B[employer]C Lee Vanessa BRAIDED RUG MAKER Work Phone: [facility] Work Phone: 12-15-2021 11:36-0400 SaO2% (BldA) [Mass fraction] 98 % [employer]C Lee Vanessa BRAIDED RUG MAKER Work Phone: [facility] Work Phone: 12-15-2021 11:36-0400 Systolic blood pressure 116 mm[Hg] B[employer]UG [employer]C Lee Vanessa BRAIDED RUG MAKER Work Phone: [facility] Work Phone: 07-07-2021 10:15-0400 Body height 171.[address] Cait Ontiveros Work Phone: [facility] Work Phone: 07-07-2021 10:15-0400 Body mass index (BMI) [Ratio] 29.5 kg/m2 Dr. Cait Ontiveros Work Phone: [facility] Work Phone: 07-07-2021 10:15-0400 Body temperature 97 [degF] Dr. Cait Ontiveros Work Phone: [facility] Work Phone: 07-07-2021 10:15-0400 Body weight 86.[address] Cait Ontiveros Work Phone: [facility] Work Phone: 07-07-2021 10:15-0400 Diastolic blood pressure 84 mm[Hg] Dr. Cait Ontiveros Work Phone: [facility] Work Phone: 07-07-2021 10:15-0400 Heart rate 86 /min Dr. Cait Ontiveros Work Phone: [facility] Work Phone: 07-07-2021 10:15-0400 Respiratory rate 16 /min Dr. Cait Ontiveros Work Phone: [facility] Work Phone: 07-07-2021 10:15-0400 SaO2% (BldA) [Mass fraction] 98 % Dr. Cait Ontiverso Work Phone: [facility] Work Phone: 07-07-2021 10:15-0400 Systolic blood pressure 110 mm[Hg] Dr. Cait Ontiveros Work Phone: [facility] Work Phone: 04-24-2021 10:01-0500 Body mass index (BMI) [Ratio] 29.3 kg/m2 Dr. Cati Ontiveros Work Phone: [facility] Work Phone: 04-24-2021 10:01-0500 Body temperature 97.8 [degF] Dr. Cait Ontiveros Work Phone: [facility] Work Phone: 04-24-2021 10:01-0500 Body weight 86.[address] Cait Ontiveros Work Phone: [facility] Work Phone: 04-24-2021 10:01-0500 Diastolic blood pressure 80 mm[Hg] Dr. Cait Ontiveros Work Phone: [facility] Work Phone: 04-24-2021 10:01-0500 Heart rate 66 /min Dr. Cait Ontiveros Work Phone: [facility] Work Phone: 04-24-2021 10:01-0500 Respiratory rate 16 /min Dr. Cait Ontiveros Work Phone: [facility] Work Phone: 04-24-2021 10:01-0500 SaO2% (BldA) [Mass fraction] 98 % Dr. Cait Ontiveros Work Phone: [facility] Work Phone: 04-24-2021 10:01-0500 Systolic blood pressure 120 mm[Hg] Dr. Cait Ontiveros Work Phone: [facility] Work Phone: 03-13-2021 08:48-0500 Body temperature 97.9 [degF] Dr. Cait Ontiveros Work Phone: [facility] Work Phone: 03-13-2021 08:48-0500 Body weight 88.[address] Cait Ontiveros Work Phone: [facility] Work Phone: 03-13-2021 08:48-0500 Diastolic blood pressure 80 mm[Hg] Dr. Cait Ontiveros Work Phone: [facility] Work Phone: 03-13-2021 08:48-0500 Heart rate 83 /min Dr. Cait Ontiveros Work Phone: [facility] Work Phone: 03-13-2021 08:48-0500 Respiratory rate 14 /min Dr. Cait Ontiveros Work Phone: [facility] Work Phone: 03-13-2021 08:48-0500 SaO2% (BldA) [Mass fraction] 97 % Dr. Cait Ontiveros Work Phone: [facility] Work Phone: 03-13-2021 08:48-0500 Systolic blood pressure 128 mm[Hg] Dr. Cait Ontiveros Work Phone: [facility] Work Phone: Encounters Encounter Date Encounter Type Care Provider Facility Start: 10-11-2024 End: 10-11-2024 Office outpatient visit 15 minutes Queta Mendoza MD Work Phone: [facility] Comment on above: BRBPR (bright red bl ood per rectum) (Primary Dx) Start: 10-11-2024 End: 10-11-2024 ambulatory [facility] Start: 09-13-2024 End: 09-13-2024 Office outpatient visit 15 minutes Queta Mendoza MD Work Phone: [facility] Comment on above: Anal fissure (Primar y Dx) Start: 09-13-2024 End: 09-13-2024 ambulatory [facility] Start: 05-16-2024 End: 05-16-2024 ambulatory Arturo COELHO Facility:[facility] Start: 02-17-2024 End: 02-17-2024 ambulatory Arturo COELHO Facility[facility] Start: 02-17-2024 End: 02-17-2024 ambulatory Arturo COELHO Facility:[facility] Start: 01-30-2024 End: 01-30-2024 Emergency department patient visit Bhavin Barrera DO Work Phone: [facility] Comment on above: Chest pain, unspecif ied type (Primary Dx) Start: 11-15-2023 End: 11-15-2023 ambulatory No Primary Care Physician Facility:[facility] Start: 11-15-2023 End: 11-15-2023 ambulatory No Primary Care Physician Facility:[facility] Start: 10-31-2023 End: 10-31-2023 ambulatory Ebonie Finnegan Facility:[facility] Start: 10-20-2023 End: 10-20-2023 ambulatory No Primary Care Physician Facility:[facility] Start: 08-19-2023 End: 08-19-2023 ambulatory [facility] Facility:[facility] Start: 06-15-2023 End: 06-15-2023 ambulatory No Primary Care Physician [facility] Work Phone: Start: 06-15-2023 End: 06-15-2023 Patient encounter procedure No Primary Care Physician [facility] Work Phone: Start: 06-15-2023 End: 06-15-2023 ambulatory [facility] Facility:[facility] Start: 05-17-2023 End: 05-17-2023 ambulatory No Primary Care Physician [facility] Work Phone: Start: 05-17-2023 End: 05-17-2023 Patient encounter procedure No Primary Care Physician [facility] Work Phone: Start: 02-03-2023 End: 02-03-2023 Office outpatient new 30 minutes Queta Mendoza MD Work Phone: [facility] Comment on above: Blood per rectum (Pr imary Dx) Start: 01-13-2023 End: 01-13-2023 ambulatory B[employer]ED R[employer] MAK[employer]-C Lee Vanessa BRAIDED RUG MAKER Work Phone: [facility] Work Phone: Start: 01-13-2023 End: 01-13-2023 Patient encounter procedure BRAIDED RUG MAKER-C Lee Vanessa BRAIDED RUG MAKER Work Phone: [facility] Work Phone: Start: 11-16-2022 End: 11-16-2022 Patient encounter procedure BRAIDED RUG MAKER-C Lee Vanessa BRAIDED RUG MAKER Work Phone: [facility] Work Phone: Start: 05-18-2022 End: 05-18-2022 ambulatory BRAIDED RUG MAKER-C Lee Rasheeda BRAIDED RUG MAKER Work Phone: [facility] Work Phone: Start: 05-18-2022 End: 05-18-2022 Patient encounter procedure BRAIDED RUG MAKER-C Lee Vanessa BRAIDED RUG MAKER Work Phone: [facility] Start: 12-15-2021 End: 12-15-2021 ambulatory BRAIDED RUG MAKER-C Lee Vanessa BRAIDED RUG MAKER Work Phone: [facility] Work Phone: Start: 12-15-2021 End: 12-15-2021 Patient encounter procedure BRAIDED RUG MAKER-C Lee Rasheeda BRAIDED RUG MAKER Work Phone: [facility] Start: 07-07-2021 End: 07-07-[address] Cait Ontiveros Work Phone: [facility] Start: 07-03-2021 End: 07-03-[address] Cait Ontiveros Work Phone: [facility] [place] Start: 05-18-2021 End: 05-18-[address] Cait Ontiveros Work Phone: [facility] [place] Start: 04-24-2021 End: 04-24-[address] Cait Ontiveros Work Phone: [facility] Start: 04-20-2021 Non-patient / Non-visit Dr. Elliot Ontiveros Work Phone: [facility] Start: 04-20-2021 End: 04-20-[address] Cait Ontiveros Work Phone: [facility] Start: 04-17-2021 End: 04-17-[address] Cait Ontiveros Work Phone: [facility] [place] Start: 03-26-[address] Cait Ontiveros Work Phone: [facility] Start: 03-13-2021 End: 03-13-[address] Cait Ontiveros Work Phone: [facility] Start: 10-17-2017 Patient encounter YOAN MASON JR [facility] Start: 08-08-2017 End: 08-08-2017 Ambulatory YOAN MASON [facility] Start: 08-04-2017 End: 08-08-2017 Ambulatory COREY (CNM) [facility] Start: 08-01-2017 End: 08-04-2017 Ambulatory ZUNILDA (CNM) [facility] Start: 06-29-2017 End: 07-01-2017 [facility]: 06-22-2017 End: 06-22-2017 Ambulatory COREY (CNM) [facility] Start: 06-20-2017 End: 06-22-2017 Ambulatory ZUNILDA (CNM) [facility] Start: 06-13-2017 End: 06-13-2017 [facility] Start: 06-06-2017 End: 06-06-2017 [facility] Start: 05-30-2017 End: 05-30-2017 Ambulatory ZUNILDA (CNM) [facility] Start: 05-23-2017 End: 05-23-2017 Ambulatory COREY (CNM) [facility] Start: 05-09-2017 End: 05-10-2017 Ambulatory ZUNILDA (CNM) [facility] Start: 04-25-2017 End: 04-26-2017 Ambulatory COREY (CNM) [facility] Start: 04-11-2017 End: 04-12-2017 Ambulatory ZUNILDA (CNM) [facility] Start: 03-30-2017 Ambulatory ZUNILDA (CNM) [facility] Start: 03-30-2017 End: 03-31-2017 Ambulatory ZUNILDA (CNM) [facility] Start: 03-07-2017 End: 03-08-2017 Ambulatory ZUNILDA (CNM) [facility] Start: 02-08-2017 Emergency department patient visit Facility:[facility] Start: 02-07-2017 End: 02-08-2017 Ambulatory ZUNILDA (CNM) [facility] Start: 02-07-2017 End: 02-08-2017 Ambulatory ARMINDA RAMÍREZ [facility] Start: 01-10-2017 End: 01-10-2017 Ambulatory ELADIA (RANDY) WASHINGTON [facility] Start: 12-13-2016 End: 12-14-2016 Ambulatory SIMONE GAN [facility] Start: 11-18-2016 End: 11-19-2016 Ambulatory DEENA LEUNG [facility] Procedures Date Procedure Procedure Detail Performing [...] f 2) Zoster Vaccines (1 of 2) [facility] Start: 05-09-2027 DTaP/Tdap/Td Vaccine s (3 - Td or Tdap) DTaP/Tdap/Td Vaccines (3 - Td or Tdap) [facility] Start: 01-29-2025 Diabetes mellitus screening Diabetes Screening [facility] Start: 11-26-2024 Influenza vaccination [facility] Start: 10-11-2024 End: 10-11-2025 Colonoscopy study Colonoscopy Diagnostic (BRBPR) Endoscopy Routine BRBPR (bright red blood per rectum) Expected: 10/11/2024, Expires: 10/11/2025 [facility] Service Area Work Phone: Comment on above: Expected: 10/11/2024 , Expires: 10/11/2025 Start: 10-11-2024 End: 10-11-2024 Patient encounter procedure 10/11/2024 10:00 AM EDT Office Visit [facility] [address] [address] Queta Mendoza MD [address] [facility] [address] [place] [address] [facility] Start: 11-27-2023 COVID-19 Vaccine ( season) COVID-19 Vaccine ( season) [facility] Start: 09-01-2024 Influenza vaccination Influenza Vacc ine (#1) [facility] Start: 2023 Screening for malign ant neoplasm of breast Mammogram [facility] Start: 02-03-2023 End: 08-03-2024 Colonoscopy Colonoscopy Diagnostic Endoscopy Routine Blood per rectum Expected: 02/03/2023, Expires: 08/03/2024 [facility] Service Area Work Phone: Comment on above: Expected: 02/03/2023 , Expires: 08/03/2024 Start: 11-26-2022 Influenza vaccination Influenza Vacc ine (#1) [facility] Start: 10-07-2021 Thyroid stimulating hormone measurement TSH Level [facility] Start: 2010 HPV Vaccines (1 - 3-dose standard series) HPV Vaccines (1 - 3-dose standard series) [facility] Start: 2004 Screening for malign ant neoplasm of cervix [facility] Start: 2002 Hepatitis B Vaccines (1 of 3 - 19+ 3-dose series) Hepatitis B Vaccines (1 of 3 - 19+ 3-dose series) [facility] Start: 2001 Diabetes mellitus screening Diabetes Screening [facility] Start: 2001 Hepatitis C screening Hepatitis C [facility] Start: 1996 Varicella vaccination Varicell a Vaccines (1 of 2 - 13+ 2-dose series) [facility] Start: 1984 MMR Vaccines (1 of 1 - Standard series) MMR Vaccines (1 of 1 - Standard series) [facility] Start: 1984 Varicella vaccination Varicell a Vaccines (1 of 2 - 2-dose childhood series) [facility] Start: 1983 COVID-19 Vaccine (#1) COVID-19 Vacci ne (#1) [facility] Start: 1983 Hepatitis B Vaccines (1 of 3 - 3-dose series) Hepatitis B Vaccines (1 of 3 - 3-dose series) [facility] Start: 1983 HIV screening HIV Screening [facility] Start: 1983 Lipid panel Lipid Panel [facility] Start: 1983 Yearly Adult Physical Yearly Adult P hysical [facility] End: 01-30-2024 ECG 12 lead [facility] Work Phone: Comment on above: Every 1 hour for 2 O ccurrences starting 01/30/2024 until 01/30/2024, 1 completed End: 01-30-2024 Pulse oximetry, continuous Pulse oximetry, continuous Respiratory Care STAT Continuous until discontinued starting 01/30/2024 [facility] Service Area Work Phone: Comment on above: Continuous until dis continued starting 01/30/2024 Immunizations Immunization Date Immunization Notes Care Provider Fa nadiya 05-09-2017 tetanus toxoid, reduced diphtheria toxoid, and acellular pertussis vaccine, adsorbed Dr. Cait Ontiveros Work Phone: [facility] 03-18-2014 tetanus toxoid, reduced diphtheria toxoid, and acellular pertussis vaccine, adsorbed Queta Mendoza MD Work Phone: [facility] Work Phone: Payers Date Payer Category Payer Unknown [id number] 2023 Self-pay [id number] 2022 Managed Care (Private) [id number] 2022 Unknown [facility] [employer] [id number] 2022-Present [address] [place] [address] [id number] 2022 Unknown [id number] 2014 Medicaid [id number] 1983 Unknown [id number] 1983 Unknown [id number] 1983 Unknown [id number] Unknown [id number] Unknown [id number] Unknown [facility] [id number] Unknown [id number] Unknown [id number] 462 Unknown [id number] 462 Unknown [id number] Unknown [id number] 462 Unknown [id number] 462 Unknown [id number] 462 Unknown [id number] 462 Unknown [id number] Social History Date Type Detail Facility Start: 07-07-2021 End: 05-17-2023 Tobacco smoking status NHIS Unknown if ever smoked [facility] Start: 06-23-2017 None [facility] Start: 1985 Sex Assigned At Female W [facility] Start: 02-03-2023 Tobacco smoking stat us NHIS Never smoked tobacco [facility] Start: 02-03-2023 Tobacco use and exposure Smokeless tobacco non-user [facility] Work Phone: Start: 02-03-2023 End: 09-13-2024 Alcohol intake Ex-drinker (finding) [facility] Work Phone: Start: 02-03-2023 End: 09-13-2024 History of Social function [facility] Work Phone: Start: 02-03-2023 End: 09-13-2024 Tobacco use panel [facility] Work Phone: Start: 02-03-2023 Alcohol Comment Very rarely [facility] Work Phone: Start: 1985 [facility] Start: 01-24-2023 End: 01-30-2024 Exposure to SARS-CoV-2 (event) Not sure [facility] Start: 09-13-2024 Alcohol Comment Very rarely [address] darryn coello mixed drink [facility] Work Phone: Start: 02-20-2022 Sex Female [facility] Clinical Notes 02-03-2023 to 10-11-2024 Queta Mendoza [...] rectum Hemorrhoids Hypothyroidism Thyroid nodule Surgical History: Engelhard tooth extraction Home Medications: Prior to Admission [...] Mendoza MD 10/11/2024 documented in this encounter [facility] Work Phone: 09-13-2024 History of Presen t [...] rectum Hemorrhoids Hypothyroidism Thyroid nodule Surgical History: Engelhard tooth extraction Home Medications: Prior to Admission [...] Mendoza MD 09/13/2024 documented in this encounter [facility] Work Phone: 01-30-2024 Hospital Discharg e instructions Bhavin Barrera DO - 01/30/2024 2:37 PM EST Please be sure to talk to your family doctor about a repeat chest x-ray in 3 months to be ordered by your family doctor as discussed. The following attachments cannot be sent through Care Everywhere.Chest Pain Discharge Instructions (Trinidadian)Pulmonary nodule (Trinidadian)documented in this encounter [facility] Work Phone: 01-30-2024 Emergency department Note HPI [...] known sick contacts. History provided by: Patient hand former used: No Patient History Past Medical History: [...] DO 01/30/24 1438 documented in this encounter [facility] Work Phone: 01-30-2024 Physician Emergency department Note [...] known sick contacts. History provided by: Patient hand former used: No Patient History Past Medical History: [...] 01/30/24 1406 Bhavin Barrera DO 01/30/24 1438 [facility] Work Phone: 02-03-2023 History of Presen t [...] Mendoza MD 02/03/2023 documented in this encounter [facility] Work Phone: Evaluation note Diagnosis Onset Date Breast pain, left acute Chest pain acute Breast pain, left acute Left-sided chest wall pain a cute LUQ pain acute Thyrotoxicosis [facility] Work Phone: Evaluation note* Diagnosis Onset Date Resolution Status Thyrotoxicosis [facility] Work Phone: Evaluation note* Diagnosis Onset Date Resolution Status Hyperthyroidism acute [facility] Work Phone: Evaluation note* Diagnosis Onset Date Resolution Status Thyrotoxicosis chronic [facility] Work Phone: Evaluation note* Diagnosis Blood per rectum- Primary Hemorrhage of rectum and anus documented in this encounter [facility] Work Phone: Evaluation note* Diagnosis Onset Date Resolution Status Hyperthyroidism acute Paresthesia and pain of both upper extremities acute [facility] Work Phone: Evaluation note* Diagnosis Onset Date Resolution Status Paresthesia and pain of both upper extremities acute Hyperthyroidism chronic [facility] Work Phone: Evaluation note* Diagnosis Chest pain, unspecified type- Primary documented in this encounter [facility] Work Phone: Evaluation note* Diagnosis Anal fissure- Primary documented in this encounter [facility] Work Phone: Evaluation note* Diagnosis BRBPR (bright red blood per rectum)- Primary Hemorrhage of rectum and anus documented in this encounter [facility] Work Phone: Summary Purpose Family History [...] No September 10, 2020 11:05am Power of Engineering Faculty Member No September 10 11:05am Advance Directive Response Recorded Date/ Time Living Will No September 10, 2020 10:05am Power of Engineering Faculty Member No September 10 1 10:05am 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 [...] Diagnoses Blood per rectum Procedures Colonoscopy Diagnostic CT COLONOSCOPY FLX DX W/COLLJ SPEC WHEN PFRMD CT COLONOSCOPY W/BIOPSY SINGLE/MULTIPLE CT COLSC FLX W/RMVL OF TUMOR POLYP LESION SNARE TQ CT COLSC FLX W/REMOVAL LESION BY HOT BX FORCEPS Queta Mendoza MD [address] [facility] [address] [place] [address] Referral ID Status Reason Start Date Expiration Date V isits Requested Visits Authorized [id number] Pending Review 02/03/2023 02/03/2024 1 1 Additional Source Comments INFORMATION SOURCE (unrecogn ized section and content) DATE CREATED AUTHOR 09/14/2017 [facility] DATE CREATED AUTHOR AUTHOR'S ORGANIZ ATION 09/20/2017 [facility] DATE CREATED AUTHOR AUTHOR'S ORGANIZ ATION 10/18/2017 [facility] DATE CREATED AUTHOR AUTHOR'S ORGANIZ ATION 01/12/2021 [facility] DATE CREATED AUTHOR AUTHOR'S ORGANIZ ATION 01/31/2024 [facility] DATE CREATED AUTHOR AUTHOR'S ORGANIZ ATION 02/02/2024 [facility] DATE CREATED AUTHOR AUTHOR'S ORGANIZ ATION 05/30/2024 [facility] DATE CREATED AUTHOR AUTHOR'S ORGANIZ ATION 10/15/2024 [facility] Ambulatory Goals (unrecognized section and content) Goals [...] Member Role Status Dates Lee Vanessa NP, BRAIDED RUG MAKER-C Primary Care Provider, Referring P rovider Active Dr. Marco Antonio Bermudez MD Attending Provider Active Team Status: Inactive Member Role Status Dates No Primary Care Physician Primary Care Provider Active Dr. Marco Antonio Bermudez MD Attending Provider, Referring Provi gilberto Active Team Status: Inactive Member Role Status Dates Lee Vanessa BRAIDED RUG MAKER, BRAIDED RUG MAKER-C Referring Provider Active Dr. Marco Antonio Bermudez [...] Marco Antonio Bermudez MD Attending Provider Active Manager Special Events Relationship Specialty Start Date End Date Generic Provider, No [place] [address] PCP - General Proprietary Trader 01/30/24 Manager Special Events Relationship Specialty Start Date End Date Generic Provider, [place] [address] PCP - General Proprietary Trader 01/30/24 Manager Special Events Relationship Specialty Start Date End Date Generic Provider, [place] [address] PCP - General Proprietary Trader 01/30/24 Reason for Visit (unrecogniz ed section [...] BE BASED ON THE PRIMARY CLINICAL RECORDS. [facility]. provides no warranty or guarantee of the accuracy or completeness of information in this document.
[2024-11-03 12:21] LABS: Free T3 2.6 pg/mL (2.18-3.98)
== END | disposition home or self-care (01) ==
LOC: LAB 11:07
PROVIDERS: PCP Physician Assistant; Referring Provider Nurse Practitioner Family; Visit Provider Nurse Practitioner Family
DX: E05.90 Thyrotoxicosis, unspecified without thyrotoxic crisis or storm (principal)
CPT/HCPCS: 36415; 84439; 84443; 84481

== ENCOUNTER → 2024-12-31 | Outpatient (CLI) | payer OTHER, SELFPAY ==
[2024-12-31 11:17] LABS: Hematocrit 38.7 % (37-47); Hemoglobin 13.2 g/dL (12.0-15.0); Immature Granulocytes Count 0.030 X10^3/uL (0.0-0.0); Mean Corp Hgb Conc 34.1 g/dL (32-36); Mean Corpuscular Volume 86.2 fL (81-99); Mean Platelet Vol. 9.0 fl (6.2-12.0); NRBC Flagged by Analyzer 0 % (0-5); Platelet Count 306 K/mm3 (150-450); RBC Distribution Width CV 12.5 % (11.6-14.6); RBC Distribution Width SD 39.8 fl (35.1-43.9); Red Blood Count 4.49 M/mm3 (4.2-5.4); White Blood Count 5.3 K/mm3 (4.4-11.0)
[2024-12-31 12:06] LABS: AST(SGOT) 18 U/L (<=31); Alanine Aminotransfer ALT/SGPT 13 U/L (<=34); Albumin, Serum 4.4 g/dL (3.5-5.0); Alkaline Phosphatase 79 U/L (35-104); Anion Gap 10 (5-15); BUN 8 mg/dL (4-19); BUN/Creat Ratio 10.5 RATIO (10-20); Calcium,Total 9.3 mg/dL (7.6-11.0); Carbon Dioxide 25.7 mmol/L (21.0-32.0); Chloride 104 mmol/L (98-108); Cholesterol 198 mg/dL (<=200); Ferritin 29 ng/mL (22-378); Globulin 2.9 g/dL (2.2-4.2); Glucose 97 mg/dL (70-99); Low Density Lipoprotein Calc. 106 mg/dL; Potassium 4.6 mmol/L (3.3-5.1); Triglycerides 67 mg/dL; Very Low Density Lipoprotein 13 mg/dL (5-40); Vitamin B12 702 pg/mL (180-914); Vitamin D,25 Hydroxy 26.6 ng/mL (30-100); cholesterol:hdl ratio screen 2.52
== END | disposition home or self-care (01) ==
LOC: LAB 10:52
PROVIDERS: PCP Physician Assistant; Visit Provider Internal Medicine Endocrinology, Diabetes & Metabolism
DX: E06.3 Autoimmune thyroiditis (principal); E03.9 Hypothyroidism, unspecified
CPT/HCPCS: 36415; 80053; 80061; 82306; 82607; 82728; 84439; 84443; 85025

== ENCOUNTER → 2025-02-05 | Outpatient (CLI) | payer OTHER, SELFPAY ==
--- NOTE | 2025-02-05 13:52 | US_ITS ---
PROCEDURE: BREAST LIMITED UNILATERAL 02/05/2025 REASON FOR EXAM: F, Age 39 y/o , LEFT BREAST PAIN COMPARISON: Prior mammogram done earlier in the day and prior sonogram dated November 01, 2023.. TECHNIQUE: Procedure Code: USBRSTLIMIT Modality: US Procedure: BREAST LIMITED UNILATERAL. The lateral aspect of the left breast was examined with ultrasound. FINDINGS: No sonographic abnormality is seen. US/Breast Limited Unilateral IMPRESSION: No sonographic abnormality is seen. BI-RADS 1: NEGATIVE RECOMMENDATION: Routine annual follow-up in 1 Year Reading Location: [id number]
--- NOTE | 2025-02-05 14:00 | BI_ITS ---
EXAM: DIAG MAMM W/CAD, BILAT 02/05/2025 CLINICAL HISTORY: F, Age 39 y/o , LEFT BREAST PAIN. Lateral breast pain. TECHNIQUE: Procedure Code: [id number] Modality: MG Procedure: DIAG MAMM W/CAD, BILAT. COMPARISON: Prior exam(s) dated October 31, 2023.. FINDINGS: TISSUE DENSITY: The breasts are heterogeneously dense, which may obscure small masses. Bilateral Breast Mammographic Findings: No significant masses, calcifications or other abnormalities are identified. No suspicious masses, areas of developing architectural distortion, or suspicious calcifications. There has been no significant interval change. BI/DIAG MAMM W/CAD, BILAT IMPRESSION: Stable bilateral screening mammogram. With the patient's history left lateral breast pain, sonographic correlation recommended. OVERALL FINAL ASSESSMENT BI-RADS 0: INCOMPLETE - NEED ADDITIONAL IMAGING EVALUATION. RECOMMENDATION: Ultrasound Recommended Additional Recommendation none A letter with findings and recommendations will be mailed to the patient. Reading Location: [facility]
[2025-02-07 15:08] LABS: ANTINUCLEAR ANTIBODIES DIRECT Negative (Negative)
[2025-02-08 23:07] LABS: Albumin 3.8 g/dL (2.9-4.4); Copper, Serum or Plasma 89 ug/dL (80-158); Gamma Globulin 1.2 g/dL (0.4-1.8); Immunoglobulin A 268 mg/dL (87-352); Immunoglobulin G 1148 mg/dL (586-1602); Immunoglobulin M 181 mg/dL (26-217); PROEL- TOTAL PROTEIN 7.0 g/dL (6.0-8.5)
== END | disposition home or self-care (01) ==
PROVIDERS: PCP Physician Assistant; Referring Provider Nurse Practitioner Women's Health; Visit Provider Nurse Practitioner Women's Health
DX: R19.7 Diarrhea, unspecified (principal); R25.1 Tremor, unspecified; E05.00 Thyrotoxicosis with diffuse goiter without thyrotoxic crisis or storm; R42 Dizziness and giddiness; N64.4 Mastodynia
CPT/HCPCS: 36415; 76642; 77062; 77066; 82390; 82525; 82784; 83516; 84165; 86038; 86225; 86255; 86334; G0279

== ENCOUNTER → 2025-02-12 | Outpatient (CLI) | payer OTHER, SELFPAY ==
[2025-02-12 18:01] LABS: Magnesium 2.7 mg/dL (1.5-2.2)
[2025-02-12 18:03] LABS: Ammonia 18.0 umol/L (11-51)
[2025-02-17 16:08] LABS: Folate, Hemolysate Test 360.0 ng/mL (Not Estab.); Folate, RBC (Hct) Test 44.5 % (34.0-46.6); Folates, RBC Test 809 ng/mL (>498); VITAMIN B6 45.7 ug/L (3.4-65.2); Vitamin B1, Thiamine 133.2 nmol/L (66.5-200.0)
== END | disposition home or self-care (01) ==
PROVIDERS: PCP Physician Assistant; Referring Provider Psychiatry & Neurology Neurology; Visit Provider Psychiatry & Neurology Neurology
DX: G25.0 Essential tremor (principal)
CPT/HCPCS: 36415; 82140; 82747; 83735; 84207; 84425; 85014

== ENCOUNTER → 2025-03-05 | Outpatient (CLI) | payer OTHER, SELFPAY ==
--- NOTE | 2025-03-05 09:38 | EKG12_ITS ---
Test Reason : PALPITATIONS Blood Pressure : */* mmHG Vent. Rate : 63 BPM Atrial Rate : 63 BPM P-R Int : 148 ms QRS Dur : 72 ms QT Int : 382 ms P-R-T Axes : 73 87 64 degrees QTcB Int : 390 ms Normal sinus rhythm Normal ECG Confirmed by Wilmar Joshi ([id number]), online content editor JOSIAH MAHAJAN ([id number]) on 03/06/2025 11:39:03 AM Referred By: Tarik Matos Confirmed By: Wilmar Joshi
--- OUTSIDE RECORDS SUMMARY | 2025-03-05 11:33 | XMS RPT_ITS | CCD ---
Author Organization [facility] Care Team Providers Care Accounting Clerk Name Role Phone NEYHART LEUNG, DEENA Unavailable Unavail able SIMONE GAN Unavailable Unavailable NEYHART LEUNG, DEENA Unavailable Unavail able SANTINO CHONG Unavailable Unavailable NEYHART LEUNG, DEENA Unavailable Unavail able NEYHART LEUNG, DEENA Unavailable Unavail able NEYHART LEUNG, DEENA Unavailable Unavail able ELADIA DELAROSA (MANAGER COMMUNITY DEVELOPMENT) Unavailable Unavailable ARANGO, ZUNILDA (CNM) Unavailable Unavailable NEYHART LEUNG, DEENA Unavailable Unavail able ETHAN RAMÍREZ Unavailable Unavailable NEYHART LEUNG, DEENA Unavailable [...] Unavailable Unavailable YOAN MASON JR Unavailable Unavailable NBA, ZUNILDA (CNM) Unavailable Unavailable YOAN MASON JR Unavailable Unavailable Dr. Cait Ontiveros Referring Provider [phone] Vanessa ANALYTICAL DATA SCIENTIST, ANALYTICAL DATA SCIENTIST-C Lee Primary Care Provider Vanessa ANALYTICAL DATA SCIENTIST, ANALYTICAL DATA SCIENTIST-C Lee Attending Provider [phone] Vanessa ANALYTICAL DATA SCIENTIST, ANALYTICAL DATA SCIENTIST-C Lee Referring Provider [phone] Vanessa ANALYTICAL DATA SCIENTIST, ANALYTICAL DATA SCIENTIST-C Lee Other Provider Dr. Sloan Eden Attending Provider Dr. Cait Ontiveros Attending Provider [phone] Dr. Marco Antonio Bermudez Attending Provider [phone] Vanessa ANALYTICAL DATA SCIENTIST, ANALYTICAL DATA SCIENTIST-C Lee Primary Care Provider Vanessa ANALYTICAL DATA SCIENTIST, ANALYTICAL DATA SCIENTIST-C Lee Referring Provider [phone] Dr. Marco Antonio Bermudez Attending Provider [phone] Vanessa ANALYTICAL DATA SCIENTIST, ANALYTICAL DATA SCIENTIST-C Lee Primary Care Provider Vanessa ANALYTICAL DATA SCIENTIST, ANALYTICAL DATA SCIENTIST-C Lee Referring Provider [phone] Dr. Marco Antonio Bermudez Attending Provider [phone] Vanessa ANALYTICAL DATA SCIENTIST, ANALYTICAL DATA SCIENTIST-C Lee Referring Provider [phone] Dr. Marco Antonio Bermudez Attending Provider Care [...] available Dr. Marco Antonio Bermudez Attending Provider [phone] Generic Provider MD, No Assigned Pcp Primary Car e Provider Unavailable Generic Provider MD, No Assigned Pcp Primary Car e Provider Unavailable Generic Provider , No Assigned Pcp Primary Car e Provider Unavailable Diamante Aponte Primary Care Provider [phone] Queta Pena Attending Provider [phone] Loc ANALYTICAL DATA SCIENTIST-CQueta Referring Provider [phone] Care Physician, No Primary Referring Provider Un available Dr. Marco Antonio Bermudez MD Attending Provider QUETA MENDOZA Attending Unavailable QUETA MENDOZA Attending Unavailable GENERIC PROVIDER, NO ASSIGNED PCP Primary Care Unavailable DIAMANTE HAWK Referring Unavailable BHAVIN BARRERA Attending Unavailable GENERIC PROVIDER, NO ASSIGNED PCP Primary Care Unavailable Casper COELHO, Diamante Primary Care Physician [phone] Queta Pena Attending Physician Dr. Marco Antonio Bermudez MD Attending Physician Diamante Aponte Referring Provider Birdie Le Attending Physician Casper COELHO, Diamante Attending Unavailable Care Physician, No Primary Referring Unava ilable Oleghe, Efewongbe Primary Care Unavailable Wayt PA, Diamante Referring Unavailable Wayt PA, Diamante Primary Care Unavailable Mai Harmon Attending Unavailable Marita ANALYTICAL DATA SCIENTIST, Birdie Attending Unavailable Wayt PA, Diamante Referring Unavailable Wayt PA, Diamante Primary Care Unavailable Wayt PA, Diamante Attending Unavailable Wayt PA, Diamante Referring Unavailable Wayt PA, Diamante Primary Care Unavailable Wayt PA, Diamante Primary Care Unavailable Marco Antonio Bermudez Attending Unavailable Care Physician, No Primary Referring Unava ilable Wayt PA, Diamante Primary Care Unavailable Wayt PA, Diamante Attending Unavailable Wayt PA, Diamante Referring Unavailable Wayt PA, Diamante Primary Care Unavailable Queta Monterroso Attending Unavailable Queta Monterroso Referring Unavailable Marco Antonio Bermudez Attending Unavailable Casper PA, Diamante Primary Care Unavailable Birdie Kirkland NP Referring Unavailable Wayt PA, Diamante Primary Care Unavailable Marita ANALYTICAL DATA SCIENTISTBirdie Attending Unavailable Wayt PA, Diamante Primary Care Unavailable Marco Antonio Bermudez Attending Unavailable Marco Antonio Bermudez Referring Unavailable Medications Current Medications Medication Drug Class(es) Dates Sig (Normalized) Sig (Original) acetaminophen 325 mg oral tablet (9 sources) Start: 05-17-2023 take 2 tablets by mouth every six hours as needed take 2 tablets by mo uth every six hours as needed acetaminophen (Tylenol) 500 mg tablet Ta ke 2 tablets (1,000 mg) by mouth every 6 hours if needed for mild pain (1 - 3). Active famotidine 20 mg oral tablet (4 sources) Histamine-2 Receptor Antagonist famotidine (Pepcid) 20 mg tablet Take 1 tablet (20 mg) by mouth if needed for heartburn. Active ibuprofen 200 mg oral tablet (9 sources) Nonsteroidal Anti-inflammatory Drug Start: take 2 tablets by mouth every six hours as needed Ibuprofen 200 mg tablet Active 400 mg PO EVERY 6 HOURS as needed May 17, 2023 1:00am Start: 05-17-2023 take 400 mg by mouth every six hours Ibuprofen Active 400 MG PO EVERY 6 HOURS May 17, 2023 1:00am melatonin 5 mg oral capsule (12 sources) Start: 02-27-2021 End: 11-15-2023 take 1 capsule by mouth once daily as needed Start: 02-27-2021 Melatonin Acti ve MG PO February 27, 2021 1:00am Rc-Bd-Iujn-Fa-Ca Carb-Vit K (Women's Multivitamin) 18 mg iron-400 mcg-500 mg tablet (9 sources) Start: 09-15-2020 take 1 tablet by mouth once daily Uf-Fc-Pswy-Fa-Ca Carb-Vit K (Women's Multivitamin) 18 mg iron-400 mcg-500 mg tablet Active 1 TABLET PO DAILY September 15, 2020 10:54am Start: 09-15-2020 End: 11-16-2022 Bm-Yf-Vefv-Fa-Ca Carb-Vit K (Women's Multivitamin) 18 mg iron-400 mcg-500 mg tablet Discontinued 1 {tbl} PO DAILY September 15, 2020 12:00am November 16, 2022 11:08am Start: 09-15-2020 End: 11-16-2022 take 1 tablet by mouth once daily Eb-Qh-Pjpp-Fa-Ca Carb-Vit K (Women's Multivitamin) 18 mg iron-400 mcg-500 mg tablet Discontinued 1 TABLET PO DAILY September 14, 2020 11:00pm November 16, 2022 10:08am Start: 09-15-2020 End: 11-16-2022 take 1 tablet by mouth once daily Fs-Gl-Lnng-Fa-Ca Carb-Vit K (Women's Multivitamin) 18 mg iron-400 mcg-500 mg tablet Discontinued 1 TABLET PO DAILY September 15, 2020 12:00am November 16, 2022 11:08am Start: 09-15-2020 take 1 tablet by erna th once daily Fu-Lu-Mqgy-Fa-Ca Carb-Vit K (Women's Multivitamin) 18 mg iron-400 mcg-500 mg tablet Active 1 TABLET PO DAILY September 14, 2020 11:00pm Start: 09-15-2020 take 1 tablet by erna th once daily Rx-Kd-Zcme-Fa-Ca Carb-Vit K (Women's Multivitamin) 18 mg iron-400 mcg-500 mg tablet Active 1 TABLET PO DAILY September 15, 2020 12:00am 5 ml sodium chloride 9 mg/ml injection (1 source) Start: 01-30-2024 3 mL, intraven ous, As needed, line care, Starting on 01/30/24 at 1225 Zinc (9 sources) Start: 02-27-2021 Zinc Active 44 MG PO February 27, 2021 10:43am Start: 02-27-2021 End: 10-20-2023 Zinc 22 mg tablet Discontinu ed 44 mg PO February 27, 2021 1:00am October 20, 2023 11:50am Start: 02-27-2021 Zinc Active 44 MG PO February 27, 2021 12:00am Start: 02-27-2021 Zinc Active 44 MG PO February 27, 2021 1:00am Completed/Discontinued Medications Medication Drug Class(es) Dates Sig (Normalized) Sig (Original) ascorbic acid 1000 mg extended release oral tablet (12 sources) Vitamin C Start: 02-27-2021 End: 02-17-2024 take 1 tablet by mouth every twelve hours as needed Ascorbic Acid (Vitamin C) 1,000 mg tablet extended release Discontinued 1000 mg PO Q12H as needed November 15, 2023 11:04am February 17, 2024 12:40pm cholecalciferol 0.1 mg oral tablet (20 sources) Vitamin D Start: 02-27-2021 End: 12-15-2021 take 1 tablet by mouth once daily Cholecalciferol (Vitamin D3) 100 mcg (4,000 unit) tablet Discontinued 100 ug PO DAILY February 27, 2021 1:00am December 15, 2021 11:41am Start: 12-08-2020 End: 02-17-2024 take 1 capsule by mouth once daily as needed Cholecalciferol (Vitamin D3) 125 mcg (5,000 unit) capsule Discontinued 125 ug PO DAILY as needed November 15, 2023 11:05am February 17, 2024 12:40pm Comp.Stocking,Knee,Long,Medi um (6 sources) Start: 12-31-2019 End: 12-31-2019 Comp.Stocking,Knee,Long,Medi um Discontinued 0 .ROUTE .MEDSUPPLY December 31, 2019 12:34pm December 31, 2019 2:48pm 50-70mmhg Start: 12-31-2019 End: 12-31-2019 Comp.Stocking,Knee,Long,Medi um Discontinued 0 .ROUTE .MEDSUPPLY December 30, 2019 11:00pm December 31, 2019 1:48pm 50-70mmhg Start: 12-31-2019 End: 12-31-2019 Comp.Stocking,Knee,Long,Medi um Discontinued 0 .ROUTE .MEDSUPPLY December 31, 2019 12:00am December 31, 2019 2:48pm 50-70mmhg Comp.Stocking,Knee,Long,Medi um misc (3 sources) Start: 12-31-2019 End: 12-31-2019 Comp.Stocking,Knee,Long,Medi um misc Discontinued 0 .ROUTE .MEDSUPPLY 02 25December 31, 2019 12:00am December 31, 2019 2:48pm [...] 12:00am December 31, 2019 2:55pm As directed Compr.Stocking,Thigh,Reg,Sma ll misc (6 sources) Start: 12-31-2019 End: 09-15-2020 Compr.Stocking,Thigh,Reg,Sma ll misc Discontinued 0 .ROUTE .MEDSUPPLY 1 0 December 31, 2019 2:53pm September 15, 2020 10:53am As directed Start: 12-31-2019 End: 12-31-2019 Compr.Stocking,Thigh,Reg,Sma ll misc Discontinued 0 .ROUTE .MEDSUPPLY 12 0 December 31, 2019 12:00am December 31, 2019 2:55pm As directed 12 hr guaiFENesin 600 mg extended release oral tablet (5 sources) Start: 05-17-2023 End: 02-17-2024 take 1 tablet by mouth every twelve hours as needed, then take 1 tablet by mouth every twelve hours as needed Guaifenesin (Mucinex) 600 mg tablet extended release 12hr Discontinued 600 mg PO Q12H as needed May 17, 2023 1:00am February 17, 2024 12:40pm hydrOXYzine hydrochloride 25 mg oral tablet (9 sources) Antihistamine Start: 10-10-2020 End: 05-18-2022 take 1 tablet by mouth at bedtime as needed Hydroxyzine Hcl 25 mg tablet Discontinued 25 mg PO AT BEDTIME as needed October 10, 2020 12:00am May 18, 2022 12:32pm indomethacin 25 mg oral capsule (9 sources) Nonsteroidal Anti-inflammatory Drug Start: 09-15-2020 End: 11-16-2022 take 1 capsule by mouth three times daily at mealtime as needed, then take 1 capsule by mouth three times daily as needed Indomethacin 25 mg capsule Discontinued 25 mg PO .COMPLEX 90 2 September 15, 2020 12:00am November 16, 2022 11:08am 25 mg PO 3 times daily for one week then 25mg po 3 times daily prn thereafter; administer with food or milk Magnesium (9 sources) Start: 06-23-2017 End: 01-30-2019 take 200 mg by mouth once daily Magnesium Discontinued 200 MG PO DAILY June 23, 2017 3:51am January 30, 2019 3:11pm Start: 06-23-2017 End: 01-30-2019 take 1 tablet by mouth once daily Magnesium 200 MG tablet Discontinued 200 mg PO DAILY June 23, 2017 12:00am January 30, 2019 3:11pm leg cramps Start: 06-23-2017 End: 01-30-2019 take 200 mg by mouth once daily Magnesium Discontinued 200 MG PO DAILY June 22, 2017 11:00pm January 30, 2019 2:11pm Start: 06-23-2017 End: 01-30-2019 take 200 mg by mouth once daily Magnesium Discontinued 200 MG PO DAILY June 23, 2017 12:00am January 30, 2019 3:11pm meloxicam 15 mg oral tablet (3 sources) Nonsteroidal Anti-inflammatory Drug Start: 02-17-2024 End: 11-12-2024 take 1 tablet by mouth once daily Meloxicam 15 mg tablet Discontinued 15 mg PO daily 30 0 February 17, 2024 1:00am November 12, 2024 3:34pm methIMAzole 5 mg oral tablet (20 sources) Thyroid Hormone Synthesis Inhibitor Start: 11-16-2022 End: 06-16-2023 Methimazole 5 mg tablet Discontinued 2.5 mg PO .3 days per week 36 May 17, 2023 5:28pm June 16, 2023 7:34am Start: 11-16-2022 End: 06-16-2023 Methimazole Discontinued 2.5 MG PO .3 days per week May 17, 2023 5:28pm June 16, 2023 7:34am Start: 05-18-2022 End: 11-16-2022 Methimazole 5 mg tablet Disc ontinued 2.5 mg PO .4 days per week October 28, 2022 3:00pm November 16, 2022 11:09am Start: 05-18-2022 End: 11-16-2022 Methimazole Discontinued 2.5 MG PO .4 days per week October 28, 2022 3:00pm November 16, 2022 11:09am Start: 02-27-2021 End: 01-30-2024 Methimazole 5 mg tablet Disc ontinued 5 mg PO .m-w-f 36 December 15, 2021 2:56pm May 18, 2022 12:36pm Start: 01-26-2021 End: 02-27-2021 take 5 mg by mouth once daily Methimazole 10 mg tablet Discontinued 5 mg PO DAILY January 26, 2021 7:09am February 27, 2021 11:03am Start: 01-26-2021 End: 02-27-2021 take 5 mg by mouth once daily Methimazole Discontinued 5 MG PO DAILY January 26, 2021 7:09am February 27, 2021 11:03am Start: 12-08-2020 End: 01-26-2021 take 1 tablet by mouth once daily Methimazole 10 mg tablet Discontinued 10 mg PO DAILY December 08, 2020 3:38pm January 26, 2021 7:09am Start: 10-14-2020 End: 12-08-2020 take 2 tablets by mouth once daily Methimazole 10 mg tablet Discontinued 20 mg PO DAILY 60 October 21, 2020 9:17am December 08, 2020 3:39pm Start: 10-14-2020 End: 12-08-2020 take 20 mg by mouth once daily Methimazole Discontinue d 20 MG PO DAILY 60 October 21, 2020 9:17am December 08, 2020 3:39pm metoprolol tartrate 50 mg oral tablet (12 sources) beta-Adrenergic Geetha Start: 02-17-2024 End: 11-12-2024 Metoprolol Tartrate 50 mg tablet Discontinued 50 mg PO daily 1 February 17, 2024 1:00am November 12, 2024 3:34pm Take one tablet PO 45-60 minute prior to Cardiac calcium scoring image Start: 10-21-2020 End: 12-08-2020 Metoprolol Tartrate 25 mg ta blet Discontinued 12.5 mg PO TWICE A DAY 30 October 21, 2020 12:00am December 08, 2020 3:38pm Start: 10-21-2020 End: 12-08-2020 take 12.5 mg [...] omeprazole 20 mg delayed release oral capsule (9 sources) Proton Pump Inhibitor Start: 03-13-2021 End: 11-16-2022 take 1 capsule by mouth once daily Omeprazole 20 mg capsule,delayed release(DR/EC) Discontinued 20 mg PO DAILY 30 March 13, 2021 1:00am November 16, 2022 11:08am Pnv #65-Alwc-Xcwnf Acid-Omega3 30 mg iron-10 mg iron-1 mg capsule (2 sources) Start: 10-12-2019 End: 09-15-2020 Pnv #03-Tqpa-Qfbju Acid-Omega3 30 mg iron-10 mg iron-1 mg capsule Discontinued 1 NMA PO DAILY October 12, 2019 12:00am September 15, 2020 10:53am Pnv 74-Eato-Njtrh Ctlp-Yifgi-6 30 mg iron-10 mg iron-1 mg capsule (1 source) Start: 10-12-2019 End: 09-15-2020 Pnv 66-Yesq-Bkyjk Eljg-Giehj-8 30 mg iron-10 mg iron-1 mg capsule Discontinued 1 NMA PO DAILY October 12, 2019 12:00am September 15, 2020 10:53am Vit,Foreign 65-Amwd-Vxmka 1 TABLET tablet (1 source) Start: 06-13-2014 End: 01-30-2019 Vit,Foreign 11-Gtju-Sxspy 1 TABLET tablet Discontinued 1 {tbl} PO DAILY June 13, 2014 12:00am January 30, 2019 3:11pm Vit,Jsmc21-Kfym-M olic (6 sources) Start: 06-13-2014 End: 01-30-2019 take 1 tablet by mouth once daily Vit,Tfih12-Nzyj-Uhoql Discontinued 1 TABLET PO DAILY June 13, 2014 1:32am January 30, 2019 3:11pm Start: 06-13-2014 End: 01-30-2019 take 1 tablet by mouth once daily Vit,Nbvx48-Harp-Cyiqs Discontinued 1 TABLET PO DAILY June 12, 2014 11:00pm January 30, 2019 2:11pm Start: 06-13-2014 End: 01-30-2019 take 1 tablet by mouth once daily Vit,Mlzn77-Vxhi-Rzxse Discontinued 1 TABLET PO DAILY June 13, 2014 12:00am January 30, 2019 3:11pm Vit,Rguc40-Mxhf-Adnmv 1 TABLET tablet (2 sources) Start: 06-13-2014 End: 01-30-2019 take 1 tablet by mouth once daily Vit,Nhzg81-Fkrb-Xdmsb 1 TABLET tablet Discontinued 1 {tbl} PO DAILY June 13, 2014 12:00am January [...] mg / resveratrol 100 mg oral tablet (8 sources) Start: 02-27-2021 End: 11-16-2022 Resveratrol-Quercetin 100-10 0 mg tablet Discontinued 0 PO .COMPLEX February 27, 2021 1:00am November 16, 2022 11:09am 600mg 1 tablet PO Resveratrol-Quercetin 100-100 mg tablet (1 source) Start: 02-27-2021 End: 11-16-2022 Resveratrol-Quercetin 100-10 0 mg tablet Discontinued 0 PO .COMPLEX February 27, 2021 1:00am November 16, 2022 11:09am 600mg 1 tablet PO Problems Active Problems Problem Classification Problem Date Documented Da te Episodic/Chronic Anal and rectal conditions (3 sources) Anal fissure; Translations: [Anal fissure, unspecified] Onset: 09-13-2024 09-13-2024 Episodic Anxiety disorders (9 sources) Anxiety; Translations: [Anxiety disorder, unspecified] 10-14-2020 Chronic Conditions associated with dizziness or vertigo (1 source) Dizziness and giddiness; Translations: [Dizziness and giddiness] Onset: 01-31-2025 Episodic Gastrointestinal hemorrhage (6 sources) Rectal hemorrhage; Translations: [Hemorrhage of anus and rectum] Onset: 10-11-2024 02-03-2023 Episodic Headache; including migraine (20 sources) Migraine aura without headache ; Translations: [Migraine with aura, not intractable, without status migrainosus] 09-15-2020 Chronic Nonmalignant breast conditions (14 sources) Mastodynia; Translations: [Pain of left breast] Onset: 01-22-2025 Episodic Comment on above: rpt imaging and then proceed with MRI Normal and/or delivery (14 sources) Encounter for supervision of normal first , second trimester; Translations: [Encounter for supervision of other normal , third trimester] Onset: 12-13-2016 07-11-2020 Episodic Comment on above: NIPT low risk. mary jane er and ntd declined. NL anatomy Other bone disease and musculoskeletal deformities (3 sources) Costal chondritis; Translations: [Chondrocostal junction syndrome [Tietze]] 02-17-2024 Episodic Other complications of (6 sources) Anxiety in ; Translations: [Other mental disorders complicating , unspecified trimester] 07-11-2020 Episodic Other complications of (9 sources) Multigravida of advanced maternal age; Translations: [Supervision of elderly multigravida, unspecified trimester] 07-11-2020 Episodic Comment on above: genetic counseling p rovided NIPT done. growth us at 36 weeks Other complications of (9 sources) High risk ; Translations: [Supervision of high risk , unspecified, unspecified trimester] 07-11-2020 Episodic Comment on above: PRR BERNIE 05/24/20 [facility] Shannon, Skyler Fernandez Other complications of (9 sources) Excessive growth affecting management of mother; Translations: [Maternal care for excessive growth, unspecified trimester, not applicable or unspecified] 07-11-2020 Episodic Comment on above: EFW 3500g on 04/25 Other complications of (3 sources) Other mental disorders complicating , unspecified trimester; Translations: [Anxiety during ] 07-11-2020 Episodic Comment on above: counseling encourage d, vistaril PRN Other eye disorders (1 source) Pupillary abnormality, left eye; Translations: [Pupillary abnormality, left eye] Onset: 10-17-2017 Episodic Other gastrointestinal disorders (1 source) Diarrhea, unspecified; Translations: [Diarrhea, unspecified] Onset: 01-31-2025 Episodic Other gastrointestinal disorders (1 source) Other specified symptoms and signs involving the digestive system and abdomen; Translations: [Other specified symptoms and signs involving the digestive system and abdomen] Onset: 01-31-2025 Episodic Other hereditary and degenerative nervous system conditions (9 sources) Essential tremor; Translations: [Essential tremor] 09-15-2020 Chronic Other lower respiratory disease (3 sources) Lung field abnormal; Translations: [Other nonspecific abnormal finding of lung field] Onset: 01-15-2025 01-15-2025 Episodic Other lower respiratory disease (1 source) Other nonspecific abnormal finding of lung field; Translations: [Other nonspecific abnormal finding of lung field] Onset: 01-15-2025 Episodic Other lower respiratory disease (1 source) Radiologic infiltrate of lung ; Translations: [Other nonspecific abnormal finding of lung field] 11-30-2024 Episodic Other nervous system disorders (5 sources) Pain in limb - multiple; Translations: [Paresthesia of skin] 05-17-2023 Episodic Other nervous system disorders (2 sources) Paresthesia of skin; Translations: [Disturbance of skin sensation] 05-17-2023 Episodic Polyhydramnios and other problems of amniotic cavity (9 sources) Oligohydramnios; Translations: [Oligohydramnios, unspecified trimester, not applicable or unspecified] 07-11-2020 Episodic Comment on above: caitlin 2.6 cm on 05/26 re commend IOL now Residual codes; unclassified (9 sources) Gestation period, 34 weeks; Translations: [34 weeks gestation of ] 07-11-2020 Episodic Comment on above: electronic covid carole t ordered 04/14/20 (scheduled for 05/16/20 1630) Spondylosis; intervertebral disc disorders; other back problems (3 sources) Low back pain; Translations: [Low back pain] 02-20-2024 Episodic Thyroid disorders (20 sources) Hyperthyroidism; Translations: [Thyrotoxicosis, unspecified without thyrotoxic crisis or storm] Onset: 11-09-2024 Chronic Unclassified (8 sources) 36 weeks gestation of ; Translations: [33 weeks gestation of ] Onset: 12-13-2016 Unclassified (1 source) Unknown / UNK(Unknown) Onset: 11-18-2016 Unclassified (1 source) Encounter for screening, unspecified; Translations: [Encounter for screening, unspecified] Onset: 01-10-2017 Past or Other Problems Problem Classification Problem Date Documented Da te Episodic/Chronic Abdominal pain (14 sources) Left upper quadrant pain; Translations: [Left upper quadrant pain] Onset: 05-28-2024 Episodic Nonspecific chest pain (20 sources) Chest wall pain; Translations: [Other chest pain] Onset: 01-30-2024 Episodic Unclassified (1 source) Encounter for screening of mother; Translations: [Encounter for screening of mother] Onset: 12-13-2016 Episodic Results Test Name Value Interpretation Reference Range Facility DASHA w/ Reflex Mult Confirmon 02-05-2025 DASHA-D See below TNP Normal [facility] Comment on above: Performed By: #### L [phone] #### [facility] [address] [place], [place], [address] Breast Limited Unilateralon 02-05-2025 Breast Limited Unilateral [facility] Imaging Services [address] [place], [place] [address] Breast Limited Unilateral MR#: [id number] Acct: [id number] Name: KELLY SUGGS Rep #: [id number] : 1985 F 39 From: Kwabena dean MD PCP: MELITON Maya Status: REG CLI Study: Breast Limited Unilateral Date of Exam: Exam# [id number] Ordering Dr: Birdie Kirkland ANALYTICAL DATA SCIENTIST ANALYTICAL DATA SCIENTIST -C PROCEDURE: BREAST LIMITED UNILATERAL 02/05/2025 REASON FOR EXAM: F, Age 39 y/o , LEFT BREAST PAIN COMPARISON: Prior mammogram done earlier in the day and prior sonogram dated November 01, 2023.. TECHNIQUE: Procedure Code: USBRSTLIMIT Modality: US Procedure: BREAST LIMITED UNILATERAL. The lateral aspect of the left breast was examined with ultrasound. FINDINGS: No sonographic abnormality is seen. US/Breast Limited Unilateral IMPRESSION: No sonographic abnormality is seen. BI-RADS 1: NEGATIVE RECOMMENDATION: Routine annual follow-up in 1 Year Reading Location: [id number] CC: ANALYTICAL DATA SCIENTIST-C Birdie Kirkland; MELITON Maya Mold Hoister: Signed Normal [facility] DIAG MAMM W/CAD, BILATon DIAG MAMM W/CAD, BILAT [facility] Imaging Services [address] [place] [address] DIAG MAMM W/CAD, BILAT MR#: [id number] Acct: [id number] Name: KELLY SUGGS Rep #: [id number] : 1985 F 39 From: Kwabena dean MD PCP: MELITON Maya Status: REG CLI Study: DIAG MAMM W/CAD, BILAT Date of Exam: 02/05/25 Exam# [id number] Ordering Dr: Birdie Kirkland NP ANALYTICAL DATA SCIENTIST -C EXAM: DIAG MAMM W/CAD, BILAT 02/05/2025 CLINICAL HISTORY: F, Age 39 y/o , LEFT BREAST PAIN. Lateral breast pain. TECHNIQUE: Procedure Code: [id number] Modality: MG Procedure: DIAG MAMM W/CAD, BILAT. COMPARISON: Prior exam(s) dated October 31, 2023.. FINDINGS: TISSUE DENSITY: The breasts are heterogeneously dense, which may obscure small masses. Bilateral Breast Mammographic Findings: No significant masses, calcifications or other abnormalities are identified. No suspicious masses, areas of developing architectural distortion, or suspicious calcifications. There has been no significant interval change. BI/DIAG MAMM W/CAD, BILAT IMPRESSION: Stable bilateral screening mammogram. With the patient's history left lateral breast pain, sonographic correlation recommended. OVERALL FINAL ASSESSMENT BI-RADS 0: INCOMPLETE - NEED ADDITIONAL IMAGING EVALUATION. RECOMMENDATION: Ultrasound Recommended Additional Recommendation none A letter with findings and recommendations will be mailed to the patient. Reading Location: [id number] CC: YOLI Kirkland; MELITON Maya Mold Hoister: Signed Normal [facility] Internal Medicine Office Vis iton 01-31-2025 Internal Medicine Office Visit [facility] Internal Medicine [address] [place], [place] [address] OFFICE VISIT Date of Service: 01/31/25 MR#: [id number] Acct: [id number] Name: KELLY SUGGS Rep #: [id number] : 1985 Provider: MELITON Maya Age/Sex: 39/F Location: [facility] Status: Signed Intake Vital Signs 11/12/24 15:30 01/22/25 11:43 01/31/25 14:53 Height 5 ft 7.5 in 5 ft 7.5 in 5 ft 7.5 in Weight: 192 lb 2 oz BMI 29.6 BP 118/68 Blood Pressure Location Lt brachial Position Sitting Respiration 16 Pulse 81 Pulse Source Monitor Temp 97.7 F L Temp Source Temporal Pulse Oximetry (%) 99 Oxygen Delivery Method room air Intake Visit Reasons: Xray FU - Discuss Establishing Options 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: fu 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 Accompanied by: Self Is patient in pain?: No Allergies No Known Allergies Allergy (Verified 01/31/25 14:30) Medications ???Medication ???Instructions ???Recorded ???Confirmed ???Type acetaminophen 325 mg tablet 650 mg PO Q6H PRN 05/17/23 5 History (Tylenol) ibuprofen 200 mg tablet 400 mg PO Q6H PRN 05/17/23 5 History melatonin 5 mg capsule 5 mg PO DAILY PRN 11/15/23 5 History ascorbic acid (vitamin C) 500 mg 500 mg PO QDAY 01/31/25 01/31/25 H istory tablet,extended release (Vitamin C With Joy Hips) cholecalciferol (vitamin D3) 50 50 mcg PO QDAY 01/31/25 01/31/25 H istory mcg (2,000 unit) tablet ferrous sulfate 325 mg (65 mg 325 mg PO QDAY 01/31/25 01/31/25 H istory iron) tablet (Iron (ferrous sulfate)) magnesium citrate,mag oxide 250 mg mg PO 01/31/25 01/31/25 History capsule prednisone 10 mg tablet 10 mg PO DIRECTED #30 tabs 09/1901/31/25 Rx ubidecarenone-omega 3-vit E 25 1 cap PO QDAY 01/31/25 01/31/25 Hi story mg-150 (90-60) mg-200 unit capsule (Co N-65-Pmebwvb E-Fish Oil) vitamin E mixed 400 unit capsule unit PO QDAY 01/31/25 01/31/25 His tory Nurse's Note: follow up discuss finding a primary care doctor [facility] Medical History Autoimmune thyroiditis Paresthesia and pain [...] at home mom HPI HPI 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: fu Details: KELLY SUGGS, is a 39 F who presents to the office today to discuss some new symptoms. She states that she has had some instances where she has noticed that she has felt some dizziness / lightheadedness. She states that it feels like when you were to get off of a merry-go round and are a little off. She states that she had pretty bad bout of vertigo about a week ago where she states that got so bad she actually had severe nausea and ended up vomiting. And she has had some residual symptoms that occur intermittently. She states that she does wake up with some nasal congestion and does have some minor upper respiratory symptoms and some fullness occasionally in the ear. She states that she also has had some feelings of internal tremors and even at times like she can see the tremors in her hands. She states that she just feels like she has had an adrenaline mitchell and is just shaky. She had seen neurology years ago for these same tremors along with headaches. They had done a large work-up including MRI of the brain as well as blood work and found her thyroid to be abnormal at that time. She hasn't seen them for a few years now She also states that she still feels like she has some abdominal discomfort. She states that she doesn't feel bloated. She states that she wakes up and almost feels like she has to go quickly (urgency) and has some loose stools. She feels like the consistency is definitely different for her and more loose than it should be. She states that the past month that she has felt she has just had (more content not included)... Normal [facility] Telemetry Nurse Office Visit Reporton 01-22-2025 Telemetry Nurse Office Visit Report [facility] [address], [address] [place] [address] OFFICE VISIT Date of Service: 01/22/25 MR#: [id number] Acct: [id number] Name: KELLY SUGGS Rep #: [id number] : 1985 Provider: YOLI eagle Age/Sex: 39/F Location: [facility] Status: Signed Intake Vital Signs 11/12/24 15:30 01/22/25 11:38 01/22/25 11:43 Height 5 ft 7.5 in 5 ft 7.5 in 5 ft 7.5 in Weight: 197 lb 190 lb 4 oz BMI 30.4 29.3 BP 105/70 111/72 Blood Pressure Location Lt brachial Position Sitting Pulse 63 Pulse Source Monitor Pulse Oximetry (%) 98 Oxygen Delivery Method room air Intake Visit Reasons: L breast pain *COPAY $30 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 Is patient in pain?: No Allergies No Known Allergies Allergy (Verified 01/22/25 11:38) Medications ???Medication ???Instructions ???Recorded ???Confirmed ???Type acetaminophen 325 mg tablet 650 mg PO Q6H PRN 05/17/23 5 History (Tylenol) ibuprofen 200 mg tablet 400 mg PO Q6H PRN 05/17/23 5 History melatonin 5 mg capsule 5 mg PO DAILY PRN 11/15/23 5 History Is last menstrual period known: Yes Last Menstrual Period: 01/16/25 Post menopausal: No Patient : No : No [facility] Medical History Autoimmune thyroiditis Paresthesia and pain [...] home: Yes additional social history: - [employer] 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 Negative imaging in October 2023. She is noting other symptoms also like had tremors, leg tingling and dizziness. Female Reproductive History Last Menstrual Period: 01/16/25 History 3 Elective abortions Hx Para 3 Spontaneous abortions Hx # Term Pregnancies Ectopic pregnancies Hx # Pregnancies Multiple births # of living children 3 Past Pregnancies Del. Date Name GA/Weeks Outcome Route Bth Weight Gen Labor Lgth Anesthesia Del Locatn Provider FOB Unknown Leonor-2014 39 live - full term 8lbs 5oz Female epidural [facility] Dr. Leung Unknown Skyler-2017 38 live - full term 8lbs 15oz Male epidural [facility] Dr. Peres 05/27/20 Foster 40 live - full term Male none [facility] FIORELLA Delivery Date: Last Updated by: Arlene ortega Delivery Date: Last Updated by: Arlene Ortega Delivery Date: 05/27/20 Last Updated by: Arlene Moore [place]; LGA, AMA, 1st degree laceration ROS Const Constitutional: Reports as per HPI : Reports system reviewed and no additional complaints, except as documented Skin Skin/Breast: Reports as per HPI Neuro Neuro: Reports as per HPI Psych Psych: Reports system reviewed and no additional complaints, except as documented Exam Const General: cooperative and no acute distress Orientation: oriented x3 HENMT Head: normal to inspection Eyes General: appearance normal, both eyes and all related structures Neck Neck: normal visual inspection Chest Breast inspection: normal inspection of the breasts and normal inspection of the axillae Breast palpation: normal palpation of the breasts (tenderness with increased density of outer lateral left breast) and normal palpation of the axillae Resp Effort Inspection: normal respiratory effort Coding Level of Care Code Off vis,est,level 3 Diagnoses Breast pain, left N64.4 Assessment and Plan Assessment and Plan (1) Breast pain, left: Status: Acute Comment: rpt imaging and then proceed with MRI Orders: Orders DIAG MAMM W/CAD, BILAT Today N64.4 - Mastodynia Breast Limited Unilateral Today N64.4 - Mastodynia [employer] (more content not included)... Normal [facility] XR CHEST 2 VIEWSon XR CHEST 2 VIEWS Interpreted By: Myron Ann, STUDY: XR CHEST 2 VIEWS; 01/15/2025 9:40 am INDICATION: Signs/Symptoms:ABNORMAL FINDING OF LUNG FIELD. ,R91.8 Other nonspecific abnormal finding of lung field COMPARISON: 01/30/2024 ACCESSION NUMBER(S): [id number] ORDERING CLINICIAN: DIAMANTE HAWK FINDINGS: CHEST PA, LATERAL CARDIOMEDIASTINAL SILHOUETTE: Cardiomediastinal silhouette is normal in size and configuration. LUNGS: Lungs are clear. ABDOMEN: No remarkable upper abdominal findings. BONES: No acute osseous changes. IMPRESSION: No evidence of acute cardiopulmonary process. No change from 01/30/2020 MACRO: None Signed by: Myron Mayfield 01/15/2025 9:58 AM Dictation workstation: [id number] [facility] XR Chest 2 Viewson No evidence of acute cardiopulmonary process. No change from 01/30/2020 MACRO: None Signed by: Myron Mayfield 01/15/2025 9:58 AM Dictation workstation: [id number] MMODAL Interpreted By: Myron Ann, STUDY: XR CHEST 2 VIEWS; 01/15/2025 9:40 am INDICATION: Signs/Symptoms:ABNORMAL FINDING OF LUNG FIELD. ,R91.8 Other nonspecific abnormal finding of lung field COMPARISON: 01/30/2024 ACCESSION NUMBER(S): [id number] ORDERING CLINICIAN: DIAMANTE HAWK FINDINGS: CHEST PA, LATERAL CARDIOMEDIASTINAL SILHOUETTE: Cardiomediastinal silhouette is normal in size and configuration. LUNGS: Lungs are clear. ABDOMEN: No remarkable upper abdominal findings. BONES: No acute osseous changes. [facility] MMODAL Myron Mayfield MD - 01/15/2025 Interpreted By: Myron Mayfield, STUDY: XR CHEST 2 VIEWS; 01/15/2025 9:40 am INDICATION: Signs/Symptoms:ABNORMAL FINDING OF LUNG FIELD. ,R91.8 Other nonspecific abnormal finding of lung field COMPARISON: 01/30/2024 ACCESSION NUMBER(S): [id number] ORDERING CLINICIAN: DIAMANTE HAWK FINDINGS: CHEST PA, LATERAL CARDIOMEDIASTINAL SILHOUETTE: Cardiomediastinal silhouette is normal in size and configuration. LUNGS: Lungs are clear. ABDOMEN: No remarkable upper abdominal findings. BONES: No acute osseous changes. IMPRESSION: No evidence of acute cardiopulmonary process. No change from 01/30/2020 MACRO: None Signed by: Myron Mayfield 01/15/2025 9:58 AM Dictation workstation: [id number] [facility] Work Phone: Radiology Study observation (narrative) [facility] Work Phone: XR Chest 2 ViewsOrdered By: Myron Mayfield on 01-15-2025 [facility] Work Phone: Absolute lymphocyte countOrd ered By: Marco Antonio Bermudez on 12-31-2024 Lymphocytes Auto (Unsp spec) [#/Vol] 1.74 10*3/uL 0.83-4.51 [facility] Absolute neutrophil countOrd ered By: Marco Antonio Bermudez on 12-31-2024 Neutrophils (Bld) [#/Vol] 3.0 10*3/uL 2.0-7.7 [facility] Anion gap in Serum or Plasma Ordered By: Marco Antonio Bermudez on 12-31-2024 Anion gap [Moles/Vol] 10 mmol/L 5- [facility] Automated lymphocyte count a s percentage of total leukocytesOrdered By: Marco Antonio Bermudez on 12-31-2024 Lymphocytes/100 WBC Auto (Unsp spec) 33.1 % - [facility] BUN/creatinine ratioOrdered By: Marco Antonio Bermudez on 12-31-2024 Urea nitrogen/Creatinine [Mass ratio] 10.5 mg/mg 10- [facility] Basophil percentageOrdered B y: Marco Antonio Bermudez on 12-31-2024 Basophils/100 WBC (Bld) 0.4 % 0-1 [facility] Bilirubin, totalOrdered By: Marco Antonio Bermudez on 12-31-2024 Bilirubin [Mass/Vol] 0.66 mg/dL 0.00-1.30 [facility] CBC W/Diff, Automatedon Absolute Lymph 1.74 X10 3/uL Normal 0.83-4.51 [facility] Comment on above: Performed By: #### L 500.4100, L501.9520, L500.4050, L503.0106, L503.6550, L506.1001, L100.0100, L506.0400 ####[facility] [address] [place], [address] Absolute Neut 3.0 X10 3/uL Normal 2.0-7.7 [facility] Comment on above: Performed By: #### L 500.4100, L501.9520, L500.4050, L503.0106, L503.6550, L506.1001, L100.0100, L506.0400 ####[facility] [address] [place], [address] Basophils/100 WBC (Bld) 0.4 % Normal 0-1 [facility] Comment on above: Performed By: #### L 500.4100, L501.9520, L500.4050, L503.0106, L503.6550, L506.1001, L100.0100, L506.0400 ####[facility] [address] [place], [address] Eosinophils/100 WBC (Bld) 0.8 % Normal 0-5 [facility] Comment on above: Performed By: #### L 500.4100, L501.9520, L500.4050, L503.0106, L503.6550, L506.1001, L100.0100, L506.0400 ####[facility] [address] [place], [address] Erythrocyte distribution width (RBC) [Ratio] 12.5 % Normal 11.6-14.6 [facility] Comment on above: Performed By: #### L 500.4100, L501.9520, L500.4050, L503.0106, L503.6550, L506.1001, L100.0100, L506.0400 ####[facility] [address] [place], [address] Hematocrit (Bld) [Volume fraction] 38.7 % Normal 37-47 [facility] Comment on above: Performed By: #### L 500.4100, L501.9520, L500.4050, L503.0106, L503.6550, L506.1001, L100.0100, L506.0400 ####[facility] [address] [place], [address] Hemoglobin (Bld) [Mass/Vol] 13.2 g/dL Normal 12.0-15.0 [facility] Comment on above: Performed By: #### L 500.4100, L501.9520, L500.4050, L503.0106, L503.6550, L506.1001, L100.0100, L506.0400 ####[facility] [address] [place], [address] IG% 0.600 Normal 0.0-0.9 [facility] Comment on above: Result Comment: IG% - Immature Granulocytes (promyelocytes, myelocytes and metamyelocytes) > 1% indicates that a LEFT SHIFT is Present. Performed By: #### L 500.4100, L501.9520, L500.4050, L503.0106, L503.6550, L506.1001, L100.0100, L506.0400 ####[facility] [address] [place], [address] Lymphocytes/100 WBC (Bld) 33.1 % Normal 19-41 [facility] Comment on above: Performed By: #### L 500.4100, L501.9520, L500.4050, L503.0106, L503.6550, L506.1001, L100.0100, L506.0400 ####[facility] [address] [place], [address] MCH (RBC) [Entitic mass] 29.4 pg Normal 27.0-32.0 [facility] Comment on above: Performed By: #### L 500.4100, L501.9520, L500.4050, L503.0106, L503.6550, L506.1001, L100.0100, L506.0400 ####[facility] [address] [place], [address] MCHC (RBC) [Mass/Vol] 34.1 g/dL Normal 32-36 [facility] Comment on above: Performed By: #### L 500.4100, L501.9520, L500.4050, L503.0106, L503.6550, L506.1001, L100.0100, L506.0400 ####[facility] [address] [place], [address] MCV (RBC) [Entitic vol] 86.2 fL Normal 81-99 [facility] Comment on above: Performed By: #### L 500.4100, L501.9520, L500.4050, L503.0106, L503.6550, L506.1001, L100.0100, L506.0400 ####[facility] [address] [place], [address] Monocytes/100 WBC (Bld) 8.8 % Normal 0-10 [facility] Comment on above: Performed By: #### L 500.4100, L501.9520, L500.4050, L503.0106, L503.6550, L506.1001, L100.0100, L506.0400 ####[facility] [address] [place], [address] Neutrophils/100 WBC (Bld) 56.3 % Normal 47-70 [facility] Comment on above: Performed By: #### L 500.4100, L501.9520, L500.4050, L503.0106, L503.6550, L506.1001, L100.0100, L506.0400 ####[facility] [address] [place], [address] Nucleated RBC (Bld) [#/Vol] 0 10*3/uL Normal 0-5 [facility] Comment on above: Performed By: #### L 500.4100, L501.9520, L500.4050, L503.0106, L503.6550, L506.1001, L100.0100, L506.0400 ####[facility] [address] [place], [address] Platelet mean volume (Bld) [Entitic vol] 9.0 fL Normal 6.2-12.0 [facility] Comment on above: Performed By: #### L 500.4100, L501.9520, L500.4050, L503.0106, L503.6550, L506.1001, L100.0100, L506.0400 ####[facility] [address] [place], [address] Platelets (Bld) [#/Vol] 306 10*3/uL Normal 150-450 [facility] Comment on above: Performed By: #### L 500.4100, L501.9520, L500.4050, L503.0106, L503.6550, L506.1001, L100.0100, L506.0400 ####[facility] [address] [place], [address] RBC (Bld) [#/Vol] 4.49 10*6/uL Normal 4.2-5.4 [facility] Comment on above: Performed By: #### L 500.4100, L501.9520, L500.4050, L503.0106, L503.6550, L506.1001, L100.0100, L506.0400 ####[facility] [address] [place], [address] RDW SD 39.8 fl Normal 35.1-43.9 [facility] Comment on above: Performed By: #### L 500.4100, L501.9520, L500.4050, L503.0106, L503.6550, L506.1001, L100.0100, L506.0400 ####[facility] [address] [place], [address] WBC (Bld) [#/Vol] 5.3 10*3/uL Normal 4.4-11.0 [facility] Comment on above: Performed By: #### L 500.4100, L501.9520, L500.4050, L503.0106, L503.6550, L506.1001, L100.0100, L506.0400 ####[facility] [address] [place], [place], [address] Calculated very low density lipoprotein (VLDL) cholesterol measurementOrdered By: Marco Antonio Bermudez on 12-31-2024 Calculated very low density lipoprotein (VLDL) cholesterol measurement 13 mg/dL 5-40 [facility] Carbon dioxide, total [Moles /volume] in Central venous bloodOrdered By: Marco Antonio Bermudez on 12-31-2024 CO2 [Moles/Vol] 25.7 mmol/L 21.0-32.0 [facility] Chloride assayOrdered By: Raoul Bermudez on 12-31-2024 Chloride [Moles/Vol] 104 mmol/L 98-108 [facility] Comprehensive Metabolic Prof ilon 12-31-2024 Albumin [Mass/Vol] 4.4 g/dL Normal 3.5-5.0 [facility] Comment on above: Performed By: #### L 500.4100, L501.9520, L500.4050, L503.0106, L503.6550, L506.1001, L100.0100, L506.0400 ####[facility] [address] [place], [place], [address] Albumin/Globulin [Mass ratio] 1.5 {ratio} Normal 0.9-2.4 [facility] Comment on above: Performed By: #### L 500.4100, L501.9520, L500.4050, L503.0106, L503.6550, L506.1001, L100.0100, L506.0400 ####[facility] [address] [place], [address] ALK PHOS 79 U/L Normal 35-104 [facility] Comment on above: Performed By: #### L 500.4100, L501.9520, L500.4050, L503.0106, L503.6550, L506.1001, L100.0100, L506.0400 ####[facility] [address] [place], [address] ALT [Catalytic activity/Vol] 13 U/L Normal <=34 [facility] Comment on above: Performed By: #### L 500.4100, L501.9520, L500.4050, L503.0106, L503.6550, L506.1001, L100.0100, L506.0400 ####[facility] [address] [place], [address] AST [Catalytic activity/Vol] 18 U/L Normal <=31 [facility] Comment on above: Performed By: #### L 500.4100, L501.9520, L500.4050, L503.0106, L503.6550, L506.1001, L100.0100, L506.0400 ####[facility] [address] [place], [address] Bilirubin [Mass/Vol] 0.66 mg/dL Normal 0.00-1.30 [facility] Comment on above: Performed By: #### L 500.4100, L501.9520, L500.4050, L503.0106, L503.6550, L506.1001, L100.0100, L506.0400 ####[facility] [address] [place], [address] BUN/CRE 10.5 RATIO Normal 10-20 [facility] Comment on above: Performed By: #### L 500.4100, L501.9520, L500.4050, L503.0106, L503.6550, L506.1001, L100.0100, L506.0400 ####[facility] [address] [place], [address] Calcium [Mass/Vol] 9.3 mg/dL Normal 7.6-11.0 [facility] Comment on above: Performed By: #### L 500.4100, L501.9520, L500.4050, L503.0106, L503.6550, L506.1001, L100.0100, L506.0400 ####[facility] [address] [place], [address] Chloride [Moles/Vol] 104 mmol/L Normal 98-108 [facility] Comment on above: Performed By: #### L 500.4100, L501.9520, L500.4050, L503.0106, L503.6550, L506.1001, L100.0100, L506.0400 ####[facility] [address] [place], [address] CO2 [Moles/Vol] 25.7 mmol/L Normal 21.0-32.0 [facility] Comment on above: Performed By: #### L 500.4100, L501.9520, L500.4050, L503.0106, L503.6550, L506.1001, L100.0100, L506.0400 ####[facility] [address] [place], [address] Creatinine [Mass/Vol] 0.72 mg/dL Normal 0.70-1.20 [facility] Comment on above: Performed By: #### L 500.4100, L501.9520, L500.4050, L503.0106, L503.6550, L506.1001, L100.0100, L506.0400 ####[facility] [address] [place], [address] GAP 10 Normal 5-15 [facility] Comment on above: Performed By: #### L 500.4100, L501.9520, L500.4050, L503.0106, L503.6550, L506.1001, L100.0100, L506.0400 ####[facility] [address] [place], [address] GFR/1.73 sq M.predicted among non-blacks MDRD (S/P/Bld) [Vol rate/Area] 107 mL/min/{1.73_m2} Normal >60 [facility] Comment on above: Result Comment: mL/m in/1.73m2 CKD-EPI Creatinine Equation (2020) Performed By: #### L 500.4100, L501.9520, L500.4050, L503.0106, L503.6550, L506.1001, L100.0100, L506.0400 ####[facility] [address] [place], [address] Globulin (S) [Mass/Vol] 2.9 g/dL Normal 2.2-4.2 [facility] Comment on above: Performed By: #### L 500.4100, L501.9520, L500.4050, L503.0106, L503.6550, L506.1001, L100.0100, L506.0400 ####[facility] [address] [place], [address] Glucose [Mass/Vol] 97 mg/dL Normal 70-99 [facility] Comment on above: Performed By: #### L 500.4100, L501.9520, L500.4050, L503.0106, L503.6550, L506.1001, L100.0100, L506.0400 ####[facility] [address] [place], [address] Potassium [Moles/Vol] 4.6 mmol/L Normal 3.3-5.1 [facility] Comment on above: Performed By: #### L 500.4100, L501.9520, L500.4050, L503.0106, L503.6550, L506.1001, L100.0100, L506.0400 ####[facility] [address] [place], [address] Sodium [Moles/Vol] 140 mmol/L Normal 133-145 [facility] Comment on above: Performed By: #### L 500.4100, L501.9520, L500.4050, L503.0106, L503.6550, L506.1001, L100.0100, L506.0400 ####[facility] [address] [place], [address] T PROT 7.2 g/dL Normal 5.9-8.4 [facility] Comment on above: Performed By: #### L 500.4100, L501.9520, L500.4050, L503.0106, L503.6550, L506.1001, L100.0100, L506.0400 ####[facility] [address] [place], [address] Urea nitrogen [Mass/Vol] 8 mg/dL Normal 4-19 [facility] Comment on above: Performed By: #### L 500.4100, L501.9520, L500.4050, L503.0106, L503.6550, L506.1001, L100.0100, L506.0400 ####[facility] [address] [place], [address] Eosinophil percentageOrdered By: Marco Antonio Bermudez on 12-31-2024 Eosinophils/100 WBC (Bld) 0.8 % 0-5 [facility] Erythrocyte distribution wid th ratioOrdered By: Marco Antonio Bermudez on 12-31-2024 Erythrocyte distribution width (RBC) [Ratio] 12.5 % 11.6-14.6 [facility] Erythrocyte distribution wid th standard deviationOrdered By: Marco Antonio Bermudez on 12-31-2024 Erythrocyte distribution width (RBC) [Ratio] 39.8 fl 35.1-43.9 [facility] Ferritinon 12-31-2024 Ferritin [Mass/Vol] 29 ng/mL Normal 22-378 [facility] Comment on above: Performed By: #### L 500.4100, L501.9520, L500.4050, L503.0106, L503.6550, L506.1001, L100.0100, L506.0400 ####[facility] [address] [place], [address] Glomerular filtration rate ( GFR) estimation/1.73 sq m using serum, plasma, or whole bOrdered By: Marco Antonio Bermudez on 12-31-2024 GFR/1.73 sq M.predicted among non-blacks MDRD (S/P/Bld) [Vol rate/Area] 107 mL/min/{1.73_m2} >60 [facility] Comment on above: mL/min/1.73m2 CKD-EP I Creatinine Equation (2020) Hematocrit Auto (Bld) [Volum e fraction]Ordered By: Marco Antonio Bermudez on 12-31-2024 Hematocrit (Bld) [Volume fraction] 38.7 % 37-47 [facility] Hemoglobin measurementOrdere d By: Marco Antonio Bermudez on 12-31-2024 Hemoglobin (Bld) [Mass/Vol] 13.2 g/dL 12.0-15.0 [facility] Immature granulocytes/100 WB C Auto (Bld)Ordered By: Marco Antonio Bermudez on 12-31-2024 Immature granulocytes/100 WBC (Bld) 0.600 % 0.0-0.9 [facility] Comment on above: IG% - Immature Granu locytes (promyelocytes, myelocytes and metamyelocytes) > 1% indicates that a LEFT SHIFT is Present. LDL calc ser/plasOrdered By: Marco Antonio Bermudez on 12-31-2024 Cholesterol in LDL [Mass/Vol] 106 mg/dL [facility] Comment on above: Foabdwhqpz=726-211 m g/dL & Higher Ltwc=277 mg/dL or greaterFriedwald Equation for LDL-C Laboratory - Chemistry and C hemistry - challengeOrdered By: Marco Antonio Bermudez on 12-31-2024 AST [Catalytic activity/Vol] 18 U/L <32 [facility] Lipid Profileon 12-31-2024 CHOL:HDL 2.52 Normal [facility] Comment on above: Performed By: #### L 500.4100, L501.9520, L500.4050, L503.0106, L503.6550, L506.1001, L100.0100, L506.0400 ####[facility] [address] [place], [address] Cholesterol [Mass/Vol] 198 mg/dL Normal <=200 [facility] Comment on above: Result Comment: Chol esterol level, Desirable <200 mg/dL Borderline high cholesterol 200-239 mg/dL High cholesterol >=240 mg/dL Recommendations of the NCEP Adult Treatment Panel for the following risk-cutoff thresholds for the [place] population. Performed By: #### L 500.4100, L501.9520, L500.4050, L503.0106, L503.6550, L506.1001, L100.0100, L506.0400 ####[facility] [address] [place], [address] Cholesterol in HDL [Mass/Vol] 79 mg/dL Normal [facility] Comment on above: Result Comment: Malou onal Cholesterol Education Program (NCEP) guidelines: <40 mg/dL: Low HDL-cholesterol (major risk factor for CHD) >= 60 mg/dL: High HDL-cholesterol (negative risk factor for CHD) HDL-cholesterol is affected by a number of factors, e.g. smoking, exercise, hormones, sex and age. Performed By: #### L 500.4100, L501.9520, L500.4050, L503.0106, L503.6550, L506.1001, L100.0100, L506.0400 ####[facility] [address] [place], [address] Cholesterol in LDL [Mass/Vol] 106 mg/dL Normal [facility] Comment on above: Result Comment: Bord ntcoaw=940-020 mg/dL Higher Flha=463 mg/dL or greater Friedwald Equation for LDL-C Performed By: #### L 500.4100, L501.9520, L500.4050, L503.0106, L503.6550, L506.1001, L100.0100, L506.0400 ####[facility] [address] [place], [place], [id number] Cholesterol in VLDL [Mass/Vol] 13 mg/dL Normal 5-40 [facility] Comment on above: Performed By: #### L 500.4100, L501.9520, L500.4050, L503.0106, L503.6550, L506.1001, L100.0100, L506.0400 ####[facility] [address] [place], [place], [id number] Triglyceride [Mass/Vol] 67 mg/dL Normal [facility] Comment on above: Result Comment: The drugs N-Acetylcysteine and Metamizole may falsely depress this assay. Normal range: <150 mg/dL Borderline High: 150-199 mg/dL High: 200-499 mg/dL Very High: >500 mg/dL Performed By: #### L 500.4100, L501.9520, L500.4050, L503.0106, L503.6550, L506.1001, L100.0100, L506.0400 ####[facility] [address] [place], [place], [id number] MCV (mean corpuscular volume ) determinationOrdered By: Marco Antonio Bermudez on 12-31-2024 MCV (RBC) [Entitic vol] 86.2 fL 81-99 [facility] Mean corpuscular hemoglobin (MCH) determinationOrdered By: Marco Antonio Bermudez on 12-31-2024 MCH (RBC) [Entitic mass] 29.4 pg 27.0-32.0 [facility] Mean corpuscular hemoglobin concentration (MCHC) determinationOrdered By: Marco Antonio Bermudez on 12-31-2024 MCHC (RBC) [Mass/Vol] 34.1 g/dL 32-36 [facility] Mean platelet volume determi nationOrdered By: Marco Antonio Bermudez on 12-31-2024 Platelet mean volume (Bld) [Entitic vol] 9.0 fL 6.2-12.0 [facility] Monocyte percentageOrdered B y: Marco Antonio Bermudez on 12-31-2024 Monocytes/100 WBC (Bld) 8.8 % 0-10 [facility] Neutrophil percentageOrdered By: Marco Antonio Bermudez on 12-31-2024 Neutrophils/100 WBC (Bld) 56.3 % 47-70 [facility] Nucleated red blood cell per centageOrdered By: Marco Antonio Bermudez on 12-31-2024 Nucleated RBC/100 WBC (Bld) [Ratio] 0 % 0-5 [facility] Platelet countOrdered By: Raoul Bermudez on 12-31-2024 Platelets (Bld) [#/Vol] 306 10*3/uL 150-450 [facility] Potassium measurement (mass/ volume)Ordered By: Marco Antonio Bermudez on 12-31-2024 Potassium (Unsp spec) [Mass/Vol] 4.6 mmol/L 3.3-5.1 [facility] RBC Auto (Bld) [#/Vol]Ordere d By: Marco Antonio Bermudez on 12-31-2024 RBC (Bld) [#/Vol] 4.49 10*6/uL 4.2-5.4 [facility] Screening total cholesterol/ high density lipoprotein (HDL) cholesterol ratioOrdered By: Marco Antonio Bermudez on 12-31-2024 Cholesterol.total/Chol esterol in HDL [Mass ratio] 2.52 {ratio} [facility] Serum creatinine measurement (mass/volume)Ordered By: Marco Antonio Bermudez on 12-31-2024 Creatinine [Mass/Vol] 0.72 mg/dL 0.70-1.20 [facility] Serum globulin measurementOr dered By: Marco Antonio Bermudez on 12-31-2024 Globulin (S) [Mass/Vol] 2.9 g/dL 2.2-4.2 [facility] Serum glucose measurement (m ass/volume)Ordered By: Marco Antonio Bermudez on 12-31-2024 Glucose [Mass/Vol] 97 mg/dL 70-99 [facility] Serum or plasma alanine jiang otransferase (ALT) measurementOrdered By: Marco Antonio Bermudez on 12-31-2024 ALT [Catalytic activity/Vol] 13 U/L <35 [facility] Serum or plasma albumin surinder urement (mass/volume)Ordered By: Marco Antonio Bermudez on 12-31-2024 Albumin [Mass/Vol] 4.4 g/dL 3.5-5.0 [facility] Serum or plasma albumin/glob ulin mass ratioOrdered By: Marco Antonio Bermudez on 12-31-2024 Albumin/Globulin [Mass ratio] 1.5 {ratio} 0.9-2.4 [facility] Serum or plasma alkaline zenaida sphatase measurementOrdered By: Marco Antonio Bermudez on 12-31-2024 ALP [Catalytic activity/Vol] 79 U/L 35-104 [facility] Serum or plasma calcium usrinder urement (mass/volume)Ordered By: Marco Antonio Bermudez on 12-31-2024 Calcium [Mass/Vol] 9.3 mg/dL 7.6-11.0 [facility] Serum or plasma cholesterol in HDL measurement (mass/volume)Ordered By: Marco Antonio Bermudez on 12-31-2024 Cholesterol in HDL [Mass/Vol] 79 mg/dL >40 [facility] Comment on above: National Cholesterol Education Program (NCEP) guidelines:<40 mg/dL: Low HDL-cholesterol (major risk factor for CHD)>= 60 mg/dL: High HDL-cholesterol (negative risk factor for CHD)HDL-cholesterol is affected by a number of factors, e.g. smoking, exercise, hormones, sex and age. Serum or plasma cholesterol measurement (mass/volume)Ordered By: Marco Antonio Bermudez on 12-31-2024 Cholesterol [Mass/Vol] 198 mg/dL <201 [facility] Comment on above: Cholesterol level, D esirable <200 mg/dLBorderline high cholesterol 200-239 mg/dLHigh cholesterol >=240 mg/dLRecommendations of the NCEP Adult Treatment Panel for the following risk-cutoff thresholds for the [place] population. Serum or plasma ferritin melly surement (mass/volume)Ordered By: Marco Antonio Bermudez on 12-31-2024 Ferritin [Mass/Vol] 29 ng/mL 22-378 [facility] Serum or plasma urea nitroge n measurement (mass/volume)Ordered By: Marco Antonio Bermudez on 12-31-2024 Urea nitrogen [Mass/Vol] 8 mg/dL 4-19 [facility] Sodium levelOrdered By: Marco Antonio Bermudez on 12-31-2024 Sodium [Moles/Vol] 140 mmol/L 133-145 [facility] T4 Free Directon 12-31-2024 T4 FREE DIRECT 1.10 ng/dL Normal 0.76-1.46 [facility] Comment on above: Performed By: #### L 500.4100, L501.9520, L500.4050, L503.0106, L503.6550, L506.1001, L100.0100, L506.0400 ####[facility] [address] [place], [place], [id number] T4 freeOrdered By: Marco Antonio Bermudez on 12-31-2024 Free T4 [Mass/Vol] 1.10 ng/dL 0.76-1.46 [facility] TSH DL <= 0.005 mIU/L QnOrde red By: Marco Antonio Bermudez on 12-31-2024 TSH Qn 2.730 uIU/mL 0.300-4.200 [facility] Thyroid Stim Hormone (TSH)on 12-31-2024 TSH 2.730 uIU/mL Normal 0.300-4.200 [facility] Comment on above: Performed By: #### L 500.4100, L501.9520, L500.4050, L503.0106, L503.6550, L506.1001, L100.0100, L506.0400 ####[facility] [address] [place], [address] Total proteinOrdered By: Al Bermudez on 12-31-2024 Protein [Mass/Vol] 7.2 g/dL 5.9-8.4 [facility] Triglycerides measurementOrd ered By: Marco Antonio Bermudez on 12-31-2024 Triglyceride [Mass/Vol] 67 mg/dL <199 [facility] Comment on above: The drugs N-Acetylcy steine and Metamizole may falsely depress this assay. Normal range: <150 mg/dLBorderline High: 150-199 mg/dLHigh: 200-499 mg/dLVery High: >500 mg/dL Vitamin B12on 12-31-2024 Cobalamin (Vitamin B12) [Mass/Vol] 702 pg/mL Normal 180-914 [facility] Comment on above: Performed By: #### L 500.4100, L501.9520, L500.4050, L503.0106, L503.6550, L506.1001, L100.0100, L506.0400 ####[facility] [address] [place], [place], [id number] Vitamin B12 ser/plasOrdered By: Marco Antonio Bermudez on 12-31-2024 Cobalamin (Vitamin B12) [Mass/Vol] 702 pg/mL 180-914 [facility] Vitamin D,25 Hydroxyon 12-31 Vitamin D 25-OH 26.6 ng/mL Low 30-100 [facility] Comment on above: Result Comment: Aleshia min D Status Deficiency: <20 ng/mL (50nmol/L) Insufficiency: 20-30 ng/mL (50-75 nmol/L) Sufficiency: 30-100 ng/mL (75-250 nmol/L) Toxicity: >100 ng/mL (>250 nmol/L) Performed By: #### L 500.4100, L501.9520, L500.4050, L503.0106, L503.6550, L506.1001, L100.0100, L506.0400 ####[facility] [address] [place], [place], [address] White blood cell (WBC) count Ordered By: Marco Antonio Bermudez on 12-31-2024 WBC (Bld) [#/Vol] 5.3 10*3/uL 4.4-11.0 [facility] Endocrinology Visit Reporton 11-12-2024 Endocrinology Visit Report [facility] 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 She has history of Grave's disease with thyrotoxicosis treated with methimazole. She is currently in remission. Recent labs are normal. She is feeling dizzy. ROS Const Constitutional: Positive for fatigue; No weakness or weight change ENT ENT: Positive for dizziness/vertigo and balance problems Cardio Cardiology: No chest pain at rest, chest pain with exertion or shortness of breath Musc Musculoskeletal: No numbness Neuro Neurology: No weakness or numbness Skin Skin: No wounds Endo Endocrine: Positive for fatigue; No weight change Exam Const General: cooperative, healthy appearing, comfortable, no acute distress, well developed and not cushingoid Nutritional Appearance: well nourished Orientation: alert, awake and oriented x3 HENMT Head: normal to inspection Ears: hearing grossly normal bilaterally and other (fluid behind the right eardrum) Nose: external nose normal Mouth: oral mucosae normal Eyes General: appearance normal, both eyes and all related structures Alignment and Position: alignment normal Periorbital: periorbital findings normal Eyelids: eyelids normal Conjunctivae: conjunctivae normal Neck Neck: normal visual inspection Neck mass: No Thyroid: thyroid normal Lymphatic: no lymphadenopathy noted Chest Chest palpation inspection: normal inspection of the chest Resp Effort Inspection: normal respiratory effort, able to speak in complete sentences, symmetric chest movement, no audible wheezes and no cough Cardio Rate: regular rate Rhythm: regular rhythm Skin General: no rashes or lesions noted Neuro General: patient alert, patient awake and patient oriented x3 Cranial Nerves: CN's II-XI intact bilaterally Cognition: normal cognition Speech: speech normal Gait: normal gait Motor: muscle tone normal throughout Extrem General: no edema Psych Appearance: grossly normal Mental Status: mental status grossly normal Mood: congruent mood Affect: normal affect Speech and Movement: speech and movement normal Attitude: cooperative Thought Process: normal Thought Content: normal Judgment: judgment good Assessment and Plan Assessment and Plan (1) Autoimmune thyroiditis: Status: Chronic Plan: Continue to monitor thyroid levels yearly, sooner if symptoms. Discussed autoimmune disease. Take decongestant (more content not included)... Normal [facility] Free T3on 11-03-2024 Free T3 [Mass/Vol] 2.6 pg/mL Normal 2.18-3.98 [facility] Comment on above: Performed By: #### L 501.9520, L506.0400, L501.70012 #### [facility] [address] [place], [address] Free [id number] By: Deacon on 11-03-2024 Free T3 [Mass/Vol] 2.6 pg/mL 2.18-3.98 [facility] T4 Free Directon 11-03-2024 T4 FREE DIRECT 1.00 ng/dL Normal 0.76-1.46 [facility] Comment on above: Performed By: #### L 501.9520, L506.0400, L501.07302 #### [facility] [address] [place], [address] T4 freeOrdered By: Deacon on 11-03-2024 Free T4 [Mass/Vol] 1.00 ng/dL 0.76-1.46 [facility] TSH DL <= 0.005 mIU/L QnOrde red By: Queta Monterroso on 11-03-2024 TSH Qn 2.500 uIU/mL 0.300-4.200 [facility] Thyroid Stim Hormone (TSH)on 11-03-2024 TSH 2.500 uIU/mL Normal 0.300-4.200 [facility] Comment on above: Performed By: #### L 501.9520, L506.0400, L501.89480 #### [facility] [address] [place], [address] Abdomen/Pelvis WITH Contrast on 05-16-2024 Abdomen/Pelvis WITH Contrast [facility] Imaging Services [address] [place] [address] Abdomen/Pelvis WITH Contrast MR#: [id number] Acct: [id number] Name: ESKELLY Gallito Rep #: [id number] : 1985 F 39 From: Kwabena dean MD PCP: MELITON Maya Status: REG CLI Study: Abdomen/Pelvis WITH Contrast Date of Exam: Exam# [id number] Ordering Dr: Diamante Hawk PROCEDURE: ABDOMEN/PELVIS WITH CONTRAST TECHNIQUE: Abdomen and [...] use of iterative reconstruction technique). Reading Location: [id number] CC: MELITON Maya Mold Hoister: Signed Normal [facility] Free T3on 02-17-2024 Free T3 [Mass/Vol] 2.7 pg/mL Normal 2.18-3.98 [facility] Comment on above: Performed By: #### L 501.9520, L506.0400, L501.58933 ####[facility] [address] 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 she had mammogram and ultrasounds [...] a localized (more content not included)... Normal [facility] T4 Free Directon 02-17-2024 T4 FREE DIRECT 0.78 ng/dL Normal 0.76-1.46 [facility] Comment on above: Performed By: #### L 501.9520, L506.0400, L501.86688 ####[facility] [address] [place], [address] Thyroid Stim Hormone (TSH)on 02-17-2024 TSH 1.650 uIU/mL Normal 0.358-3.740 [facility] Comment on above: Performed By: #### L 501.9520, L506.0400, L501.98751 ####[facility] [address] [place], [place], [address] CBC W Auto Differential pane l (Bld)on 01-30-2024 Basophils (Bld) [#/Vol] 0.03 10*3/uL [facility] Basophils/100 WBC (Bld) 0.6 % 0.0 - 2.0 % [facility] Eosinophils (Bld) [#/Vol] 0.03 10*3/uL [facility] Eosinophils/100 WBC (Bld) 0.6 % 0.0 - 6.0 % [facility] Erythrocyte distribution width (RBC) [Ratio] 12.6 % 11.5 - 14.5 % [facility] Hematocrit (Bld) [Volume fraction] 41.1 % 36.0 - 46.0 % [facility] Hemoglobin (Bld) [Mass/Vol] 14 g/dL 12.0 - 16.0 g/dL [facility] Immature granulocytes (Bld) [#/Vol] 0.01 10*3/uL [facility] Immature granulocytes/100 WBC (Bld) 0.2 % 0.0 - 0.9 % [facility] Comment on above: Immature Granulocyte Count (IG) includes promyelocytes, myelocytes and metamyelocytes but does not include bands. Percent differential counts (%) should be interpreted in the context of the absolute cell counts (cells/UL). Lymphocytes (Bld) [#/Vol] 1.55 10*3/uL [facility] Lymphocytes/100 WBC (Bld) 30 % 13.0 - 44.0 % [facility] MCH (RBC) [Entitic mass] 29.7 pg 26.0 - 34.0 pg [facility] MCHC (RBC) [Mass/Vol] 34.1 g/dL 32.0 - 36.0 g/dL [facility] MCV (RBC) [Entitic vol] 87 fL 80 - 100 fL [facility] Monocytes (Bld) [#/Vol] 0.42 10*3/uL [facility] Monocytes/100 WBC (Bld) 8.1 % 2.0 - 10.0 % [facility] Neutrophils (Bld) [#/Vol] 3.12 10*3/uL [facility] Comment on above: Percent differential counts (%) should be interpreted in the context of the absolute cell counts (cells/uL). Neutrophils/100 WBC (Bld) 60.5 % 40.0 - 80.0 % [facility] Nucleated RBC/100 WBC (Bld) [Ratio] 0 % [facility] Platelets (Bld) [#/Vol] 302 10*3/uL [facility] RBC (Bld) [#/Vol] 4.71 10*6/uL [facility] WBC (Bld) [#/Vol] 5.2 10*3/uL [facility] Basophils (Bld) [#/Vol] 0.03 x10*3/uL Normal 0.00-0.10 [facility] Comment on above: Performed By: #### 5 7021-8 #### NATE LIRA ([id number]) [facility] ([facility]) [address] [place] [address] Basophils/100 WBC (Bld) 0.6 % Normal 0.0-2.0 [facility] Comment on above: Performed By: #### 5 7021-8 #### NATE LIRA ([id number]) [facility] ([facility]) [address] [place] [address] Eosinophils (Bld) [#/Vol] 0.03 x10*3/uL Normal 0.00-0.70 [facility] Comment on above: Performed By: #### 5 7021-8 #### NATE LIRA ([id number]) [facility] ([facility]) [address] [place] [address] Eosinophils/100 WBC (Bld) 0.6 % Normal 0.0-6.0 [facility] Comment on above: Performed By: #### 5 7021-8 #### NATE LIRA (45316) [facility] ([facility]) [address] [place] [address] Erythrocyte distribution width (RBC) [Ratio] 12.6 % Normal 11.5-14.5 [facility] Comment on above: Performed By: #### 5 7021-8 #### NATE LIRA ([id number]) [facility] ([facility]) [address] [place] [address] Hematocrit (Bld) [Volume fraction] 41.1 % Normal 36.0-46.0 [facility] Comment on above: Performed By: #### 5 7021-8 #### NATE LIRA (80223) [facility] ([facility]) [address] [place] [address] [id number] Hemoglobin (Bld) [Mass/Vol] 14.0 g/dL Normal 12.0-16.0 [facility] Comment on above: Performed By: #### 5 7021-8 #### NATE LIRA ([id number]) [facility] ([facility]) [address] [place] [address] 41900 Immature granulocytes (Bld) [#/Vol] 0.01 x10*3/uL Normal 0.00-0.70 [facility] Comment on above: Performed By: #### 5 7021-8 #### NATE LIRA ([id number]) [facility] ([facility]) [address] [place] [address] 78637 Immature granulocytes/100 WBC (Bld) 0.2 % Normal 0.0-0.9 [facility] Comment on above: Result Comment: Catherine ture Granulocyte Count (IG) includes promyelocytes, myelocytes and metamyelocytes but does not include bands. Percent differential counts (%) should be interpreted in the context of the absolute cell counts (cells/UL). Performed By: #### 5 7021-8 #### NATE LIRA ([id number]) [facility] ([facility]) [address] [place] [address] 41230 Lymphocytes (Bld) [#/Vol] 1.55 x10*3/uL Normal 1.20-4.80 [facility] Comment on above: Performed By: #### 5 7021-8 #### NATE LIRA ([id number]) [facility] ([facility]) [address] [place] [address] 30771 Lymphocytes/100 WBC (Bld) 30.0 % Normal 13.0-44.0 [facility] Comment on above: Performed By: #### 5 7021-8 #### NATE LIRA ([id number]) [facility] ([facility]) [address] [place] [address] 10049 MCH (RBC) [Entitic mass] 29.7 pg Normal 26.0-34.0 [facility] Comment on above: Performed By: #### 5 7021-8 #### NATE LIRA (35143) [facility] ([facility]) [address] [place] [address] 95183 MCHC (RBC) [Mass/Vol] 34.1 g/dL Normal 32.0-36.0 [facility] Comment on above: Performed By: #### 5 7021-8 #### NATE LIRA (45984) [facility] ([facility]) [address] [place] [address] 12710 MCV (RBC) [Entitic vol] 87 fL Normal 80-100 [facility] Comment on above: Performed By: #### 5 7021-8 #### NATE LIRA (29936) [facility] ([facility]) [address] [place] [address] 98190 Monocytes (Bld) [#/Vol] 0.42 x10*3/uL Normal 0.10-1.00 [facility] Comment on above: Performed By: #### 5 7021-8 #### NATE LIRA ([id number]) [facility] ([facility]) [address] [place] [address] 85246 Monocytes/100 WBC (Bld) 8.1 % Normal 2.0-10.0 [facility] Comment on above: Performed By: #### 5 7021-8 #### NATE LIRA ([id number]) [facility] ([facility]) [address] [place] [address] 27335 Neutrophils (Bld) [#/Vol] 3.12 x10*3/uL Normal 1.20-7.70 [facility] Comment on above: Result Comment: Perc ent differential counts (%) should be interpreted in the context of the absolute cell counts (cells/uL). Performed By: #### 5 7021-8 #### NATE LIRA ([id number]) [facility] ([facility]) [address] [place] [address] 16750 Neutrophils/100 WBC (Bld) 60.5 % Normal 40.0-80.0 [facility] Comment on above: Performed By: #### 5 7021-8 #### NATE LIRA ([id number]) [facility] ([facility]) [address] [place] [address] 60859 Nucleated RBC/100 WBC (Bld) [Ratio] 0.0 /100 WBCs Normal 0.0-0.0 [facility] Comment on above: Performed By: #### 5 7021-8 #### NATE LIRA ([id number]) [facility] ([facility]) [address] [place] [address] 99401 Platelets (Bld) [#/Vol] 302 x10*3/uL Normal 150-450 [facility] Comment on above: Performed By: #### 5 7021-8 #### NATE LIRA (08802) [facility] ([facility]) [address] [place] [address] 42891 RBC (Bld) [#/Vol] 4.71 x10*6/uL Normal 4.00-5.20 [facility] Comment on above: Performed By: #### 5 7021-8 #### NATE LIRA ([id number]) [facility] ([facility]) [address] [place] [address] WBC (Bld) [#/Vol] 5.2 x10*3/uL Normal 4.4-11.3 [facility] Comment on above: Performed By: #### 5 7021-8 #### NATE LIRA ([id number]) [facility] ([facility]) [address] [place] [address] Coagulation tissue factor in ducedon 01-30-2024 PT Coag (PPP) [Time] 12.7 s Normal 9.8-12.8 [facility] Comment on above: Performed By: #### 5 902-2 #### NATE LIRA ([id number]) [facility] ([facility]) [address] [place] [address] Comprehensive metabolic 2000 panelon 01-30-2024 Albumin BCP dye [Mass/Vol] 4.6 g/dL 3.4 - 5.0 g/dL [facility] ALP [Catalytic activity/Vol] 68 U/L 33 - 110 U/L [facility] ALT With P-5'-P [Catalytic activity/Vol] 12 U/L 7 - 45 U/L [facility] Comment on above: Patients treated wit h Sulfasalazine may generate falsely decreased results for ALT. Anion gap [Moles/Vol] 13 mmol/L 10 - 2 0 mmol/L [facility] AST With P-5'-P [Catalytic activity/Vol] 14 U/L 9 - 39 U/L [facility] Bilirubin [Mass/Vol] 1 mg/dL 0.0 - 1 .2 mg/dL [facility] Calcium [Mass/Vol] 9.4 mg/dL 8.6 - 10. 3 mg/dL [facility] Chloride [Moles/Vol] 104 mmol/L 98 - 10 7 mmol/L [facility] CO2 [Moles/Vol] 25 mmol/L 21 - 32 mmol/L [facility] Creatinine [Mass/Vol] 0.84 mg/dL 0.50 - 1.05 mg/dL [facility] GFR/1.73 sq M.predicted among non-blacks MDRD (S/P/Bld) [Vol rate/Area] 90 mL/min/{1.73_m2} - PINF [facility] Comment on above: Calculations of keshia mated GFR are performed using the 2020 CKD-EPI Study Refit equation without the race variable for the IDMS-Traceable creatinine methods. https://jasn.asnjournals.org/content/early/ASN.87613 42526 Glucose [Mass/Vol] 95 mg/dL 74 - 99 mg/dL [facility] Interpretation and review of laboratory results Normal [facility] Potassium [Moles/Vol] 3.8 mmol/L 3.5 - 5.3 mmol/L [facility] Protein [Mass/Vol] 7.5 g/dL 6.4 - 8.2 g/dL [facility] Sodium [Moles/Vol] 138 mmol/L 136 - 145 mmol/L [facility] Urea nitrogen [Mass/Vol] 10 mg/dL 6 - 23 mg/dL [facility] Albumin BCP dye [Mass/Vol] 4.6 g/dL Normal 3.4-5.0 [facility] Comment on above: Performed By: #### 2 4323-8 #### NATE LIRA ([id number]) [facility] ([facility]) [address] [place], [place] [id number] ALP [Catalytic activity/Vol] 68 U/L Normal 33-110 [facility] Comment on above: Performed By: #### 2 4323-8 #### NATE LIRA ([id number]) [facility] ([facility]) [address] [place], [place] [address] ALT With P-5'-P [Catalytic activity/Vol] 12 U/L Normal 7-45 [facility] Comment on above: Result Comment: Tony ents treated with Sulfasalazine may generate falsely decreased results for ALT. Performed By: #### 2 4323-8 #### NATE LIRA (53735) [facility] ([facility]) [address] [place] [address] Anion gap [Moles/Vol] 13 mmol/L Normal 10-20 [facility] Comment on above: Performed By: #### 2 432-8 #### NATE LIRA (97014) [facility] ([facility]) [address] [place] [address] AST With P-5'-P [Catalytic activity/Vol] 14 U/L Normal 9-39 [facility] Comment on above: Performed By: #### 2 4322-8 #### NATE LIRA ([id number]) [facility] ([facility]) [address] [place] [address] 38530 Bilirubin [Mass/Vol] 1.0 mg/dL Normal 0.0-1.2 [facility] Comment on above: Performed By: #### 2 4322-8 #### NATE LIRA ([id number]) [facility] ([facility]) [address] [place] [address] Calcium [Mass/Vol] 9.4 mg/dL Normal 8.6-10.3 [facility] Comment on above: Performed By: #### 2 432-8 #### NATE LIRA ([id number]) [facility] ([facility]) [address] [place] [address] Chloride [Moles/Vol] 104 mmol/L Normal 98-107 [facility] Comment on above: Performed By: #### 2 432-8 #### NATE LIRA (60729) [facility] ([facility]) [address] [place] [address] CO2 [Moles/Vol] 25 mmol/L Normal 21-32 [facility] Comment on above: Performed By: #### 2 4323-8 #### NATE LIRA (88258) [facility] ([facility]) [address] [place] [address] Creatinine [Mass/Vol] 0.84 mg/dL Normal 0.50-1.05 [facility] Comment on above: Performed By: #### 2 4323-8 #### NATE LIRA (34104) [facility] ([facility]) [address] [place] [address] 14861 Glomerular filtration rate/1.73 sq M.predicted 90 mL/min/1.73m*2 Normal >60 [facility] Comment on above: Result Comment: Calc ulations of estimated GFR are performed using the 2020 CKD-EPI Study Refit equation without the race variable for the IDMS-Traceable creatinine methods. https://jasn.asnjournals.org/content//ASN.75493 66263 Performed By: #### 2 4323-8 #### NATE LIRA ([id number]) [facility] ([facility]) [address] [place] [address] 56954 Glucose [Mass/Vol] 95 mg/dL Normal 74-99 [facility] Comment on above: Performed By: #### 2 4323-8 #### NATE LIRA ([id number]) [facility] ([facility]) [address] [place] [address] 19312 Potassium [Moles/Vol] 3.8 mmol/L Normal 3.5-5.3 [facility] Comment on above: Performed By: #### 2 4323-8 #### NATE LIRA (79294) [facility] ([facility]) [address] [place] [address] 86289 Protein [Mass/Vol] 7.5 g/dL Normal 6.4-8.2 [facility] Comment on above: Performed By: #### 2 4323-8 #### NATE LIRA ([id number]) [facility] ([facility]) [address] [place] [address] 25789 Sodium [Moles/Vol] 138 mmol/L Normal 136-145 [facility] Comment on above: Performed By: #### 2 4323-8 #### NATE LIRA ([id number]) [facility] ([facility]) [address] [place] [address] Urea nitrogen [Mass/Vol] 10 mg/dL Normal 6-23 [facility] Comment on above: Performed By: #### 2 4323-8 #### SULLIVAN SORAYA ([id number]) [facility] ([facility]) [address] [place] [address] D-Dimer, VTE ExclusionOrdere d By: Ania Mendieta on 01-30-2024 Fibrin D-dimer FEU (PPP) [Mass/Vol] [facility] ECG 12-LEADon 01-30-2024 ECG 12-LEAD Ventricular Rate 73 Atrial Rate 73 P-R Interval 146 QRS Duration 70 Q-T Interval 406 QTC Calculation(Bazett) 447 P [place] 73 R [place] 81 T [place] 68 QRS Count 12 Q Onset 223 P Onset 150 P Offset 197 T Offset 426 QTC Fredericia 433 Diagnosis Normal sinus rhythm with sinus arrhythmia Normal ECG When compared with ECG of 30-JAN-2024 13:45, (unconfirmed) No significant change was found See ED provider note for full interpretation and clinical correlation Confirmed by Chiquita Sanchez ([id number]) on 01/30/2024 5:24:06 PM Normal [facility] ECG 12-LEAD Ventricular Rate 77 Atrial Rate 77 P-R Interval 140 QRS Duration 70 Q-T Interval 390 QTC Calculation(Bazett) 441 P [place] 68 R [place] 70 T [place] 48 QRS Count 13 Q Onset 221 P Onset 151 P Offset 204 T Offset 416 QTC Fredericia 423 Diagnosis Normal sinus rhythm Normal ECG No previous ECGs available See ED provider note for full interpretation and clinical correlation Confirmed by Chiquita Sanchez ([id number]) on 01/30/2024 5:26:19 PM Normal [facility] Fibrin D-dimer FEUon 024 Fibrin D-dimer FEU (PPP) [Mass/Vol] <215 Normal <=500 [facility] Comment on above: Order Comment: The V TE Exclusion D-Dimer assay is reported in ng/mL Fibrinogen Equivalent Units (FEU). Per roller shop supervisor's instructions for use, a value of less [...] exclusion.) Performed By: #### 4 8065-7 #### NATE LIRA (30274) [facility] ([facility]) [facility] [place] [address] Fibrin D-dimer FEU (PPP) [Ma ss/Vol]Ordered By: Ania Mendieta on 01-30-2024 Interpretation and review of laboratory results Normal [facility] The VTE Exclusion D- Dimer assay is reported in ng/mL Fibrinogen Equivalent Units (FEU). Per roller shop supervisor's instructions for use, a value of less [...] assessment model for DVT or PE exclusion.) [facility] No Panel Informationon 01-29 Extra Tube Hold for add-ons. [facility] Comment on above: Auto resulted. [facility] PT Coag (PPP) [Time]on 01-29 INR Coag (PPP) [Relative time] 1.1 {INR} 0.9 - 1.1 [facility] Interpretation and review of laboratory results Normal [facility] INR Coag (PPP) [Relative time] 1.1 Normal 0.9-1.1 [facility] Comment on above: Performed By: #### 5 902-2 #### NATE LIRA ([id number]) [facility] ([facility]) [address] [place], [place] [phone] Protime-INRon 01-30-2024 PT Coag (PPP) [Time] 12.7 s [facility] Tropinin I.cardiac panel Hig h sensitivity methodon 01-30-2024 Interpretation and review of laboratory results Normal [facility] Less than 99th perce ntile of [...] using a different testing methodology at [facility] than at other [facility]. Direct result comparisons should only be made within the same method. [facility] Interpretation and review of laboratory results Normal [facility] Less than 99th perce ntile of [...] using a different testing methodology at [facility] than at other [facility]. Direct result comparisons should only be made within the same method. [facility] Troponin I, High Sensitivity , Initialon 01-30-2024 Tropinin I.cardiac panel High sensitivity method ng/L 0 - 13 ng/L [facility] Troponin I.cardiac panelon 1 03-31-2023 Tropinin I.cardiac panel High sensitivity method <3 Normal 0-13 [facility] Comment on above: Order Comment: Less [...] using a different testing methodology at [facility] than at other [facility]. Direct result comparisons should only be made within the same method. Performed By: #### 8 9577-1 #### NATE LIRA ([id number]) [facility] ([facility]) [address] [place], [place] [address] Tropinin I.cardiac panel High sensitivity method <3 Normal 0-13 [facility] Comment on above: Order Comment: Less [...] using a different testing methodology at [facility] than at [facility]. Direct result comparisons should only be made within the same method. Performed By: #### 8 9577-1 #### NATE LIRA ([id number]) [facility] ([facility]) [address] [place] [address] 65890 Troponin, High Sensitivity, 1 Houron 01-30-2024 Tropinin I.cardiac panel High sensitivity method ng/L 0 - 13 ng/L [facility] XR CHEST 1 VIEWon 01-30-2024 XR CHEST 1 VIEW Interpreted By: Wilmar Hanks, STUDY: XR CHEST 1 VIEW; 01/30/2024 12:55 pm INDICATION: CLINICAL INFORMATION: Signs/Symptoms:Chest Pain. COMPARISON: None ACCESSION NUMBER(S): [id number] ORDERING CLINICIAN: BHAVIN BARRERA TECHNIQUE: Portable chest [...] Wilmar Jones 01/30/2024 1:17 PM Dictation workstation: [id number] [facility] XR Chest Single viewon 01-29 Questionable nodule versus infiltrate versus artifact right apex. Follow-up to assure clearing is suggested. MACRO: none Signed by: Wilmar Jones 01/30/2024 1:17 PM Dictation workstation: [id number] Interpreted By: Wilmar Hanks, STUDY: XR CHEST 1 VIEW; 01/30/2024 12:55 pm INDICATION: CLINICAL INFORMATION: Signs/Symptoms:Chest Pain. COMPARISON: None ACCESSION NUMBER(S): [id number] ORDERING CLINICIAN: BHAVIN BARRERA TECHNIQUE: Portable chest [...] INFORMATION: Signs/Symptoms:Chest Pain. COMPARISON: None ACCESSION NUMBER(S): [id number] ORDERING CLINICIAN: BHAVIN BARRERA TECHNIQUE: Portable chest [...] Wilmar Jones 01/30/2024 1:17 PM Dictation workstation: [id number] [facility] Work Phone: Radiology Study observation (narrative) [facility] Work Phone: XR Chest Single viewOrdered By: Wilmar Jones on 01-30-2024 [facility] Work Phone: No Panel InformationOrdered By: Marco Antonio Bermudez on 06-15-2023 Free Triiodothyronine (T3) pg/dL 2.4 pg/mL 2.18-3.98 [facility] Serum or plasma thyroid stim ulating hormone (TSH) measurement (units/volume)Ordered By: Marco Antonio Bermudez on 06-15-2023 TSH Qn 2.02 uIU/mL 0.358-3.74 [facility] Thin prep Papanicolaou smear with manual screeningOrdered By: Marco Antonio Bermudez on 06-15-2023 Thin prep Papanicolaou smear with manual screening 0.85 ng/dL 0.76-1.46 [facility] Absolute lymphocyte countOrd ered By: Marco Antonio Bermudez on 05-17-2023 Lymphocytes Auto (Unsp spec) [#/Vol] 1.55 10*3/uL 0.83-4.51 [facility] Automated lymphocyte count a s percentage of total leukocytesOrdered By: Marco Antonio Bermudez on 05-17-2023 Lymphocytes/100 WBC Auto (Unsp spec) 50.3 % 19-41 [facility] Basophil percentageOrdered B y: Marco Antonio Bermudez on 05-17-2023 Basophils/100 WBC (Bld) 0.3 % 0-1 [facility] Eosinophils/100 WBC (Bld) 1.3 % 0-5 [facility] Hemoglobin (Bld) [Mass/Vol] 14.0 g/dL 12.0-15.0 [facility] Monocytes/100 WBC (Bld) 11.7 % 0-10 [facility] Neutrophils (Bld) [#/Vol] 1.1 10*3/uL 2.0-7.7 [facility] Neutrophils/100 WBC (Bld) 36.1 % 47-70 [facility] WBC (Bld) [#/Vol] 3.1 10*3/uL 4.4-11.0 [facility] Determination of erythrocyte mean corpuscular volume (MCV)Ordered By: Marco Antonio Bermudez on 05-17-2023 MCV (RBC) [Entitic vol] 89.5 fL 81-99 [facility] Erythrocyte distribution wid th ratioOrdered By: Marco Antonio Bermudez on 05-17-2023 Erythrocyte distribution width (RBC) [Ratio] 13.2 % 11.6-14.6 [facility] Erythrocyte distribution wid th standard deviationOrdered By: Marco Antonio Bermudez on 05-17-2023 Erythrocyte distribution width (RBC) [Entitic vol] 43.6 fL 35.1-43.9 [facility] Hematocrit Auto (Bld) [Volum e fraction]Ordered By: Marco Antonio Bermudez on 05-17-2023 Hematocrit (Bld) [Volume fraction] 43.4 % 37-47 [facility] Immature granulocytes/100 WB C Auto (Bld)Ordered By: Marco Antonio Bermudez on 05-17-2023 Immature granulocytes/100 WBC (Bld) 0.300 % 0.0-0.9 [facility] Comment on above: IG% - Immature Granu locytes (promyelocytes, myelocytes and metamyelocytes) > 1% indicates that a LEFT SHIFT is Present. Laboratory - Chemistry and C hemistry - challengeOrdered By: Marco Antonio Bermudez on 05-17-2023 Cobalamin (Vitamin B12) [Mass/Vol] 784 pg/mL 211-911 [facility] Laboratory - Hematology and Cell countsOrdered By: Marco Antonio Bermudez on 05-17-2023 MCH (RBC) [Entitic mass] 28.9 pg 27.0-32.0 [facility] MCHC (RBC) [Mass/Vol] 32.3 g/dL 32-36 [facility] Nucleated RBC/100 WBC (Bld) [Ratio] 0 % 0-5 [facility] Platelet mean volume (Bld) [Entitic vol] 10.1 fL 6.2-12.0 [facility] Platelets (Bld) [#/Vol] 206 10*3/uL 150-450 [facility] No Panel InformationOrdered By: Marco Antonio Bermudez on 05-17-2023 Free Triiodothyronine (T3) pg/dL 2.2 pg/mL 2.18-3.98 [facility] RBC Auto (Bld) [#/Vol]Ordere d By: Marco Antonio Bermudez on 05-17-2023 RBC (Bld) [#/Vol] 4.85 10*6/uL 4.2-5.4 [facility] Serum or plasma thyroid stim ulating hormone (TSH) measurement (units/volume)Ordered By: Marco Antonio Bermudez on 05-17-2023 TSH Qn 2.54 uIU/mL 0.358-3.74 [facility] Thin prep Papanicolaou smear with manual screeningOrdered By: Marco Antonio Bermudez on 05-17-2023 Thin prep Papanicolaou smear with manual screening 0.90 ng/dL 0.76-1.46 [facility] Laboratory - Chemistry and C hemistry - challengeOrdered By: Marco Antonio Bermudez on 01-13-2023 Free T4 [Mass/Vol] 0.86 ng/dL 0.76-1.46 [facility] No Panel InformationOrdered By: Marco Antonio Bermudez on 01-13-2023 Free Triiodothyronine (T3) pg/dL 2.2 pg/mL 2.18-3.98 [facility] Thyroid Stimulating Hormone (TSH) 2.28 uIU/mL 0.358-3.74 [facility] Laboratory - Chemistry and C hemistry - challengeOrdered By: Marco Antonio Bermudez on 11-16-2022 Free T4 [Mass/Vol] 0.76 ng/dL 0.76-1.46 [facility] No Panel InformationOrdered By: Marco Antonio Bermudez on 11-16-2022 Free Triiodothyronine (T3) pg/dL 2.4 pg/mL 2.18-3.98 [facility] Thyroid Stimulating Hormone (TSH) 2.80 uIU/mL 0.358-3.74 [facility] Laboratory - Chemistry and C hemistry - challengeOrdered By: Dr. Bermudez on 05-18-2022 Free T4 [Mass/Vol] 0.93 ng/dL 0.76-1.46 [facility] No Panel InformationOrdered By: Dr. Bermudez on 05-18-2022 Free Triiodothyronine (T3) pg/dL 2.3 pg/mL 2.18-3.98 [facility] Thyroid Stimulating Hormone (TSH) 2.69 uIU/mL 0.358-3.74 [facility] Laboratory - Chemistry and C hemistry - challengeon 12-15-2021 Free T4 [Mass/Vol] 0.93 ng/dL 0.76-1.46 [facility] Work Phone: No Panel Informationon 12-15 Free Triiodothyronine (T3) pg/dL 2.5 pg/mL 2.18-3.98 [facility] Work Phone: Thyroid Stimulating Hormone (TSH) 2.71 uIU/mL 0.358-3.74 [facility] Work Phone: Laboratory - Chemistry and C hemistry - challengeon 07-03-2021 Free T4 [Mass/Vol] 0.83 ng/dL 0.76-1.46 [facility] Work Phone: No Panel Informationon 07-03 Free Triiodothyronine (T3) pg/dL 2.5 pg/mL 2.18-3.98 [facility] Work Phone: Thyroid Stimulating Hormone (TSH) 1.96 uIU/mL 0.358-3.74 [facility] Work Phone: Laboratory - Chemistry and C hemistry - challengeon 05-18-2021 Free T4 [Mass/Vol] 0.90 ng/dL 0.76-1.46 [facility] Work Phone: No Panel Informationon 05-18 Free Triiodothyronine (T3) pg/dL 2.3 pg/mL 2.18-3.98 [facility] Work Phone: Thyroid Stimulating Hormone (TSH) 3.69 uIU/mL 0.358-3.74 [facility] Work Phone: Laboratory - Chemistry and C hemistry - challengeon 04-17-2021 Free T4 [Mass/Vol] 0.84 ng/dL 0.76-1.46 [facility] Work Phone: No Panel Informationon 04-17 Free Triiodothyronine (T3) pg/dL 2.1 pg/mL 2.18-3.98 [facility] Work Phone: Thyroid Stimulating Hormone (TSH) 1.89 uIU/mL 0.358-3.74 [facility] Work Phone: THYROXINE,FREEon 10-07-2020 THYROXINE,FREE 1.11 ng/dL Normal 0.61 - 1.12 [facility] Comment on above: Result Comment: Thyr oxine Free testing is performed using different testing methodology at [facility] than at other [facility]. Direct result comparisons should only be [...] draw. Performed By: #### T 4FRE #### [address] [address] TRIIODOTHYRONINE,FREEon 09-25 TRIIODOTHYRONINE,FREE 4.4 pg/mL High 2.3 - 4.2 [facility] Comment on above: Performed By: #### T 3FRE #### [facility] [address] [place] [address] TSHon 10-07-2020 TSH Qn 0.01 m[IU]/L Low 0.44 - 3.98 [facility] Comment on above: Result Comment: TSH testing is performed using different testing methodology at [facility] than at other [facility]. Direct result comparisons should only be made within the same method. Performed By: #### T SH2 #### [address] [address] CBCon 09-16-2020 Erythrocyte distribution width (RBC) [Ratio] 13.0 % Normal 11.5 - 14.5 [facility] Comment on above: Performed By: #### C BC #### [address] [address] Hematocrit (Bld) [Volume fraction] 42.2 % Normal 36.0 - 46.0 [facility] Comment on above: Performed By: #### C BC #### [address] [address] Hemoglobin (Bld) [Mass/Vol] 13.9 g/dL Normal 12.0 - 16.0 [facility] Comment on above: Performed By: #### C BC #### [address] [address] MCHC (RBC) [Mass/Vol] 32.9 g/dL Normal 32.0 - 36.0 [facility] Comment on above: Performed By: #### C BC #### [address] [address] MCV (RBC) [Entitic vol] 93 fL Normal 80 - 100 [facility] Comment on above: Performed By: #### C BC #### [address] [address] Platelets (Bld) [#/Vol] 284 10*3/uL Normal 150 - 450 [facility] Comment on above: Performed By: #### C BC #### [address] [address] RBC 4.53 x10E12/L Normal 4.00 - 5.20 [facility] Comment on above: Performed By: #### C BC #### [address] [address] WBC (Bld) [#/Vol] 4.4 10*3/uL Normal 4.4 - 11.3 [facility] Comment on above: Performed By: #### C BC #### [address] [address] COMPREHENSIVE PANELon 2020 Albumin [Mass/Vol] 4.0 g/dL Normal 3.4 - 5.0 [facility] Comment on above: Performed By: #### C MP #### [address] [address] ALP [Catalytic activity/Vol] 74 U/L Normal 33 - 110 [facility] Comment on above: Performed By: #### C MP #### [address] [address] ALT [Catalytic activity/Vol] 27 U/L Normal 7 - 45 [facility] Comment on above: Result Comment: Tony ents treated with Sulfasalazine may generate falsely decreased results for ALT. Performed By: #### C MP #### [place] [id number] Anion gap [Moles/Vol] 8 mmol/L Low 10 - 20 [facility] Comment on above: Performed By: #### C MP #### [place] [address] AST [Catalytic activity/Vol] 16 U/L Normal 9 - 39 [facility] Comment on above: Performed By: #### C MP #### [place] [id number] Bilirubin [Mass/Vol] 0.4 mg/dL Normal 0.0 - 1.2 [facility] Comment on above: Performed By: #### C MP #### [place] [id number] Calcium [Mass/Vol] 9.1 mg/dL Normal 8.6 - 10.3 [facility] Comment on above: Performed By: #### C MP #### [place] [id number] Chloride [Moles/Vol] 106 mmol/L Normal 98 - 107 [facility] Comment on above: Performed By: #### C MP #### [address] [address] Creatinine [Mass/Vol] 0.69 mg/dL Normal 0.50 - 1.05 [facility] Comment on above: Performed By: #### C MP #### [place] [id number] GFR- AM. >60 Normal >60 [facility] Comment on above: Result Comment: CALC ULATIONS OF ESTIMATED GFR ARE PERFORMED USING THE MDRD STUDY EQUATION FOR THE IDMS-TRACEABLE CREATININE METHODS. CLIN CHEM 2007;53:766-72 Performed By: #### C MP #### [address] [address] GFR-NON AM. >60 Normal >60 [facility] Comment on above: Performed By: #### C MP #### [address] [address] Glucose [Mass/Vol] 89 mg/dL Normal 74 - 99 [facility] Comment on above: Performed By: #### C MP #### [address] [address] HCO3 (Bld) [Moles/Vol] 29 mmol/L Normal 21 - 32 [facility] Comment on above: Performed By: #### C MP #### [address] [address] Potassium [Moles/Vol] 4.4 mmol/L Normal 3.5 - 5.3 [facility] Comment on above: Performed By: #### C MP #### [address] [address] Protein [Mass/Vol] 6.6 g/dL Normal 6.4 - 8.2 [facility] Comment on above: Performed By: #### C MP #### [address] [address] Sodium [Moles/Vol] 139 mmol/L Normal 136 - 145 [facility] Comment on above: Performed By: #### C MP #### [address] [address] Urea nitrogen [Mass/Vol] 14 mg/dL Normal 6 - 23 [facility] Comment on above: Performed By: #### C MP #### [address] [address] TSHon 09-16-2020 TSH Qn 0.03 m[IU]/L Low 0.44 - 3.98 [facility] Comment on above: Result Comment: TSH testing is performed using different testing methodology at [facility] than at other [facility]. Direct result comparisons should only be made within the same method. Performed By: #### T SH2 #### [place] [address] MRI BRAIN WO IVCONon 018 MRI BRAIN WO IVCON * * *Final Report* * *DATE OF EXAM: Oct 17 2017 3:51PM [facility] 0294 - MRI BRAIN WO IVCON / [...] The orbits and extracranial soft tissues are unremarkable.IMPRESSION:S alfreda punctate focus of T2/FLAIR hyperintensity in the right parietal subcortical white matter, which may be due to remote insult, or seen in patients with migraines.Otherwise, unremarkable MRI of the brain. No intracranial or intraorbital mass on this noncontrast examination.Outreach And Education Social Worker ist: PSCB Transcribe Date/Time: Oct 17 2017 3:56PDictated by : HECTOR LEMA MDThis examination was interpreted and the report reviewed and electronically signed by: HECTOR LEMA MD on Oct 17 2017 4:02PM [id number] [facility] ([id number]) 1985 [facility] Department09/15/17 YOAN MASON JR During your visit today, we recorded the following information about you:Yoan Mason MD 09/15/2017 4:58 PM SignedContacted pt's insurance and will authorize MRI brain for pupillary asymmetry.Auth # is [id number].Allergies As of Date: 09/15/2017(No Known Allergies)Date Reviewed: [...] Of Date 09/15/2017 Noted Resolved Painful intercourse [JVC1167] INVALID FOR*01/21/2014 Supervision of normal first [Z34.00] INVALID FOR*08/14/2014 More... Supervision of normal [Z34.90] INVALID FOR*08/04/2017Encounter Number: [id number] Status:Closed by YOAN MASON on 09/15/17 [facility] 08-08-2017 CNOV Office Visit (NEURMM) KELLY SUGGS ([id number]) 1985 FDate Time Provider Department08/08/17 10:00 AM YOAN MASON JR During your visit today, we recorded the following information about you: Pulse Blood pressure Weight 63/minute 111/69 80.3 kgYoan Mason MD 08/08/2017 11:00 AM SignedNEW PATIENT (CONSULT) HISTORY AND PHYSICAL EXAMPRIMARY CARE PHYSICIAN: No primary care provider on file.REASON FOR CONSULT: Asymmetric pupilsREFERRING PHYSICIAN: Zunilda Arango (Laurie), A*CHIEF COMPLAINT: Asymmetric pupilsConsultation requested by Zunilda Arango (Laurie)Ebony* for an opinion regardingchief complaint ofPatient presents [...] now post . 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[place], [place] who reported that eye exam was [...] Negative for chest pain, leg swelling or palpitations.GASTROINTEST INAL: Negative for abdominal discomfort, blood in stools or blackstools or change in bowel habitsGENITOURINARY: No history of dysuria, frequency or incontinenceMUSCULOSKELET AL: Negative for joint pain or swelling, back pain or muscle pain.NEUROLOGIC:Negative for focal numbness or weakness, headaches and dizziness orsyncope, vision changes, speech/language changes, changes in gait or falls --besides those complaints as above in HPI.SKIN:Negative for lesions, rash, and itching.PSYCHIATRIC: Negative for sleep disturbance, mood disorder and recentpsychosocial stressors.HEMATOLOGIC/LYM PHATIC/IMMUNOLOGIC:Negati ve for prolonged bleeding, bruisingeasily or swollen nodes.ENDOCRINE: Negative for cold or heat intolerance, polyuria, polydipsia andgoiter.The remainder of the ROS was reviewed and is negative.LAB/IMAGING:Revi ewed and include:WBC (k/uL)Date Value03/30/2017 7.24RBC (m/uL)Date Value03/30/2017 3.70 (L)Hemoglobin (g/dL)Date Value03/30/2017 11.7Hematocrit (%)Date Value03/30/2017 35.2 (L)MCV (fL)Date Value03/30/2017 95.1MCH (pG)Date Value03/30/2017 31.6MCHC (g/dL)Date Value03/30/2017 33.2RDW-CV (%)Date Value03/30/2017 12.6Platelet Count (k/uL)Date Value03/30/2017 255MPV (fL)Date Value03/30/2017 10.9URINLAYSISGlucose, UrineDate Value Ref Range Whluya4306/22/2017 neg Neg mg/dL Final Protein, UrineDate Value Ref Range Nkwbpj6106/22/2017 neg Neg mg/dL Final MEDICATION S:Norethindrone, Contraceptive, 0.35 mg tablet Take 1 tablet by mouth once daily.dibucaine (NUPERCAINAL) 1 % oint 1 Tube by RECTAL route as needed.ibuprofen (MOTRIN) 600 mg tablet Take 1 tablet by mouth every 6 hours asneeded.POLYETHYLENE GLYCOL 3350 (MIRALAX ORAL) Take by mouth. Bblahasz-Ct-Grp-Fe-FA ( VITAMIN) tab Take 1 tablet by [...] ICD9: 300.29, ICD10: F40.240- LORAZEPAM 0.5 MG Yudi Kaur Provider: ZUNILDA ARANGO (GUZMAN) [[id number]]Allergies As of Date: 08/08/2017(No Known Allergies)Date Reviewed: 08/08/2017Reviewed by: Yoan Mason Jr. - Fully AssessedReason for Visit: New Patient [172]Primary Visit Diagnosis:Pupillary abnormality, left [H21.562] Other Visit Diagnosis:Claustrophobia [F40.240]Order(s):MRI BRAIN WO IVCON [[id number]] Order #: [id number] FUTURE MRA BRAIN WO IVCON [[id number]] Order #: [id number] FUTURE MRA CAROTID WO IVCON [[id number]] Order #: [id number] FUTURE [] LORazepam (ATIVAN) 0.5 mg tabTake [...] Of Date 08/08/2017 Noted Resolved Painful intercourse [EAA2350] INVALID FOR*01/21/2014 Supervision of normal first [Z34.00] INVALID FOR*08/14/2014 More... Supervision of normal [Z34.90] INVALID FOR*08/04/2017Prescriptio ns ordered this encounter Disp Refills Start End [...] (around 11/08/2017).Follow-up and Disposition History RecordedEncounter Number: [id number] Status:Closed by YOAN MASON on 08/08/17 Normal [facility] PROGRESSon 08-08-2017 PROGRESS HNO ID: [id number] thor: Yoan Mason Jr.Service: (none)Author Type: PhysicianType: Progress NotesFiled: 08/08/2017 11:00 AMNote Text:NEW PATIENT (CONSULT) HISTORY AND PHYSICAL EXAMPRIMARY CARE PHYSICIAN: No primary care provider on file.REASON FOR CONSULT: Asymmetric pupilsREFERRING PHYSICIAN: Zunilda Arango (Laurie)Ebony*CHIEF COMPLAINT: Asymmetric pupilsConsultation requested by Zunilda Arango Cnm, A* for an opinionregarding chief complaint ofPatient presents with:New Patient and my final recommendations will be communicated back to the requestingphysician by way of shared medical record or letter via US mail.HISTORY OF PRESENT ILLNESS: Kelly Suggs is a 32 year old female, BMI26.91 kg/m2 with a PMH significant as listed below. Patient states thatfollowing in fall of 2015, has random dilatation of the leftpupil. States it was noticed throughout and now post . Statesadriane an hl7 developer in [place], [place] who reported that eye exam wasnormal [...] Negative for chest pain, leg swelling or palpitations.GASTROINTEST INAL: Negative for abdominal discomfort, blood in stools orblack stools or change in bowel habitsGENITOURINARY: No history of dysuria, frequency or incontinenceMUSCULOSKELET AL: Negative for joint pain or swelling, back pain or musclepain.NEUROLOGIC:Neg ative for focal numbness or weakness, headaches anddizziness or syncope, vision changes, speech/language changes, changes ingait or falls -- besides those complaints as above in HPI.SKIN:Negative for lesions, rash, and itching.PSYCHIATRIC: Negative for sleep disturbance, mood disorder and recentpsychosocial stressors.HEMATOLOGIC/LYM PHATIC/IMMUNOLOGIC:Negati ve for prolonged bleeding,bruising easily or swollen nodes.ENDOCRINE: Negative for cold or heat intolerance, polyuria, polydipsia andgoiter.The remainder of the ROS was reviewed and is negative.LAB/IMAGING:Revi ewed and include:WBC (k/uL)Date Value03/30/2017 7.24RBC (m/uL)Date Value03/30/2017 3.70 (L)Hemoglobin (g/dL)Date Value03/30/2017 11.7Hematocrit (%)Date Value03/30/2017 35.2 (L)MCV (fL)Date Value03/30/2017 95.1MCH (pG)Date Value03/30/2017 31.6MCHC (g/dL)Date Value03/30/2017 33.2RDW-CV (%)Date Value03/30/2017 12.6Platelet Count (k/uL)Date Value03/30/2017 255MPV (fL)Date Value03/30/2017 10.9URINLAYSISGlucose, UrineDate Value Ref Range Oprgjf5306/22/2017 neg Neg mg/dL Final Protein, UrineDate Value Ref Range Phonzp6006/22/2017 neg Neg mg/dL Final MEDICATION S:Norethindrone, Contraceptive, 0.35 mg tablet Take 1 tablet by mouth oncedaily.dibucaine (NUPERCAINAL) 1 % oint 1 Tube by RECTAL route as needed.ibuprofen (MOTRIN) 600 mg tablet Take 1 tablet by mouth every 6 hours asneeded.POLYETHYLENE GLYCOL 3350 (MIRALAX ORAL) Take by mouth. Lveeoufr-Qm-Kjh-Fe-FA ( VITAMIN) tab Take 1 tablet bymouth.DOCOSAHEXANOIC [...] ICD9: 300.29, ICD10: F40.240- LORAZEPAM 0.5 MG Fara Mason MD Normal [facility] PROGRESSon 08-04-2017 PROGRESS HNO ID: [id number] thor: Corey Chavez ([facility])Service: (none)Author Type: MidwifeType: Progress NotesFiled: 08/04/2017 4:55 PMNote Text: VISITKelly Suggs is a 32 year old year old here for visit.Delivery Summary:Pt delivered 06/[address] Prees. Male. [place]. 0mi26ij. Recovery:Feeding: Breast feedingBreastfeeding problems: pt states she [...] Laterality Date- PAST SURGICAL HISTORY OF 2000 [place] Teeth Removal- PAST SURGICAL HISTORY OF 1994 [...] masses.PELVIC: external genitalia normal, normal Bartholin's glands, urethra,[place]'s glands, no vulvar lesions, no cervical lesions, [...] Raynaud's if diagnosedPatient to discuss evaluation of for thrush if patient's symptomsdo not improveFollow up: Progesterone only OCP - patient will call when no longerbreastfeeding, referred back to PCP for care, RTC for annual exams andPRN, POP prescription given per Johnson Chavez APRN.CNM Normal [facility] PROGRESSon 08-01-2017 PROGRESS HNO ID: [id number] thor: Zunilda Arango ([place]uz[place])Service: (none)Author Type: MidwifeType: Progress NotesFiled: 08/01/2017 2:22 PMNote Text:Brand Engineer offered: Patient declines.Kelly Suggs is a 32 [...] Laterality Date- PAST SURGICAL HISTORY OF 2000 [place] Teeth Removal- PAST SURGICAL HISTORY OF 1994 [...] Partners with: Male control/protection: NoneCurrent Outpatient Prescriptions: Uzniaxhg-Mx-Iml-Fe-FA ( VITAMIN) tab Take 1 tablet bymouth.dibucaine [...] callProbiotic by mouth for 30-60 daysZunilda Arango APRN.CNJustin Normal [facility] CNOVon 06-29-2017 CNOV Office Visit (WOOB) KELLY SUGGS ([id number]) 1985 FDa Time Provider Department06/29/17 11:30 AM DEENA MEJIA WOOB During your visit today, [...] Laterality Date- PAST SURGICAL HISTORY OF 2000 [place] Teeth Removal- PAST SURGICAL HISTORY OF 1994 [...] Yes Partners with: Male control/protection: NoneCurrent Outpatient Prescriptions:POLYETHYLEN E GLYCOL 3350 (MIRALAX ORAL) Take by mouth. Vpggidhv-Kx-Fqy-Fe-FA ( VITAMIN) tab Take 1 tablet by mouth.DOCOSAHEXANOIC ACID (DHA ORAL) Take by mouth.No current facility-administered medications for this visit.Allergies As of Date: 06/29/2017(No Known Allergies)Fully Assessed 06/29/2017REVIEW OF [facility] and current medication updated:YesEXAM: BP 102/64 Wt 176 lb (79.8kg)GENERAL: pleasant, female in no apparent distressHEENT: Normocephalic and atraumaticNECK: full range of motionPELVIC: external genitalia normal, normal Bartholin's glands, urethra, Ple[place] Groves'sglands, no cervical lesions, physiologic discharge present, laceration [...] Of Date 06/29/2017 Noted Resolved Painful intercourse [RLB4263] INVALID FOR*01/21/2014 Supervision of normal first [Z34.00] [...] by DEENA LEUNG MD on 06/29/17 Normal [facility] 06-29-2017 HOSP Patient Update (WOOB) KELLY SUGGS ([id number]) 1985 [facility] Time Provider Department06/29/17 CHUCHO PERES During your visit today, we recorded the following information about you:Poonam Muñoz LPN 06/29/2017 11:42 AM SignedPt delivered via at [facility] on 06/23[facility] Peres. See OB Outcome note.Poonam Muñoz LPNAllergies As of Date: 06/29/2017(No Known Allergies)Date Reviewed: 06/22/2017Reviewed by: Radha Molina Ma - Fully AssessedPrescriptions as of 06/29/2017 Sig: MIRALAX ORAL Take by mouth. VITAMIN,CALCIUM,MINE* Take 1 tablet by mouth. DHA ORAL Take by mouth.Problem List As Of Date 06/29/2017 Noted Resolved Painful intercourse [TLF6856] INVALID FOR*01/21/2014 Supervision of normal first [Z34.00] INVALID FOR*08/14/2014 More... Supervision of normal [Z34.90] INVALID FOR* Status:Closed by POONAM MUÑOZ LPN on 06/29/17 Normal [facility] PROGRESSon 06-29-2017 PROGRESS HNO ID: [id number] thor: Deena Cleaning: (none)Author Type: PhysicianType: Progress NotesFiled: 06/29/2017 1:32 PMNote Text:Brand Engineer offered: Patient declines.Kelly Suggs is a 32 [...] Laterality Date- PAST SURGICAL HISTORY OF 2000 [place] Teeth Removal- PAST SURGICAL HISTORY OF 1994 [place] Removal from legFAMILY HISTORYProblem Relation Age of Onset- Thyroid Mother- Fibroids [OTHER] Mother- Diabetes Maternal Grandmother- Heart Maternal Grandmother- Heart Paternal Grandfather CHF- Fibroids [OTHER] Maternal AuntSocial History Marital status: Spouse name: Ramses Years of education: 16 Number of children: 1Occupational 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 Vrwrpgtr-Wa-Frp-Fe-FA ( VITAMIN) tab Take 1 tablet bymouth.DOCOSAHEXANOIC ACID (DHA ORAL) Take by mouth.No current facility-administered medications for this visit.Allergies As of Date: 06/29/2017(No Known Allergies)Fully Assessed 06/29/2017REVIEW OF [facility] and current medication updated:YesEXAM: BP 102/64 Wt 176 lb (79.8kg)GENERAL: pleasant, female in no apparent distressHEENT: Normocephalic and atraumaticNECK: full range of motionPELVIC: external genitalia normal, normal Bartholin's glands, urethra,P[place]'s glands, no cervical lesions, physiologic discharge present,laceration [...] to office if worsening symptomsDeena Jones MD [facility] PROGRESS HNO ID: [id number] Author: Poonam Muñoz LPN Service: (none) Author Type: (none) Type: Progress Notes Filed: 06/29/2017 11:42 AM Note Text: Pt delivered via at [facility] on 06/23/[address] Peres. See OB Outcome note. Poonam Muñoz LPN [facility] Shyanne 06-21-2017 RANDYN Telephone (WOOB) KELLY SUGGS ([id number]) 1985 [facility] Time Provider Department06/21/17 DEENA MEJIA WOOB During your visit today, [...] If regular contractions notifyoffice or go to [facility];Gabriele Chong LPN 06/21/2017 9:45 AM AddendumPatient notified by voicemailAllergies As of Date: 06/21/2017(No Known Allergies)Date Reviewed: 06/20/2017Reviewed by: Zunilda Arango APRN.GUZMANM - Fully AssessedReason for Visit: Care [86]Prescriptions as of 06/21/2017 Sig: MIRALAX ORAL Take by mouth. VITAMIN,CALCIUM,MINE* Take 1 tablet by mouth. DHA ORAL Take by mouth.Problem List As Of Date 06/21/2017 Noted Resolved Painful intercourse [XER6049] INVALID FOR*01/21/2014 Supervision of normal first [Z34.00] INVALID FOR*08/14/2014 More... Supervision of normal [Z34.90] INVALID FOR* Status:Closed by TAMIKO CHONG LPN on 06/21/17 Normal [facility] PROGRESSon 06-20-2017 PROGRESS HNO ID: [id number] thor: Zunilda Arango APRN.CNMService: (none)Author Type: MidwifeType: Progress NotesFiled: 06/20/2017 3:10 PMNote Text:NST SUMMARYPROVIDER ASSESSMENT AND INTERPRETATIONKelly Suggs is a 32 year old female, , who is at 39w4d with anEDD of 06/23/2017, by Last Menstrual Period dating method.Indications for NST: Decreased MovementBaseline: 125Variability: ModerateAccelerations: Present 15 X 15Decelerations: NoneContractions: TOCO: IrregularInterpretation: Category ISIGNATURE: Zunilda Arango APRN.CNM Normal [facility] GROUP B STREP PCRon 06-01-19 GROUP B STREP PCR Negative Normal [facility] Comment on above: Performed By: #### G BPCR ####[facility] [address] [place], [place] [id number] PROGRESSon 05-09-2017 PROGRESS HNO ID: [id number] thor: Vi Meredithervice: (none)Author Type: (none)Type: Progress NotesFiled: 05/09/2017 12:01 [...] or severely ill: YesPatient denies history of Guillain-[place] Syndrome (a severe paralyticillness): YesTdap Adacel injection was given without incident.See immunizations for details of immunizations administered today.VIS sheet provided: YesProvider Zunilda Arango CNM was present in office at time of injection.Vi Reed Ma Normal [facility] HOSPon 04-25-2017 HOSP Routine Off ice Visit (WOOB) KELLY SUGGS ([id number]) 1985 [facility] Time Provider Department04/25/17 11:00 AM COREY CHAVEZ (LAURIE) WOOB During your visit today, we recorded the following information about you: Blood pressure Weight 110/64 85.1 kgMiranda Maya Ma 04/25/2017 11:08 AM SignedSEQUENTIAL SCREENINGSThe [facility] offers sequential screenings for women who [...] testing. It will require anappointment with our overhead door technician. This is not an ultrasound performedby [...] the above symptoms, contact our office at [phone] andask to speak with a nurse.After hours, you can call doctors registry at [phone] OR call [facility] at [phone] and ask to have the doctor master control operator paged.If you consider this an emergency, dial [phone] or go to your nearest emergencydepartment.NEED HELP? Are you dealing with a violent or abusive relationship? Are you avictim of rape or sexual assult? Call [facility] ([place]) 24 hourCrisis Hotline: 439.617.7758 or 651-795-6625. MANUALYour Guide to a Healthy manual is now on-line. [facility]org/ HealthyPregnancyGuide to download your free copyReferring Provider: SELF [200]Allergies As of Date: 04/25/2017(No Known Allergies)Date Reviewed: 04/25/2017Reviewed by: Miranda Maya Ma - Fully AssessedReason for Visit: Care [86]Primary Visit Diagnosis:Encounter for supervision of other normal in third trimester [Z34.83] Other Visit Diagnosis:31 weeks gestation of [Z3A.31]Order(s):URINE OB DIP B/O [[id number]] Order #: [id number] as of 04/25/2017 Sig: MIRALAX ORAL Take by mouth. VITAMIN,CALCIUM,MINE* Take 1 tablet by mouth. DHA ORAL Take by mouth.Problem List As Of Date 04/25/2017 Noted Resolved Painful intercourse [NRA3297] INVALID FOR*01/21/2014 Supervision of normal first [Z34.00] INVALID FOR*08/14/2014 More... Supervision of normal [Z34.90] INVALID FOR* Other instructions from your clinician: SEQUENTIAL SCREENINGS The [facility] offers sequential screenings for women who [...] It will require an appointment with our overhead door technician. This is not an ultrasound performed [...] the above symptoms, contact our office at [phone] and ask to speak with a nurse. After hours, you can call doctors registry at [phone] OR call [facility] at [phone] and ask to have the doctor master control operator paged. If you consider this an emergency, dial or go to your nearest emergency department. NEED HELP? Are you dealing with a violent or abusive relationship? Are you a victim of rape or sexual assult? Call [facility] ([facility] 24 hour Crisis Hotline: 673.543.7770 or 066-764-3261. MANUAL Your Guide to a Healthy manual is now on-line. Visit [email or web address]/Healt hyPregnancyGuide to download your free copyMedications Discontinued During This Encounter PSYLLIUM NADIA (METAMUCIL ORAL) 04/25/2017 Class: Historical Med Route: ORAL Sig: Take by mouth as needed. Disc: Erroneous entryDisposition: Return in about 2 weeks (around 05/09/2017), or if symptoms worsen or fail to improve.Follow-up and Disposition History RecordedEncounter Number: [id number] Status:Closed by COREY CHAVEZ CNM on 04/25/17 [facility] 04-11-2017 [facility] Routine Off ice Visit (WOOB) KELLY SUGGS ([id number]) 1985 FDate Time Provider Department04/11/17 11:30 AM LAWRENCE DUBON ([facility]) WOOB During your visit today, we recorded the following information about you: Blood pressure Weight 118/70 83.6 kgVi Reed Rosa Elena 04/11/2017 11:35 AM SignedSEQUENTIAL SCREENINGSThe [facility] offers [facility] screenings for women who [...] testing. It will require anappointment with our overhead door technician. This is not an ultrasound performedby [...] the above symptoms, contact our office at [phone] andask to speak with a nurse.After hours, you can call doctors registry at [phone] OR [facility] at [phone] and ask to have the doctor master control operator paged.If you consider this an emergency, dial 91-8 or go to your nearest emergencydepartment.NEED HELP? Are you dealing with a violent or abusive relationship? Are you avictim of rape or sexual assult? Call [facility] ([place]) 24 hourCrisis Hotline: 994.578.3715 or 036-578-5958. MANUALYour Guide to a Healthy manual is now on-line. [email or web address]/ HealthyPregnancyGuide to download your free copyReferring Provider: SELF [200]Allergies As of Date: 04/11/2017(No Known Allergies)Date Reviewed: 04/11/2017Reviewed by: Vi Reed Ma - Fully AssessedReason for Visit: Care [86]Primary Visit Diagnosis:Encounter for supervision of normal first in second trimester [Z34.02] Other Visit Diagnosis:29 weeks gestation of [Z3A.29]Order(s):URINE OB DIP B/O [[id number]] Order #: [id number] as of 04/11/2017 Sig: METAMUCIL ORAL Take by mouth as needed. VITAMIN,CALCIUM,MINE* Take 1 tablet by mouth. DHA ORAL Take by mouth.Problem List As Of Date 04/11/2017 Noted Resolved Painful intercourse [ZKZ7869] INVALID FOR*01/21/2014 Supervision of normal first [Z34.00] INVALID FOR*08/14/2014 More... Supervision of normal [Z34.90] INVALID FOR* Other instructions from your clinician: SEQUENTIAL SCREENINGS The [facility] offers sequential screenings for women who [...] It will require an appointment with our overhead door technician. This is not an ultrasound performed [...] the above symptoms, contact our office at [phone] and ask to speak with a nurse. After hours, you can call doctors registry at [phone] OR call [facility] at [phone] and ask to have the doctor master control operator paged. If you consider this an emergency, dial 8-4-4 or go to your nearest emergency department. NEED HELP? Are you dealing with a violent or abusive relationship? Are you a victim of rape or sexual assult? Call [facility] ([place]) 24 hour Crisis Hotline: 362.369.3720 or 901-113-2224. MANUAL Your Guide to a Healthy manual is now on-line. Visit [email or web address]/Healt hyPregnancyGuide to download your free copyDisposition: Return in about 2 weeks (around 04/25/2017).Follow-up and Disposition History RecordedEncounter Number: [id number] Status:Closed by LAWRENCE DUBON on 04/11/17 Normal [facility] 50g, 1hr gest. GSCRakesh 03-30 Glucose mass conc 75 mg/dL Normal 74-134 [facility] [place] [facility] Comment on above: Result Comment: Amer [place] medical cent[place] Congress of Obstetricians and Gynecologists (Sheyla/Rebecca) guidelines state a gestational diabetes mellitus positive screen is made, in women not previously diagnosed with overt diabetes, when the 1 hr plasma glucose level is equal to or above 140 mg/dL. The [facility] Telemetry Nurse and Women[facility] recommends a 135 mg/dL cutoff. Performed By: #### G LTGST ####[place] [address], [place] [phone] CBC and Differentialon 03-30 Abs Baso <0.03 Normal <0.11 [facility] Comment on above: Performed By: #### C BCDIF ####[place] [address] [place] [phone] Abs Meeker 0.73 k/uL Normal <0.87 [facility] Comment on above: Performed By: #### C BCDIF ####[address] [place] [phone] Abs Neut 4.70 k/uL Normal 1.45-7.50 [facility] Comment on above: Performed By: #### C BCDIF ####[place] [address] [place] [phone] Basophils/100 WBC Auto (Bld) 0.3 % Normal [facility] Comment on above: Performed By: #### C BCDIF ####[place] [address], [place] [phone] DTYPE Auto Diff Normal [facility] Comment on above: Performed By: #### C BCDIF ####[place] [address] [place] [phone] Eosinophils 0.08 10*3/uL Normal <0.46 [facility] Comment on above: Performed By: #### C BCDIF ####[place] [address], [place] [phone] Eosinophils/100 leukocytes 1.1 % Normal [facility] Comment on above: Performed By: #### C BCDIF ####[place] [address], [place] [phone] Erythrocyte distribution width Auto Ratio (RBC) 12.6 % Normal 11.5-15.0 [facility] Comment on above: Performed By: #### C BCDIF ####[address], [place] [phone] Erythrocytes (RBC) 0.0 /100 WBC Normal 0 [facility] Comment on above: Performed By: #### C BCDIF ####[address] [phone] Erythrocytes (RBC) 10*6/uL Normal <0.01 [facility] Comment on above: Performed By: #### C BCDIF ####[address] [phone] Erythrocytes (RBC) 3.70 10*6/uL Low 3.90-5.20 [facility] Comment on above: Performed By: #### C BCDIF ####[address] [phone] Hematocrit (HCT) 35.2 % Low 36.0-46.0 [facility] Comment on above: Performed By: #### C BCDIF ####[address] [phone] Hemoglobin mass conc (Bld) 11.7 g/dL Normal 11.5-15.5 [facility] Comment on above: Performed By: #### C BCDIF ####[address] [phone] Lymphocytes 1.71 10*3/uL Normal 1.00-4.00 [facility] Comment on above: Performed By: #### C BCDIF ####[address] [phone] Lymphocytes/100 leukocytes 23.6 % Normal [facility] Comment on above: Performed By: #### C BCDIF ####[facility], [place] [phone] MCH 31.6 pG Normal 26.0-34.0 [facility] Comment on above: Performed By: #### C BCDIF ####[place] [address], [place] [phone] MCHC mass conc (RBC) 33.2 g/dL Normal 30.5-36.0 [facility] Comment on above: Performed By: #### C BCDIF ####[place] [address], [place] [phone] MCV 95.1 fL Normal 80.0-100.0 [facility] Comment on above: Performed By: #### C BCDIF ####[place] [address], [place] [phone] Monocytes/100 leukocytes 10.1 % Normal [facility] Comment on above: Performed By: #### C BCDIF ####[place] [address], [place] [phone] Neutrophils/100 WBC Auto (Bld) 64.9 % Normal [facility] Comment on above: Performed By: #### C BCDIF ####[place] [address], [place] [phone] Platelet mean volume (PMV) 10.9 fL Normal 9.0-12.7 [facility] Comment on above: Performed By: #### C BCDIF ####[place] [address], [place] [phone] Platelets 255 10*3/uL Normal 150-400 [facility] Comment on above: Performed By: #### C BCDIF ####[place] [address], [place] [phone] WBC (Leukocytes) 7.24 10*3/uL Normal 3.70-11.00 [facility] Comment on above: Performed By: #### C BCDIF ####[facility] [address] [place], [place] [phone] HOSPon 03-30-2017 [facility] Routine Off ice Visit (WOOB) KELLY SUGGS ([id number]) 1985 FDate Time Provider Department03/30/17 3:30 PM ZUNILDA ARANGO ([facility]) WOOB During your visit today, we recorded the following information about you: Blood pressure Weight 102/68 82.6 kgPaulying Brianna [place] 03/30/2017 3:45 PM SignedSEQUENTIAL SCREENINGSThe [facility] offers sequential screenings for women who [...] testing. It will require anappointment with our overhead door technician. This is not an ultrasound performedby [...] the above symptoms, contact our office at [phone] andask to speak with a nurse.After hours, you can call [employer] at [phone] OR call [facility] at [phone] and ask to have the doctor master control operator paged.If you consider this an emergency, dial 9-1-5 or go to your nearest emergencydepartment.NEED HELP? Are you dealing with a violent or abusive relationship? Are you avictim of rape or sexual assult? Call [facility] ([place]) 24 hourCrisis Hotline: 193.461.2778 or 852-975-0770. MANUALYour Guide to a Healthy manual is now on-line. [email or web address]/ HealthyPregnancyGuide to download your free copyReferring Provider: SELF [200]Allergies As of Date: 03/30/2017(No Known Allergies)Date Reviewed: 03/30/2017Reviewed by: Zunilda Sheffield) Nba - Fully AssessedReason for Visit: Care [86]Primary Visit Diagnosis:Encounter for supervision of normal first in second trimester [Z34.02] Other Visit Diagnosis:27 weeks gestation of [Z3A.27]Order(s):URINE OB DIP B/O [[id number]] Order #: [id number] CBC + DIFF [SQCBCDIF] Order #: [id number] FUTURE GEST GLUC SCREEN, 1-HR, 50 GM, NON-FASTING [SQGLTGST] Order #: [id number] FUTUREPrescriptions as of 03/30/2017 Sig: VITAMIN,CALCIUM,MINE* Take 1 tablet by mouth. DHA ORAL Take by mouth.Problem List As Of Date 03/30/2017 Noted Resolved Painful intercourse [VVS2631] INVALID FOR*01/21/2014 Supervision of normal first [Z34.00] INVALID FOR*08/14/2014 More... Supervision of normal [Z34.90] INVALID FOR* Other instructions from your clinician: SEQUENTIAL SCREENINGS The [facility] offers sequential screenings for women who [...] It will require an appointment with our overhead door technician. This is not an ultrasound performed [...] the above symptoms, contact our office at [phone] and ask to speak with a nurse. After hours, you can call doctors registry at [phone] OR call [facility] at [phone] and ask to have the doctor master control operator paged. If you consider this an emergency, dial 6-7-8 or go to your nearest emergency department. NEED HELP? Are you dealing with a violent or abusive relationship? Are you a victim of rape or sexual assult? Call [facility] ([place]) 24 hour Crisis Hotline: 552.143.4667 or 780-286-1612. MANUAL Your Guide to a Healthy manual is now on-line. Visit [email or web address] hyPregnancyGuide to download your free copyMedications Discontinued During [...] for BRODERICK.Follow-up and Disposition History RecordedEncounter Number: [id number] Status:Closed by ZUNILDA ARANGO on 03/30/17 [facility] 03-07-2017 [facility] Routine Off ice Visit (WOOB) KELLY SUGGS ([id number]) 1985 FDate Time Provider Qqegkzokzd85/11/17 2:00 PM ZUNILDA ARANGO ([facility]) WOEBONY During your visit today, we recorded the following information about you: Blood pressure Weight 122/68 79.8 kgHayley Francesco [place] 03/07/2017 2:15 PM SignedSEQUENTIAL SCREENINGSThe [facility] offers sequential screenings for women who [...] testing. It will require anappointment with our overhead door technician. This is not an ultrasound performedby [...] the above symptoms, contact our office at [phone] andask to speak with a nurse.After hours, you can call doctors registry at [phone] OR call [facility] at [phone] and ask to have the doctor master control operator paged.If you consider this an emergency, dial 11-26- or go to your nearest emergencydepartment.NEED HELP? Are you dealing with a violent or abusive relationship? Are you avictim of rape or sexual assult? Call [facility] ([place]) 24 hourCrisis Hotline: 619.348.4629 or 933-408-3709. MANUALYour Guide to a Healthy manual is now on-line. [email or web address]/ HealthyPregnancyGuide to download your free copyReferring Provider: DEENA MEJIA [[id number]]Allergies As of Date: 03/07/2017(No Known Allergies)Date Reviewed: 03/07/2017Reviewed by: Miranda Maya Ma - Fully AssessedReason for Visit: Care [86]Primary Visit Diagnosis:Encounter for supervision of other normal in second trimester [Z34.82] Other Visit Diagnoses:24 weeks gestation of [Z3A.24] Pupil dilation [H57.04]Order(s):URINE OB DIP B/O [[id number]] Order #: [id number] CONSULT TO NEUROLOGY [9019] Order #: [id number]: 1Prescriptions as of 03/07/2017 Sig: DESOGESTREL-E.ESTRADIOL 0.15 * Take 1 tablet by mouth once d* FENUGREEK SEED EXTRACT 500 MG* Take by mouth. VITAMIN,CALCIUM,MINE* Take 1 tablet by mouth. DHA ORAL Take by mouth.Problem List As Of Date 03/07/2017 Noted Resolved Painful intercourse [IQT5935] INVALID FOR*01/21/2014 Supervision of normal first [Z34.00] INVALID FOR*08/14/2014 More... Supervision of normal [Z34.90] INVALID FOR* Other instructions from your clinician: SEQUENTIAL SCREENINGS The [facility] offers sequential screenings for women who [...] It will require an appointment with our overhead door technician. This is not an ultrasound performed [...] the above symptoms, contact our office at [phone] and ask to speak with a nurse. After hours, you can call doctors registry at [phone] OR call [facility] at [phone] and ask to have the doctor master control operator paged. If you consider this an emergency, dial 9 or go to your nearest emergency department. NEED HELP? Are you dealing with a violent or abusive relationship? Are you a victim of rape or sexual assult? Call [facility] ([place]) 24 hour Crisis Hotline: 446.990.7117 or 752-546-8314. MANUAL Your Guide to a Healthy manual is now on-line. Visit [email or web address]/Healt hyPregnancyGuide to download your free copyDisposition: Return in about 3 weeks (around 03/28/2017), or if symptoms worsen or fail to improve, for BRODERICK.Follow-up and Disposition History RecordedEncounter Number: [id number] Status:Closed by ZUNILDA ARANGO on 03/07/17 [facility] 02-07-2017 [facility] Routine Off ice Visit (WOOB) KELLY SUGGS ([id number]) 1985 [facility] Time Provider Ffgjgllsbc34/13/17 11:30 AM ZUNILDA ARANGO ([facility]) WOOB During your visit today, we recorded the following information about you: Blood pressure Weight 112/64 77.1 [facility]Tab[facility] 02/07/2017 10:32 AM SignedSEQUENTIAL SCREENINGSThe [facility] offers sequential screenings for women who [...] testing. It will require anappointment with our overhead door technician. This is not an ultrasound performedby [...] the above symptoms, contact our office at [phone] andask to speak with a nurse.After hours, you can call doctors registry at [phone] OR call [facility] at [phone] and ask to have the doctor master control operator paged.If you consider this an emergency, dial 9-1-7 or go to your nearest emergencydepartment.NEED HELP? Are you dealing with a violent or abusive relationship? Are you avictim of rape or sexual assult? Call [facility] ([place]) 24 hourCrisis Hotline: 641.512.9276 or 788-495-6373. MANUALYour Guide to a Healthy manual is now on-line. [email or web address]/ HealthyPregnancyGuide to download your free copyReferring Provider: DEENA MEJIA [[id number]]Allergies As of Date: 02/07/2017(No Known Allergies)Date Reviewed: 02/07/2017Reviewed by: Zunilda Arango - Fully AssessedReason for Visit: Care [86]Primary Visit Diagnosis:20 weeks gestation of [Z3A.20] Other Visit Diagnosis:Encounter for supervision of other normal in second trimester [Z34.82]Order(s):URINE OB DIP B/O [[id number]] Order #: [id number] ALPHA FETOPRO MATERNAL [SQAFPMAT] Order #: [id number] FUTURE SEQUENTIAL SCRN SCND TRIMESTER [SQSEQL2] Order #: [id number] FUTUREPrescriptions as of 02/07/2017 Sig: VITAMIN,CALCIUM,MINE* Take 1 tablet by mouth. DHA ORAL Take by mouth. DESOGESTREL-E.ESTRADIOL 0.15 * Take 1 tablet by mouth once d* FENUGREEK SEED EXTRACT 500 MG* Take by mouth.Problem List As Of Date 02/07/2017 Noted Resolved Painful intercourse [QMJ3801] INVALID FOR*01/21/2014 Supervision of normal first [Z34.00] INVALID FOR*08/14/2014 More... Supervision of normal [Z34.90] INVALID FOR* Other instructions from your clinician: SEQUENTIAL SCREENINGS The [facility] offers sequential screenings for women who [...] It will require an appointment with our overhead door technician. This is not an ultrasound performed [...] the above symptoms, contact our office at [phone] and ask to speak with a nurse. After hours, you can call doctors registry at [phone] OR call [facility] at [phone] and ask to have the doctor master control operator paged. If you consider this an emergency, dial 9--1 or go to your nearest emergency department. NEED HELP? Are you dealing with a violent or abusive relationship? Are you a victim of rape or sexual assult? Call [facility] ([place]) 24 hour Crisis Hotline: 249.964.5844 or 566-236-8524. MANUAL Your Guide to a Healthy manual is now on-line. Visit [email or web address]/Healt hyPregnancyGuide to download your free copyDisposition: Return in about 4 weeks (around 03/07/2017), or if symptoms worsen or fail to improve, for routine OB check.Follow-up and Disposition History RecordedEncounter Number: [id number] Status:Closed by ZUNILDA ARANGO on 02/07/17 Normal [facility] Routine Off ice Visit (WOOB) [facility]S ([id number]) 1985 [facility] Djxapshgfq75/13/17 10:15 AM ETHAN RAMÍREZ During your visit today, we recorded the following information about you:Ethan Ramírez MD 02/07/2017 1:02 PM SignedA cain? fetus in utero with symmetric measurementsAdequate growth (AGA).Estimated Date of Delivery: 06/23/17EGA = 73d3uSmd anatomy appears normal. There are no evident malformations and /oreffusions.No genetic markers are noted.The amniotic fluid volume is within normal limits.The sensitivity of ultrasound in the detection of malformations overall isapproximately 35%.RECOMMENDATIONS:- Follow up ultrasound as clinically indicatedReferring Provider: DEENA MEJIA [[id number]]Allergies As of Date: 02/07/2017(No Known Allergies)Date Reviewed: 02/07/2017Reviewed by: Ethan Ramírez - Fully AssessedPrimary Visit Diagnosis:20 weeks gestation of [Z3A.20] Other Visit Diagnosis:Encounter for anatomic survey [Z36.89]Prescriptions as of 02/07/2017 Sig: DESOGESTREL-E.ESTRADIOL 0.15 * Take 1 tablet by mouth once d* FENUGREEK SEED EXTRACT 500 MG* Take by mouth. VITAMIN,CALCIUM,MINE* Take 1 tablet by mouth. DHA ORAL Take by mouth.Problem List As Of Date 02/07/2017 Noted Resolved Painful intercourse [RVL9892] INVALID FOR*01/21/2014 Supervision of normal first [Z34.00] INVALID FOR*08/14/2014 More... Supervision of normal [Z34.90] INVALID FOR* Status:Closed by ETHAN RAMÍREZ MD on 02/07/17 Normal [facility] PROGRESSon 02-07-2017 PROGRESS HNO ID: [id number] thor: Ethan Funkervice: (none)Author Type: PhysicianType: Progress NotesFiled: 02/07/2017 1:02 PMNote Text:A cain? fetus in utero with symmetric measurementsAdequate growth (AGA).Estimated Date of Delivery: 06/23/17EGA = 15c0yWoj anatomy appears normal. There are no evident malformations and/or effusions.No genetic markers are noted.The amniotic fluid volume is within normal limits.The sensitivity of ultrasound in the detection of malformations overall isapproximately 35%.RECOMMENDATIONS:- Follow up ultrasound as clinically indicated Normal [facility] HOSPon 01-10-2017 [facility] Routine Off ice Visit (WOOB) KELLY SUGGS ([id number]) 1985 [facility] Wtkiwpabmj88/16/17 3:10 PM DEENA MEJIA WOOB During your visit today, we recorded the following information about you: Blood pressure Weight 110/68 75.2 kgHayley Money [place] 01/10/2017 3:19 PM SignedSEQUENTIAL SCREENINGSThe [facility] offers sequential screenings for women who [...] testing. It will require anappointment with our overhead door technician. This is not an ultrasound performedby [...] the above symptoms, contact our office at [phone] andask to speak with a nurse.After hours, you can call doctors registry at [phone] OR call [facility] at [phone] and ask to have the doctor master control operator paged.If you consider this an emergency, dial 9-1-6 or go to your nearest emergencydepartment.NEED HELP? Are you dealing with a violent or abusive relationship? Are you avictim of rape or sexual assult? Call [facility] ([place]) 24 hourCrisis Hotline: 768.602.7243 or 500-217-4087. MANUALYour Guide to a Healthy manual is now on-line. [email or web address]/ HealthyPregnancyGuide to download your free copyReferring Provider: SELF [200]Allergies As of Date: 01/10/2017(No Known Allergies)Date Reviewed: 01/10/2017Reviewed by: Miranda Maya Ma - Fully AssessedReason for Visit: Care [86]Primary Visit Diagnosis:Encounter for supervision of other normal in second trimester [Z34.82] Other Visit Diagnosis:16 weeks gestation of [Z3A.16]Order(s):URINE OB DIP B/O [[id number]] Order #: [id number] as of 01/10/2017 Sig: DESOGESTREL-E.ESTRADIOL 0.15 * Take 1 tablet by mouth once d* FENUGREEK SEED EXTRACT 500 MG* Take by mouth. VITAMIN,CALCIUM,MINE* Take 1 tablet by mouth. DHA ORAL Take by mouth.Problem List As Of Date 01/10/2017 Noted Resolved Painful intercourse [XNS8752] INVALID FOR*01/21/2014 Supervision of normal first [Z34.00] INVALID FOR*08/14/2014 More... Other instructions from your clinician: SEQUENTIAL SCREENINGS The [facility] offers sequential screenings for women who [...] It will require an appointment with our overhead door technician. This is not an ultrasound performed [...] the above symptoms, contact our office at [phone] and ask to speak with a nurse. After hours, you can call doctors registry at [phone] OR call [facility] at [phone] and ask to have the doctor master control operator paged. If you consider this an emergency, dial 9- or go to your nearest emergency department. NEED HELP? Are you dealing with a violent or abusive relationship? Are you a victim of rape or sexual assult? Call [facility] ([place]) 24 hour Crisis Hotline: 711.277.4247 or 112-831-7479. MANUAL Your Guide to a Healthy manual is now on-line. Visit [email or web address]/Healt hyPregnancyGuide to download your free copyDisposition: Return in about 4 weeks (around 02/07/2017).Follow-up and Disposition History RecordedEncounter Number: [id number] Status:Closed by DEENA LEUNG MD on 01/10/17 [facility] Sequent Scrn Second [facility] TONY ANTIONETTE Quinteros 01-10-2017 HCG Qn 0.60 MoM Normal [facility] Comment on above: Performed By: #### S EQL2 ####[place] [address] [address] [phone] HCG Qn 0.72 MoM Normal [facility] Comment on above: Performed By: #### S EQL2 ####[address] [place] [phone] SE1 GRACIELA A 1.21 MoM Normal [facility] Comment on above: Performed By: #### S EQL2 ####[place] [address] [address] [phone] SE2 AFP 0.76 MoM Normal [facility] Comment on above: Performed By: #### S EQL2 ####[place] [address] [address] [place] [phone] SE2 Age Rsk Dn Snyd 1:[address] [facility] Comment on above: Performed By: #### S EQL2 ####[place] [address] [address] [phone] SE2 Dimrc Inhibin A 1.[address] [facility] Comment on above: Performed By: #### S EQL2 ####[place] [address] [address] [phone] SE2 Interp Negative Normal Screen Negative [facility] Comment on above: Performed By: #### S EQL2 ####[place] [address] [address] [phone] SE2 Scr Rsk ONTD 1:7900 Normal [facility] Comment on above: Performed By: #### S EQL2 ####[address] [phone] SE2 Scr Rsk Trsmy 13 1:43970 Normal [facility] Comment on above: Performed By: #### S EQL2 ####[address] [phone] SE2 Scr Rsk Trsmy18 <1:[address] [facility] Comment on above: Performed By: #### S EQL2 ####[place] [phone] SE2 Scrn Rsk Dn Synd 1:3400 [facility] Comment on above: Performed By: #### S EQL2 ####[place] [phone] SE2 Unconj uE3 1.02 MoM [facility] Comment on above: Performed By: #### S EQL2 ####[place] [phone] Seq Scrn Second Trim View results in Sca nned Documents link when available. [facility] Comment on above: Performed By: #### S EQL2 ####[place] [phone] SEQ Staff Review Reviewed by Luis F Jones MD, PhD ([id number]) [facility] Comment on above: Performed By: #### S EQL2 ####[address] [phone] PROGRESSon 12-14-2016 PROGRESS HNO ID: [id number] Author: Simone Gan Service: (none) Author Type: Physician Type: Progress Notes Filed: 12/14/2016 8:45 AM Note Text: Please see ultrasound report for details of this visit. Simone Gan M.D. Normal [facility] CBCon 12-13-2016 Erythrocyte distribution width Auto Ratio (RBC) 13.3 % Normal 11.5-15.0 [facility] Comment on above: Performed By: #### C BC, SYPHGX, RUBIGG, HBSAG, HIV12C, SEQL1 ####[place] [address] AveCLatasha [place]ille [phone] Erythrocytes (RBC) 4.11 10*6/uL Normal 3.90-5.20 [facility] Comment on above: Performed By: #### C BC, SYPHGX, RUBIGG, HBSAG, HIV12C, SEQL1 ####[place] [address] [address] [phone] Erythrocytes (RBC) 0.00 10*6/uL Normal 0.00 [facility] Comment on above: Performed By: #### C BC, SYPHGX, RUBIGG, HBSAG, HIV12C, SEQL1 ####[place] [address] AveCLatasha [place] [phone] Hematocrit (HCT) 37.9 % Normal 36.0-46.0 [facility] Comment on above: Performed By: #### C BC, SYPHGX, RUBIGG, HBSAG, HIV12C, SEQL1 ####[place] [address] AveCLatasha [place] [phone] Hemoglobin mass conc (Bld) 12.6 g/dL Normal 11.5-15.5 [facility] Comment on above: Performed By: #### C BC, SYPHGX, RUBIGG, HBSAG, HIV12C, SEQL1 ####[place] [address] AveCJessica [place] [phone] MCH 30.7 pG Normal 26.0-34.0 [facility] Comment on above: Performed By: #### C BC, SYPHGX, RUBIGG, HBSAG, HIV12C, SEQL1 ####[place] [address] [place] [phone] MCHC mass conc (RBC) 33.2 g/dL Normal 30.5-36.0 [facility] Comment on above: Performed By: #### C BC, SYPHGX, RUBIGG, HBSAG, HIV12C, SEQL1 ####[place] [phone] MCV 92.2 fL Normal 80.0-100.0 [facility] Comment on above: Performed By: #### C BC, SYPHGX, RUBIGG, HBSAG, HIV12C, SEQL1 ####[place] [phone] Platelet mean volume (PMV) 10.3 fL Normal 9.0-12.7 [facility] Comment on above: Performed By: #### C BC, SYPHGX, RUBIGG, HBSAG, HIV12C, SEQL1 ####[place] [phone] Platelets 260 10*3/uL Normal 150-400 [facility] Comment on above: Performed By: #### C BC, SYPHGX, RUBIGG, HBSAG, HIV12C, SEQL1 ####[address] [place] [phone] WBC (Leukocytes) 6.21 10*3/uL Normal 3.70-11.00 [facility] Comment on above: Performed By: #### C BC, SYPHGX, RUBIGG, HBSAG, HIV12C, SEQL1 ####[place] [phone] HIV 12 Combo (Ag/Ab)on 12-13 HIV 12 Ag/Ab Non Reactive Normal Non Reactive [facility] Comment on above: Result Comment: (NOT E)HIV Information: Amador Rev. Code 3701.243(E):This information has been disclosed [...] C BC, SYPHGX, RUBIGG, HBSAG, HIV12C, SEQL1 ####[facility] [address] [place], [place] [phone] HOSP 12-13-2016 [facility] Routine Off ice Visit (WOOB) KELLY SUGGS ([id number]) 1985 [facility] Time Provider Department12/13/16 1:50 PM SANTINO CHONG WOOB During your visit today, we recorded the following information about you: Blood pressure Weight 100/64 71.9 kgHayley Money Ma 12/13/2016 1:50 PM AddendumSEQUENTIAL SCREENINGSThe [facility] offers sequential screenings for women who [...] testing. It will require anappointment with our overhead door technician. This is not an ultrasound performedby [...] the above symptoms, contact our office at [phone] andask to speak with a nurse.After hours, you can call doctors registry at [phone] OR call [facility] at [phone] and ask to have the doctor master control operator paged.If you consider this an emergency, dial 9-1-1 or go to your nearest emergencydepartment.NEED HELP? Are you dealing with a violent or abusive relationship? Are you avictim of rape or sexual assult? Call [facility] ([place]) 24 hourCrisis Hotline: 554.468.4536 or 440-096-0895. MANUALYour Guide to a Healthy manual is now on-line. [email or web address]/ HealthyPregnancyGuide to download your free copySEQUENTIAL TESTING PROCESSSequential Screen First TrimesterToday you are currently: 12w4d weeks12/13/2016: Ultrasound and blood test.Sequential Screen Second Trimester (16-17 Weeks Gestation)When you are called with your results, the nurse will give the optimal drawdates for the Sequential screen second trimester. Blood testing can be done atany [facility] lab. Please report to the any corporate human resources manager office front end software developer forthe Sequential Part 2 requisition and order [...] fetalmedicine office, for east side please call [phone] or for the West sidecall [phone] and ask for the the nurse.Thank you.Referring Provider: DEENA MEJIA [[id number]]Allergies As of Date: 12/13/2016(No Known Allergies)Date Reviewed: 12/13/2016Reviewed by: Miranda Maya Ma - Fully AssessedReason for Visit: Care [86]Primary Visit Diagnosis:Encounter for supervision of other normal in first trimester [Z34.81] Other Visit Diagnoses:12 weeks gestation of [Z3A.12] Encounter for screening of mother [Z36] First trimester screening [Z36]Order(s):URINE OB DIP B/O [6474950] Order #: [id number] SEQUENTIAL SCRN FRST TRIMESTER [SQSEQL1] Order #: [id number] FUTURE SEQUENTIAL SCRN SCND TRIMESTER [SQSEQL2] Order #: [id number] FUTUREPrescriptions as of 12/13/2016 Sig: DESOGESTREL-E.ESTRADIOL 0.15 * Take 1 tablet by mouth once d* FENUGREEK SEED EXTRACT 500 MG* Take by mouth. VITAMIN,CALCIUM,MINE* Take 1 tablet by mouth. DHA ORAL Take by mouth.Problem List As Of Date 12/13/2016 Noted Resolved Painful intercourse [CLN2736] INVALID FOR*01/21/2014 Supervision of normal first [Z34.00] INVALID FOR*08/14/2014 More... Other instructions from your clinician: SEQUENTIAL SCREENINGS The [facility] offers sequential screenings for women who [...] It will require an appointment with our overhead door technician. This is not an ultrasound performed [...] the above symptoms, contact our office at [phone] and ask to speak with a nurse. After hours, you can call doctors registry at [phone] OR call [facility] at [phone] and ask to have the doctor master control operator paged. If you consider this an emergency, dial or go to your nearest emergency department. NEED HELP? Are you dealing with a violent or abusive relationship? Are you a victim of rape or sexual assult? Call [facility] ([place]) 24 hour Crisis Hotline: 975.331.5153 or 874-120-0145. MANUAL Your Guide to a Healthy manual is now on-line. Visit [email or web address]/Healt hyPregnancyGuide to download your free copy SEQUENTIAL TESTING PROCESS Sequential Screen First Trimester Today you are currently: 12w4d weeks 12/13/2016: Ultrasound and blood test. Sequential Screen Second Trimester (16-17 Weeks Gestation) When you are called with your results, the nurse will give the optimal draw dates for the Sequential screen second trimester. Blood testing can be done at any [facility] lab. Please report to the any corporate human resources manager office front end software developer for the Sequential Part 2 requisition and [...] medicine office, for east side please call [phone] or for the West side call [phone] and ask for the the nurse. Thank you.Disposition: Return in about 4 weeks (around 01/10/2017).Follow-up and Disposition History RecordedEncounter Number: [id number] Status:Closed by SANTINO CHONG MD on 12/13/16 [facility] [place] Routine Off ice Visit (WOOB) KELLY SUGGS ([id number]) 1985 FDate Time Provider Department12/13/16 1:00 PM SIMONE GAN WOEBONY During your visit today, we recorded the following information about you:Simone Gan MD 12/14/2016 8:45 AM SignedPlease see ultrasound report for details of this visit.Simone Gan M.D.Referring Provider: DEENA MEJIA [[id number]]Allergies As of Date: 12/13/2016(No Known Allergies)Date Reviewed: [...] Of Date 12/13/2016 Noted Resolved Painful intercourse [TMX8101] INVALID FOR*01/21/2014 Supervision of normal first [Z34.00] INVALID FOR*08/14/2014 More... Status:Closed by SIMONE GAN MD on 12/14/16 Normal [facility] Hepatitis B Surf. Agon 12-13 Hepatitis B Surf. Ag Negative Normal Negative [facility] Comment on above: Performed By: #### C BC, SYPHGX, RUBIGG, HBSAG, HIV12C, SEQL1 ####[facility] [address], [place] [phone] Rubella IgG Antibodyon 12-13 Rubella IgG Ab 3.74 Index Value Normal [facility] Comment on above: Result Comment: Inde x values are interpreted as follows:Negative specimens <0.90Equivocol specimens 0.90 to 0.99Positive specimens >0.99The magnitude of the measured result is not indicative of the amount of antibody present. Performed By: #### C BC, SYPHGX, RUBIGG, HBSAG, HIV12C, SEQL1 ####[facility] AveCLatasha [address] [phone] Rubella IgG Ab, Qual Positive Critically abnormal Negative [facility] Comment on above: Result Comment: Samp le is considered positive for IgG antibodies to rubella virus. Performed By: #### C BC, SYPHGX, RUBIGG, HBSAG, HIV12C, SEQL1 ####[place] [address] AveCLat[address] [place] [phone] Sequent Scrn First [facility] PATIE NTS ONLYon 12-13-2016 HCG Qn 0.70 MoM Normal [facility] Comment on above: Performed By: #### C BC, SYPHGX, RUBIGG, HBSAG, HIV12C, SEQL1 ####[place] [address] AveCL[address] [place] [phone] SE1 Age Rsk Dn Synd 1:[address] [facility] Comment on above: Performed By: #### C BC, SYPHGX, RUBIGG, HBSAG, HIV12C, SEQL1 ####[place] [address] AveClevelStephanie Ville [phone] SE1 Age Rsk Trsmy18 1:[address] [facility] Comment on above: Performed By: #### C BC, SYPHGX, RUBIGG, HBSAG, HIV12C, SEQL1 ####[place] [address] AveCL[address] [place] [phone] SE1 Interp Final result pending second trimester sample Normal Final result pending second trimester sample [facility] Comment on above: Performed By: #### C BC, SYPHGX, RUBIGG, HBSAG, HIV12C, SEQL1 ####[place] [phone] SE1 GRACIELA A 1.17 MoM [facility] Comment on above: Performed By: #### C BC, SYPHGX, RUBIGG, HBSAG, HIV12C, SEQL1 ####[address] [place] [phone] SE1 Scr Rsk Trsmy18 <1:73376 [facility] Comment on above: Performed By: #### C BC, SYPHGX, RUBIGG, HBSAG, HIV12C, SEQL1 ####[address] [place] [phone] SE1 Scrn Rsk Dn Synd 1:00323 [facility] Comment on above: Performed By: #### C BC, SYPHGX, RUBIGG, HBSAG, HIV12C, SEQL1 ####[address] [place] [phone] Seq Scrn First Trim View results in Scan deacon Documents link when available. [facility] Comment on above: Performed By: #### C BC, SYPHGX, RUBIGG, HBSAG, HIV12C, SEQL1 ####[place] [address] [address] [place] [phone] SEQ Staff Review Reviewed by Luis F Jones MD, PhD ([id number]) [facility] Comment on above: Performed By: #### C BC, SYPHGX, RUBIGG, HBSAG, HIV12C, SEQL1 ####[address] [place] [phone] Syphilis IgG with Confon Syphilis IgG <0.2 [facility] Comment on above: Result Comment: Anti body index is interpreted as follows:Non reactive SPECIMENS <=0.8Weak reactive SPECIMENS 0.9 to 5.9Reactive SPECIMENS >=6.0 Performed By: #### C BC, SYPHGX, RUBIGG, HBSAG, HIV12C, SEQL1 ####[facility] [address] [place], [place] [phone] Syphilis IgG, Qual Nonreactive Normal Nonreactive [facility] Comment on above: Result Comment: In c onjunction with this result, the immune status of the patient should be evaluated based on their clinical status, related risk factors, and other diagnostic test results. Performed By: #### C BC, SYPHGX, RUBIGG, HBSAG, HIV12C, SEQL1 ####[address] [phone] Type and Scr,Prenatlon 12-13 ABO/RH(D) Positive Normal [facility] Comment on above: Performed By: #### T SPN ####[place] [address] [place], [place] [phone] Antibody Screen Negative Normal [facility] Comment on above: Performed By: #### T SPN ####[facility] [place], [place] [phone] CNNURSEon 11-18-2016 CNNURSE Nurse Visit (WOOB) KELLY SUGGS ([id number]) 1985 FDate Time Provider Department11/18/16 2:30 PM NURSE PNOB [facility] WSTR WOOB During your visit today, we recorded the following information about you: Last Period 09/16/16Ericka Rivera RN 11/18/2016 2:44 PM SignedSEQUENTIAL SCREENINGSThe [facility] offers sequential screenings for women who [...] testing. It will require anappointment with our overhead door technician. This is not an ultrasound performedby [...] the above symptoms, contact our office at [phone] andask to speak with a nurse.After hours, you can call doctors registry at [phone] OR call [facility] at [phone] and ask to have the doctor master control operator paged.If you consider this an emergency, dial 9-1-1 or go to your nearest emergencydepartment.Cord- Blood BankingUp until recently, the umbilical cord--along with [...] The treatment isparticularly effective in young patients-the [facility] Cord BloodBank reports a 70 percent [...] resolve theseimportant issues.What do the experts say?The [place] [employer] encourages philanthropic blood banking [...] the baby needs at the moment.The nurse, baseball winder, or physician will then label the samples, [...] MAKE ARRANGEMENTS AHEAD OF TIME!Public cord-blood escamilla--DONATION:CryoBank [phone] Placental Blood [facility], [facility] Umbilical Cord Blood Bank, private cord-blood escamilla--SAVING FOR YOUR OWN USE:[employer], (I think this is the least expensive)CryoBank [phone], (031) LIFEBANKNePappas Rehabilitation Hospital for [facility] Cord Blood Bank, [phone]) 700-CORDBirth Cells, [phone] Cryobank, Cord Blood Registry, (920) CORDBLOODViacord, an Internet search may provide you [...] 11/18/2016 2:33 PM >> ERICKA RIVERA RN [facility] Nov 18, 2016 2:33 PM Pt no longer taking FENUGREEK SEED EXTRACT 500 MG CAPSULE >> Ericka Rivera RN 11/18/2016 2:33 PM >> ERICKA RIVERA RN Jackie Nov 18, 2016 2:33 PM Pt no longer takingProblem List As Of Date 11/18/2016 Noted Resolved Painful intercourse [[id number]] INVALID FOR*01/21/2014 Supervision of normal first [Z34.00] INVALID FOR*08/14/2014 More... Other instructions from your clinician: SEQUENTIAL SCREENINGS The [facility] offers sequential screenings for women who [...] It will require an appointment with our overhead door technician. This is not an ultrasound performed [...] the above symptoms, contact our office at [phone] and ask to speak with a nurse. After hours, you can call doctors registry at [phone] OR call [facility] at [phone] and ask to have the doctor master control operator paged. If you consider this an emergency, dial 9--1 or go to your nearest emergency department. Cord-Blood Banking Up until recently, the umbilical cord--along with the blood that remained in it after a baby was born and the cord cut--was simply discarded by the hospital. Then, in the late 1980s, researchers discovered that cord blood possessed unusual [...] treatment is particularly effective in young patients-the [facility] Cord Blood Bank reports a 70 [...] issues. What do the experts say? The [place] [employer] encourages philanthropic blood banking [...] baby needs at the moment. The nurse, baseball winder, or physician will then label the samples, [...] AHEAD OF TIME! Public cord-blood escamilla--DONATION: [employer]Bank [phone] [facility]'s Placental Blood Program, [facility] Umbilical Cord Blood Bank, Private cord-blood escamilla--SAVING FOR YOUR OWN USE: Cryo-Cell LaserLeap, (I think this is the least expensive) [employer]oBank [phone] Life[employer], (080) LIFEBANK [place] Cord Blood Bank, [phone] 300-CORD Cells, [phone] [place] Cryobank, Cord Blood Registry, (545) CORDBLEncompass Health [facility], An Internet search may provide you with additional listings.Disposition: Return for New OB with Dr Leung.Follow-up and Disposition History RecordedEncounter Number: [id number] Status:Closed by ERICKA RIVERA RN on 11/18/16 [facility] CYTOLOGYon 11-18-2016 CYTOLOGY ADDITIONAL PROCEDURES PRESENT [facility]: [id number] Physician: DANYA COSBYPECIMEN SUBMITTEDA: CERVICAL, SCREENING, FLUID FINAL DIAGNOSISA. CERVICAL, SCREENING, FLUIDSatisfactory for interpretation.Negative for intraepithelial lesion or malignancy.Predominance of coccobacilli consistent with shift in vaginal lokesh.Acute inflammation.This specimen has been analyzed by the ThinPrep Imaging System, anautRewarding Returned imaging and review system, which assists the laboratory inevaluating cells on ThinPrep Pap tests. Following automated imaging,selected ratliff from every slide are reviewed by a power tool repair technician.JEAN Russell (Electronic Signature) ADDITION AL PROCEDURE(S)HUMAN PAPILLOMA VIRUS Date Ordered: 11/22/2016 Date Reported: 11/23/2016 Procedure Results and InterpretationNegative for HPV DNA high risk type 16 by PCR.Negative for HPV DNA high risk type 18 by PCR.Negative for HPV DNA high risk types: 31,33,35,39,45,51,52,56,5 8,59,66,68by PCR.This test was developed and its performance characteristics determined by[facility]'s [facility] ([facility]).It has not been cleared or approved by the FDA. [facility] is regulated underCLIA as qualified to perform high-complexity testing. This test is used forclinical purposes. It should not be regarded as investigational or forresearch.CLINICAL DATA ROUTINE EXAM, HPV Testing: Yes, automatic HPV patients over 30Date of Last Menstrual Period:09/16/2016Menstrua l History:STAINSA: CERVICAL, SCREENING, FLUID THIN PREP GYNJennifer Jf Hernandez, Laboratory DirectorPatient ID #: [id number] of Report: 11/26/2016Date of Procedure: 11/18/2016Date of Receipt: 11/22/2016Submitted by: DEENA LEUNG MDLocation: WOREFDiagnostic interpretation performed at [facility], [address] [place] [address].The Pap Smear is a screening test for cervical cancer. False negativeresults occur with all screening tests, emphasizing the need forrescreening at recommended intervals, and clinical correlation. Normal [facility] Comment on above: Performed By: #### P FCERS ####[address] [phone] GC/Chlamydia Amplifon 2016 Chlamydia Amplif Negative Normal [facility] Comment on above: Performed By: #### G CCT ####[address] [phone] GC Amplification Negative Normal [facility] Comment on above: Performed By: #### G CCT ####[address] [phone] GC/Chlam Amp Source Cervix Normal 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 Patient BMI over 30? 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 Qpvvoote-Fv-Uiv-Fe-FA ( VITAMIN) tab Take 1 tablet by [...] for: Muscle or joint pain, stiffness, Joint swellingNEUROLOGIC/PSYCHI ATRIC: Negative for: Weakness, Paralysis, Numbness, Tingling,Tremor, Anxiety, [...] normal in multigravida [Z34.80]Order(s):CBC [SQCBC] Order #: [id number] FUTURE SYPHILIS IGG WITH CONF [SQSYPHGX] Order #: [id number] FUTURE RUBELLA IGG AB [SQRUBQNT] Order #: [id number] FUTURE HEP B SURF AG SCRN [SQHBSAG] Order #: [id number] FUTURE HIV 1,2 COMBO (AG/AB) [SQHIV12] Order #: [id number] FUTURE TYPE + SCREEN [SQTSPN] Order #: [id number] FUTURE GC/CHLAMYDIA DNA DET [SQGCCAMP] Order #: [id number] URINE CULTURE [SQURCUL] Order #: [id number] OBSTETRIC ULTRASOUND WHI [[id number]] Order #: [id number]: 1 PAP FLUID CERVICAL SCREENING [[id number]] Order #: [id number] NUCHAL TRANSLUCENCY WHI [[id number]] Order #: [id number]: 1Prescriptions as of 11/18/2016 Sig: DESOGESTREL-E.ESTRADIOL 0.15 * Take 1 tablet by mouth once d* FENUGREEK SEED EXTRACT 500 MG* Take by mouth. VITAMIN,CALCIUM,MINE* Take 1 tablet by mouth. DHA ORAL Take by mouth.Problem List As Of Date 11/18/2016 Noted Resolved Painful intercourse [[id number]] INVALID FOR*01/21/2014 Supervision of normal first [Z34.00] INVALID FOR*08/14/2014 More... Status:Closed by DEENA LEUNG MD on 11/18/16 Normal [facility] HPV w/Genotypeon 11-18-2016 HPV HighRisk Other Negative for HPV DNA high risk types: 31,33,35,39,45,51,52,56,5 8,59,66,68 by PCR. Normal [facility] Comment on above: Result Comment: This test was developed and its performance characteristics determined by [facility]'s Randy Martina [facility] Pathology and Laboratory Medicine [place] ([facility]).It has not been cleared or approved by the FDA. [facility] is regulated under CLIA as qualified to perform high-complexity testing. This test is used for clinical purposes. It should not be regarded as investigational or for research. Performed By: #### H PVHRR ####[facility] [address] [place], [place] [phone] HPV HighRisk Type 16 Negative Normal [facility] Comment on above: Performed By: #### H PVHRR ####[facility] [address] [place], [place] [phone] HPV HighRisk Type 18 Negative Normal [facility] Comment on above: Performed By: #### H PVHRR ####[facility] [address] [place], [place] [phone] PROGRESSon 11-18-2016 PROGRESS HNO ID: [id number] thor: Deena Cleaning: (none)Author Type: PhysicianType: Progress NotesFiled: 11/18/2016 3:55 PMNote Text:INITIAL OB ASSESSMENTOB Provider: Deena Leung MDHPI: Kelly Suggs is a 31 year old female here to establishObstetrical Care. Patient's last menstrual period was 09/16/2016 (exactdate). from OB Dating Form. Cycle length: 30 daysComplaints: nausea without vomitingPregnancy was planned.Obstetric History T1 L1 SAB0 TAB0 Ectopic0 Multiple0 Live [id number] : neverHistory of 4th degree laceration: NoPatient's Risk Screening for delivery:History of abnormal pap: NoPrior treatment for cervical dysplasia: none.History of STDs: NoneTobacco use: NoCaffeine use: YesDrug use: NoAlcohol use: NoMultivitamin with Folic acid: YesOccupation: art [facility] or heritage: NoWould refuse blood transfusion if medically necessary: NoNo weight on file for this encounter. Patient BMI over 30? 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 Lbxkdffs-Ok-Tik-Fe-FA ( VITAMIN) tab Take 1 tablet bymouth.DOCOSAHEXANOIC ACID (DHA ORAL) Take by mouth.No current facility-administered medications on file prior to visit.Review of Systems:GENERAL: Negative for: Fever or ChillsHEENT: Negative for: Headache, Impaired Vision, Ringing in Ears,NosebleedsNECK: Negative for: Swelling, Pain, StiffnessRESPIRATORY: Negative for: Cough, Shortness of breath, WheezingGASTROINTESTINAL: Negative for: Heartburn, Constipation, Diarrhea, Bloodin stool, VomitingMUSCULOSKELETAL: Negative for: Muscle or joint pain, stiffness, JointswellingNEUROLOGIC/P SYCHIATRIC: Negative for: Weakness, Paralysis, Numbness,Tingling, Tremor, Anxiety, [...] weeks or sooner prn.Deena Jones MD Normal [facility] PROGRESS HNO ID: [id number] thor: Ericka Rivera RNService: (none)Author Type: (none)Type: Progress NotesFiled: 11/18/2016 2:49 PMNote Text:#: 1, Date: 06/13/14, Sex: Female, Weight: 8 lb 5 oz (3.771 kg), GA:41w0d, Delivery: Vaginal, Spontaneous Delivery, Apgar1: 8, Apgar5: 8,Living: Living, Comments: Spontaneous labor, 2nd degree perineallaceration, EBL 400cc#: 2, Date: None, Sex: None, Weight: None, GA: None, Delivery: None,Apgar1: None, Apgar5: None, Living: None, Comments: None Normal [facility] Urine Cultureon 11-18-2016 Urine culture, bacteria Sp. Request/Comment: - Specimen received in preservative Culture Result - No growth (<1,000 CFU/ml) Normal [facility] Comment on above: Performed By: #### U RCUL ####[facility] [address] [place], [place] [phone] Vital Signs Date Time Vital Sign Value Performing Clinician Facility 01-22-2025 11:43-0400 Body height 171.45 cm Diamante COELHO Work Phone: [facility] 01-22-2025 11:38-0400 Body mass index (BMI) [Ratio] 29.3 kg/m2 Diamante COELHO Work Phone: [facility] 01-22-2025 11:38-0400 Body weight 86.29 kg Diamante COELOH Work Phone: [facility] 01-22-2025 11:38-0400 Diastolic blood pressure 72 mm[Hg] Diamante COELHO Work Phone: [facility] 01-22-2025 11:38-0400 Systolic blood pressure 111 mm[Hg] Diamante Sappt PA Work Phone: [facility] 11-12-2024 15:30-0400 Body height 171.45 cm Diamante Wayt PA Work Phone: [facility] 11-12-2024 15:30-0400 Body mass index (BMI) [Ratio] 30.4 kg/m2 Diamante Wayt PA Work Phone: [facility] 11-12-2024 15:30-0400 Body weight 89.35 kg Diamante Sekout PA Work Phone: [facility] 11-12-2024 15:30-0400 Diastolic blood pressure 70 mm[Hg] Diamante Sekout PA Work Phone: [facility] 11-12-2024 15:30-0400 Heart rate 63 /min Diamante Sappt PA Work Phone: [facility] 11-12-2024 15:30-0400 SaO2% (BldA) [Mass fraction] 98 % Diamante Spapt PA Work Phone: [facility] 11-12-2024 15:30-0400 Systolic blood pressure 105 mm[Hg] Diamante Sappt PA Work Phone: [facility] 09-13-2024 07:53-0400 Body height 172.7 cm Queta Mendoza MD Work Phone: [facility] 09-13-2024 07:53-0400 Body mass index (BMI) [Ratio] 29.22 kg/m2 Queta Mendoza MD Work Phone: [facility] 09-13-2024 07:53-0400 Body weight 87.18 kg Queta Mendoza MD Work Phone: [facility] 09-13-2024 07:53-0400 Diastolic blood pressure 70 mm[Hg] Queta Mendoza MD Work Phone: [facility] 09-13-2024 07:53-0400 Heart rate 79 /min Queta Mendoza MD Work Phone: [facility] 09-13-2024 07:53-0400 Systolic blood pressure 108 mm[Hg] Queta Mendoza MD Work Phone: [facility] 01-30-2024 14:43-0500 Diastolic blood pressure 64 mm[Hg] Bhavin Barrera DO Work Phone: [facility] 01-30-2024 14:43-0500 Heart rate 66 /min Bhavin Barrera DO Work Phone: [facility] 01-30-2024 14:43-0500 Respiratory rate 76 /min Bhavin Barrera DO Work Phone: [facility] 01-30-2024 14:43-0500 SaO2% (BldA) [Mass fraction] 97 % Bhavin Barrera DO Work Phone: [facility] 01-30-2024 14:43-0500 Systolic blood pressure 112 mm[Hg] Bhavin Barrera DO Work Phone: [facility] 01-30-2024 12:10-0500 Body height 172.7 cm Bhavin Barrera DO Work Phone: [facility] 01-30-2024 12:10-0500 Body mass index (BMI) [Ratio] 28.13 kg/m2 Bhavin Barrera DO Work Phone: [facility] 01-30-2024 12:10-0500 Body temperature 97.2 [degF] Bhavin Barrera DO Work Phone: [facility] 01-30-2024 12:10-0500 Body weight 83.92 kg Bhavin Barrera DO Work Phone: [facility] 05-17-2023 11:07-0500 Body height 171.45 cm No Primary Care Physician [facility] 05-17-2023 11:07-0500 Body mass index (BMI) [Ratio] 28.5 kg/m2 No Primary Care Physician [facility] 05-17-2023 11:07-0500 Body temperature 98.9 [degF] No Primary Care Physician [facility] 05-17-2023 11:07-0500 Body weight 83.91 kg No Primary Care Physician [facility] 05-17-2023 11:07-0500 Diastolic blood pressure 79 mm[Hg] No Primary Care Physician [facility] 05-17-2023 11:07-0500 Heart rate 71 /min No Primary Care Physician [facility] 05-17-2023 11:07-0500 Respiratory rate 14 /min No Primary Care Physician [facility] 05-17-2023 11:07-0500 SaO2% (BldA) [Mass fraction] 98 % No Primary Care Physician [facility] 05-17-2023 11:07-0500 Systolic blood pressure 122 mm[Hg] No Primary Care Physician [facility] 02-03-2023 09:30-0500 Body height 170.2 cm Queta Mendoza MD Work Phone: [facility] 02-03-2023 09:30-0500 Body mass index (BMI) [Ratio] 28.91 kg/m2 Queta Mendoza MD Work Phone: [facility] 02-03-2023 09:30-0500 Body weight 83.73 kg Queta Mendoza MD Work Phone: [facility] 02-03-2023 09:30-0500 Diastolic blood pressure 74 mm[Hg] Queta Mendoza MD Work Phone: [facility] 02-03-2023 09:30-0500 Heart rate 76 /min Queta Mendoza MD Work Phone: [facility] 02-03-2023 09:30-0500 Systolic blood pressure 118 mm[Hg] Queta Mendoza MD Work Phone: [facility] 11-16-2022 11:06-0400 Body height 171.45 cm YOLI Vanessa NP Work Phone: [facility] 11-16-2022 11:06-0400 Body mass index (BMI) [Ratio] 28.7 kg/m2 ANALYTICAL DATA SCIENTIST-C Lee Vanessa ANALYTICAL DATA SCIENTIST Work Phone: [facility] 11-16-2022 11:06-0400 Body temperature 98.4 [degF] ANALYTICAL DATA SCIENTIST-C Lee Vanessa ANALYTICAL DATA SCIENTIST Work Phone: [facility] 11-16-2022 11:06-0400 Body weight 84.42 kg ANALYTICAL DATA SCIENTIST-C Lee Vanessa ANALYTICAL DATA SCIENTIST Work Phone: [facility] 11-16-2022 11:06-0400 Diastolic blood pressure 72 mm[Hg] ANALYTICAL DATA SCIENTIST-C Lee Vanessa ANALYTICAL DATA SCIENTIST Work Phone: [facility] 11-16-2022 11:06-0400 Heart rate 78 /min ANALYTICAL DATA SCIENTIST-C Lee Vanessa ANALYTICAL DATA SCIENTIST Work Phone: [facility] 11-16-2022 11:06-0400 Respiratory rate 18 /min ANALYTICAL DATA SCIENTIST-C Lee Vanessa ANALYTICAL DATA SCIENTIST Work Phone: [facility] 11-16-2022 11:06-0400 SaO2% (BldA) [Mass fraction] 98 % ANALYTICAL DATA SCIENTIST-C Lee Vanessa ANALYTICAL DATA SCIENTIST Work Phone: [facility] 11-16-2022 11:06-0400 Systolic blood pressure 116 mm[Hg] ANALYTICAL DATA SCIENTIST-C Lee Vanessa ANALYTICAL DATA SCIENTIST Work Phone: [facility] 05-18-2022 11:27-0500 Body height 171.45 cm ANALYTICAL DATA SCIENTIST-C Lee Vanessa ANALYTICAL DATA SCIENTIST Work Phone: [facility] 05-18-2022 11:27-0500 Body mass index (BMI) [Ratio] 27.9 kg/m2 ANALYTICAL DATA SCIENTIST-C Lee Vanessa ANALYTICAL DATA SCIENTIST Work Phone: [facility] 05-18-2022 11:27-0500 Body temperature 97 [degF] ANALYTICAL DATA SCIENTIST-C Lee Vanessa ANALYTICAL DATA SCIENTIST Work Phone: [facility] 05-18-2022 11:27-0500 Body weight 82.1 kg ANALYTICAL DATA SCIENTIST-C Lee Vanessa ANALYTICAL DATA SCIENTIST Work Phone: [facility] 05-18-2022 11:27-0500 Diastolic blood pressure 63 mm[Hg] ANALYTICAL DATA SCIENTIST-C Lee Vanessa ANALYTICAL DATA SCIENTIST Work Phone: [facility] 05-18-2022 11:27-0500 Heart rate 61 /min ANALYTICAL DATA SCIENTIST-C Lee Vanessa ANALYTICAL DATA SCIENTIST Work Phone: [facility] 05-18-2022 11:27-0500 Respiratory rate 18 /min ANALYTICAL DATA SCIENTIST-C Lee Vanessa ANALYTICAL DATA SCIENTIST Work Phone: [facility] 05-18-2022 11:27-0500 SaO2% (BldA) [Mass fraction] 99 % ANALYTICAL DATA SCIENTIST-C Lee Vanessa ANALYTICAL DATA SCIENTIST Work Phone: [facility] 05-18-2022 11:27-0500 Systolic blood pressure 101 mm[Hg] ANALYTICAL DATA SCIENTIST-C Lee Vanessa ANALYTICAL DATA SCIENTIST Work Phone: [facility] 12-15-2021 11:36-0400 Body height 171.45 cm ANALYTICAL DATA SCIENTIST-C Lee Vanessa ANALYTICAL DATA SCIENTIST Work Phone: [facility] Work Phone: 12-15-2021 11:36-0400 Body mass index (BMI) [Ratio] 27.4 kg/m2 ANALYTICAL DATA SCIENTIST-C Lee Vanessa ANALYTICAL DATA SCIENTIST Work Phone: [facility] Work Phone: 12-15-2021 11:36-0400 Body temperature 96.5 [degF] ANALYTICAL DATA SCIENTIST-C Lee Vanessa ANALYTICAL DATA SCIENTIST Work Phone: [facility] Work Phone: 12-15-2021 11:36-0400 Body weight 80.79 kg ANALYTICAL DATA SCIENTIST-C Lee Vanessa ANALYTICAL DATA SCIENTIST Work Phone: [facility] Work Phone: 12-15-2021 11:36-0400 Diastolic blood pressure 75 mm[Hg] ANALYTICAL DATA SCIENTIST-C Lee Vanessa ANALYTICAL DATA SCIENTIST Work Phone: [facility] Work Phone: 12-15-2021 11:36-0400 Heart rate 70 /min ANALYTICAL DATA SCIENTIST-C Lee Vanessa ANALYTICAL DATA SCIENTIST Work Phone: [facility] Work Phone: 12-15-2021 11:36-0400 Respiratory rate 18 /min ANALYTICAL DATA SCIENTIST-C Lee Quinonesder ANALYTICAL DATA SCIENTIST Work Phone: [facility] Work Phone: 12-15-2021 11:36-0400 SaO2% (BldA) [Mass fraction] 98 % ANALYTICAL DATA SCIENTIST-C Lee Quinonesder ANALYTICAL DATA SCIENTIST Work Phone: [facility] Work Phone: 12-15-2021 11:36-0400 Systolic blood pressure 116 mm[Hg] ANALYTICAL DATA SCIENTIST-C Lee Vanessa ANALYTICAL DATA SCIENTIST Work Phone: [facility] Work Phone: 07-07-2021 10:15-0400 Body height 171.[address] Cait Ontiveros Work Phone: [facility] Work Phone: 07-07-2021 10:15-0400 Body mass index (BMI) [Ratio] 29.5 kg/m2 Dr. Cait Ontiveros Work Phone: [facility] Work Phone: 07-07-2021 10:15-0400 Body temperature 97 [degF] Dr. Cait Ontiveros Work Phone: [facility] Work Phone: 07-07-2021 10:15-0400 Body weight 86.[address] Cait Ontiveros Work Phone: [facility] Work Phone: 07-07-2021 10:15-0400 Diastolic blood pressure 84 mm[Hg] Dr. Cait Ontiveros Work Phone: [facility] Work Phone: 07-07-2021 10:15-0400 Heart rate 86 /min Dr. Cait Ontiveros Work Phone: [facility] Work Phone: 07-07-2021 10:15-0400 Respiratory rate 16 /min Dr. Cait Ontiveros Work Phone: [facility] Work Phone: 07-07-2021 10:15-0400 SaO2% (BldA) [Mass fraction] 98 % Dr. Cait Ontiveros Work Phone: [facility] Work Phone: 07-07-2021 10:15-0400 Systolic blood pressure 110 mm[Hg] Dr. Cait Ontiveros Work Phone: [facility] Work Phone: 04-24-2021 10:01-0500 Body mass index (BMI) [Ratio] 29.3 kg/m2 Dr. Cait Ontiveros Work Phone: [facility] Work Phone: 04-24-2021 10:01-0500 Body temperature 97.8 [degF] Dr. Cait Ontiveros Work Phone: [facility] Work Phone: 04-24-2021 10:01-0500 Body weight 86.[address] Cait Ontiveros Work Phone: [facility] Work Phone: 04-24-2021 10:01-0500 Diastolic blood pressure 80 mm[Hg] Dr. Cait Ontiveros Work Phone: [facility] Work Phone: 04-24-2021 10:01-0500 Heart rate 66 /min Dr. Cait Ontiveros Work Phone: [facility] Work Phone: 04-24-2021 10:01-0500 Respiratory rate 16 /min Dr. Cait Ontiveros Work Phone: [facility] Work Phone: 04-24-2021 10:01-0500 SaO2% (BldA) [Mass fraction] 98 % Dr. Cait Ontiveros Work Phone: [facility] Work Phone: 04-24-2021 10:01-0500 Systolic blood pressure 120 mm[Hg] Dr. Cait Ontiveros Work Phone: [facility] Work Phone: 03-13-2021 08:48-0500 Body temperature 97.9 [degF] Dr. Cait Ontiveros Work Phone: [facility] Work Phone: 03-13-2021 08:48-0500 Body weight 88.[address] Cait Ontiveros Work Phone: [facility] Work Phone: 03-13-2021 08:48-0500 Diastolic blood pressure 80 mm[Hg] Dr. Cait Ontiveros Work Phone: [facility] Work Phone: 03-13-2021 08:48-0500 Heart rate 83 /min Dr. Cait Ontiveros Work Phone: [facility] Work Phone: 03-13-2021 08:48-0500 Respiratory rate 14 /min Dr. Cait Ontiveros Work Phone: [facility] Work Phone: 03-13-2021 08:48-0500 SaO2% (BldA) [Mass fraction] 97 % Dr. Cait Ontiveros Work Phone: [facility] Work Phone: 03-13-2021 08:48-0500 Systolic blood pressure 128 mm[Hg] Dr. Cait Ontiveros Work Phone: [facility] Work Phone: Encounters Encounter Date Encounter Type Care Provider Facility Start: 08-06-2025 ambulatory Diamante COELHO Facilit y:[facility] Start: 02-05-2025 ambulatory Birdie Kirkland ANALYTICAL DATA SCIENTIST Facil ity:[facility] Start: 01-31-2025 End: 01-31-2025 ambulatory Diamante COELHO [facility] Start: 01-22-2025 End: 01-22-2025 ambulatory Birdie Kirkland ANALYTICAL DATA SCIENTIST Facility:[facility] Start: 01-15-2025 End: 01-15-2025 Subsequent hospital visit by physician Bryon X-Ray Fluoro 1 [facility] Comment on above: Other nonspecific ab normal finding of lung field Start: 01-15-2025 End: 01-15-[address] [facility] Start: 12-31-2024 End: 12-31-2024 ambulatory Diamante COELHO Work Phone: -Laboratory Start: 12-31-2024 End: 12-31-[address] Marco Antonio Bermudez MD -Laboratory Work Phone: Start: 12-31-2024 End: 12-31-2024 ambulatory Marco Antonio Bermudez Facility:[facility] Start: 11-12-2024 End: 11-12-[address] Marco Antonio Bermudez MD -[facility] Work Phone: Start: 11-12-2024 End: 11-12-2024 ambulatory Diamante COELHO Work Phone: -[facility] Start: 11-03-2024 End: 11-03-2024 ambulatory Diamante COELHO Work Phone: -Laboratory Start: 11-03-2024 End: 11-03-2024 Patient encounter procedure Queta Monterroso NP-C -Laboratory Work Phone: Start: 11-03-2024 End: 11-03-2024 ambulatory Diamante COELHO Facility:[facility] Start: 10-11-2024 End: 10-11-2024 Office outpatient visit 15 minutes Queta Mendoza MD Work Phone: [facility] Comment on above: BRBPR (bright red bl ood per rectum) (Primary Dx) Start: 10-11-2024 End: 10-11-2024 ambulatory [facility] Start: 09-13-2024 End: 09-13-2024 Office outpatient visit 15 minutes Queta Mendoza MD Work Phone: [facility] Comment on above: Anal fissure (Primar y Dx) Start: 09-13-2024 End: 09-13-2024 ambulatory [facility] Start: 05-16-2024 End: 05-16-2024 ambulatory Diamante COELHO Facility:[facility] Start: 02-17-2024 End: 02-17-2024 ambulatory Diamante COELHO Facility[facility] Start: 02-17-2024 End: 02-17-2024 ambulatory Diamante COELHO Facility:[facility] Start: 01-30-2024 End: 01-30-2024 Emergency department patient visit Bhavin Barrera DO Work Phone: [facility] Comment on above: Chest pain, unspecif ied type (Primary Dx) Start: 06-15-2023 End: 06-15-2023 ambulatory No Primary Care Physician [facility] Work Phone: Start: 06-15-2023 End: 06-15-2023 Patient encounter procedure No Primary Care Physician [facility]-Laboratory Work Phone: Start: 05-17-2023 End: 05-17-2023 ambulatory No Primary Care Physician [facility] Work Phone: Start: 05-17-2023 End: 05-17-2023 Patient encounter procedure No Primary Care Physician [facility] Work Phone: Start: 02-03-2023 End: 02-03-2023 Office outpatient new 30 minutes Queta Mendoza MD Work Phone: [facility] Comment on above: Blood per rectum (Pr imary Dx) Start: 01-13-2023 End: 01-13-2023 ambulatory ANALYTICAL DATA SCIENTIST-C eLe Vanessa ANALYTICAL DATA SCIENTIST Work Phone: [facility] Work Phone: Start: 01-13-2023 End: 01-13-2023 Patient encounter procedure ANALYTICAL DATA SCIENTIST-C Lee Vanessa ANALYTICAL DATA SCIENTIST [facility] Start: 11-16-2022 End: 11-16-2022 Patient encounter procedure ANALYTICAL DATA SCIENTIST-C Lee Vanessa ANALYTICAL DATA SCIENTIST Work Phone: [facility] Work Phone: Start: 05-18-2022 End: 05-18-2022 ambulatory ANALYTICAL DATA SCIENTIST-C Lee Vanessa ANALYTICAL DATA SCIENTIST Work Phone: [facility] Work Phone: Start: 05-18-2022 End: 05-18-2022 Patient encounter procedure ANALYTICAL DATA SCIENTIST-C Lee Vanessa ANALYTICAL DATA SCIENTIST Work Phone: [facility] Start: 12-15-2021 End: 12-15-2021 ambulatory ANALYTICAL DATA SCIENTIST-C Lee Vanessa ANALYTICAL DATA SCIENTIST Work Phone: [facility] Work Phone: Start: 12-15-2021 End: 12-15-2021 Patient encounter procedure ANALYTICAL DATA SCIENTIST-C Lee Vanessa ANALYTICAL DATA SCIENTIST Work Phone: [facility] [facility] Start: 07-07-2021 End: 07-07-[address] Cait Ontiveros Work Phone: [facility] Start: 07-03-2021 End: 07-03-[address] Cait Ontiveros Work Phone: [facility] [place] Start: 05-18-2021 End: 05-18-[address] Cait Ontiveros Work Phone: [facility] [place] Start: 04-24-2021 End: 04-24-[address] Cait Ontiveros Work Phone: [facility] Start: 04-20-2021 Non-patient / Non-visit Dr. Elliot Ontiveros Work Phone: [facility] Start: 04-20-2021 End: 04-20-[address] Cait Ontiveros Work Phone: [facility]-Cardiovascular Services Start: 04-17-2021 End: 04-17-[address] Cait Ontiveros Work Phone: [facility]-Laboratory, [place] Start: 03-26-[address] Cait Ontiveros Work Phone: [facility]-Outpatient Breast Imaging Start: 03-13-2021 End: 03-13-[address] Cait Ontiveros Work Phone: [facility] Start: 10-17-2017 Patient encounter YOAN MASON JR [facility] [place] Start: 08-08-2017 End: 08-08-2017 Ambulatory YOAN MASON JR [facility] Start: 08-04-2017 End: 08-08-2017 Ambulatory COREY (CNM) [facility] Start: 08-01-2017 End: 08-04-2017 Ambulatory ZUNILDA (CNM) [facility] Start: 06-29-2017 End: 07-01-2017 Ambulatory DEENA DAVIDT MADHU [facility] Start: 06-22-2017 End: 06-22-2017 Ambulatory COREY (CNM) [facility] Start: 06-20-2017 End: 06-22-2017 Ambulatory ZUNILDA (CNM) [facility] Start: 06-13-2017 End: 06-13-2017 Ambulatory DEENA NEYRAGINIT MADHU [facility] Start: 06-06-2017 End: 06-06-2017 Ambulatory DEENA LEUNG [facility] Start: 05-30-2017 End: 05-30-2017 Ambulatory ZUNILDA (CNM) ARANGO [facility] Start: 05-23-2017 End: 05-23-2017 Ambulatory COREY (CNM) KATHY [facility] Start: 05-09-2017 End: 05-10-2017 Ambulatory ZUNILDA (CNM) [facility] Start: 04-25-2017 End: 04-26-2017 Ambulatory COREY (CNM) KATHY [facility] Start: 04-11-2017 End: 04-12-2017 Ambulatory ZUNILDA (CNM) [facility] Start: 03-30-2017 Ambulatory ZUNILDA (CNM) [facility] Start: 03-30-2017 End: 03-31-2017 Ambulatory ZUNILDA (CNM) [facility] Start: 03-07-2017 End: 03-08-2017 Ambulatory ZUNILDA (CNM) [facility] Start: 02-08-2017 Emergency department patient visit Facility:[facility] Start: 02-07-2017 End: 02-08-2017 Ambulatory ZUNILDA (CNM) [facility] Start: 02-07-2017 End: 02-08-2017 Ambulatory ETHAN RAMÍREZ [facility] Start: 01-10-2017 End: 01-10-2017 Ambulatory ELADIA (MANAGER COMMUNITY DEVELOPMENT) [place] [facility] Start: 12-13-2016 End: 12-14-2016 Ambulatory SIMONE GAN [facility] Start: 11-18-2016 End: 11-19-2016 Ambulatory DEENA LEUNG [facility] Procedures Date Procedure Procedure Detail Performing Clinician Start: 01-15-2025 Radiologic exam ches t 2 views Diamante COELHO Work Phone: Start: 12-31-2024 Vitamin D, 25-hydrox y measurement Diamante COELHO Work Phone: Comment on above: Vitamin D StatusDefi ciency: <20 ng/mL (50nmol/L)Insufficiency: 20-30 ng/mL (50-75 nmol/L)Sufficiency: 30-100 ng/mL (75-250 nmol/L)Toxicity: >100 ng/mL (>250 nmol/L) Start: 01-30-2024 Ecg routine ecg w/le ast [...] 03-26-2021 End: 03-26-[address] Cait mckeon Work Phone: Start: 10-07-2020 Thyrotropin [Units/v olume] in Serum or Plasma Queta Mendoza MD Work Phone: Plan of Treatment Date Care Activity Detail Author Start: 2033 Zoster Vaccines (1 of 2) Zoste r Vaccines (1 of 2) [facility] Start: 05-09-2027 DTaP/Tdap/Td Vaccine s (3 - Td or Tdap) DTaP/Tdap/Td Vaccines (3 - Td or Tdap) [facility] Start: 01-29-2025 Diabetes mellitus screening Diabetes Screening [facility] Start: 01-22-2025 End: 01-22-2025 Patient encounter procedure Breast pain, left -[facility] Work Phone: Start: 11-26-2024 COVID-19 Vaccine ( season) COVID-19 Vaccine ( season) [facility] Start: 11-26-2024 Influenza vaccination [facility] Start: 10-26-2024 Influenza vaccination Influenza Vacc ine (#1) [facility] Start: 10-11-2024 End: 10-11-2025 Colonoscopy study Colonoscopy Diagnostic (BRBPR) Endoscopy Routine BRBPR (bright red blood per rectum) Expected: 10/11/2024, Expires: 10/11/2025 [facility] Service Area Work Phone: Comment on above: Expected: 10/11/2024 , Expires: 10/11/2025 Start: 10-11-2024 End: 10-11-2024 Patient encounter procedure 10/11/2024 10:00 AM EDT Office Visit [facility] [address] [place] [address] Queta Mendoza MD [address] [facility] [address] [place] [address] [facility] Start: 11-27-2023 COVID-19 Vaccine ( season) COVID-19 Vaccine ( season) [facility] Start: 11-27-2023 Influenza vaccination Influenza Vacc ine (#1) [facility] Start: 2023 Screening for malign ant neoplasm of breast Mammogram [facility] Start: 02-03-2023 End: 08-03-2024 Colonoscopy Colonoscopy Diagnostic Endoscopy Routine Blood per rectum Expected: 02/03/2023, Expires: 08/03/2024 [facility] Service Area Work Phone: Comment on above: Expected: 02/03/2023 , Expires: 08/03/2024 Start: 11-26-2022 Influenza vaccination Influenza Vacc ine (#1) [facility] Start: 10-07-2021 Thyroid stimulating hormone measurement TSH Level [facility] Start: 2010 HPV Vaccines (1 - 3- dose standard series) HPV Vaccines (1 - 3-dose standard series) [facility] Start: 2004 Screening for malign ant neoplasm of cervix [facility] Start: 2002 Hepatitis B Vaccines (1 of 3 - 19+ 3-dose series) Hepatitis B Vaccines (1 of 3 - 19+ 3-dose series) [facility] Start: 2001 Diabetes mellitus screening Diabetes Screening [facility] Start: 2001 Hepatitis C screening Hepatitis C Sc reening [facility] Start: 1996 Varicella vaccination Varicell a Vaccines (1 of 2 - 13+ 2-dose series) [facility] Start: 1984 MMR Vaccines (1 of 1 - Standard series) MMR Vaccines (1 of 1 - Standard series) [facility] Start: 1984 Varicella vaccination Varicell a Vaccines (1 of 2 - 2-dose childhood series) [facility] Start: 1983 COVID-19 Vaccine (#1) COVID-19 Vacci ne (#1) [facility] Start: 1983 Hepatitis B Vaccines (1 of 3 - 3-dose series) Hepatitis B Vaccines (1 of 3 - 3-dose series) [facility] Start: 1983 HIV screening HIV Screening [facility] Start: 1983 Lipid panel Lipid Panel [facility] Start: 1983 Yearly Adult Physical Yearly Adult P hysical [facility] CBC W Auto Different ial panel - Blood [facility] Comprehensive metabo lic 1999 panel - Serum or Plasma [facility] End: 01-30-2024 ECG 12 lead [facility] Work Phone: Comment on above: Every 1 hour for 2 O ccurrences starting 01/30/2024 until 01/30/2024, 1 completed Ferritin [Mass/volum e] in Serum or Plasma [facility] Lipid 1996 panel - S dale or Plasma [facility] MG Breast - bilatera l Diagnostic [facility] End: 01-30-2024 Pulse oximetry, continuous Pulse oximetry, continuous Respiratory Care STAT Continuous until discontinued starting 01/30/2024 [facility] Service Area Work Phone: Comment on above: Continuous until dis continued starting 01/30/2024 US Breast limited [facility] Vitamin B12 measurement [facility] Vitamin D, 25-hydrox y measurement [facility] Immunizations Immunization Date Immunization Notes Care Provider Fa minalty 05-09-2017 tetanus toxoid, reduced diphtheria toxoid, and acellular pertussis vaccine, adsorbed Dr. Cait Ontiveros Work Phone: [facility] 03-18-2014 tetanus toxoid, reduced diphtheria toxoid, and acellular pertussis vaccine, adsorbed Queta Mendoza MD Work Phone: [facility] Work Phone: Payers Date Payer Category Payer Unknown [id number] 2024 Unknown [id number] 2024 Self-pay [id number] 2022 Managed Care (Private) [id number] [address] Unknown [address] [facility] [id number] 2022-Present [address] [place] [address] [id number] 2022 Unknown [id number] 2014 Medicaid [id number] 1983 Unknown [id number] 1983 Unknown [id number] 1244 1983 Unknown [id number]. 1243 1983 Unknown [id number]. 1243 Unknown [id number] Unknown [id number] Unknown [facility] [id number] Unknown [id number] 462 Unknown [id number] [id number]. 462 Unknown [id number] [id number]. 462 Unknown [id number]. 462 Unknown [id number] [id number]. 462 Unknown [id number] [id number]. 462 Unknown [id number] [id number]. 462 Unknown [id number] [id number]. 462 Unknown [id number] [id number]. 462 Unknown [id number]. 462 Social History Date Type Detail Facility Start: 07-07-2021 End: 05-17-2023 Tobacco smoking status NHIS Unknown if ever smoked [facility] Start: 06-23-2017 None [facility] Start: 1985 Sex Assigned At Female [facility] Start: 02-03-2023 End: 05-17-2023 Tobacco smoking status NHIS Never smoked tobacco [facility] Start: 02-03-2023 Tobacco use and exposure Smokeless tobacco non-user [facility] Work Phone: Start: 02-03-2023 End: 09-13-2024 Alcohol intake Ex-drinker (finding) [facility] Work Phone: Start: 02-03-2023 End: 09-13-2024 History of Social function [facility] Work Phone: Start: 02-03-2023 End: 09-13-2024 Tobacco use panel [facility] Start: 02-03-2023 Alcohol Comment Very rarely [facility] Work Phone: Start: 1985 Sex Assigned At Not on file [facility] Work Phone: Start: 01-24-2023 End: 01-30-2024 Exposure to SARS-CoV-2 (event) Not sure [facility] Start: 09-13-2024 Alcohol Comment Very rarely [address] darryn coello mixed drink [facility] Work Phone: Start: 02-20-2022 Sex Female [facility] Start: 02-20-2022 Sex Female (finding) [facility] Functional Status Date Assessment Result Facility 01-15-2025 Functional status [facility] 01-15-2025 [facility] Work Phone: Clinical Notes 02-03-2023 to 11-12-2024 Note Date & Type Note Facility 11-12-2024 Evaluation note Diagnosis Onset Date Resolution Autoimmune thyroiditis chronic Au 2024 3:29pm Breast pain, left acute January 22, 2025 11:35am [facility] Work Phone: 1(777) 544-523307-17-2025 History of Present illness Narrative* Queta Mendoza MD - 10/11/2024 10:00 AM EDT General Surgery Follow-up Visit Patient: Kelly Suggs [...] rectum Hemorrhoids Hypothyroidism Thyroid nodule Surgical History: [place] tooth extraction Home Medications: Prior to Admission medications Medication Sig Start Date End Date Taking? Authorizing Provider acetaminophen (Tylenol) 500 mg tablet Take 2 tablets (1,000 mg) by mouth every 6 hours if needed for mild pain (1 - 3). Historical ProviderMD famotidine (Pepcid) 20 mg tablet Take 1 tablet (20 mg) by mouth if needed for heartburn. HistoricalProviderMD ibuprofen 200 mg tablet Take 2 tablets (400 mg) by mouth every 6 hours if needed for mild pain (1 -3). Historical Provider, Allergies: No known allergies. Family [...] attempt at anoscopy. Therefore, that attempt was aborted.No other external abnormalities. Musculoskeletal: Moves all extremities, [...] rectum. We discussed the risks of colonoscopy. Thisincluded risks of bleeding, perforation, missed polyps, incomplete [...] Queta Mendoza MD 10/11/2024 [facility] Work Phone: 1(195) 383-135006-19-2025 History of Present illness Narrative* Queta Mendoza MD - 09/13/2024 8:00 AM EDT General Surgery Follow-up Visit Patient: Kelly Suggs [...] through with that. She presents today for re- evaluation due to acute onset of sharp, tearing pain in the rectum. This began 2 weeks ago. She does not recall any particular inciting event or bowel movement. She typically has aloose bowel movement every morning after having a cup of coffee. Since the pain started, she stopped drinking the coffee because bowel movements worsened her pain. She has seen small streaks of bloodon tissue paper with wiping since this pain began. Pain is worse posteriorly and slightly to the left. Medical History: Anal fissure Blood per rectum Hemorrhoids Hypothyroidism Thyroid nodule Surgical History: [place] tooth extraction Home Medications: Prior to Admission medications Medication Sig Start Date End Date Taking? Authorizing Provider acetaminophen (Tylenol) 500 mg tablet Take 2 tablets (1,000 mg) by mouth every 6 hours if needed for mild pain (1 - 3). Historical ProviderMD famotidine (Pepcid) 20 mg tablet Take 1 tablet (20 mg) by mouth if needed for heartburn. HistoricalProviderMD ibuprofen 200 mg tablet Take 2 tablets (400 mg) by mouth every 6 hours if needed for mild pain (1 -3). Historical Provider, Allergies: No known allergies. Family [...] female with an anal fissure. We discussed keepingbowel movements soft and regular to avoid any [...] Queta Mendoza MD 09/13/2024 [facility] Work Phone: 1(785) 231-582611-04-2024 Hospital Discharge instructions* Discharge Instructions* Bhavin Barrera DO - 01/30/2024 2:37 PM EST Please be sure to talk to your family doctor about a repeat chest x-ray in 3 months to be ordered by your family doctor as discussed. * Attachments The following attachments cannot be sent through Care Everywhere. * Chest Pain Discharge Instructions ([place]) * Pulmonary nodule ([place]) [facility] Work Phone: 1(932) 522-684211-04-2024 Emergency department Note* Bhavin Barrera, - 01/30/2024 12:07 PM EST HPI 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 Patient presents with Chest Pain Mid to left chest pain x 2 weeks. Pain sharper today. Denies SOB Patient presents to the emergency department secondary to chest pain. This has been intermittent for several weeks. Sometimes it is pleuritic. Localized in different locations. Denies abdominal pain or shortness of breath. No known sick contacts. History provided by: Patient product marketing analyst used: No Patient History Past Medical History: [...] and explained that she needs a follow-up x- ray in 3 months to ensure resolution and she understands this importance. Given that she has a heart score of 0 I feel she can be discharged safely. Reassurance was given. Follow-up with primary care and return at anytime if worse. Procedure Procedures Bhavin Barrera DO 01/30/24 1406 Bhavin Barrera DO 01/30/24 1438 documented in this [facility] Work Phone: 1(131) 527-923211-04-2024 Physician Emergency department Note* Bhavin Barrera DO - 01/30/2024 12:07 PM EST HPI 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 Patient presents with Chest Pain Mid to left chest pain x 2 weeks. Pain sharper today. Denies SOB Patient presents to the emergency department secondary to chest pain. This has been intermittent for several weeks. Sometimes it is pleuritic. Localized in different locations. Denies abdominal pain or shortness of breath. No known sick contacts. History provided by: Patient product marketing analyst used: No Patient History Past Medical History: [...] and explained that she needs a follow-up x- ray in 3 months to ensure resolution and she understands this importance. Given that she has a heart score of 0 I feel she can be discharged safely. Reassurance was given. Follow-up with primary care and return at anytime if worse. Procedure Procedures Bhavin Barrera DO 01/30/24 1406 Bhavin Barrera DO 01/30/24 1438 [facility] Work Phone: 1(217) 282-303911-09-2023 History of Present illness Narrative* Queta Mendoza MD - 02/03/2023 9:30 AM EST General Surgery Consultation Patient: Kelly Suggs : 1985 Date of Consultation: 02/03/23 Primary Care Provider: No primary care provider on file. Referring Provider: Self referral 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: Hemorrhoids History of Present Illness: Kelly Suggs is a 37 y.o. old female seen in self- referral for evaluation of hemorrhoids. She has had [...] This is mildly tender. On digital rectal exam,she has palpable fullness consistent with enlarged internal [...] incomplete colonoscopy, and potential need for additional procedurespending findings. She was agreeable to proceed and is scheduled for diagnostic colonoscopy on . After colonoscopy, she will follow-up as needed. Queta Mendoza MD 02/03/2023 [facility] Work Phone: Evaluation note* Diagnosis Onset Date Resolution Status Breast pain, left acute Chest pain acute Breast pain, left acute Left-sided chest wall pain a cute LUQ pain acute Thyrotoxicosis acute [facility] Work Phone: Evaluation note* Diagnosis Onset Date Resolution Status Thyrotoxicosis acute [facility] Work Phone: Evaluation note* Diagnosis Onset Date Resolution Status Hyperthyroidism acute [facility] Work Phone: Evaluation note* Diagnosis Onset Date Resolution Status Thyrotoxicosis chronic [facility] Work Phone: Evaluation note* Diagnosis Blood per rectum- Primary Hemorrhage of rectum and anus documented in this encounter [facility] Work Phone: Evaluation note* Diagnosis Onset Date Resolution Status Hyperthyroidism acute Paresthesia and pain of both upper extremities acute [facility] Work Phone: Evaluation note* Diagnosis Onset Date Resolution Status Paresthesia and pain of both upper extremities acute Hyperthyroidism chronic [facility] Work Phone: Evaluation note* Diagnosis Chest pain, unspecified type- Primary documented in this encounter [facility] Work Phone: Evaluation note* Diagnosis Anal fissure- Primary documented in this encounter [facility] Work Phone: Evaluation note* Diagnosis BRBPR (bright red blood per rectum)- Primary Hemorrhage of rectum and anus documented in this encounter [facility] Work Phone: Evaluation noteNo assessment information available [facility] Work Phone: Evaluation note* Diagnosis Onset Date Resolution Status Admit Date Autoimmune thyroiditis chronic Au stefanie 2024 3:29pm [facility] Work Phone: Evaluation note* Diagnosis Other nonspecific abnormal finding of lung field documented in this encounter [facility] Work Phone: Reason for referral (narrative)No reason for referral information availableWTriHealth Work Phone: Reason for visit Narrative* Imaging (Routine) - Authorized Specialty Diagnoses / Procedures Referred By Mary t Referred To Contact Radiology Diagnoses Other nonspecific abnormal finding of lung field Procedures XR chest 2 views Diamante Hawk PA [address] [facility] [address] [place] [address] Phone: tel: fax: Referral ID Status Reason Start Date Expiration Date Visits Requested Visits Authorized [id number] Authorized Perform Procedure 01/01/2025 02/01/2026 1 1 [facility] Work Phone: Summary Purpose Family History [...] No September 10, 2020 11:05am Power of Mold Yard Crane Operator No September 10 11:05am Advance Directive Response Recorded Date/ Time Living Will No September 10, 2020 10:05am Power of Mold Yard Crane Operator No September 10 10:05am Advance Directive Response Recorded Date/ Time Living Will No September 10, 2020 11:05am Do you have a Healthcare Power of Mold Yard Crane Operator? No September 10, 2020 11:05am 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 and Reason for Visit Chief [...] and pain of both upper extremities Hyperthyroidism 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 Admit Date 1 Y FU November 12, 2024 3: 29pm Reason for Visit Admit Date Autoimmune thyroiditis November 12, 2024 3:29pm 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 Admit Date 1 Y FU November 12, 2024 3: 29pm L breast pain *COPAY $30 January 22, 2 025 11:35am Reason for Visit Admit Date Autoimmune thyroiditis November 12, 2024 3:29pm Breast pain, left January 22, 2025 1 1:35am Reason for Referral Specialty Diagnoses / Procedures Referred By Mary arrington Referred To Contact Gastroenterology Diagnoses Blood per rectum Procedures Colonoscopy Diagnostic DE COLONOSCOPY FLX DX W/COLLJ SPEC WHEN PFRMD DE COLONOSCOPY W/BIOPSY SINGLE/MULTIPLE DE COLSC FLX W/RMVL OF TUMOR POLYP LESION SNARE TQ DE COLSC FLX W/REMOVAL LESION BY HOT BX FORCEPS Queta Mendoza MD [address] [facility], [place] [address] Referral ID Status Reason Start Date Expiration Date V isits Requested Visits Authorized [id number] Pending Review 02/03/2023 02/03/2024 1 1 Additional Source Comments INFORMATION SOURCE (unrecogn ized section and content) DATE CREATED AUTHOR 09/14/2017 [facility] DATE CREATED AUTHOR AUTHOR'S ORGANIZ ATION 09/20/2017 [facility] DATE CREATED AUTHOR AUTHOR'S ORGANIZ ATION 10/18/2017 [facility] DATE CREATED AUTHOR AUTHOR'S ORGANIZ ATION 01/12/2021 [facility] DATE CREATED AUTHOR AUTHOR'S ORGANIZ ATION 01/31/2024 [facility] DATE CREATED AUTHOR AUTHOR'S ORGANIZ ATION 12/08/2024 [facility] DATE CREATED AUTHOR AUTHOR'S ORGANIZ ATION 01/19/2025 [facility] DATE CREATED AUTHOR AUTHOR'S ORGANIZ ATION [facility] Goals (unrecognized section and content) Type Care Experience Labor Preference s-CB/BF classes: nolabor support person: Amena intervention preferences: open to AROM, hopes to avoid pitocin if able, open to PP pitocin, open to eye ointment and vitamin K but wants to delay hep Bpain management options preferred: epiduralcut cord/dad catch: nobreastfeeding: yesPP control planned: vasectomydiscussed possible routes of delivery and associated risks: discussed possible delivery modalities and possible indications for each including R/B/A of , VAVD, FAVD, and CS. questions answered.special requests: none Care Teams (unrecognized sec tion and content) Team Status: Active Member Role Status Dates No Primary Care Physician Family Provider Active No Primary Care Physician Primary Care Provider Active Team Status: Inactive Member Role Status Dates Lee Vanessa ANALYTICAL DATA SCIENTIST, ANALYTICAL DATA SCIENTIST-C Primary Care Provider, Referring P kiel Active Dr. Marco Antonio Bermudez MD Attending Provider Active Team Status: Inactive Member Role Status Dates No Primary Care Physician Primary Care Provider Active Dr. Marco Antonio Bermudez MD Attending Provider, Referring Provi gilberto Active Team Status: Inactive Member Role Status Dates Lee Vanessa ANALYTICAL DATA SCIENTIST, ANALYTICAL DATA SCIENTIST-C Referring Provider Active Dr. Marco Antonio Bermudez [...] Marco Antonio Bermudez MD Attending Provider Active Accounting Clerk Relationship Specialty Start Date End Date Generic Provider, [place] [address] PCP - General Education Research Analyst 01/30/24 Accounting Clerk Relationship Specialty Start Date End Date Generic Provider, No [place] [address] PCP - General Education Research Analyst 01/30/24 Accounting Clerk Relationship Specialty Start Date End Date Generic Provider, [place] [address] PCP - General Education Research Analyst 01/30/24 Team Status: Active Member Role/Relationship Status Dates Diamante COELHO PA Primary Care Provider Active Team Status: Inactive Member Role/Relationship Status Dates Diamante COELHO PA Primary Care Provider Active Start: November 03, 2024 End: November 03, 2024 YOLI Issa Attending Provider Active Start: November 03, 2024 End: November 03, 2024 YOLI Issa Referring Provider Active Start: November 03, 2024 End: November 03, 2024 Team Status: Inactive Member Role/Relationship Status Dates No Primary Care Physician Referring Provider Active Start: November 12, 2024 End: November 12, 2024 Dr. Marco Antonio Bermudez MD Attending Provider Active Sta rt: November 12, 2024 End: November 12, 2024 Diamante COELHO PA Primary Care Provider Active Start: November 12, 2024 End: November 12, 2024 Accounting Clerk Relationship Specialty Start Date End Date Generic Provider, No Assigned Pcp, [place] [address] PCP - General Education Research Analyst 01/30/24 Team Status: Active Member Role/Relationship Status Dates Diamante COELHO PA Primary care physician Active Team Status: Inactive Member Role/Relationship Status Dates Diamante COELHO PA Primary care physician Active Start: November 03, 2024 End: November 03, 2024 YOLI Issa Attending physician Active Start: November 03, 2024 End: November 03, 2024 YOLI Issa Referring Provider Active Start: November 03, 2024 End: November 03, 2024 Team Status: Inactive Member Role/Relationship Status Dates No Primary Care Physician Referring Provider Active Start: November 12, 2024 End: November 12, 2024 Dr. Marco Antonio Bermudez MD Attending physician Active St art: November 12, 2024 End: November 12, 2024 Diamante COELHO PA Primary care physician Active Start: November 12, 2024 End: November 12, 2024 Team Status: Inactive Member Role/Relationship Status Dates Diamante COELHO PA Primary care physician Active Start: December 31, 2024 End: December 31, 2024 Dr. Marco Antonio Bermudez MD Attending physician Active St art: December 31, 2024 End: December 31, 2024 Team Status: Inactive Member Role/Relationship Status Dates Diamante Wayt PA, PA Primary care physician Active Start: January 22, 2025 End: January 22, 2025 Diamante COELHO PA Referring Provider Active St art: January 22, 2025 End: January 22, 2025 Birdie Kirkland NP, ANALYTICAL DATA SCIENTIST-C Attending physician Active Start: January 22, 2025 End: January 22, 2025 Reason for Visit (unrecogniz ed section and content) Reason Comments Chest Pain Mid to left chest pa in x 2 weeks. Pain sharper today. Denies SOB PRN Active and Recently Administ ered Medications (unrecognized section and content) Medication Order 01/28/2024 01/29/2024 01/30/2024 sodium chloride (PF) 0.9% solution 3 mL 3 mL, intravenous, As needed, line care, Starting on 01/30/24 at 1225 FOR RECORDS PERTAINING TO PATIENTS [...] BE BASED ON THE PRIMARY CLINICAL RECORDS. [employer] provides no warranty or guarantee of the accuracy or completeness of information in this document.
== END | disposition home or self-care (01) ==
PROVIDERS: PCP Physician Assistant; Referring Provider Psychiatry & Neurology Neurology; Visit Provider Psychiatry & Neurology Neurology
DX: R00.2 Palpitations (principal)
CPT/HCPCS: 93005